=== PATIENT | male | born 1935 | race Caucasian/White ===

== ENCOUNTER → 2016-03-30 | Outpatient (CLI) | payer MEDICARE ==
[2016-03-30 14:21] LABS: Basophils % (A) 0 %; CH 31.2; CHCM 33.5; Eosinophils # (A) 0.1 k/uL (0-0.7); Eosinophils % (A) 1 %; HCT 39.7 % (39.0-53.0); HDW 2.48; HGB 13.4 gm/dL (13.0-17.5); Luc # (Auto) 0.16; Luc % (Auto) 3; Lymphocytes # (A) 2.2 k/uL (1.0-4.8); Lymphocytes % (A) 42 %; MCH 31.6 pg (25.0-35.0); MCHC 33.8 g/dL (31.0-37.0); MCV 93.4 fL (80.0-100.0); Mean Platelet Volume 6.7; Monocytes # (A) 0.4 k/uL (0-1.0); Monocytes % (A) 8 %; Neutrophils # (A) 2.4 k/uL (1.3-7.7); Neutrophils % (A) 46 %; RBC 4.24 m/uL (4.30-5.90); RDW 12.8 % (11.5-15.5); WBC 5.2 k/uL (3.8-10.6); WBC (Perox) 5.57
[2016-03-30 14:22] LABS: Appearance,Urine Clear (Clear); Bilirubin,Urine Negative (Negative); Glucose,Urine (UA) Negative (Negative); Ketones,Urine Negative (Negative); Leukocyte Esterase,Urine Negative (Negative); Nitrite,Urine Negative (Negative); Protein,Urine Negative (Negative); Specific Gravity,Urine 1.013 (1.001-1.035); UA Billing (MACRO vs. MICRO) CHEM; Urobilinogen,Urine <2.0 mg/dL (<2.0)
[2016-03-30 14:27] LABS: ALT 36 U/L (21-72); AST 27 U/L (17-59); Alkaline Phosphatase 67 U/L (38-126); Anion Gap 10 mmol/L; Blood Urea Nitrogen 17 mg/dL (9-20); Calcium 9.4 mg/dL (8.4-10.2); Carbon Dioxide 28 mmol/L (22-30); Chloride 103 mmol/L (98-107); Glucose 109 mg/dL (74-99); Non-African American GFR(MDRD) >60 (>60 ml/min/1.73 sqM); Potassium 4.3 mmol/L (3.5-5.1); Sodium 141 mmol/L (137-145); Total Bilirubin 0.6 mg/dL (0.2-1.3); Total Protein 6.5 g/dL (6.3-8.2)
[2016-03-30 14:34] LABS: INR 1.1 (<1.1); Prothrombin Time 10.8 sec (9.0-12.0)
[2016-03-30 14:40] LABS: Partial Thromboplastin Time 21.6 sec (22.0-30.0)
== END | disposition home or self-care (01) ==
LOC: LABWHC1 13:24
PROVIDERS: ATTEND Orthopaedic Surgery
DX: Z01.812 Encounter for preprocedural laboratory examination (principal); Z51.81 Encounter for therapeutic drug level monitoring; Z79.01 Long term (current) use of anticoagulants
CPT/HCPCS: 80053; 81003; 85025; 85610; 85730

== ENCOUNTER → 2016-04-26 | Outpatient (CLI) | payer MEDICARE ==
--- NOTE | 2016-04-26 12:09 | XR ---
EXAMINATION TYPE: XR chest 2V DATE OF EXAM: 04/26/2016 11:54 AM HISTORY: R05 Cough. REFERENCE: Previous study dated 09/01/2014. FINDINGS: The lungs are clear. Pleural spaces are clear. Heart size is normal. 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 IMPRESSION: NO ACUTE INTRATHORACIC ABNORMALITY.
== END | disposition home or self-care (01) ==
LOC: RADXRMAIN 11:36
PROVIDERS: ATTEND Internal Medicine
DX: R05 Cough (principal)
CPT/HCPCS: 71020

== ENCOUNTER → 2016-05-11 | Outpatient (CLI) | payer MEDICARE ==
[2016-05-11 15:46] LABS: Basophils % (A) 1 %; CH 31.6; CHCM 34.1; Eosinophils # (A) 0.1 k/uL (0-0.7); Eosinophils % (A) 1 %; HCT 40.3 % (39.0-53.0); HDW 2.56; HGB 13.6 gm/dL (13.0-17.5); Luc # (Auto) 0.19; Luc % (Auto) 4; Lymphocytes # (A) 2.4 k/uL (1.0-4.8); Lymphocytes % (A) 48 %; MCH 31.4 pg (25.0-35.0); MCHC 33.7 g/dL (31.0-37.0); MCV 93.3 fL (80.0-100.0); Mean Platelet Volume 7.5; Monocytes # (A) 0.4 k/uL (0-1.0); Monocytes % (A) 7 %; Neutrophils # (A) 1.9 k/uL (1.3-7.7); Neutrophils % (A) 39 %; RBC 4.32 m/uL (4.30-5.90); WBC 4.9 k/uL (3.8-10.6); WBC (Perox) 5.17
[2016-05-11 15:47] LABS: Appearance,Urine Clear (Clear); Bilirubin,Urine Negative (Negative); Glucose,Urine (UA) Negative (Negative); Ketones,Urine Negative (Negative); Leukocyte Esterase,Urine Negative (Negative); Nitrite,Urine Negative (Negative); PH, Urine 6.5 (5.0-8.0); Protein,Urine Negative (Negative); UA Billing (MACRO vs. MICRO) CHEM; Urobilinogen,Urine <2.0 mg/dL (<2.0)
[2016-05-11 15:58] LABS: INR 1.1 (<1.1); Prothrombin Time 11.2 sec (9.0-12.0)
[2016-05-11 16:03] LABS: ALT 39 U/L (21-72); AST 33 U/L (17-59); Alkaline Phosphatase 76 U/L (38-126); Anion Gap 8 mmol/L; Blood Urea Nitrogen 19 mg/dL (9-20); Calcium 9.4 mg/dL (8.4-10.2); Carbon Dioxide 30 mmol/L (22-30); Chloride 102 mmol/L (98-107); Glucose 84 mg/dL (74-99); Non-African American GFR(MDRD) >60 (>60 ml/min/1.73 sqM); Potassium 4.5 mmol/L (3.5-5.1); Sodium 140 mmol/L (137-145); Total Bilirubin 0.5 mg/dL (0.2-1.3); Total Protein 6.9 g/dL (6.3-8.2)
== END | disposition home or self-care (01) ==
LOC: LABPAT 15:00
PROVIDERS: ATTEND Orthopaedic Surgery
DX: Z01.818 Encounter for other preprocedural examination (principal)
CPT/HCPCS: 36415; 80053; 81003; 85025; 85610; 85730; 87070

== ENCOUNTER 2016-05-22 06:32 | Inpatient (IN) | payer MEDICARE ==
[2016-05-11 11:47] VITALS: BMI 26.4
--- NOTE | 2016-05-19 21:09 | CONS ---
Consultation regarding preop medical evaluation. HISTORY OF PRESENT ILLNESS: This gentleman, 80 years of age, is scheduled to undergo right total knee arthroplasty. He suffers from significant pain in the right knee joint and in view of this has been evaluated by Dr. Arevalo and scheduled for the surgery. He had been scheduled for the surgery about a month ago, but had been canceled due to a respiratory infection. The patient has no further symptoms of any infection. He has no open skin sores and has no history of any bleeding disorder. The patient does have a history of coronary artery disease with no symptoms. He does exercise fairly regularly. He does follow with a treasury agent. Past medical history is significant for coronary artery disease with a previous stent. No symptoms. History of carotid bruits with no symptoms. History of obstructive sleep apnea on CPAP. He also has had a previous history of carcinoma of the prostate with adequate control. History of allergic rhinitis and hyperlipidemia. Otherwise, no other major illnesses such as diabetes, liver disease, kidney disease, ulcers, TB, hepatitis. No history of any rheumatic fever, myocardial infarction or CVA. PAST SURGICAL HISTORY: Significant for tonsillectomy, bilateral inguinal herniorrhaphy, bilateral tympanic membrane repairs and cryoablation of the prostate. SOCIAL HISTORY: Patient is and lives with his spouse. He does exercise regularly. FAMILY MEDICAL HISTORY: Mother at the age of 88. She had a history of CVA. Father's history unknown. Brother at age 55 with carcinoma of the pancreas. A brother living, age 84, and coronary artery disease. A brother living, age 81, history of carotid stenosis. A sister living, age 88, in adequate health. A son living, age 53, good health. Son living, age 51, in good health. A daughter living, age 49, in good health. The patient's 81-year-old brother also has some dementia. Sister, 88-year-old, also has some dementia. REVIEW OF SYSTEMS: NEURO: Denies any headaches, dizziness. No double vision, blurred vision. No symptoms of TIA, syncope, seizures. PSYCH: No anxiety, depression. CARDIAC: Denies chest pain, angina, palpitations. RESPIRATORY: Denies shortness of breath. Has chronic cough with no hemoptysis. GI: No nausea, vomiting, abdominal pain, diarrhea. : No symptoms of dysuria, hematuria, urgency, frequency. EXTREMITIES: No pain or edema. CONSTITUTIONAL: No fever or chills. HEMATOLOGICAL: No anemia or bleeding disorder. ENDOCRINE: No history of diabetes mellitus. SKIN: No open sores. CONSTITUTIONAL: No fever, chills, weight gain or weight loss. ENT: Adequate hearing, smell, taste. EYES: Adequate vision. PHYSICAL EXAMINATION: An 80-year-old gentleman who appears younger than stated age. VITALS: Patient is 6 feet tall, weighs 203 pounds, BMI 27.1. Temperature 97.2, pulse 70, regular. HEENT: Normocephalic. NECK: Supple. No JVD. Pupils reactive. Nostrils clear. Oral cavity is moist. Dentition maintained. Ears reveal no drainage. Neck reveals no JVD or thyromegaly. The patient does have a left carotid bruit. Chest is clear to auscultation and percussion. CARDIAC: Normal S1, S2 with no gallops, murmurs, rubs. ABDOMEN: Soft, no palpable masses. Bowel sounds normal. No organomegaly. No abdominal bruits. Extremities reveal no edema. Good pulses, both upper and lower extremities. Neurologically, awake, alert, oriented with well-coordinated movements. LABORATORY ASSESSMENT: An EKG done in December was essentially unremarkable. The patient's echocardiogram done about a year or so ago had revealed adequate ejection fraction with normal left ventricular size and function. There was some calcification of the aortic valve. Carotid duplex studies done in June last year had revealed mild stenosis. Laboratory evaluation on 05/11/2016 had shown no MRSA. Chemistry was normal. INR was normal. CBC was normal. Urinalysis unremarkable. ASSESSMENT: 1. Coronary artery disease, stable. 2. Hypertension, controlled. 3. Degenerative arthritis. 4. History of obstructive sleep apnea. PLAN: The patient at present is stable to undergo the planned surgical procedure. Continue present medical regimen. Patient's medications at home include: 1. Aspirin 81 mg daily. 2. Pravastatin 40 mg daily. 3. Plavix 75 mg daily which has been on hold. 4. Losartan/hydrochlorothiazide 50/12.5, 1 daily. The patient no known drug allergies. Patient recommended not to take any medications the morning of surgery. Postoperatively, continue present medical regimen. The patient's Plavix has been on hold.
[~2016-05-22 06:32] MED LIST: ACETAMINOPHEN TAB 500 MG TAB PO ONE; HYDROmorphone 1 MG/ML 1 ML SYRINGE IVP PRN; LACTATED RINGERS 1,000 ML IV SCH; LIDOCAINE 1% 20 ML VIAL (10MG/ML) FOR IV START INTRADERMA PRN; MELOXICAM 7.5 MG TAB PO ONE; MIDAZOLAM 2 MG/2 ML VIAL IV PRN; ONDANSETRON 4 MG/2 ML VIAL IVP ONE; TRANEXAMIC ACID 1,000 MG in SODIUM CHLORIDE 0.9% 100 ML IVPB ONE; ceFAZolin 2 GM in SODIUM CHLORIDE 0.9% 100 ML IVPB ONE; fentaNYL (PF) 50 MCG/ML 20 ML VIAL IVP PRN
[2016-05-22] MEDS ORDERED: ROPIVACAINE 246.25 MG, EPINEPHrine 0.5 MG, KETOROLAC 30 MG, cloNIDine HCL/PF 80 MCG, WA... MISCELLANE ONE ×5 (07:04)
[2016-05-22] MEDS ORDERED: ceFAZolin 3,000 MG in SODIUM CHLORIDE 0.9% IRRIGATIO 3,000 ML IRRIGATION ONE (08:08)
[2016-05-22] MEDS ORDERED: fentaNYL (PF) 50 MCG/ML 2 ML AMP ONE (08:08)
[2016-05-22] MEDS ORDERED: MIDAZOLAM 2 MG/2 ML VIAL ONE (08:08)
[2016-05-22] MEDS ORDERED: LACTATED RINGERS 1,000 ML IV ONE (09:53)
[2016-05-22] MEDS ORDERED: MAGNESIUM HYDROXIDE 2,400 MG/10 ML CUP PO PRN (10:34)
[2016-05-22] MEDS ORDERED: ACETAMINOPHEN TAB 325 MG TAB PO PRN (10:34)
[2016-05-22] MEDS ORDERED: BISACODYL 10 MG SUPP RECTAL PRN (10:34)
[2016-05-22] MEDS ORDERED: ONDANSETRON 4 MG/2 ML VIAL IVP PRN (10:34)
[2016-05-22] MEDS ORDERED: HYDROmorphone 1 MG/ML 1 ML SYRINGE IVP PRN ×3 (10:34)
[2016-05-22] MEDS ORDERED: NALOXONE 0.4 MG/ML 1 ML VIAL IV PRN (10:34)
[2016-05-22] MEDS ORDERED: hydrOXYzine PAMOATE 25 MG CAP PO PRN (10:34)
[2016-05-22] MEDS ORDERED: HYDROcodone/APAP 5-325MG 1 EACH TAB PO PRN (10:34)
[2016-05-22] MEDS ORDERED: NA PHOS,M-B/NA PHOS,DI-BA 133 ML ENEMA RECTAL PRN (10:34)
[2016-05-22] MEDS ORDERED: TEMAZEPAM 15 MG CAP PO PRN (10:34)
--- NOTE | 2016-05-22 10:34 | P.OP ---
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 ANESTHESIA: Spinal ESTIMATED BLOOD LOSS: 100 ml. FORENSIC PSYCHOLOGIST: Fide Holder PA-C (assistance with: patient positioning, retraction, exposure, hemostasis, leg positioning, implantation, irrigation, closure, dressing) COMPLICATIONS: None apparent. COMPONENTS IMPLANTED: Persona system from [employer] INDICATIONS: Mr. De Leon is a 80 year old male with a history of right knee osteoarthritis and mild genu valgum. The operation of knee replacement has been discussed at length in the office, as well as potential risks and complications. These are inclusive of, but not limited to: bleeding, infection , scarring, discomfort, blood vessel and nerve damage, need for further surgery , failure to relieve symptoms, persistence, recurrence, or worsening of problems , loosening, dislocation, wear, blood clot, pulmonary embolism, , gait dysfunction, stiffness, and other risks as discussed in the office. The patient elects to proceed and the consent form has been signed. PROCEDURE: The patient was taken to the operating room and positioned on the operating room table in the supine position. Anesthesia was initiated. Care was taken to make sure that all pressure points were adequately padded. Range of motion was assessed passively to be -10 extension to 120 flexion. The operative lower extremity was prepped and draped in the usual aseptic fashion using ChloraPrep. Ioban drape was used for the case and the patient received intravenous antibiotics within one hour of the incision. A pneumotourniquet and leg blanchard were used for the case. The limb was exsanguinated with an Esmarch bandage and the tourniquet was inflated to 350 mmHg. Time-out was called confirming the patients identity, side, procedure and administration of tranexamic acid and antibiotics. The incision was then created midline directly over the knee, carried down through skin and into the subcutaneous tissues and down to fascia. Full thickness subcutaneous medial flap was developed. Medial parapatellar arthrotomy was performed and the interior of the knee was inspected. There was end-stage osteoarthritis of the knee with a mild genu valgum type deformity. The fat pad was excised and limited proximal medial release on the tibia was completed using meticulous dissection. The anterior cruciate ligament was taken down. The exposure was excellent. The knee was flexed 90 degrees and the patella was everted. A spot was chosen on the femur approximately 1 cm anterior to the posterior cruciate ligament insertion and an intramedullary hole was created within the femur. The intramedullary guide was then set to 5 degrees of valgus. The distal cutting block was attached and pinned into position. An appropriate amount of distal femoral resection was set. The oscillating saw was then used to make the distal femoral cut. This cut was confirmed to be flat with the flat end of an osteotome. The retractors were placed around the tibia and the tibial surface was addressed. The angle and depth of resection was adjusted using an extramedullary cutting guide. The guide had a built-in 3 degree posterior slope cut. Once the cutting guide was adjusted appropriately and in line with the axis of the tibia and confirmed to be in good position in relation to the second metatarsal and transmalleolar axis, the tibial cut was then created with protection of the posterior neurovascular structures and the collateral ligaments. The tibial cut surface was removed and sized. Femoral sizing was then accomplished using anterior referencing. Care was taken to analyze the posterior condyles for signs of deficiency or severe wear, and adjustments to the guide were made, as appropriate. Moderate to severe posterior spurring was noted, as well as a moderately to severely tight posterior cruciate ligament which therefore was released, see below. 3 degree external rotation pins were placed. The cutting jig for the femur was applied to these pins. The planned cuts were further analyzed prior to performing them with the oscillating saw. No femoral notching was produced. Bone fragments were removed and the cut surfaces were finished, as necessary, with a reciprocating saw. Spacer block technique was then used to confirm that the flexion and extension gaps were equal. Soft tissue releases and adjustment of the tibial and/or femoral cuts were made, as necessary, until the gaps were equal. This included release of the posterior cruciate ligament, which was tight in this patient and , if left unreleased, would have resulted in poor kinematics and possibly early loosening. The femur was then further finished for a posterior cruciate ligament substituting component. Patellar resurfacing was performed using a reamer. The size of the required patellar component was estimated and the patellar surface was then reamed down to a residual thickness which would recreate the algaaciq thickness with the component. The placement of the patellar component was influenced by the degree of patellar subluxation, if any, noted on the preoperative x-rays. Prior to placing trial components, anesthetic solution consisting of ropivicaine with epinephrine, ketorolac, and clonidine was injected carefully and methodically in a grid pattern using aspiration technique into the soft tissue around the knee circumferentially, starting with the deeper tissues first and progressing to fascia, and then finally the skin/subcutaneous tissue. Particular care was taken when injecting the posterior capsule. The trial components were inserted. The tibial tray was allowed to self center and the patella was noted to track very well. The position of the tibial component was marked and the tibia was then finished for a stemmed tibial component. Cement was mixed on the back table and applied to the final components. Trial components were removed and the cut surfaces of the bone were pulse lavaged thoroughly and dried. Cement was then applied to the tibial surface and pressurized into the surface using finger pressurization technique. The tibial component was then applied and excess cement was removed after it was impacted securely and noted to be flush with the cut surface. In similar fashion, the cement was applied to the cut femoral surface, pressurized in using finger pressurization and the component was impacted into place. Excess cement was removed. The polyethylene spacer was then implanted and locked into position. The patellar component was then applied in similar technique and a patellar clamp was used to hold the patella in place as the cement hardened. Once the cement had fully hardened, the knee was reinspected. Any other cement extrusion was removed and final kinematic testing showed range of motion from 0 to 130 degrees with excellent stability, both medially and laterally and appropriate alignment of the leg. Patellar tracking was excellent. The knee was then thoroughly pulse lavaged with normal saline. The tourniquet was deflated and hemostasis was obtained with electrocautery and IV tranexamic acid, 1 g given at the start of the operation and 1 g at the start of closure. Closure was with #2 Ethibond in the fascia and supplemented with #2 Quill, 2-0 Vicryl suture was used for the subcutaneous tissues and 3-0 Quill for the skin. Dermabond/Steri-Strips were then applied. A lightly compressive dressing was applied using Webril and an Rolan wrap. The patient was then transferred to stretcher and taken to the recovery room in stable condition. Sponge and needle counts were correct.
--- NOTE | 2016-05-22 11:19 | XR ---
EXAMINATION TYPE: XR knee limited RT DATE OF EXAM: 05/22/2016 11:06 AM COMPARISON: NONE TECHNIQUE: One view submitted HISTORY: Post op FINDINGS: There is a prosthetic knee in near anatomic alignment. There is soft tissue edema and emphysema. IMPRESSION: 1. Postoperative change. Appears in near-anatomic alignment
[2016-05-22] MEDS: LACTATED RINGERS 1,000 ML IV SCH ×2 (12:50→18:22)
[2016-05-22] MEDS: ceFAZolin 2 GM in SODIUM CHLORIDE 0.9% 100 ML IVPB SCH (18:21)
[2016-05-22] MEDS ORDERED: SENNOSIDES-DOCUSATE SODIUM 1 EACH TAB PO SCH (21:00)
[2016-05-22] MEDS ORDERED: ASPIRIN 325 MG TAB PO SCH (21:00)
[2016-05-22] MEDS ORDERED: PRAVASTATIN SODIUM 40 MG TAB PO SCH (21:00)
[2016-05-22] MEDS: HYDROcodone/APAP 5-325MG 1 EACH TAB PO PRN (21:45)
[2016-05-23] MEDS: ceFAZolin 2 GM in SODIUM CHLORIDE 0.9% 100 ML IVPB SCH (00:43)
[2016-05-23] MEDS: HYDROcodone/APAP 5-325MG 1 EACH TAB PO PRN ×2 (06:08→12:37)
[2016-05-23] MEDS: LACTATED RINGERS 1,000 ML IV SCH ×2 (06:12→15:05)
[2016-05-23 07:23] LABS: Basophils % (A) 0 %; CH 31.3; CHCM 34.2; Eosinophils # (A) 0.1 k/uL (0-0.7); Eosinophils % (A) 1 %; HCT 33.7 % (39.0-53.0); HDW 2.47; HGB 11.2 gm/dL (13.0-17.5); Luc # (Auto) 0.21; Luc % (Auto) 3; Lymphocytes # (A) 1.2 k/uL (1.0-4.8); Lymphocytes % (A) 17 %; MCH 30.6 pg (25.0-35.0); MCHC 33.3 g/dL (31.0-37.0); MCV 91.9 fL (80.0-100.0); Mean Platelet Volume 7.9; Monocytes # (A) 0.7 k/uL (0-1.0); Monocytes % (A) 10 %; Neutrophils # (A) 4.8 k/uL (1.3-7.7); Neutrophils % (A) 69 %; RBC 3.67 m/uL (4.30-5.90); RDW 12.8 % (11.5-15.5); WBC (Perox) 7.61
[2016-05-23 07:49] VITALS: RESP 16
[2016-05-23] MEDS ORDERED: ASPIRIN 81 MG CHEW PO SCH (09:00)
[2016-05-23] MEDS ORDERED: METOPROLOL TARTRATE 12.5 MG TAB PO SCH (09:00)
[2016-05-23] MEDS ORDERED: MELOXICAM 7.5 MG TAB PO SCH (09:00)
--- NOTE | 2016-05-23 09:27 | P.DS ---
Providers Date of admission: 05/22/16 06:32 Expected date of discharge: 05/23/16 Attending physician: Juan Arevalo Consults: 05/22/16 13:33 Consult Physician Routine Consulting Provider: Kenton Feliciano Reason/Comments: MEDICAL MANAGEMENT Do you want consulting provider notified?: Already Contacted Primary care physician: Kenton Feliciano [facility] Course: Patient was admitted the OR on 05/22/2016 to undergo right total knee arthroplasty per Dr. Arevalo. He did fail conservative measures as an outpatient and desired to proceed with surgical intervention after given informed consent. He underwent the above procedure which she tolerated well without competition. His postoperative hospital hospital course has remained without complication. On day of discharge he is being discharged to home. He is afebrile, vital signs are stable, wound is benign,, neurovascular status is intact, abdomen is soft and nontender, calf is soft and nontender. He is denying any new complaints. Pain is controlled with oral pain medication. He is tolerating by mouth meds and diet, voiding without difficulty, passing flatus and tolerating physical therapy. Review of systems is negative for fever , chills, chest pain, shortness of breath, nausea, vomiting, dizziness, headaches, slurred speech, calf pain, abdominal pain, cough or other. Procedures: Right total knee arthroplasty Patient Condition at Discharge: Good Plan - Discharge Summary New Discharge Prescriptions: Aspirin 325 mg PO BID #120 tab HYDROcodone/APAP 5-325MG [[place] 5] 1 - 2 each PO Q4-6H PRN #90 tab PRN Reason: Pain Sennosides-Docusate Sodium [Senokot-S] 1 tab PO BID #60 tablet Discharge Medication List Gluc/Yogi-MSM#1/C/Cameron/Steven/Bor [Glucosamine-Chondroitin Tablet] 1 tab PO BID [History] Multivitamins, Thera [Multivitamin (formulary)] 1 tab PO DAILY 08/31/14 [History ] Clopidogrel [Plavix] 75 mg PO DAILY 08/26/15 [History] Losartan/Hydrochlorothiazide [Losartan-Hctz 50-12.5 mg Tab] 1 tab PO QAM [History] Metoprolol Tartrate [Lopressor] 12.5 mg PO QAM 08/26/15 [History] Pravastatin Sodium [Pravastatin Sodium] 40 mg PO HS 08/26/15 [History] Ascorbic Acid [Vitamin C] 500 mg PO DAILY 03/29/16 [History] Cholecalciferol [Vitamin D3] 1,000 unit PO DAILY 03/29/16 [History] Fish Oil/Dha/Epa [Fish Oil 1,200 mg Fish Oil] 1 cap PO BID 03/29/16 [History] Green Tea Extract 1 tab PO DAILY 03/29/16 [History] Nitroglycerin Sl Tabs [Nitrostat] 0.4 mg SUBLINGUAL DIRECTED PRN 03/29/16 [ History] Aspirin 81 mg PO DAILY 05/22/16 [History] Aspirin 325 mg PO BID #120 tab 05/22/16 [Rx] HYDROcodone/APAP 5-325MG [[place] 5] 1 - 2 each PO Q4-6H PRN #90 tab 05/22/16 [Rx] Sennosides-Docusate Sodium [Senokot-S] 1 tab PO BID #60 tablet 05/22/16 [Rx] Follow up Appointment(s)/Referral(s): Juan Arevalo MD [STAFF PHYSICIAN] - 2 Weeks Ambulatory/Diagnostic Orders: Continuous Passive Motion (CPM) Machine [DME.AMB1] Time Frame: 3 Weeks, Facility : [facility], Location: Case Management Activity/Diet/Wound Care/Special Instructions: May shower if no drainage from incision. CPM 5-6h daily. May bear wt as tolerated. take meds as directed Weight bear as tolerated Discharge Disposition: HOME WITH HOME HEALTH SERVICES
[2016-05-23] MEDS ORDERED: MULTIVITAMINS, THERA 1 EACH TAB PO SCH (12:00)
[2016-05-23] MEDS ORDERED: CLOPIDOGREL 75 MG TAB PO SCH (12:30)
--- NOTE | 2016-05-23 13:13 | PN ---
CHIEF COMPLAINT: Re-evaluation. HISTORY OF PRESENT ILLNESS: An 80-year-old gentleman was admitted to the hospital and underwent right total knee arthroplasty. The patient is doing well. He has underlying history of hypertension and coronary artery disease. REVIEW OF SYSTEMS: NEURO: Denies any headaches, dizziness. PSYCH: No anxiety. CARDIAC: No chest pain, angina, palpitation. RESPIRATORY: No shortness of breath, cough. GI: No nausea, vomiting, abdominal pain. : No symptoms of dysuria, hematuria. Has IDC. EXTREMITIES: No pain. CONSTITUTIONAL: No fever or chills. PHYSICAL EXAMINATION: Pleasant gentleman in no distress. VITALS: Temperature 97.9, pulse 70, respirations 17, blood pressure 123/51, pulse ox 99% on 2 liters. HEENT: Normocephalic. NECK: No JVD. CHEST: Clear to auscultation. CARDIAC: Normal S1, S2 with no gallops, murmurs. ABDOMEN: Soft. Bowel sounds present. EXTREMITIES: No edema. NEUROLOGIC: Awake, alert, oriented with well-coordinated movements in both upper extremities LABORATORY ASSESSMENT: None. ASSESSMENT: 1. Coronary artery disease, stable. 2. Hypertension, controlled. 3. Status post right total knee arthroplasty. PLAN: The patient is stable. Continue present medical regimen. The patient's condition discussed with the patient. Prognosis guarded. Medications reconciled.
[2016-05-23 14:19] VITALS: BP 110/56; PULSE 79; TEMP 98.7
--- NOTE | 2016-05-24 08:36 | PN ---
CHIEF COMPLAINT: Re-evaluation. HISTORY OF PRESENT ILLNESS: This is an 80-year-old gentleman who is status post right total knee arthroplasty. He is doing fairly well. REVIEW OF SYSTEMS: NEURO: Denies any headaches, dizziness. PSYCH: No anxiety. CARDIAC: No chest pain, angina, palpitation. RESPIRATORY: No shortness of breath, cough. GI: No nausea, vomiting, abdominal pain, diarrhea. : No symptoms of dysuria or hematuria. EXTREMITIES: Some pain in the right knee. CONSTITUTIONAL: No fever or chills. PHYSICAL EXAMINATION: Pleasant gentleman in no distress. Vital signs recorded this morning was temperature 99, pulse 81, respirations 16, blood pressure 110/51, pulse ox 93% on room air. HEENT: Normocephalic. NECK: No JVD. Chest is clear to auscultation. CARDIAC: Normal S1, S2 with no gallops, murmurs. ABDOMEN: Soft. Bowel sounds present. EXTREMITIES: No edema. NEUROLOGIC: Awake, alert, oriented with well coordinated movements upper extremities. Laboratory assessment reveals a hemoglobin which was 11.2. ASSESSMENT: 1. Hypertension, controlled. 2. Coronary artery disease, stable. 3. Anemia secondary to acute blood loss. 4. Status post right knee arthroplasty. PLAN: The patient is stable. Continue present medical regimen. Patient's condition discussed with the patient. Prognosis guarded. I was called later that the patient was being discharged by Orthopedics. Recommended the patient continue aspirin and Plavix; aspirin 81 and Plavix 75 daily.
[2016-05-24] MEDS ORDERED: LOSARTAN-HCTZ 50-12.5 MG 1 EACH TAB PO SCH (09:00)
== END 2016-05-23 15:45 | disposition home health service (06) | DRG 470 ==
LOC: 2ORMAIN 06:32 → 3SUR 10:42
PROVIDERS: ADMIT Orthopaedic Surgery; ATTEND Orthopaedic Surgery
PROC: 0SRC0J9 Replacement of Right Knee Joint with Synthetic Substitute, Cemented, Open Approach (ICD-10-PCS; principal; 2016-05-22 08:00)
DX: M17.11 Unilateral primary osteoarthritis, right knee (principal); D62 Acute posthemorrhagic anemia; I10 Essential (primary) hypertension; M25.70 Osteophyte, unspecified joint; M21.069 Valgus deformity, not elsewhere classified, unspecified knee; E78.5 Hyperlipidemia, unspecified; G47.33 Obstructive sleep apnea (adult) (pediatric); I25.10 Atherosclerotic heart disease of native coronary artery without angina pectoris; Z82.49 Family history of ischemic heart disease and other diseases of the circulatory system; Z85.46 Personal history of malignant neoplasm of prostate; Z95.5 Presence of coronary angioplasty implant and graft; J30.9 Allergic rhinitis, unspecified; Z79.02 Long term (current) use of antithrombotics/antiplatelets; Z79.82 Long term (current) use of aspirin; Z79.899 Other long term (current) drug therapy
CPT/HCPCS: 85025; 88300

== ENCOUNTER 2017-01-08 10:27 | Observation (INO) | payer MEDICARE ==
[2017-01-08] MEDS ORDERED: NITROGLYCERIN OINT 1 INCH/GM PACKET TOPICAL STA (10:43)
[2017-01-08] MEDS ORDERED: ASPIRIN 81 MG PO STA (10:43)
--- NOTE | 2017-01-08 10:51 | ED ---
General Adult HPI - General Chief complaint: Chest Pain Stated complaint: chest pain Time Seen by Provider: 01/08/17 10:39 Source: patient, RN notes reviewed Mode of arrival: wheelchair Limitations: no limitations - History of Present Illness Initial comments: Patient is a pleasant 81-year-old male presenting to the emergency department complaining of chest discomfort. Onset of symptoms was 7 AM. Patient was moving the trash cans. Patient states he took 2 nitroglycerin and is now near symptom-free. Symptoms are similar to previous times when he needed heart stents. This was 2 years ago. Discomfort is near resolved at this time. Discomfort was more severe earlier. No associated nausea diaphoresis. No associated dyspnea. Discomfort felt like tightness. Discomfort was in the left chest. Patient has had some similar symptoms over the past several weeks. - Related Data Home Medications Medication Instructions Recorded Confirmed Glucosam/Yogi-Msm1/C/Cameron/Bosw 1 tab PO BID 08/31/14 01/08/17 [Glucosamine-Chondroitin Tablet] Multivitamins, Thera [Multivitamin 1 tab PO DAILY 08/31/14 01/08/17 (formulary)] Clopidogrel [Plavix] 75 mg PO DAILY 08/26/15 01/08/17 Losartan/Hydrochlorothiazide 1 tab PO QAM 08/26/15 01/08/17 [Losartan-Hctz 50-12.5 mg Tab] Metoprolol Tartrate [Lopressor] 12.5 mg PO QAM 08/26/15 01/08/17 Pravastatin Sodium [Pravastatin 40 mg PO HS 08/26/15 01/08/17 Sodium] Ascorbic Acid [Vitamin C] 500 mg PO DAILY 03/29/16 01/08/17 Cholecalciferol [Vitamin D3] 1,000 unit PO DAILY 03/29/16 01/08/17 Fish Oil/Dha/Epa [Fish Oil 1,200 1 cap PO BID 03/29/16 01/08/17 mg Fish Oil] Nitroglycerin Sl Tabs [Nitrostat] 0.4 mg SUBLINGUAL Q5M PRN 03/29/16 01/08/17 Aspirin 81 mg PO DAILY 05/22/16 01/08/17 Allergies Allergy/AdvReac Type Severity Reaction Status Date / Time levofloxacin [From Levaquin] Allergy Severe Swelling Verified 01/08/17 10:48 of face cat dander Allergy SINUS Verified 01/08/17 10:48 PROBLEMS dog dander Allergy SINUS Verified 01/08/17 10:48 PROBLEMS" hydrocodone Allergy Rash/Hives Verified 01/08/17 10:48 [place] TREES Allergy Rash/Hives Uncoded 01/08/17 10:33 Review of Systems ROS Statement: Those systems with pertinent positive or pertinent negative responses have been documented in the HPI. ROS Other: All systems not noted in ROS Statement are negative. Constitutional: Denies: fever Eyes: Denies: eye pain ENT: Denies: ear pain Respiratory: Denies: cough Cardiovascular: Reports: chest pain Endocrine: Denies: fatigue Gastrointestinal: Denies: abdominal pain Genitourinary: Denies: dysuria Musculoskeletal: Denies: back pain Skin: Denies: rash Neurological: Denies: weakness Past Medical History Past Medical History: Cancer, Chest Pain / Angina, Hyperlipidemia, Prostate Disorder, Sleep Apnea/CPAP/BIPAP Additional Past Medical History / Comment(s): hx prostate cancer, History of Any Multi-Drug Resistant Organisms: None Reported Past Surgical History: Heart Catheterization With Stent, Hernia Repair, Orthopedic Surgery, Prostate Surgery, Tonsillectomy Additional Past Surgical History / Comment(s): prostate cryotherapy, rt shoulder shoulder rotator cuff, cataracts, Past Anesthesia/Blood Transfusion Reactions: No Reported Reaction Date of Last Stent Placement:: 09/07/14 Past Psychological History: No Psychological Hx Reported Smoking Status: Former smoker Past Alcohol Use History: Daily Past Drug Use History: None Reported - Past Family History Mother Additional Family Medical History / Comment(s): passes away with collapsed carotid artery Father History Unknown: Yes Brother(s) Family Medical History: Cancer Additional Family Medical History / Comment(s): pancreatic General Exam Limitations: no limitations General appearance: alert, in no apparent distress Head exam: Present: atraumatic Eye exam: Present: normal appearance, PERRL ENT exam: Present: normal oropharynx Neck exam: Present: normal inspection Respiratory exam: Present: normal lung sounds bilaterally. Absent: chest wall tenderness Cardiovascular Exam: Present: regular rate, normal rhythm Expanded Peripheral pulses: 2+: Radial (R), Radial (L), Dorsalis Pedis (R), Dorsalis Pedis (L) GI/Abdominal exam: Present: soft. Absent: tenderness Extremities exam: Present: normal inspection. Absent: pedal edema, calf tenderness Neurological exam: Present: alert Psychiatric exam: Present: normal affect, normal mood Skin exam: Present: normal color Course Vital Signs 01/08/17 01/08/17 10:31 11:20 Temperature 97.6 F Pulse Rate 74 64 Respiratory 16 16 Rate Blood Pressure 162/67 157/70 O2 Sat by Pulse 98 100 Oximetry EKG Findings - EKG Comments: EKG Findings:: Normal sinus rhythm 73. NH 170. QRS 88. QT 374. QTC 412. Normal axis. Normal QRS. No acute ST change. Medical Decision Making - Medical Decision Making Patient reexamined and resting comfortably in bed. Patient updated on results and plan. Case was discussed in detail with Dr. Feliciano who is familiar with this patient and will admit. Cardiology consult - Lab Data Result diagrams: 01/08/17 10:45 01/08/17 10:45 Lab Results 01/08/17 01/08/17 01/08/17 Range/Units 10:45 10:45 10:45 WBC 6.6 (3.8-10.6) k/uL RBC 4.51 (4.30-5.90) m/uL Hgb 13.7 (13.0-17.5) gm/dL Hct 41.2 (39.0-53.0) % MCV 91.4 (80.0-100.0) fL MCH 30.3 (25.0-35.0) pg MCHC 33.2 (31.0-37.0) g/dL RDW 13.8 (11.5-15.5) % Plt Count 229 (150-450) k/uL Neutrophils % 48 % Lymphocytes % 39 % Monocytes % 8 % Eosinophils % 2 % Basophils % 0 % Neutrophils # 3.2 (1.3-7.7) k/uL Lymphocytes # 2.6 (1.0-4.8) k/uL Monocytes # 0.5 (0-1.0) k/uL Eosinophils # 0.1 (0-0.7) k/uL Basophils # 0.0 (0-0.2) k/uL PT (9.0-12.0) sec INR (<1.2) APTT (22.0-30.0) sec Sodium 138 (137-145) mmol/L Potassium 4.5 (3.5-5.1) mmol/L Chloride 105 (98-107) mmol/L Carbon Dioxide 26 (22-30) mmol/L Anion Gap 7 mmol/L BUN 22 H (9-20) mg/dL Creatinine 0.92 (0.66-1.25) mg/dL Est GFR (MDRD) Af Amer >60 (>60 ml/min/1.73 sqM) Est GFR (MDRD) Non-Af >60 (>60 ml/min/1.73 sqM) Glucose 83 (74-99) mg/dL Calcium 9.4 (8.4-10.2) mg/dL Magnesium 2.0 (1.6-2.3) mg/dL Total Bilirubin 0.4 (0.2-1.3) mg/dL AST 26 (17-59) U/L ALT 31 (21-72) U/L Alkaline Phosphatase 79 (38-126) U/L Total Creatine Kinase 81 (55-170) U/L CK-MB (CK-2) 1.3 (0.0-2.4) ng/mL CK-MB (CK-2) Rel Index 1.6 Troponin I <0.012 (0.000-0.034) ng/mL Total Protein 7.0 (6.3-8.2) g/dL Albumin 4.2 (3.5-5.0) g/dL 01/08/17 Range/Units 10:45 WBC (3.8-10.6) k/uL RBC (4.30-5.90) m/uL Hgb (13.0-17.5) gm/dL Hct (39.0-53.0) % MCV (80.0-100.0) fL MCH (25.0-35.0) pg MCHC (31.0-37.0) g/dL RDW (11.5-15.5) % Plt Count (150-450) k/uL Neutrophils % % Lymphocytes % % Monocytes % % Eosinophils % % Basophils % % Neutrophils # (1.3-7.7) k/uL Lymphocytes # (1.0-4.8) k/uL Monocytes # (0-1.0) k/uL Eosinophils # (0-0.7) k/uL Basophils # (0-0.2) k/uL PT 10.5 (9.0-12.0) sec INR 1.0 (<1.2) APTT 21.6 L (22.0-30.0) sec Sodium (137-145) mmol/L Potassium (3.5-5.1) mmol/L Chloride (98-107) mmol/L Carbon Dioxide (22-30) mmol/L Anion Gap mmol/L BUN (9-20) mg/dL Creatinine (0.66-1.25) mg/dL Est GFR (MDRD) Af Amer (>60 ml/min/1.73 sqM) Est GFR (MDRD) Non-Af (>60 ml/min/1.73 sqM) Glucose (74-99) mg/dL Calcium (8.4-10.2) mg/dL Magnesium (1.6-2.3) mg/dL Total Bilirubin (0.2-1.3) mg/dL AST (17-59) U/L ALT (21-72) U/L Alkaline Phosphatase (38-126) U/L Total Creatine Kinase (55-170) U/L CK-MB (CK-2) (0.0-2.4) ng/mL CK-MB (CK-2) Rel Index Troponin I (0.000-0.034) ng/mL Total Protein (6.3-8.2) g/dL Albumin (3.5-5.0) g/dL - Radiology Data Radiology results: image reviewed (Chest x-ray shows no acute process) Critical Care Time Critical Care Time: Yes Total Critical Care Time: 31 Disposition Clinical Impression: Unstable angina pectoris Disposition: ADMITTED IP TO THIS [facility] Referrals: Kenton Feliciano MD [Primary Care Provider] - 1-2 days Decision Time: 12:13
[2017-01-08 11:05] LABS: Basophils % (A) 0 %; CH 30.3; CHCM 33.3; Eosinophils # (A) 0.1 k/uL (0-0.7); Eosinophils % (A) 2 %; HCT 41.2 % (39.0-53.0); HDW 2.36; HGB 13.7 gm/dL (13.0-17.5); Luc # (Auto) 0.21; Luc % (Auto) 3; Lymphocytes # (A) 2.6 k/uL (1.0-4.8); Lymphocytes % (A) 39 %; MCH 30.3 pg (25.0-35.0); MCHC 33.2 g/dL (31.0-37.0); MCV 91.4 fL (80.0-100.0); Mean Platelet Volume 7.4; Monocytes # (A) 0.5 k/uL (0-1.0); Monocytes % (A) 8 %; Neutrophils # (A) 3.2 k/uL (1.3-7.7); Neutrophils % (A) 48 %; RBC 4.51 m/uL (4.30-5.90); RDW 13.8 % (11.5-15.5); WBC 6.6 k/uL (3.8-10.6); WBC (Perox) 6.97
[2017-01-08 11:14] LABS: Prothrombin Time 10.5 sec (9.0-12.0)
[2017-01-08 11:19] LABS: ALT 31 U/L (21-72); AST 26 U/L (17-59); Alkaline Phosphatase 79 U/L (38-126); Anion Gap 7 mmol/L; Blood Urea Nitrogen 22 mg/dL (9-20); Calcium 9.4 mg/dL (8.4-10.2); Carbon Dioxide 26 mmol/L (22-30); Chloride 105 mmol/L (98-107); Glucose 83 mg/dL (74-99); Non-African American GFR(MDRD) >60 (>60 ml/min/1.73 sqM); Potassium 4.5 mmol/L (3.5-5.1); Sodium 138 mmol/L (137-145); Total Bilirubin 0.4 mg/dL (0.2-1.3)
--- NOTE | 2017-01-08 11:24 | XR ---
EXAMINATION TYPE: XR chest 2V DATE OF EXAM: 01/08/2017 COMPARISON: 04/26/2016 HISTORY: Chest pain TECHNIQUE: Frontal and lateral views of the chest are obtained. FINDINGS: There is no focal air space opacity, pleural effusion, or pneumothorax seen. The cardiac silhouette size is within normal limits. The osseous structures are intact. Multilevel degenerative disc disease is seen of the thoracic spine, moderate in degree. IMPRESSION: No acute cardiopulmonary process.
[2017-01-08 11:30] LABS: Creatine Kinase 81 U/L (55-170)
[2017-01-08 11:32] LABS: Partial Thromboplastin Time 21.6 sec (22.0-30.0)
[2017-01-08 11:43] LABS: Creatine Kinase MB 1.3 ng/mL (0.0-2.4); Troponin I <0.012 ng/mL (0.000-0.034)
[2017-01-08] MEDS ORDERED: HEPARIN SODIUM,PORCINE 5,000 UNIT/ML 1 ML VIAL IV ONE (12:13)
[2017-01-08] MEDS ORDERED: NITROGLYCERIN SL TABS 0.4 MG TAB SUBLINGUAL PRN ×2 (12:13→16:04)
[2017-01-08] MEDS ORDERED: HEPARIN SODIUM,PORCINE/D5W PMX 25,000 UNIT in DEXTROSE/WATER 1 500ML.BAG IV SCH (12:15)
--- NOTE | 2017-01-08 15:59 | P.CRDCN ---
History of Present Illness Consult date: 01/08/17 Requesting physician: Kenton Feliciano Consult reason: chest pain Chief complaint: Chest pain History of present illness: This is an 81-year-old gentleman with history of hyperlipidemia, who underwent a cardiac catheterization in September 2014 which revealed a right dominant system with Ostial RCA stenosis of 80% and proximal stenosis of another 70-80% with heavily calcified ostium in the proximal one third of the RCA. Left system had noncritical disease in the filling pressures at that time are normal, patient underwent PTCA and stenting of a heavily calcified ostial RCA at that time. According to the patient, he's been doing fairly well overall , he states that he exercises 3 times a week and knows his limitations. Once he starts to feel mildly short of breath he stops what he is doing. He states that just walking up his driveway at times he's been notably short of breath. He presents to the hospital on this occasion with symptoms of midsternal chest pressure and fullness. He states that he was walking his trash out to the curb when the symptoms started. Patient also states that he had an uncomfortable feeling in his throat and an unusual taste in his mouth. He denies any overt shortness of breath, no sweating or nausea. According to the patient, he took 2 sublingual nitroglycerin with relief of symptoms. Patient does state that he has had similar discomfort earlier in the week. Blood pressure on arrival here 167/67, heart rate in the 70s, 92% on room air. CBC is normal, potassium 4.5, BUN 22, creatinine 0.9. Troponin 0.012. EKG on presentation here showed a normal sinus rhythm with no acute changes. Repeat EKG showed a normal sinus rhythm with a left bundle-branch block pattern with T-wave inversion in the lateral leads, anterior T-wave changes. Patient since he's been here at the hospital has been pain-free. Past Medical History Past Medical History: Cancer, Chest Pain / Angina, Hyperlipidemia, Prostate Disorder, Sleep Apnea/CPAP/BIPAP Additional Past Medical History / Comment(s): hx prostate cancer, History of Any Multi-Drug Resistant Organisms: None Reported Past Surgical History: Heart Catheterization With Stent, Hernia Repair, Orthopedic Surgery, Prostate Surgery, Tonsillectomy Additional Past Surgical History / Comment(s): prostate cryotherapy, rt shoulder shoulder rotator cuff, cataracts, Past Anesthesia/Blood Transfusion Reactions: No Reported Reaction Date of Last Stent Placement:: 09/07/14 Past Psychological History: No Psychological Hx Reported Smoking Status: Former smoker Past Alcohol Use History: Daily Past Drug Use History: None Reported - Past Family History Mother Additional Family Medical History / Comment(s): passes away with collapsed carotid artery Father History Unknown: Yes Brother(s) Family Medical History: Cancer Additional Family Medical History / Comment(s): pancreatic Medications and Allergies Home Medications Medication Instructions Recorded Confirmed Type Glucosam/Yogi-Msm1/C/Cameron/Bosw 1 tab PO BID 08/31/14 01/08/17 History [Glucosamine-Chondroitin Tablet] Multivitamins, Thera [Multivitamin 1 tab PO DAILY 08/31/14 01/08/17 History (formulary)] Clopidogrel [Plavix] 75 mg PO DAILY 08/26/15 01/08/17 History Losartan/Hydrochlorothiazide 1 tab PO QAM 08/26/15 01/08/17 History [Losartan-Hctz 50-12.5 mg Tab] Metoprolol Tartrate [Lopressor] 12.5 mg PO QAM 08/26/15 01/08/17 History Pravastatin Sodium [Pravastatin 40 mg PO HS 08/26/15 01/08/17 History Sodium] Ascorbic Acid [Vitamin C] 500 mg PO DAILY 03/29/16 01/08/17 History Cholecalciferol [Vitamin D3] 1,000 unit PO DAILY 03/29/16 01/08/17 History Fish Oil/Dha/Epa [Fish Oil 1,200 1 cap PO BID 03/29/16 01/08/17 History mg Fish Oil] Nitroglycerin Sl Tabs [Nitrostat] 0.4 mg SUBLINGUAL Q5M PRN 03/29/16 01/08/17 History Aspirin 81 mg PO DAILY 05/22/16 01/08/17 History Allergies Allergy/AdvReac Type Severity Reaction Status Date / Time levofloxacin [From Levaquin] Allergy Severe Swelling Verified 01/08/17 10:48 of face cat dander Allergy SINUS Verified 01/08/17 10:48 PROBLEMS dog dander Allergy SINUS Verified 01/08/17 10:48 PROBLEMS" hydrocodone Allergy Rash/Hives Verified 01/08/17 10:48 [place] Allergy Rash/Hives Uncoded 01/08/17 10:33 Physical Exam Vitals: Vital Signs Temp Pulse Resp BP Pulse Ox 01/08/17 13:51 96.7 F L 72 18 167/67 97 01/08/17 12:39 70 16 178/79 97 01/08/17 11:20 64 16 157/70 100 01/08/17 10:31 97.6 F 74 16 162/67 98 Intake and Output 01/08/17 01/08/17 01/08/17 06:59 14:59 22:59 Other: Weight 89.811 kg Patient Weight 01/09/17 06:59 Weight 89.811 kg PHYSICAL EXAMINATION: HEENT: Head is atraumatic, normocephalic. Pupils equal, round. Neck is supple. There is no elevated jugular venous pressure. HEART EXAMINATION: Heart S1, S2 normal. No murmur or gallop heard. CHEST EXAMINATION: Lungs are clear to auscultation and precussion. No chest wall tenderness is noted on palpation or with deep breathing. ABDOMEN: Soft, nontender. Bowel sounds are heard. No organomegaly noted. EXTREMITIES: 2+ peripheral pulses with no evidence of peripheral edema and no calf tenderness noted. NEUROLOGIC patient is awake, alert and oriented -3. . Results 01/08/17 10:45 01/08/17 10:45 Cardiac Enzymes 01/08/17 01/08/17 Range/Units 10:45 10:45 AST 26 (17-59) U/L CK-MB (CK-2) 1.3 (0.0-2.4) ng/mL Troponin I <0.012 (0.000-0.034) ng/mL Coagulation 01/08/17 Range/Units 10:45 PT 10.5 (9.0-12.0) sec APTT 21.6 L (22.0-30.0) sec CBC 01/08/17 Range/Units 10:45 WBC 6.6 (3.8-10.6) k/uL RBC 4.51 (4.30-5.90) m/uL Hgb 13.7 (13.0-17.5) gm/dL Hct 41.2 (39.0-53.0) % Plt Count 229 (150-450) k/uL Comprehensive Metabolic Panel 01/08/17 Range/Units 10:45 Sodium 138 (137-145) mmol/L Potassium 4.5 (3.5-5.1) mmol/L Chloride 105 (98-107) mmol/L Carbon Dioxide 26 (22-30) mmol/L BUN 22 H (9-20) mg/dL Creatinine 0.92 (0.66-1.25) mg/dL Glucose 83 (74-99) mg/dL Calcium 9.4 (8.4-10.2) mg/dL AST 26 (17-59) U/L ALT 31 (21-72) U/L Alkaline Phosphatase 79 (38-126) U/L Total Protein 7.0 (6.3-8.2) g/dL Albumin 4.2 (3.5-5.0) g/dL Current Medications Generic Name Dose Route Start Last Admin Trade Name Freq PRN Reason Stop Dose Admin Aspirin 325 mg 01/09/17 09:00 Aspirin PO DAILY [facility] Heparin Sodium (Porcine) 0 unit 01/08/17 12:13 Heparin IV Q6HR PRN Low PTT Protocol Heparin Sodium/Dextrose 25,000 500 mls @ 19.99 mls/hr 01/08/17 12:15 12:31 unit/ IV Solution IV 11.13 units/kg/hr .Q24H LETI 19.99 mls/hr Protocol Administration 11.13 UNITS/KG/HR Nitroglycerin 1 inch 01/08/17 18:00 Nitro-Bid Oint TOPICAL Q6HR [facility] Nitroglycerin 0.4 mg 01/08/17 12:13 Nitrostat SUBLINGUAL Q5M PRN Chest Pain Intake and Output 01/08/17 01/08/17 01/08/17 06:59 14:59 22:59 Other: Weight 89.811 kg Patient Weight 01/09/17 06:59 Weight 89.811 kg 01/08/17 10:45 01/08/17 10:45 EKG Interpretations (text) Initial EKG shows a normal sinus rhythm with no acute changes. Subsequent EKG shows normal sinus rhythm with left bundle branch block pattern, lateral T-wave inversion and anterior ST-T wave changes. Assessment and Plan Plan: Assessment and plan #1 chest pressure and tightness, suggestive of possible acute coronary syndrome. Initial troponin 0.012. EKG shows normal sinus rhythm with no acute changes. Subsequent EKG shows a normal sinus rhythm with left bundle branch block pattern, lateral T-wave inversion and anterior ST-T wave changes #2 known history of coronary artery disease with prior RCA stenting in 2014 #3 hyperlipidemia #4 hypertension Plan We will obtain a stat echocardiogram with Doppler study. Patient has been initiated on IV heparin along with aspirin and Nitropaste, we will continue these. We will also start the patient on his statin, metoprolol tartrate, losartan. Patient has been advised to undergo cardiac catheterization tomorrow by Dr. Jerson Hendricks. The risks and the benefits were explained to the patient in detail and he is willing to proceed. DNP note has been reviewed, I agree with a documented findings and plan of care. Patient was seen and examined.
[2017-01-08] MEDS ORDERED: ATORVASTATIN 80 MG TAB PO STA (16:04)
[2017-01-08] MEDS ORDERED: ALPRAZolam 0.5 MG TAB PO PRN (16:04)
[2017-01-08] MEDS ORDERED: ALPRAZolam 0.25 MG TAB PO PRN (16:04)
[2017-01-08] MEDS ORDERED: ASPIRIN 325 MG TAB PO STA (16:04)
[2017-01-08] MEDS ORDERED: SODIUM CHLORIDE 0.9% 1,000 ML in EMPTY BAG 1 BAG IV ONE (16:04)
[2017-01-08 17:16] LABS: Creatine Kinase 69 U/L (55-170)
[2017-01-08 17:29] LABS: Creatine Kinase MB 1.1 ng/mL (0.0-2.4); Troponin I <0.012 ng/mL (0.000-0.034)
[2017-01-08] MEDS: HEPARIN SODIUM,PORCINE 5,000 UNIT/ML 1 ML VIAL IV PRN (17:48)
[2017-01-08] MEDS: NITROGLYCERIN OINT 1 INCH/GM PACKET TOPICAL SCH ×2 (17:48→22:44)
[2017-01-08] MEDS ORDERED: PRAVASTATIN SODIUM 40 MG TAB PO SCH (21:00)
--- NOTE | 2017-01-08 22:48 | HP ---
HISTORY AND PHYSICAL CHIEF COMPLAINT: Re-evaluation. HISTORY OF PRESENT ILLNESS: This is an 81-year-old gentleman was admitted to the hospital with complaints of chest pain. The pain was described as a heaviness, tightness sensation across the chest, not radiating to the back. No radiating to the jaw. No radiating to the arms. It was associated with some dizziness but no shortness of breath or diaphoresis. There was no associated nausea, vomiting. The symptoms occurred when the patient carried some garbage out to the car site. The patient has not had similar symptoms for a long time. Two years ago, the patient had some symptoms of angina and at that time further evaluation led to stenting the right RCA. He had the right ostial and right mid RCA stenting. The patient has followed with Cardiology subsequently. He has had no symptoms of angina until today. The patient denies any other associated symptoms. He has been maintaining his weight, exercising, and has been taking his medications religiously. PAST MEDICAL HISTORY: Significant for coronary artery disease as mentioned above. 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 History of BPH, hyperlipidemia, right carotid bruit, obstructive sleep apnea on CPAP. History of carcinoma of the prostate. PAST SURGICAL HISTORY: Tonsillectomy, bilateral inguinal herniorrhaphy, bilateral tympanic membrane repair with cryoablation of the prostate. Recent knee arthroplasty. FAMILY MEDICAL HISTORY: Mother at age of 88, CVA, carotid stenosis. Father is unknown history. History of brother age 55 carcinoma of the pancreas. Brother living, age 84, coronary artery disease. A brother living age 83 history of diabetes mellitus, dementia, coronary stenosis, carotid stenosis. Sister 90 with history of dementia. Son age 53 in adequate health. A son 51 adequate health, daughter 49 in adequate health. is SOCIAL HISTORY: Patient , lives with spouse. He does exercise regularly. He is a retired draftsman. The patient is an ex-smoker, quit smoking many years ago. Used to smoke a pack and half a day. Alcohol: One glass of wine every other day. REVIEW OF SYSTEMS: Neuro denies any headaches, hypothyroid, dizziness, chest pain noted. No syncope. Psych: No anxiety or depression. Cardiac present symptoms of chest pain. No shortness of breath. GI no nausea, vomiting, abdominal pain, diarrhea. no symptoms hematuria urgency frequency. Extremities denies pain, edema. Constitutional no fever, chills. PHYSICAL EXAMINATION: Pleasant gentleman in no distress. Vital signs reveals the patient is afebrile. Respiratory rate 18, pulse 76 per minute, regular. Blood pressure was 178/79, pulse of 97% on 2 L. HEENT: Normocephalic. NECK: Supple. No JVD. Pupils are reactive. Oral cavity moist. Neck reveals no JVD. Right carotid faint bruit. No thyromegaly. No supraclavicular lymphadenopathy. CHEST: Clear to auscultation and percussion. Cardiac: Normal S1, S2 with no gallops, murmurs, or rubs. ABDOMEN: Soft. No palpable masses. Bowel sounds normal. No organomegaly. No abdominal bruits. EXTREMITIES: No edema. Good pulses upper extremities. Mild decreased pedal pulses. Neurological awake, alert, oriented x3 with well-coordinated movements. LABORATORY DATA: An EKG, which reveals no acute changes. CBC is normal. The PT PTT is normal. BUN 22, otherwise electrolytes are normal. Creatinine is normal. Cardiac enzymes normal. The hepatic enzymes normal. ASSESSMENT: 1. Angina pectoris. New onset since stent placements 2 years ago. 2. Known coronary arthrosclerosis. 3. Hyperlipidemia on treatment. 4. Hypertension controlled. 5. History of degenerative joint disease. 6. History of carcinoma of the prostate, controlled. PLAN: Continue present medical regimen. Patient's condition discussed with the patient. Prognosis is guarded. The patient's condition discussed with the caddie. They are planning a cardiac cath tomorrow in view of his previous known atherosclerotic disease of the RCA as well as the left anterior descending. The patient condition discussed with the patient. Prognosis guarded. MMODL / IJN: [id number] /
[2017-01-09 00:39] LABS: Creatine Kinase MB 1.3 ng/mL (0.0-2.4); Troponin I 0.013 ng/mL (0.000-0.034)
[2017-01-09] MEDS: HEPARIN SODIUM,PORCINE 5,000 UNIT/ML 1 ML VIAL IV PRN (00:39)
[2017-01-09 04:34] VITALS: RESP 16
[2017-01-09] MEDS: LOSARTAN-HCTZ 50-12.5 MG 1 EACH TAB PO SCH (05:48)
[2017-01-09] MEDS: NITROGLYCERIN OINT 1 INCH/GM PACKET TOPICAL SCH (05:48)
[2017-01-09] MEDS ORDERED: ASPIRIN 325 MG TAB PO ONE (06:00)
[2017-01-09] MEDS ORDERED: ATORVASTATIN 80 MG TAB PO ONE (06:00)
[2017-01-09 06:52] LABS: Basophils % (A) 1 %; CH 30.3; Eosinophils # (A) 0.1 k/uL (0-0.7); Eosinophils % (A) 2 %; HCT 38.3 % (39.0-53.0); HDW 2.31; HGB 12.5 gm/dL (13.0-17.5); Luc # (Auto) 0.15; Luc % (Auto) 3; Lymphocytes # (A) 2.7 k/uL (1.0-4.8); Lymphocytes % (A) 47 %; MCH 30.2 pg (25.0-35.0); MCHC 32.8 g/dL (31.0-37.0); MCV 92.2 fL (80.0-100.0); Mean Platelet Volume 7.6; Monocytes # (A) 0.4 k/uL (0-1.0); Monocytes % (A) 7 %; Neutrophils # (A) 2.3 k/uL (1.3-7.7); Neutrophils % (A) 41 %; RBC 4.16 m/uL (4.30-5.90); RDW 14.1 % (11.5-15.5); WBC 5.7 k/uL (3.8-10.6); WBC (Perox) 5.42
[2017-01-09 07:06] LABS: Anion Gap 8 mmol/L; Blood Urea Nitrogen 19 mg/dL (9-20); Calcium 8.7 mg/dL (8.4-10.2); Carbon Dioxide 26 mmol/L (22-30); Chloride 108 mmol/L (98-107); Cholesterol 142 mg/dL (<200); Glucose 98 mg/dL (74-99); HDL Cholesterol 40 mg/dL (40-60); Non-African American GFR(MDRD) >60 (>60 ml/min/1.73 sqM); Sodium 142 mmol/L (137-145)
[2017-01-09] MEDS: METOPROLOL TARTRATE 25 MG TAB PO SCH (08:01)
[2017-01-09] MEDS ORDERED: METOPROLOL TARTRATE 12.5 MG TAB PO SCH (09:00)
[2017-01-09] MEDS ORDERED: IV FLUID CONTINUATION 1,000 ML IV ONE (10:44)
[2017-01-09] MEDS ORDERED: diphenhydrAMINE 50 MG/ML 1 ML VIAL IVP ONE (10:58)
[2017-01-09] MEDS: MIDAZOLAM 2 MG/2 ML VIAL IV ONE ×2 (10:58→11:47)
[2017-01-09] MEDS ORDERED: LIDOCAINE 2% INJ 20 MG/ML SQ ONE (12:11)
[2017-01-09] MEDS ORDERED: NITROGLYCERIN SL TABS 0.4 MG TAB SUBLINGUAL ONE (12:19)
[2017-01-09] MEDS: NITROGLYCERIN 1000MCG/10ML SYRINGE INTRAARTER ONE ×3 (12:31→13:14)
[2017-01-09] MEDS ORDERED: BIVALIRUDIN BOLUS 250 MG/50 ML IV ONE (12:32)
[2017-01-09] MEDS ORDERED: BIVALIRUDIN 250 MG in SODIUM CHLORIDE 0.9% 50 ML IV ONE (12:32)
--- NOTE | 2017-01-09 12:33 | ECHOF ---
Referral Reason: MEASUREMENTS -------- HEIGHT: 180.3 cm WEIGHT: 90.7 kg BP: IVSd: 1.5 cm (0.6 - 1.1) LVIDd: 3.0 cm (3.9 - 5.3) LVPWd: 1.5 cm (0.6 - 1.1) IVSs: 1.6 cm LVIDs: 1.4 cm LVPWs: 1.9 cm Ao Diam: 3.3 cm (2.0 - 3.7) AV Cusp: 1.2 cm (1.5 - 2.6) LA Diam: 3.5 cm (2.7 - 3.8) EPSS: 0.9 cm MV E Bebeto: 0.94 m/s MV DecT: 128 ms MV A Bebeto: 1.26 m/s MV E/A Ratio: 0.75 AV maxP.56 mmHg AV meanP.36 mmHg RAP: 5.00 mmHg RVSP: 40.65 mmHg MV EF SLOPE: 113.62 mm/s (70 - 150) MV EXCURSION: 1.12 cm (> 18.000) FINDINGS -------- Sinus rhythm. This was a technically difficult study with suboptimal views. The left ventricular size is normal. There is moderate concentric left ventricular hypertrophy. O verall left ventricular systolic function is normal with, an EF between 55 - 60 %. The right ventricle is normal in size and function. The left atrium is normal in size. The right atrium is normal in size. 1.5mg of Definity was utilized for enhancement of images Aortic valve is trileaflet and is mildly thickened. There is mild aortic stenosis present. Peak/m jose gradient across the Aortic Valve is 17.56mmHg / 11.36mmHg. The mitral valve leaflets are moderately thickened. Mild mitral regurgitation is present. Mild tricuspid regurgitation present. There is mild pulmonary hypertension. The right ventricular systolic pressure, as measured by Doppler, is 40.65mmHg. The pulmonic valve was not well visualized. There is no pulmonic regurgitation present. The aortic root size is normal. There is no pericardial effusion. CONCLUSIONS -------- 1. Sinus rhythm. 2. This was a technically difficult study with suboptimal views. 3. There is moderate concentric left ventricular hypertrophy. 4. Overall left ventricular systolic function is normal with, an EF between 55 - 60 %. 5. The left atrium is normal in size. 6. 1.5mg of Definity was utilized for enhancement of images 7. Aortic valve is trileaflet and is mildly thickened. 8. There is mild aortic stenosis present. 9. Peak/mean gradient across the Aortic Valve is 17.56mmHg / 11.36mmHg. 10. The mitral valve leaflets are moderately thickened. 11. Mild mitral regurgitation is present. 12. Mild tricuspid regurgitation present. 13. There is mild pulmonary hypertension. 14. The pulmonic valve was not well visualized. 15. There is no pulmonic regurgitation present. 16. The aortic root size is normal. 17. There is no pericardial effusion. OCCUPATIONAL THERAPY ASSISTANT: Fide Eddy RDCS
[2017-01-09] MEDS ORDERED: CLOPIDOGREL 75 MG TAB PO ONE (13:30)
[2017-01-09] MEDS ORDERED: IOHEXOL 350 MG/ML 100 ML BOTTLE INJ ONE (13:32)
[2017-01-09] MEDS ORDERED: MAG HYDROX/AL HYDROX/SIMETH 30 ML CUP PO PRN (13:38)
[2017-01-09] MEDS ORDERED: ATROPINE SULFATE 0.1 MG/ML 10ML SYRINGE IV PRN (13:38)
[2017-01-09] MEDS ORDERED: RX INFO: IV CONTRAST WAS GIVEN 1 EACH MISC MISCELLANE PRN (13:38)
[2017-01-09 14:29] VITALS: BMI 27.0
[2017-01-09] MEDS: SODIUM CHLORIDE 0.9% 1,000 ML IV SCH (17:12)
[2017-01-09] MEDS ORDERED: NON-FORMULARY DRUG (Glucosam/Chon-Msm1/C/Mang/Bosw [Glucosamine-Chondroitin Tablet] 1 TAB) PO SCH (21:00)
[2017-01-09] MEDS ORDERED: NON-FORMULARY DRUG (Fish Oil/Dha/Epa [Fish Oil 1,200 Mg Fish Oil] 1 CAP) PO SCH (21:00)
--- NOTE | 2017-01-09 21:42 | CC ---
CARDIAC CATHETERIZATION REPORT DATE OF SERVICE: 01/09/2017. PROCEDURES: 1. Left heart catheterization and coronary angiography. 2. PTCA and stenting of the ostial restenotic lesion in the super dominant right coronary artery. PERFORMED BY: Dr. Tyra Hendricks. SEDATION: Moderate conscious sedation time 1:00 am 21 minutes. CLINICAL INFORMATION: Mr. Roberto De Leon is an 81-year-old gentleman with a known history of CAD who underwent stenting of proximal RCA and ostial RCA performed by me in September 2014. This was a technically difficult procedure, and the ostium was dilated with a 3.5 caliber balloon. He presented with symptoms suggestive of angina without significant troponin elevation and was advised cardiac catheterization. I evaluated the patient and discussed with him the rationale, risks benefits and options related to coronary angiography. Patient wished to proceed with the procedure. PROCEDURE NOTE: Under local anesthesia and strict aseptic precautions, a 6-[place] introducer was placed in the right femoral artery. Because of some scar tissue, I had to use the dilators to gain access. However, uneventfully a 6-[place] introducer was placed in the right femoral artery. Using standard Siobhan catheters I performed coronary angiography and following the coronary angiography, I proceeded to perform intervention of the ostium and proximal RCA which was the restenotic lesion. The other 2 areas in the proximal RCA that was stented were widely patent. Following the intervention, I used an Angio- Seal to secure hemostasis. Patient tolerated the procedure well. He received Angiomax bolus and infusion as per protocol. He also received 300 mg of Plavix and he was already on Plavix on a regular basis. CARDIAC CATHETERIZATION FINDINGS: The left ventricular end-diastolic pressure was 12 mmHg and there was no gradient across the aortic valve. CORONARY ANGIOGRAPHY FINDINGS: Left main coronary artery is a long patent, tortuous vessel free of significant disease that trifurcates into LAD, circumflex and ramus intermedius. Left main itself is free of significant disease. Left anterior descending coronary artery: Good caliber vessel, goes along the antral wall, gives off small septal branches in the proximal portion. In the midportion gives off a large diagonal branch that runs laterally and then the LAD continues all the way to the apex. Both LAD and diagonals are free of significant disease. Ramus intermedius: This is a small caliber. This is a small distribution vessel divides into 2 branches, supplies a fair amount of myocardium and has no significant disease. Left posterior circumflex coronary artery: This vessel has a proximal/ostial lesion of about 40%, runs in the AV groove, gives off a distal posterolateral branch, supplies a fair amount of myocardium. No other significant disease is noted. Right coronary artery is a superdominant vessel that was stented in the ostium and proximal portion. The ostium has about 70% stenosis with a damping when I engage it with the right Siobhan catheter. The proximal area of the RCA that was stented is widely patent with remarkably good flow. Distal branches are free of significant disease and this is a super dominant vessel without significant distal disease, but ostium has a restenotic lesion of at least 70% with damping with a diagnostic catheter. I recommended intervention and proceeded to perform this in the same setting. PROCEDURE NOTE FOR PCI: I used a standard right Siobhan catheter to cannulate the right coronary artery. A BMW wire was used to cross the lesion. Wire was kept distally. Predilatation was performed using a 2.5 caliber, 12 mm NC trek balloon. I then used a 3.0 caliber NC trek balloon to further dilate. I used a 3.0 caliber 10 mm long cutting balloon to dilate the ostium. After getting a decent result with a cutting balloon I then deployed a 12 mm long 3.5 caliber Xience stent. I dilated up to 15 atmospheres, but there was still a lesion in the midportion. I then used a 8 mm long 3.5 caliber NC trek balloon and went up to 16 atmospheres with excellent result. There was about 10% residual stenosis remarkable improvement. After this, I considered using a 4.0 balloon and then I lost the guide support. I then had to take the wire out and I used an Amplatzer AR1 catheter and reading it and got final pictures. There was a remarkably good angiographic appearance and flow. The residual stenosis was less than 10%. The patient had excellent angiographic result. He had chest pain and an inferior ST elevation with inflations. His EKG revealed underlying left bundle branch block pattern. Patient also received 60 mg of Plavix. Excellent angiographic result without complication was achieved. The sheath was taken out and an Angio-Seal device used to secure hemostasis and was sent to the room in stable condition. Results were discussed with the patient and his . Excellent angiographic result was achieved and I expect patient to be discharged tomorrow. I also spoke to Dr. Kenton Feliciano regarding the findings and the results. MMODL / IJN: [id number] /
--- NOTE | 2017-01-09 23:01 | PN ---
PROGRESS NOTE ATTENDING PHYSICIAN: Dr. Vielka Feliciano. CHIEF COMPLAINT: Re-evaluation. HISTORY OF PRESENT ILLNESS: This is an 81-year-old gentleman who was admitted to the hospital with unstable angina. The patient was placed on heparin. The patient has no chest pain. The patient's cardiac enzymes were negative. He has known previous history of coronary artery disease. REVIEW OF SYSTEMS: NEURO: Denies any headaches, dizziness. PSYCH: No anxiety. CARDIAC: No chest pain, angina, palpitation. RESPIRATORY: No shortness of breath, cough, hemoptysis. GI: No nausea, vomiting, abdominal pain, diarrhea. : No symptoms of dysuria, hematuria, urgency, frequency. EXTREMITIES: No pain, edema. CONSTITUTIONAL: No fever, chills. PHYSICAL EXAMINATION: Pleasant gentleman in no distress. VITAL SIGNS: Temperature 97, pulse 60, respirations 16, blood pressure 145/72, pulse ox 96% on room air. HEENT: Normocephalic. NECK: No JVD. CHEST: Clear to auscultation and percussion. CARDIAC: Normal S1, S2 with no gallops, murmurs. ABDOMEN: Soft. No palpable masses. Bowel sounds normal. No organomegaly. No abdominal bruits. EXTREMITIES: Reveal no edema. Good pulses upper extremities. Mild decreased pedal pulses. NEUROLOGICAL: Awake, alert, oriented x3 with well-coordinated movements. LABORATORY ASSESSMENT: CBC which revealed a hemoglobin of 12.5. Electrolytes: BUN, creatinine are normal. Echocardiogram had revealed left ventricular size was normal with left ventricular concentric hypertrophy. EF was 55% to 60%. Right ventricle normal. Left atrium normal, right atrium normal. Aortic valve mildly thickened with mild aortic stenosis. Mitral valve moderately thickened with mild regurgitation. The patient did undergo cardiac catheterization. Dr. Tyra Hendricks did contact me and let me know. He did place a stent in the right ostium. He had a significant block there. ASSESSMENT: 1. Unstable angina pectoris. 2. Right coronary artery ostial stenosis. 3. Status post stent placement. 4. Hyperlipidemia. PLAN: The patient is stable. Continue present medical regimen. Patient's condition discussed with the patient. Prognosis guarded. Patient will be discharged home tomorrow. MMODL / IJN: [id number] /
[2017-01-10] MEDS: SODIUM CHLORIDE 0.9% 1,000 ML IV SCH (01:22)
[2017-01-10 06:14] LABS: Basophils % (A) 0 %; CHCM 33.2; Eosinophils # (A) 0.1 k/uL (0-0.7); Eosinophils % (A) 3 %; HCT 36.1 % (39.0-53.0); HDW 2.46; HGB 11.6 gm/dL (13.0-17.5); Luc # (Auto) 0.15; Luc % (Auto) 3; Lymphocytes # (A) 1.9 k/uL (1.0-4.8); Lymphocytes % (A) 34 %; MCH 30.3 pg (25.0-35.0); MCHC 32.3 g/dL (31.0-37.0); MCV 93.8 fL (80.0-100.0); Mean Platelet Volume 7.2; Monocytes # (A) 0.5 k/uL (0-1.0); Monocytes % (A) 9 %; Neutrophils # (A) 2.9 k/uL (1.3-7.7); Neutrophils % (A) 52 %; RBC 3.85 m/uL (4.30-5.90); RDW 12.8 % (11.5-15.5); WBC 5.7 k/uL (3.8-10.6); WBC (Perox) 5.77
[2017-01-10 06:28] LABS: Anion Gap 4 mmol/L; Blood Urea Nitrogen 17 mg/dL (9-20); Calcium 8.6 mg/dL (8.4-10.2); Carbon Dioxide 28 mmol/L (22-30); Chloride 107 mmol/L (98-107); Glucose 91 mg/dL (74-99); Non-African American GFR(MDRD) >60 (>60 ml/min/1.73 sqM); Potassium 4.2 mmol/L (3.5-5.1); Sodium 139 mmol/L (137-145)
--- NOTE | 2017-01-10 08:25 | P.PN ---
Subjective Progress Note Date: 01/10/17 Principal diagnosis: Chest Pain This is a pleasant 81-year-old gentleman with history of hyperlipidemia, prior coronary artery disease, who presented to the hospital with symptoms of chest discomfort. He was taken to the cardiac catheterization lab by Dr. SHAHRZAD Hendricks where the patient underwent angioplasty and stenting of the right coronary artery. EKG this morning shows normal sinus rhythm with no changes from post-PCI. He will globin 11.6, platelet count 193, potassium 4.2, BUN 17, creatinine 1.0. Patient states he didn't sleep well through the night last night, but denies any chest pains or difficulty in breathing. He has been up ambulating today without any difficulty. Objective - Vital Signs Vital signs: Vital Signs Temp 97.4 F L 01/10/17 04:00 Pulse 71 01/10/17 04:00 Resp 16 01/10/17 04:00 BP 112/48 01/10/17 04:00 Pulse Ox 92 L 01/10/17 04:00 Intake & Output 01/09/17 01/10/17 01/10/17 18:59 06:59 18:59 Intake Total 305 675 Output Total 375 Balance -70 675 Weight 90.4 kg 89.7 kg Intake: IV 65 Intake, IV Titration 675 Amount Sodium Chloride 0.9% 1, 675 000 ml @ 75 mls/hr IV . [id number] LETI Rx#:[id number] Oral 240 Output: Urine 375 Other: Voiding Method Toilet Toilet Urinal Urinal # Voids 1 - Exam PHYSICAL EXAMINATION: HEENT: Head is atraumatic, normocephalic. Pupils equal, round. Neck is supple. There is no elevated jugular venous pressure. HEART EXAMINATION: Heart S1, S2 normal. No murmur or gallop heard. CHEST EXAMINATION: Lungs are clear to auscultation and precussion. No chest wall tenderness is noted on palpation or with deep breathing. ABDOMEN: Soft, nontender. Bowel sounds are heard. No organomegaly noted. Right groin soft, mild ecchymosis, no hematoma EXTREMITIES: 2+ peripheral pulses with no evidence of peripheral edema and no calf tenderness noted. NEUROLOGIC patient is awake, alert and oriented -3. . - Labs CBC & Chem 7: 01/10/17 05:56 11/08/17 05:56 Labs: Abnormal Lab Results - Last 24 Hours (Table) 01/10/17 Range/Units 05:56 RBC 3.85 L (4.30-5.90) m/uL Hgb 11.6 L (13.0-17.5) gm/dL Hct 36.1 L (39.0-53.0) % Assessment and Plan Plan: Assessment and plan #1 chest pressure and tightness, suggestive of possible acute coronary syndrome. Status post angioplasty and stenting of the right coronary artery. #2 known history of coronary artery disease with prior RCA stenting in 2014 #3 hyperlipidemia #4 hypertension Plan Patient may be able to be discharged home from cardiology's perspective. Follow -up appointment will be made with Dr. Jerson Hendricks in the office on Sunday 4:15. Patient will be discharged home on aspirin 81 mg daily, pravastatin 80 mg daily , Plavix 75 mg daily, metoprolol tartrate 25 mg daily, losartan hydrochlorothiazide and sublingual nitroglycerin as needed for chest pain. DNP note has been reviewed, I agree with a documented findings and plan of care. Patient was seen and examined.
[2017-01-10] MEDS: LOSARTAN-HCTZ 50-12.5 MG 1 EACH TAB PO SCH (08:27)
[2017-01-10] MEDS: METOPROLOL TARTRATE 25 MG TAB PO SCH (08:27)
[2017-01-10] MEDS ORDERED: ASPIRIN 325 MG TAB PO SCH (09:00)
[2017-01-10] MEDS ORDERED: CLOPIDOGREL 75 MG TAB PO SCH (09:00)
[2017-01-10] MEDS ORDERED: ASCORBIC ACID 500 MG TAB PO SCH (09:00)
[2017-01-10] MEDS ORDERED: CHOLECALCIFEROL 1,000 UNIT TAB PO SCH (09:00)
[2017-01-10] MEDS ORDERED: ASPIRIN 81 MG PO SCH (09:00)
[2017-01-10 10:19] VITALS: BP 134/96; PULSE 59; TEMP 96.7
[2017-01-10] MEDS ORDERED: MULTIVITAMINS, THERA 1 EACH TAB PO SCH (12:00)
[2017-01-10] MEDS ORDERED: PRAVASTATIN SODIUM 80 MG TAB PO SCH (21:00)
--- NOTE | 2017-01-10 21:50 | PN ---
PROGRESS NOTE ATTENDING PHYSICIAN: Dr. Feliciano. CHIEF COMPLAINT: Re-evaluation. HISTORY OF PRESENT ILLNESS: 81-year-old gentleman was admitted to the hospital with chest pain. The patient has subsequently undergone cardiac catheterization noted to have a significant ostial stenosis of the left RCA with a previous site of stenting. The patient had a dilatation and another stent placed to the site. He is feeling fairly well. Denies any chest pain, angina, palpitations, respiratory depression, or shortness of breath. REVIEW OF SYSTEMS: Neuro: Denies any headaches, dizziness. Psych: No anxiety. Cardiac: No chest pain, angina or palpitations. Respiratory: No shortness of breath, cough, hemoptysis. GI no nausea, vomiting, abdominal pain, diarrhea. : No symptoms of dysuria, hematuria. Extremities no pain. Constitutional no fever, chills. PHYSICAL EXAMINATION: Pleasant gentleman in no distress. Vital signs reveals temperature 96.7, pulse 59, respirations 16, blood pressure 134/96, pulse ox 93% on room air. HEENT: Normocephalic. Neck no JVD. CHEST: Clear to auscultation. Cardiac normal S1, S2 with no gallops, murmurs. Systolic murmur 2/6 left sternal border. ABDOMEN: Soft. Bowel sounds present. EXTREMITIES: No edema. No tenderness. Neurological awake, alert, oriented x3 with well-coordinated movements. LABORATORY ASSESSMENT: Hemoglobin is 11.6. Electrolytes, BUN, creatinine normal. ASSESSMENT: 1. Coronary artery disease, status post PTCA. 2. Mild anemia secondary to dilutional and blood loss. 3. Hyperlipidemia on medical therapy. 4. Hypertension. PLAN: 1. The patient is stable. Continue present medical regimen. 2. Patient's condition discussed with the patient. 3. Prognosis is guarded. 4. The patient will be discharged home today. 5. Follow up in the outpatient. 6. All medications reviewed with the patient. MMODL / IJN: [id number] /
== END 2017-01-10 10:20 | disposition home or self-care (01) ==
LOC: EC 10:27 → 6SEL 12:13
PROVIDERS: ADMIT Internal Medicine; ATTEND Internal Medicine
DX: I25.110 Atherosclerotic heart disease of native coronary artery with unstable angina pectoris (principal); G47.33 Obstructive sleep apnea (adult) (pediatric); E78.5 Hyperlipidemia, unspecified; D50.0 Iron deficiency anemia secondary to blood loss (chronic); I10 Essential (primary) hypertension; Z79.02 Long term (current) use of antithrombotics/antiplatelets; Z79.899 Other long term (current) drug therapy; Z79.82 Long term (current) use of aspirin; Z88.1 Allergy status to other antibiotic agents; Z88.5 Allergy status to narcotic agent; Z85.46 Personal history of malignant neoplasm of prostate; Z99.89 Dependence on other enabling machines and devices; Z87.891 Personal history of nicotine dependence; Z95.5 Presence of coronary angioplasty implant and graft; I44.7 Left bundle-branch block, unspecified; M17.10 Unilateral primary osteoarthritis, unspecified knee; N40.0 Benign prostatic hyperplasia without lower urinary tract symptoms; Z82.49 Family history of ischemic heart disease and other diseases of the circulatory system
CPT/HCPCS: 96376 ×3; 96361; 96366 ×2; 96365; 99291; 36415; 93458; 80061; 80053; 80048 ×2; 82550; 82553; 83735; 84484; 85025 ×3; 85610; 85730 ×2; 71020; G0378 ×3; C8929; C9600; C1760; C1769 ×3; C1887 ×3; C1725 ×3; C1894; C1874; J2001; J2250; J1200; J1644 ×3; Q9967; Q9957; J0583; 93306

== ENCOUNTER 2017-07-25 10:43 | Emergency (ER) | payer MEDICARE ==
[2017-07-25] MEDS ORDERED: ACETAMINOPHEN TAB 500 MG TAB PO STA (11:07)
--- NOTE | 2017-07-25 11:10 | ED ---
Weakness HPI - General Chief complaint: Weakness Stated complaint: Fall Time Seen by Provider: 07/25/17 10:52 Source: patient, family, RN notes reviewed Mode of arrival: wheelchair Limitations: no limitations - History of Present Illness Initial comments: This is a 81-year-old male who had a lumbar laminectomy done 6 days ago at [facility] in [facility] who was discharged 4 days ago who was brought in today because of weakness. He was found on the floor today he apparently fell out of bed about 29 inches. He denies any injury or back pain but he just is generally weak no focal weakness however. His medications have been changed he was taken off of Valium yesterday. He is on [place]. He apparently has been eating well up until today. He had a low-grade temperature upon arrival. He has a swelling fully catheter at this time. No cough or phlegm production no sore throat. Upon arrival here he stated he is very chilled. Per the patient' s she states she has some swelling to both lower extremities. MD Complaint: generalized weakness - Related Data Home Medications Medication Instructions Recorded Confirmed Clopidogrel [Plavix] 75 mg PO DIRECTED 08/26/15 07/25/17 Nitroglycerin Sl Tabs [Nitrostat] 0.4 mg SUBLINGUAL Q5M PRN 03/29/16 07/25/17 Diazepam [Valium] 2 mg PO Q4HR PRN 07/25/17 07/25/17 HYDROcodone/APAP 7.5-325MG [[place] 1 tab PO Q4H PRN 07/25/17 07/25/17 7.5-325] LORazepam [Ativan] 1 mg PO HS 07/25/17 07/25/17 Losartan [Cozaar] 50 mg PO DAILY 07/25/17 07/25/17 Methocarbamol [Robaxin] 500 mg PO Q4H PRN 07/25/17 07/25/17 Metoprolol Tartrate [Lopressor] 25 mg PO BID 07/25/17 07/25/17 Pravastatin Sodium [Pravachol] 40 mg PO HS 07/25/17 07/25/17 methylPREDNISolone [Medrol Dose See Taper PO DIRECTED 07/25/17 07/25/17 Pack] Previous Rx's Medication Instructions Recorded traMADol HCL [Ultram] 50 mg PO Q6HR PRN 3 Days #12 tab 07/25/17 Allergies Allergy/AdvReac Type Severity Reaction Status Date / Time levofloxacin [From Levaquin] Allergy Severe Swelling Verified 07/25/17 11:09 of face cat dander Allergy SINUS Verified 07/25/17 11:09 PROBLEMS dog dander Allergy SINUS Verified 07/25/17 11:09 PROBLEMS" hydrocodone Allergy Rash/Hives Verified 07/25/17 11:09 [place] TREES Allergy Rash/Hives Uncoded 07/25/17 10:47 Review of Systems ROS Statement: Those systems with pertinent positive or pertinent negative responses have been documented in the HPI. ROS Other: All systems not noted in ROS Statement are negative. Past Medical History Past Medical History: Cancer, Chest Pain / Angina, Hyperlipidemia, Prostate Disorder, Sleep Apnea/CPAP/BIPAP Additional Past Medical History / Comment(s): hx prostate cancer, bridge/caps/ crowns History of Any Multi-Drug Resistant Organisms: None Reported Past Surgical History: Back Surgery, Heart Catheterization With Stent, Hernia Repair, Orthopedic Surgery, Prostate Surgery, Tonsillectomy Additional Past Surgical History / Comment(s): prostate cryotherapy, rt shoulder shoulder rotator cuff, cataracts, dental implants, rt knee total arthropasty Past Anesthesia/Blood Transfusion Reactions: No Reported Reaction Date of Last Stent Placement:: 09/07/14 Past Psychological History: No Psychological Hx Reported Smoking Status: Former smoker Past Alcohol Use History: None Reported Past Drug Use History: None Reported - Past Family History Mother Additional Family Medical History / Comment(s): passes away with collapsed carotid artery Father History Unknown: Yes Family Medical History: Cancer Brother(s) Family Medical History: Cancer Additional Family Medical History / Comment(s): pancreatic General Exam - General Exam Comments Initial Comments: This is a well-developed well-nourished awake alert oriented times female Limitations: no limitations General appearance: alert, anxious Head exam: Present: atraumatic, normocephalic, normal inspection Eye exam: Present: normal appearance, PERRL, EOMI. Absent: scleral icterus, conjunctival injection, periorbital swelling ENT exam: Present: mucous membranes dry Neck exam: Present: normal inspection. Absent: tenderness, meningismus, lymphadenopathy Respiratory exam: Present: normal lung sounds bilaterally. Absent: respiratory distress, wheezes, rales, rhonchi, stridor Cardiovascular Exam: Present: regular rate, normal rhythm, normal heart sounds. Absent: systolic murmur, diastolic murmur, rubs, gallop, clicks GI/Abdominal exam: Present: soft, normal bowel sounds. Absent: distended, tenderness, guarding, rebound, rigid Extremities exam: Present: full ROM, normal capillary refill, pedal edema. Absent: tenderness, joint swelling, calf tenderness Back exam: Present: other (Examination the surgical site reveals staple line to be intact no evidence of any dehiscence or drainage no localized erythema no evidence of infection.). Absent: full ROM, tenderness, CVA tenderness (R), CVA tenderness (L), muscle spasm Neurological exam: Present: alert, oriented X3, CN II-XII intact Psychiatric exam: Present: normal affect, normal mood Skin exam: Present: warm, dry, intact, normal color. Absent: rash Course Vital Signs 07/25/17 07/25/17 07/25/17 10:44 11:05 11:33 Temperature 96.5 F L 99.8 F H Pulse Rate 82 88 Respiratory 22 18 Rate Blood Pressure 138/90 167/69 O2 Sat by Pulse 92 L 99 Oximetry 07/25/17 07/25/17 13:01 14:00 Temperature 98.6 F Pulse Rate 75 71 Respiratory 20 18 Rate Blood Pressure 111/55 115/75 O2 Sat by Pulse 94 L 98 Oximetry - Reevaluation(s) Reevaluation #1: 07/25/17 15:09 Patient did seem to feel improved after IV hydration. Reevaluation #2: 07/25/17 15:10 I did a long discussion with the patient and family regarding the findings and the medications. I did discuss the case with Dr. Fields. The patient lab work and imaging shows no acute findings. After long discussion with the patient and family and Dr. Fields the patient will be discharged with a change of medications he will continue with his Medrol Dosepak he will be placed on Ultram he was advised that he could cut his [place] one half after discussion the family also wants to stop taking the [place] and the muscle relaxant. Patient will follow-up. Patient is also given a list of home health care agencies they do desire to have in-house care the area going to considered at this time. Medical Decision Making - Lab Data Result diagrams: 07/25/17 11:24 07/25/17 11:24 Lab Results 07/25/17 07/25/17 07/25/17 Range/Units 11:24 11:24 11:24 WBC 7.2 (3.8-10.6) k/uL RBC 3.51 L (4.30-5.90) m/uL Hgb 10.8 L (13.0-17.5) gm/dL Hct 31.6 L (39.0-53.0) % MCV 90.0 (80.0-100.0) fL MCH 30.9 (25.0-35.0) pg MCHC 34.3 (31.0-37.0) g/dL RDW 12.9 (11.5-15.5) % Plt Count 228 (150-450) k/uL Neutrophils % 58 % Lymphocytes % 29 % Monocytes % 9 % Eosinophils % 2 % Basophils % 0 % Neutrophils # 4.1 (1.3-7.7) k/uL Lymphocytes # 2.1 (1.0-4.8) k/uL Monocytes # 0.7 (0-1.0) k/uL Eosinophils # 0.2 (0-0.7) k/uL Basophils # 0.0 (0-0.2) k/uL Sodium (137-145) mmol/L Potassium (3.5-5.1) mmol/L Chloride (98-107) mmol/L Carbon Dioxide (22-30) mmol/L Anion Gap mmol/L BUN (9-20) mg/dL Creatinine (0.66-1.25) mg/dL Est GFR (CKD-EPI)AfAm (>60 ml/min/1.73 sqM) Est GFR (CKD-EPI)NonAf (>60 ml/min/1.73 sqM) Glucose (74-99) mg/dL Calcium (8.4-10.2) mg/dL Magnesium (1.6-2.3) mg/dL Total Bilirubin (0.2-1.3) mg/dL AST (17-59) U/L ALT (21-72) U/L Alkaline Phosphatase (38-126) U/L Total Creatine Kinase 63 (55-170) U/L CK-MB (CK-2) 0.7 (0.0-2.4) ng/mL CK-MB (CK-2) Rel Index 1.1 NT-Pro-B Natriuret Pep 364 pg/mL Total Protein (6.3-8.2) g/dL Albumin (3.5-5.0) g/dL TSH (0.465-4.680) mIU/L Urine Color Urine Appearance (Clear) Urine pH (5.0-8.0) Ur Specific Cly[place] (1.001-1.035) Urine Protein (Negative) Urine Glucose (UA) (Negative) Urine Ketones (Negative) Urine Blood (Negative) Urine Nitrite (Negative) Urine Bilirubin (Negative) Urine Urobilinogen (<2.0) mg/dL Ur Leukocyte Esterase (Negative) Urine RBC (0-5) /hpf Urine WBC (0-5) /hpf Amorphous Sediment (None) /hpf Urine Bacteria (None) /hpf Urine Mucus (None) /hpf 07/25/17 07/25/17 Range/Units 11:24 11:24 WBC (3.8-10.6) k/uL RBC (4.30-5.90) m/uL Hgb (13.0-17.5) gm/dL Hct (39.0-53.0) % MCV (80.0-100.0) fL MCH (25.0-35.0) pg MCHC (31.0-37.0) g/dL RDW (11.5-15.5) % Plt Count (150-450) k/uL Neutrophils % % Lymphocytes % % Monocytes % % Eosinophils % % Basophils % % Neutrophils # (1.3-7.7) k/uL Lymphocytes # (1.0-4.8) k/uL Monocytes # (0-1.0) k/uL Eosinophils # (0-0.7) k/uL Basophils # (0-0.2) k/uL Sodium 134 L (137-145) mmol/L Potassium 4.9 (3.5-5.1) mmol/L Chloride 94 L (98-107) mmol/L Carbon Dioxide 28 (22-30) mmol/L Anion Gap 12 mmol/L BUN 16 (9-20) mg/dL Creatinine 0.72 (0.66-1.25) mg/dL Est GFR (CKD-EPI)AfAm >90 (>60 ml/min/1.73 sqM) Est GFR (CKD-EPI)NonAf 87 (>60 ml/min/1.73 sqM) Glucose 92 (74-99) mg/dL Calcium 8.7 (8.4-10.2) mg/dL Magnesium 2.1 (1.6-2.3) mg/dL Total Bilirubin 0.9 (0.2-1.3) mg/dL AST 95 H (17-59) U/L ALT 95 H (21-72) U/L Alkaline Phosphatase 74 (38-126) U/L Total Creatine Kinase (55-170) U/L CK-MB (CK-2) (0.0-2.4) ng/mL CK-MB (CK-2) Rel Index NT-Pro-B Natriuret Pep pg/mL Total Protein 6.3 (6.3-8.2) g/dL Albumin 3.7 (3.5-5.0) g/dL TSH 0.716 (0.465-4.680) mIU/L Urine Color Yellow Urine Appearance Cloudy (Clear) Urine pH 8.5 H (5.0-8.0) Ur Specific [place] 1.016 (1.001-1.035) Urine Protein 1+ H (Negative) Urine Glucose (UA) Negative (Negative) Urine Ketones Negative (Negative) Urine Blood Small H (Negative) Urine Nitrite Negative (Negative) Urine Bilirubin Negative (Negative) Urine Urobilinogen <2.0 (<2.0) mg/dL Ur Leukocyte Esterase Negative (Negative) Urine RBC 70 H (0-5) /hpf Urine WBC <1 (0-5) /hpf Amorphous Sediment Rare H (None) /hpf Urine Bacteria Rare H (None) /hpf Urine Mucus Rare H (None) /hpf Disposition Clinical Impression: Fall, Status post lumbar laminectomy, Medication reaction, Dehydration Disposition: HOME SELF-CARE Condition: Good Instructions: Fall Prevention for Older Adults (ED), Dehydration (ED) Additional Instructions: Take the medication as we discussed cutting the [place] and the muscle relaxant and half if needed Prescriptions: traMADol HCL [Ultram] 50 mg PO Q6HR PRN 3 Days #12 tab PRN Reason: Pain Is patient prescribed a controlled substance at d/c from ED?: Yes If prescribed controlled substance>3 days was MAPS reviewed?: No When asked, does pt state using other controlled substances?: Yes Referrals: Kenton Feliciano MD [Primary Care Provider] - 1-2 days
[2017-07-25 11:36] LABS: Basophils % (A) 0 %; Eosinophils # (A) 0.2 k/uL (0-0.7); Eosinophils % (A) 2 %; HCT 31.6 % (39.0-53.0); HGB 10.8 gm/dL (13.0-17.5); Lymphocytes # (A) 2.1 k/uL (1.0-4.8); Lymphocytes % (A) 29 %; MCH 30.9 pg (25.0-35.0); MCHC 34.3 g/dL (31.0-37.0); Mean Platelet Volume 7.4; Monocytes # (A) 0.7 k/uL (0-1.0); Monocytes % (A) 9 %; Neutrophils # (A) 4.1 k/uL (1.3-7.7); Neutrophils % (A) 58 %; Platelet Count 228 k/uL (150-450); RBC 3.51 m/uL (4.30-5.90); RDW 12.9 % (11.5-15.5); WBC 7.2 k/uL (3.8-10.6)
[2017-07-25 11:46] LABS: ALT 95 U/L (21-72); AST 95 U/L (17-59); Albumin 3.7 g/dL (3.5-5.0); Alkaline Phosphatase 74 U/L (38-126); Anion Gap 12 mmol/L; Blood Urea Nitrogen 16 mg/dL (9-20); Calcium 8.7 mg/dL (8.4-10.2); Carbon Dioxide 28 mmol/L (22-30); Chloride 94 mmol/L (98-107); Glucose 92 mg/dL (74-99); Magnesium 2.1 mg/dL (1.6-2.3); Sodium 134 mmol/L (137-145); Total Bilirubin 0.9 mg/dL (0.2-1.3); Total Protein 6.3 g/dL (6.3-8.2)
[2017-07-25 12:10] LABS: Amorphous Sediment,Urine Rare /hpf; Appearance,Urine Cloudy (Clear); Bacteria,Urine Rare /hpf; Bilirubin,Urine Negative (Negative); Blood,Urine Small (Negative); Color,Urine Yellow; Glucose,Urine (UA) Negative (Negative); Ketones,Urine Negative (Negative); Leukocyte Esterase,Urine Negative (Negative); Mucus,Urine Rare /hpf; Nitrite,Urine Negative (Negative); PH, Urine 8.5 (5.0-8.0); Protein,Urine 1+ (Negative); RBC,Urine 70 /hpf (0-5); Specific Gravity,Urine 1.016 (1.001-1.035); Urobilinogen,Urine <2.0 mg/dL (<2.0); WBC,Urine <1 /hpf (0-5)
[2017-07-25 12:16] LABS: Creatine Kinase MB 0.7 ng/mL (0.0-2.4); Potassium 4.9 mmol/L (3.5-5.1)
[2017-07-25] MEDS ORDERED: ACETAMINOPHEN IV (For NPO) 1,000 MG in SALINE 1 100ML.BAG IVPB STA (12:49)
[2017-07-25] MEDS ORDERED: fentaNYL (PF) 50 MCG/ML 2 ML AMP IV STA (12:50)
--- NOTE | 2017-07-25 13:29 | US ---
EXAMINATION TYPE: US venous doppler duplex LE DATE OF EXAM: 07/25/2017 12:18 PM COMPARISON: NONE CLINICAL HISTORY: Pain. bilateral leg pain since back surgery 1 week ago SIDE PERFORMED: Bilateral TECHNIQUE: The lower extremity deep venous system is examined utilizing real time linear array sonog clive with graded compression, doppler sonography and color-flow sonography. VESSELS IMAGED: External Iliac Vein (EIV) Common Femoral Vein Deep Femoral Vein Greater Saphenous Vein * Femoral Vein Popliteal Vein Small Saphenous Vein * Proximal Calf Veins (* superficial vessels) Right Leg: Negative for DVT Left Leg: Negative for DVT IMPRESSION: 1. Bilateral lower extremity ultrasound negative for deep venous thrombosis.
--- NOTE | 2017-07-25 13:52 | XR ---
EXAMINATION TYPE: XR chest 2V DATE OF EXAM: 07/25/2017 COMPARISON: 01/08/2017 HISTORY: Shortness of breath TECHNIQUE: Frontal and lateral views of the chest are obtained. FINDINGS: Scattered senescent parenchymal changes noted. Hyperinflation compatible with COPD. No evidence for infiltrate. No evidence for atelectasis. Heart size is stable. Mediastinal structures are stable and grossly unremarkable. No evidence for hilar prominence. Degenerative changes dorsal spine. IMPRESSION: 1. No evidence for acute pulmonary disease.
--- NOTE | 2017-07-25 13:53 | XR ---
EXAMINATION TYPE: XR lumbosacral spine min 4V DATE OF EXAM: 07/25/2017 CLINICAL HISTORY: pain COMPARISON: NONE TECHNIQUE: Frontal, lateral, and oblique images of the lumbar spine are obtained. FINDINGS: There are 5 lumbar type vertebral bodies identified. The lumbar spine shows satisfactory alignment without evidence of acute fracture or dislocation. Vertebral body heights are within normal limits. Moderate to severe multilevel degenerative disc space narrowing and spondylosis. Lower lumba r facet joint arthropathy. The overlying soft tissue appears unremarkable. IMPRESSION: No acute fracture or dislocation is seen in the lumbar spine.ICD 10 NO FRACTURE, INITIAL EVALUATION
[2017-07-25 15:19] VITALS: BP 144/67; PULSE 73; RESP 16; TEMP 97.2
== END 2017-07-25 15:30 | disposition home or self-care (01) ==
LOC: EC 10:43
DX: E86.0 Dehydration (principal); T40.2X5A Adverse effect of other opioids, initial encounter; T39.1X5A Adverse effect of 4-Aminophenol derivatives, initial encounter; R60.0 Localized edema; E78.5 Hyperlipidemia, unspecified; G47.30 Sleep apnea, unspecified; Z87.891 Personal history of nicotine dependence; Z79.02 Long term (current) use of antithrombotics/antiplatelets; Z79.52 Long term (current) use of systemic steroids; Z79.899 Other long term (current) drug therapy; Z88.1 Allergy status to other antibiotic agents; Z88.8 Allergy status to other drugs, medicaments and biological substances; Z91.09 Other allergy status, other than to drugs and biological substances; Z85.46 Personal history of malignant neoplasm of prostate; Z86.79 Personal history of other diseases of the circulatory system; Z99.89 Dependence on other enabling machines and devices; Z98.890 Other specified postprocedural states; W06.XXXA Fall from bed, initial encounter; Y92.009 Unspecified place in unspecified non-institutional (private) residence as the place of occurrence of the external cause
CPT/HCPCS: 36415; 83880; 80053; 84443; 82550; 82553; 83735; 85025; 81001; 87040; 72110; 71046; 93970; 99285; 96374; J3010

== ENCOUNTER → 2018-04-26 | Outpatient (CLI) | payer MEDICARE ==
[2018-04-26 10:50] LABS: Albumin 3.8 g/dL (3.5-5.0); Calcium 9.3 mg/dL (8.4-10.2); Potassium 4.9 mmol/L (3.5-5.1); Total Bilirubin 0.6 mg/dL (0.2-1.3); Total Protein 6.3 g/dL (6.3-8.2)
--- NOTE | 2018-04-26 13:25 | CT ---
EXAMINATION TYPE: CT angio neck DATE OF EXAM: 04/26/2018 HISTORY: Carotid stenosis COMPARISON: None CT DLP: 318.8 mGycm. Automated Exposure Control for Dose Reduction was Utilized. TECHNIQUE: CTA scan of the neck is performed with IV Contrast, patient injected with 65 mL of Isovue 370, axial images are obtained, coronal and sagittal reformatted images are reviewed. Three-D recons tructed images are created on an independent workstation and reviewed. FINDINGS: Carotid/Vascular Structures: Moderate calcific atheromatous plaquing is seen of the aortic arch. Ther e is a conventional three-vessel branch pattern of the aortic arch. Moderate calcific and noncalcific plaquing are seen of the left subclavian artery proximal to the takeoff of the left vertebral artery however this is less than 50% in caliber narrowing. The common carotid arteries display no evidence of hemodynamically significant stenosis with only min imal distal calcific atheromatous plaquing. The carotid bulbs also demonstrate less than 50% calcific atheromatous plaquing bilaterally. Within t he left common carotid artery just distal to the carotid bulb there is approximate 40% stenosis. The remainder of the extracranial portions of the carotid arteries are unremarkable. The vertebral arteries are patent and codominant. Visualized basilar artery is also patent. Other: Minimal pleural-parenchymal scarring and paraseptal emphysematous changes seen of the lung api laurel. Thyroid gland appears prominent in size. Rew artifact created by numerous dental fillings crea [place]il[place] obscuration and nondiagnostic exam of the oropharynx. Scleral calcifications are incidentally not ed. Scant amount of mucosal thickening is seen within the ethmoid sinuses. Remaining paranasal sinuse s and mastoid air cells are well aerated. Moderate degenerative change of the cervical spine is noted . IMPRESSION: No hemodynamically significant stenosis is seen within the major arterial vasculature of the neck. Th ere is approximately 50% stenosis at the carotid bulbs and 40% stenosis of the proximal left carotid artery (nonhemodynamically significant stenoses).
== END | disposition home or self-care (01) ==
LOC: RADCTMAIN 10:05
PROVIDERS: ATTEND Internal Medicine Cardiovascular Disease
DX: I65.23 Occlusion and stenosis of bilateral carotid arteries (principal); I25.118 Atherosclerotic heart disease of native coronary artery with other forms of angina pectoris; I10 Essential (primary) hypertension
CPT/HCPCS: 80061; 80053; 70498; 36415; Q9967

== ENCOUNTER → 2018-12-23 | Outpatient (CLI) | payer MEDICARE ==
[2018-12-23 13:41] LABS: Calcium 9.5 mg/dL (8.4-10.2); Potassium 4.7 mmol/L (3.5-5.1); Total Bilirubin 0.6 mg/dL (0.2-1.3); Total Protein 6.8 g/dL (6.3-8.2)
[2018-12-23 13:48] LABS: HCT 39.8 % (39.0-53.0); HGB 12.9 gm/dL (13.0-17.5); MCH 29.9 pg (25.0-35.0); MCHC 32.4 g/dL (31.0-37.0); MCV 92.1 fL (80.0-100.0); Mean Platelet Volume 6.7; Platelet Count 263 k/uL (150-450); RBC 4.32 m/uL (4.30-5.90); RDW 14.3 % (11.5-15.5); WBC 5.4 k/uL (3.8-10.6)
[2018-12-23 13:50] LABS: Partial Thromboplastin Time 22.5 sec (22.0-30.0); Prothrombin Time 10.4 sec (9.0-12.0)
[2018-12-23 14:13] LABS: Appearance,Urine Clear (Clear); Bilirubin,Urine Negative (Negative); Blood,Urine Negative (Negative); Color,Urine Yellow; Glucose,Urine (UA) Negative (Negative); Ketones,Urine Negative (Negative); Leukocyte Esterase,Urine Negative (Negative); Nitrite,Urine Negative (Negative); Protein,Urine Negative (Negative); Specific Gravity,Urine 1.019 (1.001-1.035); Urobilinogen,Urine <2.0 mg/dL (<2.0)
== END | disposition home or self-care (01) ==
LOC: LABPAT 11:57
PROVIDERS: ATTEND Orthopaedic Surgery
DX: Z01.812 Encounter for preprocedural laboratory examination (principal); Z01.818 Encounter for other preprocedural examination; Z79.01 Long term (current) use of anticoagulants
CPT/HCPCS: 36415; 80053; 81003; 85027; 85610; 85730; 87070

== ENCOUNTER 2018-12-31 11:14 | Inpatient (IN) | payer MEDICARE ==
[2018-12-25 11:12] VITALS: BMI 26.4
[~2018-12-31 11:14] MED LIST changes: +DEXAMETHASONE SOD PHOSPHATE 10 MG/ML 1 ML VIAL IV ONE; +GABAPENTIN 300 MG CAP PO ONE; +HYDROmorphone 0.5 MG/0.5 ML SYRINGE IVP PRN; -HYDROmorphone 1 MG/ML 1 ML SYRINGE IVP PRN; -LACTATED RINGERS 1,000 ML IV SCH; +ROPIVACAINE 246.25 MG, EPINEPHrine 0.5 MG, KETOROLAC 30 MG, cloNIDine HCL/PF 80 MCG, WA... MISCELLANE ONE; +SCOPOLAMINE 1.5MG/72HR PATCH TRANSDERM ONE; -ceFAZolin 2 GM in SODIUM CHLORIDE 0.9% 100 ML IVPB ONE; -fentaNYL (PF) 50 MCG/ML 20 ML VIAL IVP PRN
[2018-12-31] MEDS: LACTATED RINGERS 1,000 ML IV SCH (11:58)
[2018-12-31] MEDS ORDERED: GLYCOPYRROLATE 0.2 MG/ML 2 ML VIAL ONE (12:21)
[2018-12-31] MEDS ORDERED: SODIUM CHLORIDE 0.9% IRRIG 1,000 ML BTL IRRIGATION ONE (12:21)
[2018-12-31] MEDS ORDERED: SODIUM CHLORIDE 0.9% 100 ML BAG ONE (12:21)
[2018-12-31] MEDS ORDERED: SUCCINYLCHOLINE CHLORIDE 100 MG/5 ML SYR IV ONE (12:21)
[2018-12-31] MEDS ORDERED: TRANEXAMIC ACID 1,000 MG/10 ML VIAL ONE (12:21)
[2018-12-31] MEDS ORDERED: ROCURONIUM BROMIDE 10 MG/ML 10 ML VIAL IV ONE (12:21)
[2018-12-31] MEDS ORDERED: fentaNYL (PF) 50 MCG/ML 2 ML AMP ONE (12:21)
[2018-12-31] MEDS ORDERED: MIDAZOLAM 2 MG/2 ML VIAL ONE (12:21)
[2018-12-31] MEDS ORDERED: LIDOCAINE 1% INJ 10MG/ML (20 ML MDV) ONE (12:21)
[2018-12-31] MEDS ORDERED: HEPARIN SODIUM,PORCINE 10,000 UNIT/ML 1 ML VIAL ONE (12:21)
[2018-12-31] MEDS ORDERED: PROPOFOL 10 MG/ML 20 ML VIAL IV ONE (12:21)
[2018-12-31] MEDS ORDERED: ePHEDrine SULFATE/0.9% NACL/PF 50 MG/5 ML SYRINGE IV ONE (12:21)
[2018-12-31] MEDS ORDERED: NEOSTIGMINE 1 MG/ML 10 ML VIAL ONE (12:21)
[2018-12-31] MEDS ORDERED: ceFAZolin 3,000 MG in SODIUM CHLORIDE 0.9% IRRIGATIO 3,000 ML IRRIGATION ONE (12:27)
[2018-12-31] MEDS ORDERED: ONDANSETRON 4 MG/2 ML VIAL IVP PRN (12:43)
[2018-12-31] MEDS ORDERED: MAGNESIUM HYDROXIDE 2,400 MG/10 ML CUP PO PRN (12:43)
[2018-12-31] MEDS ORDERED: HYDROcodone/APAP 5-325MG 1 EACH TAB PO PRN ×2 (12:43)
[2018-12-31] MEDS ORDERED: HYDROmorphone 0.5 MG/0.5 ML SYRINGE IVP PRN ×2 (12:43)
[2018-12-31] MEDS ORDERED: NALOXONE 0.4 MG/ML 1 ML VIAL IV PRN (12:43)
[2018-12-31] MEDS ORDERED: LACTATED RINGERS 1,000 ML IV ONE (13:30)
--- NOTE | 2018-12-31 14:30 | XR ---
EXAMINATION TYPE: XR Hip Limited LT, FL guidance operating room DATE OF EXAM: 12/31/2018 COMPARISON: None HISTORY: 83-year-old male left hip anterior displacement FINDINGS: Images during intraoperative fluoroscopy for left hip total arthroplasty. FLUOROSCOPY Fluoroscopy time of 45 seconds was used during left hip arthroplasty. 2 image/s document/s cleve ehss. IMPRESSION: Intraoperative fluoroscopy as above.
--- NOTE | 2018-12-31 14:58 | XR ---
EXAMINATION TYPE: XR Hip Limited LT DATE OF EXAM: 12/31/2018 COMPARISON: NONE HISTORY: 83-year-old male status post hip surgery, assess surgical alignment TECHNIQUE: Single portable AP view FINDINGS: Image shows placement of left hip total arthroplasty. Both the acetabular cup and femoral short stem components of the prosthesis appear well seated without periprosthetic fracture. Alignment grossly an atomic. Scattered soft tissue air relating to recent operation. IMPRESSION: Uncomplicated postoperative appearance left total hip arthroplasty.
--- NOTE | 2018-12-31 15:46 | P.OP ---
Date of Procedure: 12/31/18 Preoperative Diagnosis: Severe osteoarthritis left hip Postoperative Diagnosis: Severe osteoarthritis left hip Procedure(s) Performed: Left total hip arthroplasty with a direct anterior approach Implants: Jackson and nephew Polarstem size 7 standard Jackson & Nephew R3, 3 hole acetabular shell, 56 mm Jackson [employer] Nephew reflection 6.5 mm cancellus screw, 20 mm, 25 mm Jackson [employer] Nephew R3, XLPE 20 acetabular liner Jackson & Nephew Oxinium femoral head 36 m, +4 All components were press-fit. The articulation is Oxinium on polyethylene. Anesthesia: spinal Surgeon: Alexandre Martinez Studio Producer #1: Humera Kumar Estimated Blood Loss (ml): 350 (140 mL returned with Cell Saver) Pathology: other (Femoral head) Condition: stable Disposition: PACU Indications for Procedure: After failure of conservative treatment we discussed the surgical and nonsurgical treatment options at length. Patient wishes to proceed with a total hip arthroplasty with a direct anterior approach. Complications specific to this procedure were discussed at length, including but not limited to infection, leg length discrepancy, dislocation, and nerve injury. Patient is aware of all these complications and informed consent was obtained Operative Findings: The operative findings are consistent with severe osteoarthritis of the left hip Description of Procedure: Patient was seen and evaluated in the preoperative area, consent was reviewed, and the surgical site was marked with a skin marker. Patient was then brought to the operating room and given prophylactic antibiotics intravenously. 1 g of Tranexamic acid was also given. A spinal anesthetic was administered by the anesthesia department. The patient was then placed on the [place] table with the bony prominences well-padded. The hip area was then prepped and draped in usual sterile fashion. A universal timeout was then performed, which confirmed the patient's name, surgical site, ALLERGIES, and procedure being performed. Next the incision site was located at 1 cm distal and 1 cm lateral to the anterior superior iliac spine. The skin and subcutaneous tissues were sharply incised. Incision was carefully dissected down to the fascia overlying the tensor fascia anival muscle. This fascia was then incised in line with the incision. Next, using blunt finger dissection, the tensor fascia anival muscle was dissected off its investing fascia. The muscle was then carefully retracted laterally with a cobra retractor over the lateral neck of the femur. Next, the circumflex vessels were identified and cauterized using the AquaMantis device. The anterior hip capsule was then exposed. The capsule was then opened and an inverted T fashion. Cobra retractors were then placed intracapsularly. The proximal femur was then visualized. The femoral neck was then osteotomized appropriate level above the lesser trochanter. Small amount of traction was placed with the [place] table. A small wedge of bone was then removed from the remaining femoral head. Next, using a corkscrew femoral head was easily removed from the acetabulum. On gross visual inspection, the femoral head had complete loss of articular cartilage in m ultiple periarticular osteophytes. Attention was then turned to the acetabulum. the acetabulum was exposed and any remaining labrum was excised. Sequential reaming of the acetabulum was performed using fluoroscopic guidance. When the appropriate size was reached, a trial was then placed. The position and fit of the trial was checked with fluoroscopy. The trial was then removed. Then, using fluoroscopic guidance, the final implant was impacted at 20 of anteversion and 40 of abduction, and fully seated in the acetabulum. 2 screws were then placed in the acetabulum. Again fluoroscopy was used to check position of the screws. Next, the liner was then impacted, with a 20 elevated liner located in the anterior superior quadrant. Component locking was confirmed. Attention was then directed to the femur. With the aid of the [place] table, the femur was externally rotated to approximately 130, extended, and abducted under the opposite leg. A side hook was then placed under the proximal femur, and the side hook elevator was used to elevate the proximal femur. Retractors were then placed. A capsular release was performed, as well as a release of the conjoined tendon, which afforded excellent visualization of the proximal femur. Next, a box osteotome was used to lateralize the proximal femur. A supervisor hand workers was then used to locate the femoral canal. Sequential broaching was then performed with appropriate size which afforded excellent fixation in the proximal femur. A trial was then placed with appropriate head and neck, and the hip was gently reduced with the aid of the [place] table. Fluoroscopy was then used to check position of the components, as well as to ensure equal leg lengths. The hip was then gently dislocated and the trials were then removed. Final implants were then impacted and the hip was again reduced. Final fluoroscopic x-rays confirmed that the components were in anatomic position, as well as equal leg lengths. The hip was also taken through range of motion, and found to be stable. The hip was then copiously irrigated with antibiotic solution with pulsatile lavage. The hip was then irrigated with Irrisept solution. The soft tissues were then injected with a ropivacaine solution, which consisted of 246.25 mg of ropivacaine, 0.5 mg of epinephrine, 30 mg of Toradol, 80 g of clonidine, and 48.45 mL of sterile water, for a total of 100 mL of fluid injected. A second dose of 1 g of Tranexamic acid was also given. the fascia was then closed with 2-0 strata fix suture. The subcutaneous tissue was closed with 3-0 Vicryl. The subcuticular tissue was closed with 3-0 strata fix suture. The skin was then closed with Dermabond glue and a sterile silver dressing. The patient was then transferred to the recovery room in stable c ondition. The orthopedic physician assistant BRUNO Duff was required due to the complexity of surgery, and the need for skilled surgical services coordinator for positioning, draping, exposure, retraction, and closure of the wound.
[2018-12-31] MEDS: HYDROmorphone 0.5 MG/0.5 ML SYRINGE IVP PRN (15:51)
--- NOTE | 2018-12-31 16:53 | P.CONS ---
History of Present Illness - Reason for Consult Consult date: 12/31/18 - History of Present Illness Patient is an 83-year-old male with a PMH of coronary artery disease status post multiple stents, hypertension, hyperlipidemia, and hip OA was seen postoperatively after a left total hip arthroplasty. The patient underwent the procedure without any competitions. No immediate postoperative competitions were noted. He was seen at the surgical unit with at the bedside. He noted excellent control of his pain and denied any active complaints. He denied chest pain, shortness of breath, fever, chills, nausea, or vomiting. Review of Systems Pertinent positives and negatives as discussed in HPI, a complete review of systems was performed and all other systems are negative. Past Medical History Past Medical History: Cancer, Chest Pain / Angina, Hyperlipidemia, Hypertension, Osteoarthritis (OA), Prostate Disorder, Sleep Apnea/CPAP/BIPAP Additional Past Medical History / Comment(s): hx prostate cancer, slight leaky valve per pt. but no tx. for, uses CPAP History of Any Multi-Drug Resistant Organisms: None Reported Past Surgical History: Back Surgery, Heart Catheterization With Stent, Hernia Repair, Orthopedic Surgery, Prostate Surgery, Tonsillectomy Additional Past Surgical History / Comment(s): prostate cryotherapy, rt shoulder rotator cuff, 4 stents, cataracts, dental implants, rt knee total arthroplasty Past Anesthesia/Blood Transfusion Reactions: No Reported Reaction Date of Last Stent Placement:: 09/07/14 Past Psychological History: No Psychological Hx Reported Additional Psychological History / Comment(s): . Smoking Status: Former smoker Past Alcohol Use History: Occasional Additional Past Alcohol Use History / Comment(s): 1 glass wine daily. Pt started smoking at age 15 and quit smoking in 1979. smoked 1ppd. Past Drug Use History: None Reported - Past Family History Mother Additional Family Medical History / Comment(s): passes away with collapsed carotid artery Father History Unknown: Yes Family Medical History: Cancer Brother(s) Family Medical History: Cancer Additional Family Medical History / Comment(s): pancreatic Medications and Allergies Home Medications Medication Instructions Recorded Confirmed Type Clopidogrel [Plavix] 75 mg PO DAILY 08/26/15 12/31/18 History Nitroglycerin Sl Tabs [Nitrostat] 0.4 mg SUBLINGUAL Q5M PRN 03/29/16 12/31/18 History Losartan [Cozaar] 50 mg PO HS 07/25/17 12/31/18 History Metoprolol Tartrate [Lopressor] 25 mg PO QAM 07/25/17 12/31/18 History Pravastatin Sodium [Pravachol] 40 mg PO HS 07/25/17 12/31/18 History Ezetimibe [Zetia] 10 mg PO HS 12/25/18 12/31/18 History Isosorbide Mononitrate [Isosorbide 30 mg PO DAILY 12/25/18 12/31/18 History Mononitrate ER] Metoprolol Tartrate [Lopressor] 12.5 mg PO HS 12/25/18 12/31/18 History Naproxen Sodium [Aleve] 220 mg PO BID PRN 12/25/18 12/31/18 History Allergies Allergy/AdvReac Type Severity Reaction Status Date / Time levofloxacin [From [facility]] Allergy Severe Swelling Verified 12/31/18 11:46 of face cat dander Allergy SINUS Verified 12/31/18 11:46 PROBLEMS dog dander Allergy SINUS Verified 12/31/18 11:46 PROBLEMS" hydrocodone Allergy Rash/Hives Verified 12/31/18 11:46 [place] [employer] Allergy Rash/Hives Uncoded 12/31/18 11:46 Physical Exam Vitals: Vital Signs Temp Pulse Resp BP Pulse Ox 12/31/18 15:15 85 18 147/66 98 12/31/18 15:00 83 16 134/76 96 12/31/18 14:45 84 14 148/63 100 12/31/18 14:33 97.0 F L 90 16 139/63 100 12/31/18 11:45 97.1 F L 66 18 145/65 96 Intake and Output 12/31/18 12/31/18 12/31/18 06:59 14:59 22:59 Intake Total 1251 Output Total 350 Balance 901 Intake: IV 1251 Output: Estimated Blood Loss 350 Other: Weight 87.997 kg General: non toxic, no distress, appears at stated age, normal weight Derm: no unusual rashes/lesions no unusual ecchymoses, warm, dry Head: atraumatic, normocephalic, symmetric Eyes: EOMI, no lid lag, anicteric sclera, pupils equal round reactive to light ENT: Nose and ears atraumatic, no thrush, no pharyngeal erythema Neck: No thyromegaly, no cervical lymphadenopathy, trachea midline, supple Mouth: no lip lesion, mucus membranes moist Cardiovascular: S1S2 reg, systolic murmur appreciated, positive posterior tibial pulse bilateral, no edema, capillary refill less than 2 seconds Lungs: CTA bilateral, no rhonchi, no rales , no accessory muscle use Abdominal: soft, nontender to palpation, no guarding, no appreciable organomegaly, normal bowel sounds Ext: no gross muscle atrophy, L hip post-surgical w/ dressing in place, clean and dry Neuro: CN II-XII grossly intact, light touch intact all 4 extremities, finger to nose within normal limits, Psych: Slightly lethargic, oriented to person, place, and time Assessment and Plan Plan: Systolic murmur -No documented hx of murmur w/ previous echo showing only mildly thickened aortic valve -Obtain Echocardiogram -Cardiac monitoring S/p L total hip arthroplasty -Management including pain control and DVT proph as per orthopedic surgery CAD, HTN, HLD -C/w home meds
[2018-12-31] MEDS: SODIUM CHLORIDE 0.9% 1,000 ML IV SCH (17:57)
[2018-12-31] MEDS: ASPIRIN 81 MG PO SCH (22:00)
[2018-12-31] MEDS: EZETIMIBE 10 MG TAB PO SCH (22:00)
[2018-12-31] MEDS: METOPROLOL TARTRATE 12.5 MG TAB PO SCH (22:00)
[2018-12-31] MEDS: SENNOSIDES-DOCUSATE SODIUM 1 EACH TAB PO SCH (22:01)
[2018-12-31] MEDS: PRAVASTATIN SODIUM 40 MG TAB PO SCH (22:01)
[2018-12-31] MEDS: LOSARTAN 50 MG TAB PO SCH (22:01)
[2019-01-01] MEDS: LACTATED RINGERS 1,000 ML IV SCH (03:18)
[2019-01-01] MEDS: SODIUM CHLORIDE 0.9% 1,000 ML IV SCH ×2 (03:18→19:05)
[2019-01-01 07:48] LABS: Basophils % (A) 0 %; Eosinophils % (A) 1 %; HCT 31.9 % (39.0-53.0); HGB 10.5 gm/dL (13.0-17.5); Lymphocytes # (A) 1.5 k/uL (1.0-4.8); Lymphocytes % (A) 18 %; MCH 30.9 pg (25.0-35.0); MCHC 32.8 g/dL (31.0-37.0); MCV 94.3 fL (80.0-100.0); Mean Platelet Volume 6.8; Monocytes # (A) 0.6 k/uL (0-1.0); Monocytes % (A) 8 %; Neutrophils # (A) 5.7 k/uL (1.3-7.7); Neutrophils % (A) 72 %; Platelet Count 194 k/uL (150-450); RBC 3.38 m/uL (4.30-5.90); RDW 13.3 % (11.5-15.5)
--- NOTE | 2019-01-01 08:47 | P.PN ---
Subjective Progress Note Date: 01/01/19 This is an 83-year-old male who is status post left total hip arthroplasty. This is postoperative day #1 and patient is seen and evaluated at bedside with Dr. Alexandre Martinez. Patient states that he has not been out of bed yet and he does have some soreness in the left hip today. Patient denies any fever/chills, numbness, weakness, tingling, abdominal pain, shortness of breath or chest pain. Objective - Vital Signs Vital signs: Vital Signs Temp 98.1 F 01/01/19 07:35 Pulse 96 01/01/19 07:35 Resp 18 01/01/19 07:35 BP 109/51 01/01/19 07:35 Pulse Ox 96 01/01/19 07:35 Intake & Output 12/31/18 01/01/19 01/01/19 18:59 06:59 18:59 Intake Total 1251 880 Output Total 350 1000 200 Balance 901 -120 -200 Weight 87.997 kg Intake: IV 1251 Intake, IV Titration 780 Amount Sodium Chloride 0.9% 1, 780 000 ml @ 65 mls/hr IV . [id number] [facility] Rx#:[id number] Oral 100 Output: Urine 1000 200 Uretheral ([place]) 500 Estimated Blood Loss 350 Other: # Voids 1 - Exam Vital signs are stable. Patient is in no acute distress and is alert and oriented 3. Calf is soft and nontender to palpation. Dressing is clean, dry, and intact. Patient has full foot and ankle motion without pain or difficulty. Neurovascular status and circulatory status are intact. - Labs CBC & Chem 7: 01/01/19 06:39 Labs: Abnormal Lab Results - Last 24 Hours (Table) 01/01/19 Range/Units 06:39 RBC 3.38 L (4.30-5.90) m/uL Hgb 10.5 L (13.0-17.5) gm/dL Hct 31.9 L (39.0-53.0) % Assessment and Plan (1) Osteoarthritis of left hip Current Visit: Yes Status: Acute Code(s): M16.12 - UNILATERAL PRIMARY OSTEOARTHRITIS, LEFT HIP SNOMED Code(s): 700600081733034 (2) Status post total hip replacement, left Current Visit: Yes Status: Acute Code(s): Z96.642 - PRESENCE OF LEFT ARTIFICIAL HIP JOINT SNOMED Code(s): 961671410201 Plan: Continue routine postop care and pain control. Continue anticoagulation with Plavix and aspirin. Weightbearing as tolerated with a walker. Leave dressing in place for 10 days. Appreciate input from medicine. Possible discharge home with homecare tomorrow vs rehab placement.
[2019-01-01] MEDS: METOPROLOL TARTRATE 25 MG TAB PO SCH (09:24)
[2019-01-01] MEDS: CLOPIDOGREL 75 MG TAB PO SCH (09:24)
[2019-01-01] MEDS: ASPIRIN 81 MG PO SCH ×2 (09:24→21:59)
[2019-01-01] MEDS: ISOSORBIDE MONONITRATE ER 30 MG TAB.ER.24H PO SCH (09:24)
[2019-01-01] MEDS: DIAZEPAM 5 MG TAB PO PRN ×2 (09:58→17:37)
[2019-01-01] MEDS: ACETAMINOPHEN TAB 325 MG TAB PO PRN ×2 (09:58→16:11)
--- NOTE | 2019-01-01 12:36 | ECHOF ---
Referral Reason:Murmur MEASUREMENTS -------- HEIGHT: 182.9 cm WEIGHT: 88.0 kg BP: 100/58 RVIDd: 3.2 cm (< 3.3) IVSd: 1.6 cm (0.6 - 1.1) LVIDd: 4.1 cm (3.9 - 5.3) LVPWd: 1.6 cm (0.6 - 1.1) IVSs: 1.7 cm LVIDs: 2.8 cm LVPWs: 1.4 cm LA Diam: 3.3 cm (2.7 - 3.8) Ao Diam: 3.1 cm (2.0 - 3.7) AV Cusp: 1.8 cm (1.5 - 2.6) MV EXCURSION: 14.924 mm (> 18.000) MV EF SLOPE: 37 mm/s (70 - 150) EPSS: 0.6 cm MV E Bebeto: 0.83 m/s MV DecT: 168 ms MV A [place]: 1.49 m/s MV E/A Ratio: 0.55 AV maxP.85 mmHg AV meanP.37 mmHg RAP: 5.00 mmHg RVSP: 43.76 mmHg FINDINGS -------- Sinus rhythm. This was a technically difficult study with suboptimal views. The left ventricular size is normal. There is moderate concentric left ventricular hypertrophy. O verall left ventricular systolic function is normal with, an EF between 60 - 65 %. The diastolic fi lling pattern is normal for the age of the patient 12.92. The right ventricle is normal in size. The left atrial size is normal. The right atrium is normal in size. 5 ml of Lumason was utilized for enhancement of images. Interatrial and interventricular septum intact. There is mild aortic valve sclerosis. There is mild aortic stenosis present. Peak/mean gradient a cross the Aortic Valve is 30.85mmHg / 16.37mmHg. Mild mitral annular calcification present. Mild tricuspid regurgitation present. There is mild pulmonary hypertension. The right ventricular systolic pressure, as measured by Doppler, is 43.76mmHg. The pulmonic valve was not well visualized. The aortic root size is normal. Normal inferior vena cava with normal inspiratory collapse consistent with estimated right atrial pre ssure of 5 mmHg. There is no pericardial effusion. CONCLUSIONS -------- 1. Sinus rhythm. 2. This was a technically difficult study with suboptimal views. 3. The left ventricular size is normal. 4. There is moderate concentric left ventricular hypertrophy. 5. Overall left ventricular systolic function is normal with, an EF between 60 - 65 %. 6. The diastolic filling pattern is normal for the age of the patient 12.92 7. The right ventricle is normal in size. 8. The left atrial size is normal. 9. The right atrium is normal in size. 10. 5 ml of Lumason was utilized for enhancement of images. 11. Interatrial and interventricular septum intact. 12. There is mild aortic valve sclerosis. 13. There is mild aortic stenosis present. 14. Peak/mean gradient across the Aortic Valve is 30.85mmHg / 16.37mmHg. 15. Mild mitral annular calcification present. 16. Mild tricuspid regurgitation present. 17. There is mild pulmonary hypertension. 18. The right ventricular systolic pressure, as measured by Doppler, is 43.76mmHg. 19. The pulmonic valve was not well visualized. 20. The aortic root size is normal. 21. Normal inferior vena cava with normal inspiratory collapse consistent with estimated right atrial pressure of 5 mmHg. 22. There is no pericardial effusion. MEDIA PRODUCTION SUPPORT MANAGER: Aurora Kerr RDCS
--- NOTE | 2019-01-01 16:14 | P.PN ---
Subjective Progress Note Date: 01/01/19 Patient is an 83-year-old male with a PMH of CAD status post multiple stents, hypertension, hyperlipidemia, and hip OA was seen postoperatively after a left total hip arthroplasty. The patient underwent the procedure without any complications. No immediate postoperative complications were noted. The patient was seen and evaluated at the bedside on 01/01. He reported excellent control of his pain, currently at a 2/. He denied any additional complaints. Denied chest pain or SOB. Denied fever, chills, nausea, or vomiting. Objective - Vital Signs Vital signs: Vital Signs Temp 98.1 F 01/01/19 14:30 Pulse 60 01/01/19 14:30 Resp 17 01/01/19 14:30 BP 107/54 01/01/19 14:30 Pulse Ox 95 01/01/19 14:30 Intake & Output 12/31/18 01/01/19 01/01/19 18:59 06:59 18:59 Intake Total 1251 880 300 Output Total 350 1000 600 Balance 901 -120 -300 Weight 87.997 kg Intake: IV 1251 Intake, IV Titration 780 Amount Sodium Chloride 0.9% 1, 780 000 ml @ 65 mls/hr IV . [id number] [facility] Rx#:[id number] Oral 100 300 Output: Urine 1000 600 Uretheral ([place]) 500 Estimated Blood Loss 350 Other: # Voids 1 - Exam General: Non-toxic, in no acute distress, appears stated age, overweight HEENT: NC/AT, anicteric sclerae, moist conjunctiva, no lid-lag, PERRLA Cardiovascular: S1/S2 wnl, no murmurs, rubs, or gallops Lungs: Clear to auscultation, normal respiratory effort, no accessory muscle use Abdominal: Soft, non-tender, non-distended, no guarding, rebound, or rigidity Skin: Warm, dry Extremities: No edema or contractures, left anterior hip dressing, clean and dry Psychiatric: Alert and oriented to person, place and time, appropriate affect Neuro: CN II-XII grossly intact, no focal deficits noted - Labs CBC & Chem 7: 01/01/19 06:39 Labs: Abnormal Lab Results - Last 24 Hours (Table) 01/01/19 Range/Units 06:39 RBC 3.38 L (4.30-5.90) m/uL Hgb 10.5 L (13.0-17.5) gm/dL Hct 31.9 L (39.0-53.0) % Assessment and Plan Plan: Systolic murmur -No documented hx of murmur w/ previous echo showing only mildly thickened aortic valve -Echocardiogram reviewed -- mild aortic stenosis and tricuspid regurgitation -Patient follows w/ Cardiology as outpatient S/p L total hip arthroplasty -Management including pain control and DVT proph as per orthopedic surgery CAD, HTN, HLD -C/w home meds
[2019-01-01] MEDS: SENNOSIDES-DOCUSATE SODIUM 1 EACH TAB PO SCH (21:59)
[2019-01-01] MEDS: LOSARTAN 50 MG TAB PO SCH (21:59)
[2019-01-01] MEDS: METOPROLOL TARTRATE 12.5 MG TAB PO SCH (21:59)
[2019-01-01] MEDS: PRAVASTATIN SODIUM 40 MG TAB PO SCH (21:59)
[2019-01-01] MEDS: EZETIMIBE 10 MG TAB PO SCH (21:59)
[2019-01-02] MEDS: HYDROmorphone 0.5 MG/0.5 ML SYRINGE IVP PRN (01:21)
[2019-01-02] MEDS: LACTATED RINGERS 1,000 ML IV SCH (04:19)
[2019-01-02] MEDS: SODIUM CHLORIDE 0.9% 1,000 ML IV SCH (07:46)
[2019-01-02] MEDS: ASPIRIN 81 MG PO SCH ×2 (07:49→21:24)
[2019-01-02] MEDS: ISOSORBIDE MONONITRATE ER 30 MG TAB.ER.24H PO SCH (07:49)
[2019-01-02] MEDS: CLOPIDOGREL 75 MG TAB PO SCH (07:49)
[2019-01-02] MEDS: METOPROLOL TARTRATE 25 MG TAB PO SCH (07:49)
[2019-01-02] MEDS ORDERED: traMADol 50 MG TAB PO PRN (08:25)
--- NOTE | 2019-01-02 08:28 | P.PN ---
Subjective Progress Note Date: 01/02/19 This is an 83-year-old male who is status post left total hip arthroplasty. This is postoperative day #2 and patient is seen and evaluated at bedside. Patient reports pain in the left hip today. Patient denies any fever/chills, numbness, weakness, tingling, abdominal pain, shortness of breath or chest pain. Objective - Vital Signs Vital signs: Vital Signs Temp 98.1 F 01/02/19 07:46 Pulse 103 H 01/02/19 07:46 Resp 22 01/02/19 07:46 BP 162/74 01/02/19 07:46 Pulse Ox 93 L 01/02/19 07:46 Intake & Output 01/01/19 01/02/19 01/02/19 18:59 06:59 18:59 Intake Total 300 Output Total 1050 325 Balance -750 -325 Intake: Oral 300 Output: Urine 1050 325 Other: Voiding Method Urinal # Voids 1 - Exam Vital signs are stable. Patient is in no acute distress and is alert and oriented 3. Calf is soft and nontender to palpation. Dressing is clean, dry, and intact. Patient has full foot and ankle motion without pain or difficulty. Neurovascular status and circulatory status are intact. - Labs CBC & Chem 7: 01/01/19 06:39 Assessment and Plan (1) Osteoarthritis of left hip Current Visit: Yes Status: Acute Code(s): M16.12 - UNILATERAL PRIMARY OSTEOARTHRITIS, LEFT HIP SNOMED Code(s): 085758914886192 (2) Status post total hip replacement, left Current Visit: Yes Status: Acute Code(s): Z96.642 - PRESENCE OF LEFT ARTIFICIAL HIP JOINT SNOMED Code(s): 693740348632 Plan: Continue routine postop care and pain control. Continue anticoagulation with Plavix and aspirin. Weightbearing as tolerated with a walker. Leave dressing in place for 10 days. Appreciate input from medicine. Possible discharge home with homecare tomorrow vs rehab placement.
[2019-01-02] MEDS: traMADol 50 MG TAB PO PRN ×2 (09:03→17:39)
--- NOTE | 2019-01-02 09:45 | P.PN ---
Subjective Progress Note Date: 01/02/19 Principal diagnosis: Medical management post left hip arthroplasty Patient was seen and examined. No acute events overnight. Patient reports 10 out of 10 left hip pain, achy in nature, especially with movement. States that he has been unable to get out of bed or moves around too much. Denies any changes in urination. No bowel movement since surgery, but passing gas. He d enies any chest pain, shortness of breath or palpitations. Objective - Vital Signs Vital signs: Vital Signs Temp 98.1 F 01/02/19 07:46 Pulse 103 H 01/02/19 07:46 Resp 22 01/02/19 07:46 BP 162/74 01/02/19 07:46 Pulse Ox 93 L 01/02/19 07:46 Intake & Output 01/01/19 01/02/19 01/02/19 18:59 06:59 18:59 Intake Total 300 Output Total 1050 325 Balance -750 -325 Intake: Oral 300 Output: Urine 1050 325 Other: Voiding Method Urinal # Voids 1 - Exam General: [non toxic], [mild distress], [appears at stated age] Derm: [warm], [dry] Head: [atraumatic], [normocephalic], [symmetric] Eyes: [EOMI], [no lid lag], [anicteric sclera] Mouth: [no lip lesion], [mucus membranes moist] Cardiovascular: [S1S2 reg], [systolic murmur], [palpable DP pulse bilateral] Lungs: [CTA bilateral], [no rhonchi, no rales] , [no accessory muscle use] Abdominal: [soft], [ nontender to palpation], [no guarding], [no appreciable or ganomegaly] Ext: [no gross muscle atrophy], [no edema], [no contractures], [left hip dressing clean dry and intact with minimal tenderness to palpation] Neuro: [no focal neuro deficits] Psych: [Alert], [oriented], [appropriate affect] - Labs CBC & Chem 7: 01/01/19 06:39 Assessment and Plan Assessment: Assessment and plan Systolic murmur Status post left hip arthroplasty Chronic conditions: CAD, hypertension, hyperlipidemia Echocardiogram performed shows mild aortic stenosis and tricuspid regurgitation. Plans: Needs to follow-up with cardiology outpatient. Needs better pain control. Plans: ALLERGIC to hydrocodone. Tramadol added as needed for pain with Dilaudid IV as needed for breakthrough. Continue aspirin and Plavix. Valium as needed for muscle spasm. Follow PT and OT recommendati ons. Management as per orthopedic surgery. Resume aspirin, Plavix and pravastatin along with beta candido for hypertension, dyslipidemia and history of CAD. Resume JOSE inhibitor and Imdur for hyper tension. [Patient needs better pain control, advised to schedule Tramadol, discussed with RN. Continue working with PT. Likely DC tomorrow, plans for home with home care but needs to be able to ambulate.]
[2019-01-02] MEDS: METOPROLOL TARTRATE 12.5 MG TAB PO SCH (21:24)
[2019-01-02] MEDS: EZETIMIBE 10 MG TAB PO SCH (21:24)
[2019-01-02] MEDS: SENNOSIDES-DOCUSATE SODIUM 1 EACH TAB PO SCH (21:24)
[2019-01-02] MEDS: PRAVASTATIN SODIUM 40 MG TAB PO SCH (21:24)
[2019-01-02] MEDS: LOSARTAN 50 MG TAB PO SCH (21:24)
[2019-01-03] MEDS: SODIUM CHLORIDE 0.9% 1,000 ML IV SCH (02:27)
[2019-01-03] MEDS: LACTATED RINGERS 1,000 ML IV SCH (02:27)
[2019-01-03 06:22] LABS: Basophils % (A) 0 %; Eosinophils # (A) 0.1 k/uL (0-0.7); Eosinophils % (A) 1 %; HCT 30.6 % (39.0-53.0); HGB 10.3 gm/dL (13.0-17.5); Lymphocytes # (A) 1.5 k/uL (1.0-4.8); Lymphocytes % (A) 24 %; MCHC 33.6 g/dL (31.0-37.0); MCV 92.2 fL (80.0-100.0); Mean Platelet Volume 6.9; Monocytes # (A) 0.7 k/uL (0-1.0); Monocytes % (A) 11 %; Neutrophils # (A) 3.8 k/uL (1.3-7.7); Neutrophils % (A) 61 %; Platelet Count 149 k/uL (150-450); RBC 3.32 m/uL (4.30-5.90); WBC 6.2 k/uL (3.8-10.6)
[2019-01-03 07:26] VITALS: BP 118/66; PULSE 88; RESP 17; TEMP 98.5
[2019-01-03] MEDS: METOPROLOL TARTRATE 25 MG TAB PO SCH (07:28)
[2019-01-03] MEDS: CLOPIDOGREL 75 MG TAB PO SCH (07:28)
[2019-01-03] MEDS: ASPIRIN 81 MG PO SCH (07:29)
[2019-01-03] MEDS: ISOSORBIDE MONONITRATE ER 30 MG TAB.ER.24H PO SCH (07:29)
--- NOTE | 2019-01-03 08:36 | P.PN ---
Subjective Progress Note Date: 01/03/19 This is an 83-year-old male who is status post left total hip arthroplasty. This is postoperative day #3 and patient is seen and evaluated at bedside. Patient states that his pain is better controlled today and he has been up and walking with physical therapy. Patient denies any fever/chills, numbness, weakness, tingling, abdominal pain, shortness of breath or chest pain. Objective - Vital Signs Vital signs: Vital Signs Temp 98.5 F 01/03/19 07:00 Pulse 88 01/03/19 07:00 Resp 17 01/03/19 07:00 BP 118/66 01/03/19 07:00 Pulse Ox 93 L 01/03/19 07:00 Intake & Output 01/02/19 01/03/19 01/03/19 18:59 06:59 18:59 Intake Total 350 Output Total 200 Balance -200 350 Intake: Oral 350 Output: Urine 200 Other: Voiding Method Urinal Urinal # Voids 1 0 - Exam Vital signs are stable. Patient is in no acute distress and is alert and oriented 3. Calf is soft and nontender to palpation. Dressing is clean, dry, and intact. Patient has full foot and ankle motion without pain or difficulty. Neurovascular status and circulatory status are intact. - Labs CBC & Chem 7: 01/03/19 05:58 Labs: Abnormal Lab Results - Last 24 Hours (Table) 01/03/19 Range/Units 05:58 RBC 3.32 L (4.30-5.90) m/uL Hgb 10.3 L (13.0-17.5) gm/dL Hct 30.6 L (39.0-53.0) % Plt Count 149 L (150-450) k/uL Assessment and Plan (1) Osteoarthritis of left hip Current Visit: Yes Status: Acute Code(s): M16.12 - UNILATERAL PRIMARY OSTEOARTHRITIS, LEFT HIP SNOMED Code(s): 187438373161195 (2) Status post total hip replacement, left Current Visit: Yes Status: Acute Code(s): Z96.642 - PRESENCE OF LEFT ARTIFICIAL HIP JOINT SNOMED Code(s): 461860903146 Plan: Continue routine postop care and pain control. Continue anticoagulation with Plavix and aspirin. Weightbearing as tolerated with a walker. Leave dressing in place for 10 days. Appreciate input from medicine. Likely discharge home with home care today.
--- NOTE | 2019-01-03 09:04 | P.DS ---
Providers Date of admission: 12/31/18 11:14 Expected date of discharge: 01/03/19 Attending physician: Alexandre Martinez Consults: 12/31/18 12:43 Consult Physician Routine Consulting Provider: Robin Wiggins Consult Reason/Comments: medical mangement and anticoagulation Do you want consulting provider notified?: Yes Primary care physician: Stated None - Discharge Diagnosis(es) (1) Osteoarthritis of left hip Current Visit: Yes Status: Acute (2) Status post total hip replacement, left Current Visit: Yes Status: Acute Hospital Course: This is an 83-year-old male with known history of degenerative arthritis of the left hip. The patient presents for evaluation. After discussion and consideration patient elects to proceed with total hip arthroplasty. The patient is seen preoperatively by Dr. Martinez and medically cleared for surgery by their primary care physician. Patient is admitted to [facility] on 12/31/2018 for total hip arthroplasty. The procedures performed without complication or sequelae. The patient is doing well postoperatively. Labs and vital signs are stable on day of discharge. On day of discharge patient's hip incision is healing well. There is minimal erythema. There is no drainage noted at this time. There is minimal soft tissue swelling to the hip and thigh. Patient has full foot and ankle motion without difficulty or pain. Calf is soft and nontender to palpation. Neurovascular status to the left lower extremity is intact. Patient is discharged home in good condition. Opioid start talking form is reviewed and signed at patient bedside. Please see med rec for accurate list of home medications. Plan - Discharge Summary Discharge Rx Participant: Yes New Discharge Prescriptions: New Sennosides [Senokot] 1 tab PO BID #60 tablet traMADol HCl [Ultram] 1 - 2 tab PO Q6H PRN #56 tab PRN Reason: Pain Continue Clopidogrel [Plavix] 75 mg PO DAILY Nitroglycerin Sl Tabs [Nitrostat] 0.4 mg SUBLINGUAL Q5M PRN PRN Reason: Chest Pain Losartan [Cozaar] 50 mg PO HS Metoprolol Tartrate [Lopressor] 25 mg PO QAM Pravastatin Sodium [Pravachol] 40 mg PO HS Isosorbide Mononitrate [Isosorbide Mononitrate ER] 30 mg PO DAILY Ezetimibe [Zetia] 10 mg PO HS Metoprolol Tartrate [Lopressor] 12.5 mg PO HS Discontinued Naproxen Sodium [Aleve] 220 mg PO BID PRN PRN Reason: Pain Discharge Medication List Clopidogrel [Plavix] 75 mg PO DAILY 08/26/15 [History] Nitroglycerin Sl Tabs [Nitrostat] 0.4 mg SUBLINGUAL Q5M PRN 03/29/16 [History] Losartan [Cozaar] 50 mg PO HS 07/25/17 [History] Metoprolol Tartrate [Lopressor] 25 mg PO QAM 07/25/17 [History] Pravastatin Sodium [Pravachol] 40 mg PO HS 07/25/17 [History] Ezetimibe [Zetia] 10 mg PO HS 12/25/18 [History] Isosorbide Mononitrate [Isosorbide Mononitrate ER] 30 mg PO DAILY 12/25/18 [History] Metoprolol Tartrate [Lopressor] 12.5 mg PO HS 12/25/18 [History] Sennosides [Senokot] 1 tab PO BID #60 tablet 01/02/19 [Rx] traMADol HCl [Ultram] 1 - 2 tab PO Q6H PRN #56 tab 01/02/19 [Rx] Follow up Appointment(s)/Referral(s): Alexandre Martinez DO [Doctor of Osteopathic Medicine] - 01/15/19 10:20 am Activity/Diet/Wound Care/Special Instructions: Weightbearing as tolerated with walker. Leave dressing intact. Dressing may be removed by home care nurse or by patient in 10 days. May shower with dressing on. Recommend use of compression stockings daily for at least 2 weeks during the day to help prevent swelling and blood clots. May remove at night before sleeping. Please follow-up with [facility] in 2 weeks and call with any questions or concerns, . Discharge Disposition: HOME WITH HOME HEALTH SERVICES
--- NOTE | 2019-01-03 09:24 | P.PN ---
Subjective Progress Note Date: 01/03/19 Principal diagnosis: Medical management post left hip arthroplasty Patient was seen and examined. No acute events overnight. Patient reports significant improvement in his left hip pain since starting tramadol. Pain is currently 2 out of 10 in severity. Able to ambulate with the help of a walker. Denies any changes in urination. No bowel movement since surgery, but passing gas. He denies any chest pain, shortness of breath or palpitations. Objective - Vital Signs Vital signs: Vital Signs Temp 98.5 F 01/03/19 07:00 Pulse 88 01/03/19 07:00 Resp 17 01/03/19 07:00 BP 118/66 01/03/19 07:00 Pulse Ox 93 L 01/03/19 07:00 Intake & Output 01/02/19 01/03/19 01/03/19 18:59 06:59 18:59 Intake Total 350 Output Total 200 Balance -200 350 Intake: Oral 350 Output: Urine 200 Other: Voiding Method Urinal Urinal # Voids 1 0 - Exam General: [non toxic], [mild distress], [appears at stated age] Derm: [warm], [dry] Head: [atraumatic], [normocephalic], [symmetric] Eyes: [EOMI], [no lid lag], [anicteric sclera] Mouth: [no lip lesion], [mucus membranes moist] Cardiovascular: [S1S2 reg], [systolic murmur], [palpable DP pulse bilateral] Lungs: [CTA bilateral], [no rhonchi, no rales] , [no accessory muscle use] Abdominal: [soft], [ nontender to palpation], [no guarding], [no appreciable organomegaly] Ext: [no gross muscle atrophy], [no edema], [no contractures], [left hip dressi ng clean dry and intact with minimal tenderness to palpation] Neuro: [no focal neuro deficits] Psych: [Alert], [oriented], [appropriate affect] - Labs CBC & Chem 7: 01/03/19 05:58 Labs: Abnormal Lab Results - Last 24 Hours (Table) 01/03/19 Range/Units 05:58 RBC 3.32 L (4.30-5.90) m/uL Hgb 10.3 L (13.0-17.5) gm/dL Hct 30.6 L (39.0-53.0) % Plt Count 149 L (150-450) k/uL Assessment and Plan Assessment: Assessment and plan Systolic murmur Status post left hip arthroplasty Chronic conditions: CAD, hypertension, hyperlipidemia Echocardiogram performed shows mild aortic stenosis and tricuspid regurgitation. Plans: Needs to follow-up with cardiology outpatient. Needs better pain control. Plans: ALLERGIC to hydrocodone. Tramadol added as needed for pain with Dilaudid IV as needed for breakthrough. Continue aspirin and Plavix. Valium as needed for muscle spasm. Follow PT and OT recommendations. Management as per orthopedic surgery. Resume aspirin, Plavix and pravastatin along with beta candido for hypertension, dyslipidemia and history of CAD. Resume JOSE inhibitor and Imdur for hypertension. [Pain better controlled. Plans for DC today with home health. DC with walker. Patient is medically stable and cleared for discharge.]
== END 2019-01-03 12:03 | disposition home health service (06) | DRG 470 ==
LOC: 2ORMAIN 11:14 → 4SSUR 15:20
PROVIDERS: ADMIT Orthopaedic Surgery; ATTEND Orthopaedic Surgery
PROC: 0SRB06A Replacement of Left Hip Joint with Oxidized Zirconium on Polyethylene Synthetic Substitute, Uncemented, Open Approach (ICD-10-PCS; principal; 2018-12-31 12:45)
DX: M16.12 Unilateral primary osteoarthritis, left hip (principal); E78.5 Hyperlipidemia, unspecified; G47.30 Sleep apnea, unspecified; I10 Essential (primary) hypertension; I25.10 Atherosclerotic heart disease of native coronary artery without angina pectoris; Z79.02 Long term (current) use of antithrombotics/antiplatelets; Z79.82 Long term (current) use of aspirin; Z79.899 Other long term (current) drug therapy; Z85.46 Personal history of malignant neoplasm of prostate; Z87.891 Personal history of nicotine dependence; Z95.5 Presence of coronary angioplasty implant and graft; Z79.01 Long term (current) use of anticoagulants; Z99.89 Dependence on other enabling machines and devices; Z98.42 Cataract extraction status, left eye; Z98.41 Cataract extraction status, right eye; Z88.1 Allergy status to other antibiotic agents; Z88.5 Allergy status to narcotic agent; Z91.048 Other nonmedicinal substance allergy status
CPT/HCPCS: 73501; 85025; 86850; 86891; 86900; 86901; 88300; 93306

== ENCOUNTER → 2019-09-22 | Outpatient (CLI) | payer MEDICARE ==
[2019-09-22 14:15] LABS: HCT 41.7 % (39.0-53.0); HGB 13.4 gm/dL (13.0-17.5); MCH 30.7 pg (25.0-35.0); MCHC 32.2 g/dL (31.0-37.0); MCV 95.3 fL (80.0-100.0); Mean Platelet Volume 7.5; Platelet Count 209 k/uL (150-450); RBC 4.37 m/uL (4.30-5.90); RDW 13.3 % (11.5-15.5); WBC 6.5 k/uL (3.8-10.6)
[2019-09-22 14:30] LABS: Prothrombin Time 10.3 sec (9.0-12.0)
[2019-09-22 14:38] LABS: Appearance,Urine Clear (Clear); Bilirubin,Urine Negative (Negative); Blood,Urine Negative (Negative); Color,Urine Light Yellow; Glucose,Urine (UA) Negative (Negative); Ketones,Urine Negative (Negative); Leukocyte Esterase,Urine Negative (Negative); Nitrite,Urine Negative (Negative); PH, Urine 6.5 (5.0-8.0); Protein,Urine Negative (Negative); Specific Gravity,Urine 1.004 (1.001-1.035); Urobilinogen,Urine <2.0 mg/dL (<2.0)
[2019-09-22 14:39] LABS: ALT 24 U/L (4-49); AST 31 U/L (17-59); African American GFR (CKD) >90 (>60 ml/min/1.73 sqM); Albumin 4.2 g/dL (3.5-5.0); Alkaline Phosphatase 90 U/L (38-126); Anion Gap 6 mmol/L; Blood Urea Nitrogen 15 mg/dL (9-20); Calcium 9.5 mg/dL (8.4-10.2); Carbon Dioxide 28 mmol/L (22-30); Chloride 102 mmol/L (98-107); Glucose 104 mg/dL (74-99); Non-African American GFR(CKD) 83 (>60 ml/min/1.73 sqM); Partial Thromboplastin Time 21.9 sec (22.0-30.0); Potassium 4.6 mmol/L (3.5-5.1); Sodium 136 mmol/L (137-145); Total Bilirubin 0.6 mg/dL (0.2-1.3); Total Protein 6.6 g/dL (6.3-8.2)
== END | disposition home or self-care (01) ==
LOC: LABPAT 12:45
PROVIDERS: ATTEND Orthopaedic Surgery
DX: Z01.810 Encounter for preprocedural cardiovascular examination (principal); Z01.812 Encounter for preprocedural laboratory examination
CPT/HCPCS: 36415; 80053; 81003; 85027; 85610; 85730; 87070

== ENCOUNTER → 2019-09-26 | Outpatient (CLI) | payer MEDICARE ==
[~2019-09-26] MED LIST changes: -ACETAMINOPHEN TAB 500 MG TAB PO ONE; -DEXAMETHASONE SOD PHOSPHATE 10 MG/ML 1 ML VIAL IV ONE; -GABAPENTIN 300 MG CAP PO ONE; -HYDROmorphone 0.5 MG/0.5 ML SYRINGE IVP PRN; -LIDOCAINE 1% 20 ML VIAL (10MG/ML) FOR IV START INTRADERMA PRN; -MELOXICAM 7.5 MG TAB PO ONE; -MIDAZOLAM 2 MG/2 ML VIAL IV PRN; -ONDANSETRON 4 MG/2 ML VIAL IVP ONE; +REGADENOSON 0.4 MG/5 ML SYRINGE IV ONE; -ROPIVACAINE 246.25 MG, EPINEPHrine 0.5 MG, KETOROLAC 30 MG, cloNIDine HCL/PF 80 MCG, WA... MISCELLANE ONE; -SCOPOLAMINE 1.5MG/72HR PATCH TRANSDERM ONE; -TRANEXAMIC ACID 1,000 MG in SODIUM CHLORIDE 0.9% 100 ML IVPB ONE
--- NOTE | 2019-09-26 11:41 | P.STRESS ---
- Stress Test Note Stress Test Results/Findings: Exam Performed: NM stress lexiscan cardiolite Exam Date: 09/26/19 Reason for Exam: Angina Height: 5 ft 11 in Weight: 86.183 kg Protocol: Lexiscan Stage: na Duration of Exercise: na Resting Heart Rate: 61 Resting Blood Pressure: 106/52 Maximum Achieved Heart Rate: 84 Maximum Achieved Blood Pressure: 137/51 85% PMHR: 116 100% PMHR: 137 METS: na Technologist Comment: Stress Test Results/Findings: This is a 83-year-old male with history of smoking and chest pains being evaluated for cardiac status. No Stress data: Baseline EKG showed sinus rhythm with left bundle-branch block. Blood pressure is 106/52 with pulse rate of 61. A standard dose of Lexiscan was infused. EKGs continued to show left bundle-branch block pattern during and after the infusion. Final impression: #1. Nondiagnostic Lexiscan stress test because of left bundle branch block #2. Report on the nuclear images to be given by the radiologist.
--- NOTE | 2019-09-26 16:41 | NM ---
EXAMINATION TYPE: NM stress lexiscan cardiolite DATE OF EXAM: 09/26/2019 COMPARISON: NONE HISTORY: Coronary artery disease TECHNIQUE: After the intravenous administration of 9.4 mCi Tc 99m Sestamibi - Cardiolite resting SPE CT images acquired 60 minutes post injection. The patient received 0.4mg Lexiscan, 25.5 mCi Tc 99m Sestamibi - Stress images obtained [address] injection FINDINGS: Review of stress and rest SPECT images demonstrates no distinct perfusion abnormality. Gated analysi s shows normal wall motion with an estimated left ventricular ejection fraction of 66 %. TID 1.02 IMPRESSION: 1. No scintigraphic evidence for reversible ischemia. 2. Ejection fraction 66%.
== END | disposition home or self-care (01) ==
LOC: RADNMMAIN 09:00
PROVIDERS: ATTEND Internal Medicine Cardiovascular Disease
DX: Z01.810 Encounter for preprocedural cardiovascular examination (principal); I10 Essential (primary) hypertension; I25.118 Atherosclerotic heart disease of native coronary artery with other forms of angina pectoris
CPT/HCPCS: 93017; 78452; A9500; J2785

== ENCOUNTER 2019-10-03 11:10 | Day surgery (SDC) | payer MEDICARE ==
[2019-09-26 15:31] VITALS: BMI 26.9
[~2019-10-03 11:10] MED LIST changes: +ACETAMINOPHEN TAB 500 MG TAB PO ONE; +LACTATED RINGERS 1,000 ML IV SCH; +LIDOCAINE 1% (10MG/ML) FOR IV START INTRADERMA PRN; +MELOXICAM 7.5 MG TAB PO ONE; +ONDANSETRON 4 MG/2 ML VIAL IVP ONE; -REGADENOSON 0.4 MG/5 ML SYRINGE IV ONE; +TRANEXAMIC ACID 1,000 MG in SODIUM CHLORIDE 0.9% 100 ML IVPB ONE; +fentaNYL (PF) 50 MCG/ML 2 ML AMP IV PRN
[2019-10-03] MEDS ORDERED: ACETAMINOPHEN TAB 500 MG TAB ONE (11:23)
[2019-10-03] MEDS ORDERED: ONDANSETRON 4 MG/2 ML VIAL ONE (11:23)
[2019-10-03] MEDS ORDERED: LACTATED RINGERS 1,000 ML IV ONE ×2 (11:41→15:05)
[2019-10-03] MEDS ORDERED: DEXAMETHASONE SOD PHOS (MDV) 100 MG/10 ML VIAL IVP ONE (11:54)
[2019-10-03 11:58] LABS: Glucose,Whole Blood 113 mg/dL (75-99)
[2019-10-03] MEDS ORDERED: fentaNYL (PF) 50 MCG/ML 2 ML AMP IVP ONE (12:22)
[2019-10-03] MEDS ORDERED: MIDAZOLAM 2 MG/2 ML VIAL IVP ONE (12:22)
[2019-10-03] MEDS ORDERED: traMADol 50 MG TAB PO PRN (13:11)
[2019-10-03] MEDS ORDERED: NA PHOS,M-B/NA PHOS,DI-BA 133 ML ENEMA RECTAL PRN (13:11)
[2019-10-03] MEDS ORDERED: NALOXONE 0.4 MG/ML 1 ML VIAL IV PRN (13:11)
[2019-10-03] MEDS ORDERED: HYDROmorphone 0.5 MG/0.5 ML SYRINGE IVP PRN ×3 (13:11)
[2019-10-03] MEDS ORDERED: bisacodyL 10 MG SUPP RECTAL PRN (13:11)
[2019-10-03] MEDS ORDERED: PROPOFOL 10 MG/ML 20 ML VIAL IV ONE (13:13)
[2019-10-03] MEDS ORDERED: fentaNYL (PF) 50 MCG/ML 2 ML AMP ONE (13:13)
[2019-10-03] MEDS ORDERED: TRANEXAMIC ACID 1,000 MG/10 ML VIAL ONE (13:13)
[2019-10-03] MEDS ORDERED: MIDAZOLAM 2 MG/2 ML VIAL ONE (13:13)
[2019-10-03] MEDS ORDERED: SODIUM CHLORIDE 0.9% 100 ML BAG ONE (13:13)
[2019-10-03] MEDS: ROPIVACAINE 246.25 MG, EPINEPHrine 0.5 MG, KETOROLAC 30 MG, cloNIDine HCL/PF 80 MCG, WA... MISCELLANE ONE ×10 (13:55→14:18)
--- NOTE | 2019-10-03 13:56 | P.ANPRN ---
Procedure Note - Anesthesia - Nerve Block Performed Left Adductor Canal Infusion Time Out Performed: Yes Date of Procedure: 10/03/19 Procedure Start Time: 12: Procedure Stop Time: :29 Location of Patient: PreOp Indication: Acute Post-Operative Pain, Requested by Surgeon Specifically requested for management of pain by DrDillon: Juan Arevalo Sedation Type: Sedate with meaningful contact maintained Preparation: Sterile Prep Position: Supine Catheter: None Needle Types: Pajunk Needle Gauge: 18, 21 Ultrasound used to visualize needle placement: Yes Ultrasound used to observe medication spread: Yes Injectate: 0.5% Ropivacaine (see comment for volume) (30cc) Blood Aspirated: No Pain Paresthesia on Injection Noted: No Resistance on Injection: Normal Image Stored and Saved: Yes Events: Uneventful and Well Tolerated
[2019-10-03] MEDS ORDERED: ROPIVACAINE 0.2%-NS ON-Q PUMP 1,090 MG, EMPTY PAIN BALL 1 EACH MISCELLANE PRN (14:01)
[2019-10-03] MEDS ORDERED: ceFAZolin 3,000 MG in SODIUM CHLORIDE 0.9% IRRIGATIO 3,000 ML IRRIGATION ONE (14:18)
--- NOTE | 2019-10-03 15:03 | P.OP ---
Date of Procedure: 10/03/19 Procedure(s) Performed: PREOPERATIVE DIAGNOSIS: Left knee severe osteoarthritis with genu varum POSTOPERATIVE DIAGNOSIS: Left knee severe osteoarthritis with genu varum OPERATION: Left knee cemented total replacement arthroplasty. ANESTHESIA: Spinal ESTIMATED BLOOD LOSS: 50 ml. PRODUCT DEVELOPMENT COORDINATOR: Fide Holder PA-C (assistance with: patient positioning, retraction, exposure, hemostasis, leg positioning, implantation, irrigation, closure, dressing) COMPLICATIONS: None apparent. COMPONENTS IMPLANTED: Persona system from [employer] INDICATIONS: Mr. De Leon is an 83-year-old male with a history of left knee osteoarthritis. He has successfully undergone right knee replacement in the past. Conservative treatment has been tried and has been unsuccessful in controlling symptoms adequately. The operation of knee replacement has been discussed at length in the office, as well as potential risks and complications. These are inclusive of, but not limited to: bleeding, infection, scarring, discomfort, blood vessel and nerve damage, need for further surgery, failure to relieve symptoms, persistence, recurrence, or worsening of problems, loosening, dislocation, wear, blood clot, pulmonary embolism, , gait dysfunction, stiffness, and other risks as discussed in the office. The patient elects to proceed and the consent form has been signed. PROCEDURE: The patient was taken to the operating room and positioned on the operating room table in the supine position. Anesthesia was initiated. Care was taken to make sure that all pressure points were adequately padded. The operative lower extremity was prepped and draped in the usual aseptic fashion using ChloraPrep. Ioban drape was used for the case and the patient received intravenous antibiotics within one hour of the incision. A pneumotourniquet and leg blanchard were used for the case. The limb was exsanguinated with an Esmarch bandage and the tourniquet was inflated to 350 mmHg. Time-out was called confirming the patient's identity, side, procedure and administration of antibiotics and tranexamic acid, 1 g IV. The incision was then created midline directly over the knee, carried down through skin and into the subcutaneous tissues and down to fascia. Full thickness subcutaneous medial flap was developed. Medial parapatellar arthrotomy was performed and the interior of the knee was inspected. There was end-stage osteoarthritis of the knee with a mild to moderate genu varum type deformity. The fat pad was excised and proximal medial release on the tibia was completed using meticulous dissection and a curved osteotome. The anterior cruciate ligament was taken down. Note was made of significant attrition of the anterior and significant degenerative appearance of the posterior cruciate ligaments. The exposure was excellent. The knee was flexed 90 degrees and the patella was everted. A spot was chosen on the femur approximately 1 cm anterior to the posterior cruciate ligament insertion and an intramedullary hole was created within the femur. The intramedullary guide was then set to 5 degrees of valgus. The distal cutting block was attached and pinned into position. An appropriate amount of distal femoral resection was set. The oscillating saw was then used to make the distal femoral cut. This cut was confirmed to be flat with the flat end of an osteotome. The retractors were placed around the tibia and the tibial surface was addressed. The angle and depth of resection was adjusted using an extramedullary cutting guide. The guide had a built-in 3 degree posterior slope cut. Once the cutting guide was adjusted appropriately and in line with the axis of the tibia and confirmed to be in good position in relation to the second metatarsal and transmalleolar axis, the tibial cut was then created with protection of the posterior neurovascular structures and the collateral ligaments. The tibial cut surface was removed and sized. Femoral sizing was then accomplished using anterior referencing. Care was taken to analyze the posterior condyles for signs of deficiency or severe wear, and adjustments to the guide were made, as appropriate. 3 degree external rotation pins were placed. The cutting jig for the femur was applied to these pins. The planned cuts were further analyzed prior to performing them with the oscillating saw. No femoral notching was produced. Bone fragments were removed and the cut surfaces were finished, as necessary, with a reciprocating saw. Spacer block technique was then used to confirm that the flexion and extension gaps were equal. Soft tissue releases and adjustment of the tibial and/or femoral cuts were made, as necessary, until the gaps were equal. This included release of the posterior cruciate ligament, which was tight in this patient. The femur was then further finished for a posterior cruciate ligament substituting component. Patellar resurfacing was performed using a reamer. The size of the required patellar component was estimated and the patellar surface was then reamed down to a residual thickness which would recreate the nulato thickness with the component. The exact placement of the patellar component was adjusted for position based on preoperative x-rays and intraoperative findings. Prior to placing trial components, anesthetic solution consisting of ropivicaine with epinephrine, ketorolac, and clonidine was injected carefully and methodically in a grid pattern using aspiration technique into the soft tissue around the knee circumferentially, starting with the deeper tissues first and progressing to fascia, and then finally the skin/subcutaneous tissue. Particular care was taken when injecting the posterior capsule. The trial components were inserted. The tibial tray was allowed to self center and the patella was noted to track very well. The position of the tibial component was marked and the tibia was then finished for a stemmed tibial component. Cement was mixed on the back table and applied to the final components. Trial components were removed and the cut surfaces of the bone were pulse lavaged thoroughly and dried. Cement was then applied to the tibial surface and pressurized into the surface using finger pressurization technique. The tibial component was then applied and excess cement was removed after it was impacted securely and noted to be flush with the cut surface. In similar fashion, the cement was applied to the cut femoral surface, pressurized in using finger pressurization and the component was impacted into place. Excess cement was removed. The polyethylene spacer was then implanted and locked into position. The patellar component was then applied in similar techniq ue and a patellar clamp was used to hold the patella in place as the cement hardened. Once the cement had fully hardened, the knee was reinspected. Any other cement extrusion was removed and final kinematic testing showed range of motion from 0 to 130 degrees with excellent stability, both medially and laterally and appropriate alignment of the leg. Patellar tracking was excellent. The knee was then thoroughly pulse lavaged with normal saline. The tourniquet was deflated and hemostasis was obtained with electrocautery and IV tranexamic acid, 1 g given prior to inflation of the tourniquet and another gram given at the time of closure. Closure was with #2 Ethibond in the fascia and supplemented with #2 Quill, 2-0 Vicryl suture was used for the subcutaneous tissues and 3-0 Quill for the skin. Dermabond/Steri-Strips were then applied. A lightly compressive dressing was applied using Webril and an Rolan wrap. The patient was then transferred to stretcher and taken to the recovery room in s table condition. Sponge and needle counts were correct.
--- NOTE | 2019-10-03 15:45 | XR ---
EXAMINATION TYPE: XR knee limited LT DATE OF EXAM: 10/03/2019 COMPARISON: None HISTORY: Postop alignment TECHNIQUE: 2 view left knee FINDINGS: Tibial and femoral components of in place. Postsurgical changes are within the soft tissues . No acute fractures or dislocations are evident. IMPRESSION: 1. No acute fracture post knee replacement
[2019-10-03] MEDS: LACTATED RINGERS 1,000 ML IV SCH (16:39)
--- NOTE | 2019-10-03 18:17 | P.CONS ---
History of Present Illness - Reason for Consult Consult date: 10/03/19 heart disease Requesting physician: Juan Arevalo - Chief Complaint left leg pain - History of Present Illness Patient is an 83-year-old male with a medical history of coronary artery disease status post stenting, dyslipidemia, hypertension, prostate cancer, and coronary artery disease who presented for elective left total knee arthroplasty. Patient tolerated procedure well Patient seen and examined at bedside. He reports that he has been having knee pain for a long time, he had his right knee done in 2017 and tolerated this well. He denies any postoperative chest pain, shortness of breath, nausea, vomiting, lightheadedness, or dizziness. Reports continued numbness in his left lower extremity. He states that his health has been at baseline. He underwent perioperative cardiac evaluation including nuclear stress test which was unremarkable. He reports that he is concerned about coping does not want people into his home. I explained he could have outpatient physical therapy. He stated he wanted to do this at assisted for a week to 2 weeks doing his own therapy based on instructions was given 3 years ago with his prior knee. I did explain to the patient that this is not recommended or optimal and he can have postoperative complications. Message sent to orthopedic surgery. Review of Systems Pertinent positives and negatives as discussed in HPI, a complete review of systems was performed and all other systems are negative. Past Medical History Past Medical History: Coronary Artery Disease (CAD), Cancer, Chest Pain / Angina, Hyperlipidemia, Hypertension, Prostate Disorder, Sleep Apnea/CPAP/BIPAP Additional Past Medical History / Comment(s): hx prostate cancer., ruptured left ear drum x2 (hearing aid)., States "pre-diabetic" History of Any Multi-Drug Resistant Organisms: None Reported Past Surgical History: Back Surgery, Heart Catheterization With Stent, Hernia Repair, Orthopedic Surgery, Prostate Surgery, Tonsillectomy Additional Past Surgical History / Comment(s): prostate cryotherapy, rt rotator cuff, cataracts, dental implants, rt knee total arthropasty, heart cath with stent x3 (2014) heart cath with additional stent to "hold up previous stent that had fallen"(2016). Past Anesthesia/Blood Transfusion Reactions: No Reported Reaction Date of Last Stent Placement:: 09/07/14 Past Psychological History: No Psychological Hx Reported Additional Psychological History / Comment(s): . Smoking Status: Former smoker Past Alcohol Use History: Occasional Additional Past Alcohol Use History / Comment(s): started smoking age 15 and quit smoking in 1979. smoked 1ppd. Past Drug Use History: None Reported - Past Family History Mother Additional Family Medical History / Comment(s): passes away with collapsed carotid artery Father History Unknown: Yes Family Medical History: Cancer Brother(s) Family Medical History: Cancer Additional Family Medical History / Comment(s): pancreatic Medications and Allergies Home Medications Medication Instructions Recorded Confirmed Type Clopidogrel [Plavix] 75 mg PO DAILY 08/26/15 09/26/19 History Pravastatin Sodium [Pravachol] 40 mg PO HS 07/25/17 09/26/19 History Ezetimibe [Zetia] 10 mg PO DAILY 12/25/18 09/26/19 History Isosorbide Mononitrate [Isosorbide 30 mg PO DAILY 12/25/18 09/26/19 History Mononitrate ER] Ascorbic Acid [Vitamin C] 100 mg PO DAILY 09/26/19 09/26/19 History Aspirin [Adult Low Dose Aspirin EC] 81 mg PO DAILY 09/26/19 09/26/19 History Cholecalciferol [Vitamin D3 (25 2,000 unit PO DAILY 09/26/19 09/26/19 History Mcg = 1000 Iu)] Cyanocobalamin (Vitamin B-12) 5,000 mcg PO DAILY 09/26/19 09/26/19 History [Vitamin B-12] Glucos Sul 2Kcl/MSM/Chond/C/Mn 1 each PO DAILY 09/26/19 09/26/19 History [Glucosamine Chondroitin Cap] Losartan Potassium [Cozaar] 50 mg PO HS 09/26/19 09/26/19 History Metoprolol Succinate (ER) [Toprol 50 mg PO DAILY 09/26/19 09/26/19 History Xl] Naproxen Sodium [Aleve] 220 mg PO DIRECTED PRN 09/26/19 09/26/19 History Sennosides-Docusate Sodium 1 tab PO BID #60 tablet 10/03/19 Rx [Senokot-S] traMADol HCL [Ultram] 50 mg PO Q6HR PRN #28 tab 10/03/19 Rx Allergies Allergy/AdvReac Type Severity Reaction Status Date / Time levofloxacin [From Levaquin] Allergy Severe Swelling Verified 09/26/19 14:38 of face cat dander Allergy SINUS Verified 09/26/19 14:38 PROBLEMS dog dander Allergy SINUS Verified 09/26/19 14:38 PROBLEMS" hydrocodone Allergy Rash/Hives Verified 09/26/19 14:38 [place] [employer] Allergy Rash/Hives Uncoded 09/26/19 14:38 Physical Exam Osteopathic Statement: *. No significant issues noted on an osteopathic structural exam other than those noted in the History and Physical/Consult. Vitals: Vital Signs Temp Pulse Pulse Pulse Resp BP BP 10/03/19 16:20 97.6 F 75 16 119/56 10/03/19 16:04 69 16 118/58 10/03/19 15:52 74 16 140/63 10/03/19 15:37 71 16 119/54 10/03/19 15:22 97.9 F 74 14 127/58 10/03/19 12:31 56 L 16 120/56 10/03/19 11:40 97.6 F 67 18 115/62 Pulse Ox 10/03/19 16:20 95 10/03/19 16:04 95 10/03/19 15:52 96 10/03/19 15:37 96 10/03/19 15:22 96 10/03/19 12:31 99 10/03/19 11:40 97 Intake and Output 10/03/19 10/03/19 10/03/19 06:59 14:59 22:59 Intake Total 1051 300 Output Total 50 Balance 1051 250 Intake: IV 1051 300 Output: Estimated Blood Loss 50 Other: Weight 86.7 kg 86.7 kg General: non toxic, no distress, appears older than stated age Derm: left lowe extremity wrapped, warm, dry Head: atraumatic, normocephalic, symmetric Eyes: EOMI, no lid lag, anicteric sclera, pupils equal round reactive to light ENT: Nose and ears atraumatic, no thrush, no pharyngeal erythema Neck: No thyromegaly, no cervical lymphadenopathy, trachea midline, supple Mouth: no lip lesion, mucus membranes moist Cardiovascular: S1S2 reg, no murmur, positive posterior tibial pulse bilateral, no edema, capillary refill less than 2 seconds Lungs: clear to ascultation bilateral, no ronchi, no rales, no wheeze, no accessory muscle use Abdominal: soft, nontender to palpation, no guarding, no appreciable organomegaly, normal bowel sounds Ext: no gross muscle atrophy, able to wiggle toes bilateral, no contractures Neuro: CN II-XI grossly intact, light touch intact all 4 extremities, finger to nose within normal limits, Psych: Alert, oriented, appropriate affect Results Labs: Abnormal Lab Results - Last 24 Hours (Table) 10/03/19 Range/Units 11:56 POC Glucose (mg/dL) 113 H (75-99) mg/dL Assessment and Plan Assessment: Patient is an 83-year-old male status post left total knee arthroplasty. Hypertension -controlled -Resume Toprol, Imdur, and Cozaar -Follow blood pressures Dyslipidemia -Resume Pravachol and Zetia -Outpatient follow-up Coronary artery disease -Resume Plavix when okay with orthopedics -Statin therapy Thank you for allowing us to participate in the care of this pleasant patient. Do not hesitate to contact us with questions. Someone can be reached from the [facility] hospitalist group all hours of the day at [phone] or via My Pick Box.
[2019-10-03 19:59] VITALS: RESP 18
[2019-10-03] MEDS ORDERED: SENNOSIDES-DOCUSATE SODIUM 1 EACH TAB PO SCH (21:00)
[2019-10-03] MEDS ORDERED: LOSARTAN 50 MG TAB PO SCH (21:00)
[2019-10-03] MEDS: ASPIRIN 81 MG PO SCH (21:51)
[2019-10-03] MEDS ORDERED: LORazepam 0.5 MG TAB PO SCH (22:15)
[2019-10-04] MEDS: LACTATED RINGERS 1,000 ML IV SCH ×2 (03:08→07:35)
[2019-10-04 07:25] VITALS: BP 151/65; PULSE 71; TEMP 98.1
[2019-10-04 07:26] LABS: Basophils % (A) 0 %; Eosinophils # (A) 0.1 k/uL (0-0.7); Eosinophils % (A) 1 %; HGB 11.9 gm/dL (13.0-17.5); Lymphocytes # (A) 2.2 k/uL (1.0-4.8); Lymphocytes % (A) 22 %; MCH 30.8 pg (25.0-35.0); MCV 93.2 fL (80.0-100.0); Mean Platelet Volume 7.7; Monocytes # (A) 0.7 k/uL (0-1.0); Monocytes % (A) 7 %; Neutrophils # (A) 6.8 k/uL (1.3-7.7); Neutrophils % (A) 68 %; Platelet Count 192 k/uL (150-450); RBC 3.86 m/uL (4.30-5.90); RDW 13.2 % (11.5-15.5)
[2019-10-04] MEDS: ASPIRIN 81 MG PO SCH (07:31)
--- NOTE | 2019-10-04 08:19 | P.PN ---
Subjective Progress Note Date: 10/04/19 Principal diagnosis: knee pain Patient is an 83-year-old male with a medical history of coronary artery disease status post stenting, dyslipidemia, hypertension, prostate cancer, and coronary artery disease who presented for elective left total knee arthroplasty. Patient seen and examined at bedside. No chest pain, SOB, nuasea or vomiting. States that his leg just feels tight but not numb. Objective - Vital Signs Vital signs: Vital Signs Temp 98.1 F 10/04/19 07:00 Pulse 71 10/04/19 07:00 Resp 18 10/04/19 07:00 BP 151/65 10/04/19 07:00 Pulse Ox 93 L 10/04/19 07:00 Intake & Output 10/03/19 10/04/19 10/04/19 18:59 06:59 18:59 Intake Total 1351 220 Output Total 50 900 Balance 1301 -680 Weight 86.7 kg Intake: IV 1351 Intake, IV Titration 100 Amount ceFAZolin 2 gm In Sodium 100 Chloride 0.9% 50 ml @ 100 mls/hr IVPB Q8H [facility] Rx#: [id number] Oral 120 Output: Urine 900 Estimated Blood Loss 50 Other: # Voids 1 - Exam General: non toxic, no distress, appears at stated age Derm: warm, dry Head: atraumatic, normocephalic, symmetric Eyes: EOMI, no lid lag, anicteric sclera Mouth: no lip lesion, mucus membranes moist Cardiovascular: S1S2 reg, no murmur, positive posterior tibial pulse bilateral, Lungs: CTA bilateral, no rhonchi, no rales , no accessory muscle use Abdominal: soft, nontender to palpation, no guarding, no appreciable organomegaly Ext: no gross muscle atrophy, trace edema, no contractures Neuro: CN II-XI grossly intact, no focal neuro deficits Psych: Alert, oriented, appropriate affect - Labs CBC & Chem 7: 10/04/19 07:08 Labs: Abnormal Lab Results - Last 24 Hours (Table) 10/03/19 10/04/19 Range/Units 11:56 07:08 RBC 3.86 L (4.30-5.90) m/uL Hgb 11.9 L (13.0-17.5) gm/dL Hct 36.0 L (39.0-53.0) % POC Glucose (mg/dL) 113 H (75-99) mg/dL Assessment and Plan Assessment: Patient is an 83-year-old male status post left total knee arthroplasty. Hypertension -controlled -resume home meds, d/c med rec done -Follow blood pressures Dyslipidemia -Resume Pravachol and Zetia -Outpatient follow-up Coronary artery disease -resume plavix on discharge -Statin therapy Medically optimized for discharge at the discretion of ortho.
[2019-10-04] MEDS ORDERED: METOPROLOL SUCCINATE (ER) 50 MG TAB.ER.24H PO SCH (09:00)
[2019-10-04] MEDS ORDERED: EZETIMIBE 10 MG TAB PO SCH (09:00)
[2019-10-04] MEDS ORDERED: ISOSORBIDE MONONITRATE ER 30 MG TAB.ER.24H PO SCH (09:00)
[2019-10-04] MEDS ORDERED: MELOXICAM 7.5 MG TAB PO SCH (09:00)
--- NOTE | 2019-10-04 11:34 | P.PN ---
Progress Note - Text Progress Note Date: 10/04/19 ([id number]) Anesthesiology Adductor canal catheter note Followed up with patient regarding adductor canal catheter on the left side. Patient had total knee arthroplasty yesterday. Patient complaining of 0 pain. Denies lack of sensorium and gross motor strength is intact. Good motor function. Ready for discharge today. Answered all questions Patient verbalized understanding. Without apparent anesthetic complications. Plan maintain catheter 2 more days
== END 2019-10-04 11:00 | disposition home health service (06) ==
LOC: OR 11:10 → 4SSUR 15:28 → OR 10-04 11:00
PROVIDERS: ATTEND Orthopaedic Surgery
DX: M17.12 Unilateral primary osteoarthritis, left knee (principal); M21.162 Varus deformity, not elsewhere classified, left knee; I13.10 Hypertensive heart and chronic kidney disease without heart failure, with stage 1 through stage 4 chronic kidney disease, or unspecified chronic kidney disease; N18.3 Chronic kidney disease, stage 3 (moderate); H91.90 Unspecified hearing loss, unspecified ear; Z87.891 Personal history of nicotine dependence; G47.33 Obstructive sleep apnea (adult) (pediatric); Z99.89 Dependence on other enabling machines and devices; I25.10 Atherosclerotic heart disease of native coronary artery without angina pectoris; I65.21 Occlusion and stenosis of right carotid artery; G89.29 Other chronic pain; M54.5 Low back pain; N40.0 Benign prostatic hyperplasia without lower urinary tract symptoms; Z98.890 Other specified postprocedural states; Z98.49 Cataract extraction status, unspecified eye; E78.2 Mixed hyperlipidemia; I70.0 Atherosclerosis of aorta; Z87.01 Personal history of pneumonia (recurrent); Z96.651 Presence of right artificial knee joint; Z95.5 Presence of coronary angioplasty implant and graft; Z85.46 Personal history of malignant neoplasm of prostate; Z97.3 Presence of spectacles and contact lenses; Z79.02 Long term (current) use of antithrombotics/antiplatelets; Z79.82 Long term (current) use of aspirin; Z79.899 Other long term (current) drug therapy; Z88.1 Allergy status to other antibiotic agents; Z88.5 Allergy status to narcotic agent; Z91.048 Other nonmedicinal substance allergy status; Z91.09 Other allergy status, other than to drugs and biological substances; Z82.49 Family history of ischemic heart disease and other diseases of the circulatory system
CPT/HCPCS: 27447; 97110; 97161; 64448; 76942; 85025; 88300; 73560; C1713; C1776; J2250; J0171; J0690 ×3; J2405; J3010; J1885; J1100; J2795 ×2; J2704; J0735

== ENCOUNTER → 2020-09-06 | Outpatient (CLI) | payer MEDICARE | END | disposition home or self-care (01) | CPT/HCPCS: 93306 ==

== ENCOUNTER → 2020-09-06 | Outpatient (CLI) | payer MEDICARE | END | disposition home or self-care (01) | LOC: LABWHC1 12:59 | PROVIDERS: ATTEND Internal Medicine | DX: I25.118 Atherosclerotic heart disease of native coronary artery with other forms of angina pectoris (principal); R05 Cough | CPT/HCPCS: 36415; 83880 ==

== ENCOUNTER → 2021-05-30 | Outpatient (CLI) | payer MEDICARE ==
[2021-05-30 12:59] LABS: African American GFR (CKD) >90 (>60 ml/min/1.73 sqM); Blood Urea Nitrogen 17 mg/dL (9-20); Non-African American GFR(CKD) 80 (>60 ml/min/1.73 sqM)
--- NOTE | 2021-05-30 18:55 | CT ---
EXAMINATION TYPE: CT soft tissue neck w con DATE OF EXAM: 05/30/2021 1:37 PM COMPARISON: CT dated 04/26/2018 HISTORY: vocal cord paralysis CT DLP: 547 mGycm Automated exposure control for dose reduction was used. CONTRAST: CT scan of the neck is performed following with IV Contrast, patient injected with 100 mL of Isovue 3 00. Axial images are obtained, coronal and sagittal reformatted images are reviewed. FINDINGS: Artifacts from the dental work. Slightly thickened adducted vocal cords bilaterally, associated with large pyriform sinuses, more on the right side, and prominent vallecula bilaterally. This may suggest vocal cord paralysis, please correlate clinically. Otherwise unremarkable nasopharynx, oropharynx, hypopharynx, remainder of the larynx, trachea and vis ualized portion of the esophagus. Unremarkable thyroid gland. Symmetrical unremarkable visualized por tion of the parotid and submandibular salivary glands. Scattered arterial atherosclerotic calcifications. Patent major neck vessels. No pathologically enlar ged lymph nodes in the neck. Degenerative changes at C6-7 and C7-T1 levels. Bilateral apical pleural calcifications and mild fibrotic changes. IMPRESSION: Signs suggestive of vocal cord paralysis as described above, please correlate clinically. Further ENT consultation can be considered. Recommend correlation with laryngoscopy results to rule out a small underlying lesion. Otherwise no suspicious lesion or lymphadenopathy is seen in the neck. Incidental findings as describ ed above.
== END | disposition home or self-care (01) ==
LOC: RADCTMAIN 11:20
PROVIDERS: ATTEND Otolaryngology
DX: J38.00 Paralysis of vocal cords and larynx, unspecified (principal)
CPT/HCPCS: 82565; 84520; 70491; 36415; Q9967

== ENCOUNTER → 2022-07-03 | Outpatient (CLI) | payer MEDICARE ==
--- NOTE | 2022-07-03 14:43 | XR ---
EXAMINATION TYPE: XR Hip Bilateral Complete DATE OF EXAM: 07/03/2022 CLINICAL HISTORY: Bilateral hip pain. Increasing pain with exercise. TECHNIQUE: AP and frogleg views of the bilateral hips are obtained. COMPARISON: Prior left hip x-ray December 31, 2018. FINDINGS: There is no acute fracture/dislocation evident in either hip. Metallic hardware from total left hip arthroplasty remains stable and satisfactory in position. Increasing heterotopic ossificati on along the lateral aspect of the metallic femoral neck component just superior to the greater troch anter is noted. Right hip shows mild to moderate axial joint space loss and moderate acetabular spurr ing. Some tiny phleboliths are seen in the bilateral groin region. IMPRESSION: As above.
--- NOTE | 2022-07-03 14:43 | XR ---
EXAMINATION TYPE: XR lumbosacral spine min 4V DATE OF EXAM: 07/03/2022 2:34 PM INDICATION: Patient age:Male; 86 years old; Reason for study: M54.50 M25.552; [facility]. COMPARISON: Lumbosacral spine radiograph 07/25/2017 TECHNIQUE: AP, bilateral oblique, and lateral views of the lumbosacral spine were obtained. FINDINGS: Mild dextroscoliotic curvature of the lumbar spine. There are 5 lumbar type vertebral david s identified. No acute fracture or dislocation. No evidence of loss of vertebral body height is seen . Grade 1 anterolisthesis of L3 on L4 and L4 on L5. Multilevel degenerative disc disease with disc sp farideh narrowing, endplate sclerosis, vacuum disc disease, and anterior osteophytosis. This is most pron ounced at L4-L5 and L5-S1. Multilevel facet arthropathy. Partial visualization of left hip prosthesis . Vascular calcification identified with curvilinear splenic artery calcifications the left upper amada drant. 1. IMPRESSION: 2. No acute process. 3. Moderate multilevel degenerative disc disease and facet arthropathy.
== END | disposition home or self-care (01) ==
LOC: RADXRMAIN 14:13
PROVIDERS: ATTEND Family Medicine
DX: M51.36 Other intervertebral disc degeneration, lumbar region (principal); M47.816 Spondylosis without myelopathy or radiculopathy, lumbar region; M25.552 Pain in left hip; M25.551 Pain in right hip
CPT/HCPCS: 72110; 73521

== ENCOUNTER → 2023-03-19 | Outpatient (CLI) | payer MEDICARE ==
--- NOTE | 2023-03-20 07:41 | CA ---
Transthoracic Echo Report Name: Roberto De Leon Age: 87 Gender: M : 1935 Exam Date: 03/19/2023 14:15 Exam Location: [facility] Ht (in): 71 Wt (lb): 183 Ordering Physician: Tomy Marie DO Attending/Referring Phys: Tomy Marie DO Dynamometer Repairer Jori Anton Procedure CPT: Indications: I25.110 HEART DISEASE I25.10 Cardiac Hx: Technical Quality: Fair Contrast 1: Total Dose (mL): Contrast 2: Total Dose (mL): MEASUREMENTS (Male / Female) Normal Values 2D ECHO LV Diastolic Diameter PLAX 4.2 cm 4.2 - 5.9 / 3.9 - 5.3 cm LV Systolic Diameter PLAX 3.3 cm IVS Diastolic Thickness 1.5 cm 0.6 - 1.0 / 0.6 - 0.9 cm LVPW Diastolic Thickness 1.1 cm 0.6 - 1.0 / 0.6 - 0.9 cm LV Relative Wall Thickness 0.6 RV Internal Dim ED PLAX 2.9 cm LVOT Diameter 2.1 cm Aortic Root Diameter 2.9 cm LA Systolic Diameter LX 1.9 cm 3.0 - 4.0 / 2.7 - 3.8 cm LV Diastolic Volume MOD BP 41.6 cm??? 67 - 155 / 56 - 104 cm??? LV Systolic Volume MOD BP 18.2 cm??? 22 - 58 / 19 - 49 cm??? LV Ejection Fraction MOD BP 56.2 % >= 55 % LV Cardiac Index MOD BP 854.7 cm???/min???m??? LV Diastolic Volume MOD 4C 55.9 cm??? LV Systolic Volume MOD 4C 21.7 cm??? LV Ejection Fraction MOD 4C 61.2 % LV Cardiac Index MOD 4C 1252.4 cm???/min???m??? LV Diastolic Length 4C 7.2 cm LV Systolic Length 4C 5.4 cm LV Diastolic Volume MOD 2C 28.8 cm??? LV Systolic Volume MOD 2C 13.2 cm??? LV Ejection Fraction MOD 2C 54.1 % LV Cardiac Index MOD 2C 569.4 cm???/min???m??? LV Diastolic Length 2C 6.7 cm LV Systolic Length 2C 6.3 cm LA Volume 72.8 cm??? 18 - 58 / 22 - 52 cm??? LA Volume Index 35.5 cm???/m??? 16 - 28 cm???/m??? DOPPLER AV Peak Velocity 289.8 cm/s AV Peak Gradient 33.6 mmHg AV Mean Velocity 223.2 cm/s AV Mean Gradient 21.6 mmHg AV Velocity Time Integral 75.7 cm AI Peak Velocity 348.5 cm/s AI Peak Gradient 48.6 mmHg AI Pressure Half Time 530.9 ms LVOT Peak Velocity 111.2 cm/s LVOT Peak Gradient 4.9 mmHg LVOT Velocity Time Integral 27.7 cm LVOT Stroke Volume 92.7 cm??? LVOT Stroke Volume Index 45.7 ml/m??? LVOT Cardiac Index 3395.9 cm???/min???m??? AV Area Cont Eq vti 1.2 cm??? AV Area Cont Eq pk 1.3 cm??? MV Peak Velocity 173.0 cm/s MV Peak Gradient 12.0 mmHg MV Mean Velocity 92.9 cm/s MV Mean Gradient 4.4 mmHg MV Velocity Time Integral 41.8 cm MR Peak Velocity 364.5 cm/s MR Peak Gradient 53.2 mmHg Mitral E Point Velocity 86.7 cm/s Mitral A Point Velocity 154.4 cm/s Mitral E to A Ratio 0.6 MV Deceleration Time 294.1 ms TR Peak Velocity 308.2 cm/s TR Peak Gradient 38.0 mmHg Right Ventricular Systolic Press 43.0 mmHg FINDINGS Left Ventricle Normal LV size. Mild to moderate concentric LVH. Left ventricular ejection fraction is estimated at 50-55 %. Right Ventricle Normal right ventricular size. RVSP= 43mmHg. Right Atrium Normal right atrial size. Left Atrium Moderate left atrial dilatation. LA volume index= 36ml/m2 Mitral Valve Moderate to severe mitral annulus calcification with moderate valve thickening. Mderate MR. MV area by VTI= 2.2cm2 Aortic Valve Moderate to severe AV calcification. AV peak gradient= 33.6mmHg. Mean gradient= 21.6mmHg. Mild AI. Tricuspid Valve Tricuspid valve not well visualized. Mild to moderate TR. Pulmonic Valve Pulmonic valve not well visualized. No pulmonic regurgitation. Pericardium Normal pericardium. Aorta Normal size aortic root. CONCLUSIONS LVH with preserved systolic function Significantly calcified mitral valve leaflets with reduced excursion with mild mitral stenosis and moderate MR Calcific aortic valve with [id number] aortic stenosis Previewed by: Dr. Juan Beverly MD (Electronically Signed) Final Date: 20 March 2023 07:40
== END | disposition home or self-care (01) ==
LOC: RADECHMAIN 13:06
PROVIDERS: ATTEND Family Medicine
DX: I08.0 Rheumatic disorders of both mitral and aortic valves (principal); I25.110 Atherosclerotic heart disease of native coronary artery with unstable angina pectoris
CPT/HCPCS: 93306

== ENCOUNTER → 2023-04-24 | Outpatient (CLI) | payer MEDICARE ==
[2023-04-24 16:57] LABS: C Reactive Protein, High Sens 0.842 mg/L (0.000-3.000); Chol/HDL Ratio 3.14 Ratio; VLDL Calculation 15.56 mg/dL (5.00-40.00)
== END | disposition home or self-care (01) ==
LOC: LABWHC1 13:05
PROVIDERS: ATTEND Internal Medicine
DX: I25.10 Atherosclerotic heart disease of native coronary artery without angina pectoris (principal)
CPT/HCPCS: 36415; 80061; 83695; 84484; 86141

== ENCOUNTER → 2023-05-10 | Outpatient (CLI) | payer MEDICARE ==
--- NOTE | 2023-05-10 14:18 | XR ---
EXAMINATION TYPE: XR chest 2V DATE OF EXAM: 05/10/2023 COMPARISON: NONE HISTORY: Cough. TECHNIQUE: Frontal and lateral views of the chest are obtained. FINDINGS: There is no focal air space opacity, pleural effusion, or pneumothorax seen. The cardiac silhouette size is within normal limits. The osseous structures are intact. IMPRESSION: No acute cardiopulmonary process.
== END | disposition home or self-care (01) ==
LOC: RADXRMAIN 13:54
PROVIDERS: ATTEND Family Medicine
DX: R05.9 Cough, unspecified (principal)
CPT/HCPCS: 71046

== ENCOUNTER 2024-01-05 09:00 | Emergency (ER) | payer MEDICARE ==
[2024-01-05 09:05] VITALS: BP 139/69; PULSE 87; RESP 18; TEMP 97.5
--- NOTE | 2024-01-05 09:53 | ED ---
Abdominal Pain HPI - General Chief Complaint: Abdominal Pain Stated Complaint: Constipation Time Seen by Provider: 01/05/24 09:10 Source: patient, RN notes reviewed Mode of arrival: ambulatory Limitations: no limitations - History of Present Illness Initial Comments: 88 year old male presents to the emergency department with chief complaint of constipation. He reports taking a suppository and laxative three days ago, which produced an extremely large bowel movement that was black and liquid. He reports that he does take iron tablets, plavix, and pepto. He denies significant gastrointestinal history; however he did have heart valve surgery recently and was started on plavix. Associated symptoms include epigastric queeziness and tenderness but he denies nausea, vomitting, and abdominal pain. He denies lightheadedness, chest pain, palpitations and shortness of breath. - Related Data Home Medications Medication Instructions Recorded Confirmed Clopidogrel [Plavix] 75 mg PO DAILY 08/26/15 09/26/19 Pravastatin Sodium [Pravachol] 40 mg PO HS 07/25/17 09/26/19 Ezetimibe [Zetia] 10 mg PO DAILY 12/25/18 09/26/19 Isosorbide Mononitrate [Isosorbide 30 mg PO DAILY 12/25/18 09/26/19 Mononitrate ER] Ascorbic Acid [Vitamin C] 100 mg PO DAILY 09/26/19 09/26/19 Aspirin [Adult Low Dose Aspirin EC] 81 mg PO DAILY 09/26/19 09/26/19 Cholecalciferol [Vitamin D3 (25 2,000 unit PO DAILY 09/26/19 09/26/19 Mcg = 1000 Iu)] Cyanocobalamin (Vitamin B-12) 5,000 mcg PO DAILY 09/26/19 09/26/19 [Vitamin B-12] Glucos Sul 2Kcl/MSM/Chond/C/Mn 1 each PO DAILY 09/26/19 09/26/19 [Glucosamine Chondroitin Cap] Losartan Potassium [Cozaar] 50 mg PO HS 09/26/19 09/26/19 Metoprolol Succinate (ER) [Toprol 50 mg PO DAILY 09/26/19 09/26/19 XL] Naproxen Sodium [Aleve] 220 mg PO DIRECTED PRN 09/26/19 09/26/19 Previous Rx's Medication Instructions Recorded Sennosides-Docusate Sodium 1 tab PO BID #60 tablet 10/03/19 [Senokot-S] traMADol HCL [Ultram] 50 mg PO Q6HR PRN #28 tab 10/03/19 Omeprazole [PriLOSEC] 40 mg PO DAILY #14 cap 01/05/24 Ondansetron Odt [Zofran Odt] 4 mg PO Q8HR PRN #10 tab 01/05/24 Allergies Allergy/AdvReac Type Severity Reaction Status Date / Time levofloxacin [From Levaquin] Allergy Severe Swelling Verified 01/05/24 09:05 of face cat dander Allergy SINUS Verified 01/05/24 09:05 PROBLEMS dog dander Allergy SINUS Verified 01/05/24 09:05 PROBLEMS" hydrocodone Allergy Rash/Hives Verified 01/05/24 09:05 [place] [employer]ES Allergy Rash/Hives Uncoded 09/26/19 14:38 Review of Systems ROS Statement: Those systems with pertinent positive or pertinent negative responses have been documented in the HPI. ROS Other: All systems not noted in ROS Statement are negative. Past Medical History Past Medical History: Cancer, Chest Pain / Angina, Hyperlipidemia, Prostate Disorder, Sleep Apnea/CPAP/BIPAP Additional Past Medical History / Comment(s): hx prostate cancer, bridge/caps/crowns History of Any Multi-Drug Resistant Organisms: None Reported Past Surgical History: Back Surgery, Heart Catheterization With Stent, Hernia Repair, Orthopedic Surgery, Prostate Surgery, Tonsillectomy Additional Past Surgical History / Comment(s): prostate cryotherapy, rt shoulder shoulder rotator cuff, cataracts, dental implants, rt knee total arthropasty Past Anesthesia/Blood Transfusion Reactions: No Reported Reaction Date of Last Stent Placement:: 09/07/14 Past Psychological History: No Psychological Hx Reported Past Alcohol Use History: None Reported - Past Family History Mother Additional Family Medical History / Comment(s): passes away with collapsed carotid artery Father History Unknown: Yes Family Medical History: Cancer Brother(s) Family Medical History: Cancer Additional Family Medical History / Comment(s): pancreatic General Exam Limitations: no limitations General appearance: alert, in no apparent distress Head exam: Present: atraumatic, normocephalic, normal inspection Eye exam: Present: normal appearance, PERRL, EOMI. Absent: scleral icterus, conjunctival injection, periorbital swelling ENT exam: Present: normal exam, mucous membranes moist Neck exam: Present: normal inspection. Absent: tenderness, meningismus, lymphadenopathy Respiratory exam: Present: normal lung sounds bilaterally. Absent: respiratory distress, wheezes, rales, rhonchi, stridor Cardiovascular Exam: Present: regular rate, normal rhythm, normal heart sounds. Absent: systolic murmur, diastolic murmur, rubs, gallop, clicks GI/Abdominal exam: Present: soft, normal bowel sounds. Absent: distended, tenderness, guarding, rebound, rigid Extremities exam: Present: normal inspection, full ROM, normal capillary refill. Absent: tenderness, pedal edema, joint swelling, calf tenderness Back exam: Present: normal inspection Neurological exam: Present: alert, oriented X3, CN II-XII intact Psychiatric exam: Present: normal affect, normal mood Skin exam: Present: warm, dry, intact, normal color. Absent: rash Course Vital Signs 01/05/24 09:01 Temperature 97.5 F L Pulse Rate 87 Respiratory 18 Rate Blood Pressure 139/69 O2 Sat by Pulse 90 L Oximetry Medical Decision Making - Medical Decision Making Was pt. sent in by a medical professional or institution (, PA, CERTIFIED SURGICAL TECHNICIAN, urgent care, hospital, or intermediate...) When possible be specific @ -No Did you speak to anyone other than the patient for history (EMS, parent, family, police, friend...)? What history was obtained from this source @ -No Did you review nursing and triage notes (agree or disagree)? Why? @ -I reviewed and agree with nursing and triage notes Were old charts reviewed (outside hosp., previous admission, EMS record, old EKG, old radiological studies, urgent care reports/EKG's, intermediate records)? Report findings @ -No old charts were reviewed Differential Diagnosis (chest pain, altered mental status, abdominal pain women, abdominal pain men, vaginal bleeding, weakness, fever, dyspnea, syncope, headache, dizziness, GI bleed, back pain, seizure, CVA, palpatations, mental health, musculoskeletal)? @ -Differential Abdominal Pain Men: Appendicitis, cholecystitis, diverticulosis, ischemic bowel, pancreatitis, hepatitis, UTI, gastroenteritis, AAA, incarcerated hernia, bowel obstruction, constipation, inflammatory bowel, hepatitis, peptic ulcer disease, splenic infarction, perforated viscus, testicular torsion, this is not meant to be an all-inclusive list EKG interpreted by me (3pts min.). @ -None X-rays interpreted by me (1pt min.). @ -None done CT interpreted by me (1pt min.). @ -[CT abdomen pelvis showing some vague inflammation of the ascending colon, cecum and only portion of the appendix no definite mass. U/S interpreted by me (1pt. min.). @ -None done What testing was considered but not performed or refused? (CT, X-rays, U/S, labs)? Why? @ -None What meds were considered but not given or refused? Why? @ -None Did you discuss the management of the patient with other professionals (professionals i.e. DrDillon, PA, CERTIFIED SURGICAL TECHNICIAN, lab, RT, psych nurse, social welfare research worker, institutional custodian, teacher, property disposal officer, spring encaser)? Give summary @ -No Was smoking cessation discussed for >3mins.? @ -No Was critical care preformed (if so, how long)? @ -No Were there social determinants of health that impacted care today? How? (Homelessness, low income, unemployed, alcoholism, drug addiction, transportation, low edu. Level, literacy, decrease access to med. care, custodial, rehab)? @ -No Was there de-escalation of care discussed even if they declined (Discuss DNR or withdrawal of care, Hospice)? DNR status @ -No What co-morbidities impacted this encounter? (DM, HTN, Smoking, COPD, CAD, Cancer, CVA, ARF, Chemo, Hep., AIDS, mental health diagnosis, sleep apnea, morbid obesity)? @ -None Was patient admitted / discharged? Hospital course, mention meds given and route, prescriptions, significant lab abnormalities, going to OR and other pertinent info. @ -Discharge patient presented for ongoing abdominal pain for several months, increasing nausea complaint of black stools he is Hemoccult negative he does take Pepto, iron may be causing this. Patient did have notable inflammation possible colitis type changes he has no significant right upper quadrant tenderness for appendicitis. I did offer the patient to be admitted to have GI see him on Sunday, surgery patient inclined stating that he can just follow-up with his primary care physician or return if symptoms worsen. Undiagnosed new problem with uncertain prognosis? @ -No Drug Therapy requiring intensive monitoring for toxicity (Heparin, Nitro, Insulin, Cardizem)? @ -No Were any procedures done? @ -No Diagnosis/symptom? @ -Abdominal pain, colitis Acute, or Chronic, or Acute on Chronic? @ -Acute Uncomplicated (without systemic symptoms) or Complicated (systemic symptoms)? @ -Uncomplicated Side effects of treatment? @ -No Exacerbation, Progression, or Severe Exacerbation? @ -No Poses a threat to life or bodily function? How? (Chest pain, [place], [place], pneumonia, PE, COPD, DKA, ARF, appy, cholecystitis, CVA, Diverticulitis, Homicidal, Suicidal, threat to staff... and all critical care pts) @ -No - Lab Data Result diagrams: 01/05/24 09:48 01/05/24 09:48 Lab Results 01/05/24 01/05/24 01/05/24 Range/Units 09:48 09:48 09:48 WBC 5.4 (3.8-10.6) k/uL RBC 3.67 L (4.30-5.90) m/uL Hgb 9.9 L (13.0-17.5) gm/dL Hct 32.1 L (39.0-53.0) % MCV 87.5 (80.0-100.0) fL MCH 27.1 (25.0-35.0) pg MCHC 31.0 (31.0-37.0) g/dL RDW 22.6 H (11.5-15.5) % Plt Count 250 (150-450) k/uL MPV 7.9 Neutrophils % 47 % Lymphocytes % 39 % Monocytes % 7 % Eosinophils % 3 % Basophils % 0 % Neutrophils # 2.6 (1.3-7.7) k/uL Lymphocytes # 2.1 (1.0-4.8) k/uL Monocytes # 0.4 (0-1.0) k/uL Eosinophils # 0.2 (0-0.7) k/uL Basophils # 0.0 (0-0.2) k/uL Hypochromasia Marked Anisocytosis Moderate Microcytosis Slight PT 10.7 (10.0-12.5) sec INR 1.0 (<1.2) APTT 18.5 L (22.0-30.0) sec Sodium 138 (137-145) mmol/L Potassium 4.3 (3.5-5.1) mmol/L Chloride 104 (98-107) mmol/L Carbon Dioxide 30 (22-30) mmol/L Anion Gap 4 mmol/L BUN 15 (9-20) mg/dL Creatinine 0.65 L (0.66-1.25) mg/dL Est GFR (CKD-EPI)AfAm >90 (>60 ml/min/1.73 sqM) Est GFR (CKD-EPI)NonAf 87 (>60 ml/min/1.73 sqM) Glucose 83 (74-99) mg/dL Calcium 9.2 (8.4-10.2) mg/dL Total Bilirubin 0.4 (0.2-1.3) mg/dL AST 41 (17-59) U/L ALT 27 (4-49) U/L Alkaline Phosphatase 101 (38-126) U/L Total Protein 6.8 (6.3-8.2) g/dL Albumin 4.2 (3.5-5.0) g/dL Stool Occult Blood (Negative) 01/05/24 Range/Units 11:00 WBC (3.8-10.6) k/uL RBC (4.30-5.90) m/uL Hgb (13.0-17.5) gm/dL Hct (39.0-53.0) % MCV (80.0-100.0) fL MCH (25.0-35.0) pg MCHC (31.0-37.0) g/dL RDW (11.5-15.5) % Plt Count (150-450) k/uL MPV Neutrophils % % Lymphocytes % % Monocytes % % Eosinophils % % Basophils % % Neutrophils # (1.3-7.7) k/uL Lymphocytes # (1.0-4.8) k/uL Monocytes # (0-1.0) k/uL Eosinophils # (0-0.7) k/uL Basophils # (0-0.2) k/uL Hypochromasia Anisocytosis Microcytosis PT (10.0-12.5) sec INR (<1.2) APTT (22.0-30.0) sec Sodium (137-145) mmol/L Potassium (3.5-5.1) mmol/L Chloride (98-107) mmol/L Carbon Dioxide (22-30) mmol/L Anion Gap mmol/L BUN (9-20) mg/dL Creatinine (0.66-1.25) mg/dL Est GFR (CKD-EPI)AfAm (>60 ml/min/1.73 sqM) Est GFR (CKD-EPI)NonAf (>60 ml/min/1.73 sqM) Glucose (74-99) mg/dL Calcium (8.4-10.2) mg/dL Total Bilirubin (0.2-1.3) mg/dL AST (17-59) U/L ALT (4-49) U/L Alkaline Phosphatase (38-126) U/L Total Protein (6.3-8.2) g/dL Albumin (3.5-5.0) g/dL Stool Occult Blood Negative (Negative) Disposition Clinical Impression: Colitis Disposition: HOME SELF-CARE Condition: Stable Instructions (If sedation given, give patient instructions): Colitis (ED) Additional Instructions: Please return to the Emergency Department if symptoms worsen or any other concerns. Prescriptions: Omeprazole [PriLOSEC] 40 mg PO DAILY #14 cap Ondansetron Odt [Zofran Odt] 4 mg PO Q8HR PRN #10 tab PRN Reason: Nausea Is patient prescribed a controlled substance at d/c from ED?: No Referrals: Tomy Marie DO [Primary Care Provider] - 1-2 days Time of Disposition: 11:48
[2024-01-05 09:56] LABS: Anisocytosis Moderate; Basophils % (A) 0 %; Eosinophils # (A) 0.2 k/uL (0-0.7); Eosinophils % (A) 3 %; HCT 32.1 % (39.0-53.0); HGB 9.9 gm/dL (13.0-17.5); Hypochromasia Marked; Lymphocytes # (A) 2.1 k/uL (1.0-4.8); Lymphocytes % (A) 39 %; MCH 27.1 pg (25.0-35.0); MCV 87.5 fL (80.0-100.0); Mean Platelet Volume 7.9; Microcytosis Slight; Monocytes # (A) 0.4 k/uL (0-1.0); Monocytes % (A) 7 %; Neutrophils # (A) 2.6 k/uL (1.3-7.7); Neutrophils % (A) 47 %; Platelet Count 250 k/uL (150-450); RBC 3.67 m/uL (4.30-5.90); RDW 22.6 % (11.5-15.5); WBC 5.4 k/uL (3.8-10.6)
[2024-01-05 10:06] LABS: ALT 27 U/L (4-49); African American GFR (CKD) >90 (>60 ml/min/1.73 sqM); Albumin 4.2 g/dL (3.5-5.0); Anion Gap 4 mmol/L; Blood Urea Nitrogen 15 mg/dL (9-20); Calcium 9.2 mg/dL (8.4-10.2); Carbon Dioxide 30 mmol/L (22-30); Chloride 104 mmol/L (98-107); Glucose 83 mg/dL (74-99); Non-African American GFR(CKD) 87 (>60 ml/min/1.73 sqM); Sodium 138 mmol/L (137-145); Total Bilirubin 0.4 mg/dL (0.2-1.3); Total Protein 6.8 g/dL (6.3-8.2)
[2024-01-05 10:07] LABS: Potassium 4.3 mmol/L (3.5-5.1)
[2024-01-05 10:08] LABS: AST 41 U/L (17-59); Alkaline Phosphatase 101 U/L (38-126)
[2024-01-05] MEDS: SODIUM CHLORIDE 0.9% 1,000 ML IV STA (10:10)
[2024-01-05 10:11] LABS: Prothrombin Time 10.7 sec (10.0-12.5)
[2024-01-05 10:14] LABS: Partial Thromboplastin Time 18.5 sec (22.0-30.0)
--- NOTE | 2024-01-05 10:33 | CT ---
EXAMINATION TYPE: CT abdomen pelvis wo con DATE OF EXAM: 01/05/2024 10:10 AM COMPARISON: CT abdomen pelvis most recent from CLINICAL INDICATION: Male, 88 years old with history of abdominal pain; fall, pt states she hit her h ead, no loc TECHNIQUE: Axial CT abdomen pelvis wo con;Sagittal and coronal reformats were created on a separate workstation. Contrast used: mL of , (none if empty) Oral contrast used: without Oral Contrast (none if empty) CT DLP: 546.8 mGycm, Automated exposure control for dose reduction was used. FINDINGS: LOWER CHEST: 4 mm left lower lobe pulmonary nodule. ABDOMEN LIVER: Unremarkable GALLBLADDER AND BILE DUCTS: Unremarkable. PANCREAS: Unremarkable. SPLEEN: Unremarkable. ADRENAL GLANDS: Unremarkable. KIDNEYS AND URETERS: No hydronephrosis and obstructing 3 mm renal calculus on the right. 2 mm left re nal calculus. No obstructive uropathy. PELVIS BLADDER: No evidence for wall thickening or mass given limitations of exam. REPRODUCTIVE: Unremarkable. ABDOMEN & PELVIS STOMACH AND BOWEL: No evidence of bowel obstruction. There is fat stranding changes in the right lowe r quadrant. The base of the appendix is normal measures up to 9 mm while the tip is more within kelly l limits series 202 image [id number] there are scattered colonic diverticula present. The ascending colon a nd cecum demonstrate poor visualization of the wall possibly due to feces and nondistention versus un derlying mass not excluded. Scattered colonic diverticula are present. PERITONEUM/RETROPERITONEUM: No evidence of pneumoperitoneum or free fluid. VASCULATURE: Severe atherosclerotic calcifications are present throughout the abdominal aorta and its branches. No evidence of aortic aneurysm. MUSCULOSKELETAL: No acute osseous abnormalities. Moderate disc degeneration changes are present throu ghout the thoracolumbar spine., left hip arthroplasty appears in appropriate position. LYMPH NODES: No gross evidence for lymphadenopathy. SOFT TISSUE/ABDOMINAL WALL: Fat-containing right inguinal hernia. IMPRESSION: 1. There is inflammation changes in the right lower quadrant. The base of the appendix is dilated wh ile the tip appears more normal within normal limits. Correlate for appendicitis. 2. Inflammation changes also around the cecum/ascending colon with wall thickening and haziness arou nd the solomon. Findings and a minimum suggest colitis with malignancy not excluded. Further evaluation recommended, consider colonoscopy if not recently performed. 3. Colonic diverticulosis. 4. Left lower lobe 4 mm pulmonary nodule consider follow-up in one year. 5. Nonobstructing bilateral renal calculus. [facility], , 01/05/2024 10:30 AM
== END 2024-01-05 12:03 | disposition home or self-care (01) ==
LOC: EC 09:00
DX: K52.9 Noninfective gastroenteritis and colitis, unspecified (principal); K57.30 Diverticulosis of large intestine without perforation or abscess without bleeding; N20.0 Calculus of kidney; Z88.5 Allergy status to narcotic agent; Z88.1 Allergy status to other antibiotic agents; Z88.8 Allergy status to other drugs, medicaments and biological substances
CPT/HCPCS: 36415; 74176; 80053; 82272; 85025; 85610; 85730; 96360; 99284

== ENCOUNTER 2024-02-25 07:53 | Inpatient (IN) | payer MEDICARE ==
--- NOTE | 2024-02-25 08:16 | ED ---
General Adult HPI - General Chief complaint: Nausea/Vomiting/Diarrhea Stated complaint: abd pain Time Seen by Provider: 02/25/24 07:58 Source: patient, RN notes reviewed, old records reviewed Mode of arrival: EMS Limitations: no limitations - History of Present Illness Initial comments: 88-year-old male presenting with generalized abdominal pain and vomiting. Patient apparently had a recent admission at outside hospital with what sounds like a bowel obstruction requiring NG tube. He states he was admitted for approximately 4 days. He did not undergo surgery at this time. He has had increased abdominal pain and distention with vomiting. He also believes he is constipated and states he has not had a normal bowel movement in some time. No fever. - Related Data Home Medications Medication Instructions Recorded Confirmed Clopidogrel [Plavix] 75 mg PO DAILY 08/26/15 09/26/19 Pravastatin Sodium [Pravachol] 40 mg PO HS 07/25/17 09/26/19 Ezetimibe [Zetia] 10 mg PO DAILY 12/25/18 09/26/19 Isosorbide Mononitrate [Isosorbide 30 mg PO DAILY 12/25/18 09/26/19 Mononitrate ER] Ascorbic Acid [Vitamin C] 100 mg PO DAILY 09/26/19 09/26/19 Aspirin [Adult Low Dose Aspirin EC] 81 mg PO DAILY 09/26/19 09/26/19 Cholecalciferol [Vitamin D3 (25 2,000 unit PO DAILY 09/26/19 09/26/19 Mcg = 1000 Iu)] Cyanocobalamin (Vitamin B-12) 5,000 mcg PO DAILY 09/26/19 09/26/19 [Vitamin B-12] Glucos Sul 2Kcl/MSM/Chond/C/Mn 1 each PO DAILY 09/26/19 09/26/19 [Glucosamine Chondroitin Cap] Losartan Potassium [Cozaar] 50 mg PO HS 09/26/19 09/26/19 Metoprolol Succinate (ER) [Toprol 50 mg PO DAILY 09/26/19 09/26/19 XL] Naproxen Sodium [Aleve] 220 mg PO DIRECTED PRN 09/26/19 09/26/19 Previous Rx's Medication Instructions Recorded Sennosides-Docusate Sodium 1 tab PO BID #60 tablet 10/03/19 [Senokot-S] traMADol HCL [Ultram] 50 mg PO Q6HR PRN #28 tab 10/03/19 Omeprazole [PriLOSEC] 40 mg PO DAILY #14 cap 01/05/24 Ondansetron Odt [Zofran Odt] 4 mg PO Q8HR PRN #10 tab 01/05/24 Allergies Allergy/AdvReac Type Severity Reaction Status Date / Time levofloxacin [From Levaquin] Allergy Severe Swelling Verified 02/25/24 08:06 of face cat dander Allergy SINUS Verified 02/25/24 08:06 PROBLEMS dog dander Allergy SINUS Verified 02/25/24 08:06 PROBLEMS" hydrocodone Allergy Rash/Hives Verified 02/25/24 08:06 [place] TREES Allergy Rash/Hives Uncoded 09/26/19 14:38 Review of Systems ROS Statement: Those systems with pertinent positive or pertinent negative responses have been documented in the HPI. ROS Other: All systems not noted in ROS Statement are negative. Past Medical History Past Medical History: Cancer, Chest Pain / Angina, Hyperlipidemia, Prostate Disorder, Sleep Apnea/CPAP/BIPAP Additional Past Medical History / Comment(s): hx prostate cancer, bridge/caps/crowns History of Any Multi-Drug Resistant Organisms: None Reported Past Surgical History: Back Surgery, Heart Catheterization With Stent, Hernia Repair, Orthopedic Surgery, Prostate Surgery, Tonsillectomy Additional Past Surgical History / Comment(s): prostate cryotherapy, rt shoulder shoulder rotator cuff, cataracts, dental implants, rt knee total arthropasty Past Anesthesia/Blood Transfusion Reactions: No Reported Reaction Date of Last Stent Placement:: 09/07/14 Past Psychological History: No Psychological Hx Reported Past Alcohol Use History: None Reported - Past Family History Mother Additional Family Medical History / Comment(s): passes away with collapsed carotid artery Father History Unknown: Yes Family Medical History: Cancer Brother(s) Family Medical History: Cancer Additional Family Medical History / Comment(s): pancreatic General Exam Limitations: no limitations General appearance: lethargic Head exam: Present: atraumatic, normocephalic Eye exam: Present: normal appearance, PERRL ENT exam: Present: mucous membranes dry Neck exam: Present: normal inspection. Absent: tenderness, meningismus Respiratory exam: Present: normal lung sounds bilaterally. Absent: respiratory distress, wheezes Cardiovascular Exam: Present: regular rate, normal rhythm GI/Abdominal exam: Present: distended, tenderness Extremities exam: Present: normal inspection, normal capillary refill Neurological exam: Present: alert, oriented X3, CN II-XII intact Skin exam: Present: warm, dry, intact, pallor. Absent: cyanosis Course Vital Signs 02/25/24 02/25/24 07:55 08:27 Temperature 97 F L Pulse Rate 98 Respiratory 20 Rate Blood Pressure 196/83 O2 Sat by Pulse 98 88 L Oximetry Medical Decision Making - Medical Decision Making Was pt. sent in by a medical professional or institution (BRUNO Rivero, RISK ASSESSOR, urgent care, hospital, or [place] health care facility...) When possible be specific @ -No Did you speak to anyone other than the patient for history (EMS, parent, family, police, friend...)? What history was obtained from this source @ -No Did you review nursing and triage notes (agree or disagree)? Why? @ -I reviewed and agree with nursing and triage notes Were old charts reviewed (outside hosp., previous admission, EMS record, old EKG, old radiological studies, urgent care reports/EKG's, [place] health care facility records)? Report findings @ -No old charts were reviewed Differential Abdominal Pain Men: Appendicitis, cholecystitis, diverticulosis, ischemic bowel, pancreatitis, hepatitis, UTI, gastroenteritis, AAA, incarcerated hernia, bowel obstruction, constipation, inflammatory bowel, hepatitis, peptic ulcer disease, splenic infarction, perforated viscus, testicular torsion, this is not meant to be an all-inclusive list EKG interpreted by me (3pts min.). @EKG: Sinus rhythm with left bundle branch block, rate of 96, MO interval 176, QRS duration 145, QTc 448 X-rays interpreted by me (1pt min.). @ -None done CT interpreted by me (1pt min.). @ -CT abdomen pelvis showing dilated small bowel loops without transition point U/S interpreted by me (1pt. min.). @ -None done What testing was considered but not performed or refused? (CT, X-rays, U/S, labs)? Why? @ -None What meds were considered but not given or refused? Why? @ -None Did you discuss the management of the patient with other professionals (professionals i.e. BRUNO Rivero, RISK ASSESSOR, lab, RT, psych nurse, elementary school social worker, finance vice president, teacher, botanical technical officer, caseworker intake)? Give summary @ -Case discussed with Dr. Chawla Was smoking cessation discussed for >3mins.? @ -No Was critical care preformed (if so, how long)? @ -No Were there social determinants of health that impacted care today? How? (Homelessness, low income, unemployed, alcoholism, drug addiction, transportation, low edu. Level, literacy, decrease access to med. care, snf, rehab)? @ -No Was there de-escalation of care discussed even if they declined (Discuss DNR or withdrawal of care, Hospice)? DNR status @ -No What co-morbidities impacted this encounter? (DM, HTN, Smoking, COPD, CAD, Cancer, CVA, ARF, Chemo, Hep., AIDS, mental health diagnosis, sleep apnea, mo rbid obesity)? @ -[Recent small bowel obstruction, admitted to [facility] Was patient admitted / discharged? Hospital course, mention meds given and route, prescriptions, significant lab abnormalities, going to OR and other pertinent info. @88-year-old male with vomiting, recent bowel obstruction. Patient is uncomfortable, hypertensive, distended abdomen with generalized tenderness. He is afebrile with normal white blood cell count, stable chronic anemia. Normal electrolytes. No acidosis. Lactic acid pending. CT showing dilated small bowel loops. NG tube was placed in the emergency department. Patient is admitted to internal medicine, Dr. Chawla with general surgery on consult. Undiagnosed new problem with uncertain prognosis? @ -No Drug Therapy requiring intensive monitoring for toxicity (Heparin, Nitro, Insulin, Cardizem)? @ -No Were any procedures done? @ -No Diagnosis/symptom? @ -Small bowel obstruction Acute, or Chronic, or Acute on Chronic? @ -Acute Uncomplicated (without systemic symptoms) or Complicated (systemic symptoms)? @ -Default Side effects of treatment? @ -No Exacerbation, Progression, or Severe Exacerbation? @ -No Poses a threat to life or bodily function? How? (Chest pain, USA, MS, pneumonia, PE, COPD, DKA, ARF, appy, cholecystitis, CVA, Diverticulitis, Homicidal, Suicidal, threat to staff... and all critical care pts) @ -[Yes, bowel ischemia, intra-abdominal infection, dehydration, hypovolemia - Lab Data Result diagrams: 02/25/24 08:27 12/23/24 08:59 Lab Results 02/25/24 02/25/24 Range/Units 08:27 08:59 WBC 5.6 (3.8-10.6) k/uL RBC 3.76 L (4.30-5.90) m/uL Hgb 10.1 L (13.0-17.5) gm/dL Hct 31.9 L (39.0-53.0) % MCV 85.0 (80.0-100.0) fL MCH 26.8 (25.0-35.0) pg MCHC 31.5 (31.0-37.0) g/dL RDW 18.9 H (11.5-15.5) % Plt Count 250 (150-450) k/uL MPV 8.6 Neutrophils % 76 % Lymphocytes % 18 % Monocytes % 5 % Eosinophils % 1 % Basophils % 0 % Neutrophils # 4.2 (1.3-7.7) k/uL Lymphocytes # 1.0 (1.0-4.8) k/uL Monocytes # 0.3 (0-1.0) k/uL Eosinophils # 0.0 (0-0.7) k/uL Basophils # 0.0 (0-0.2) k/uL Manual Slide Review Performed Hypochromasia Marked Poikilocytosis Slight Anisocytosis Slight Microcytosis Slight Target Cells Present Fragmented RBCs Present Sodium 137 (137-145) mmol/L Potassium 4.3 (3.5-5.1) mmol/L Chloride 102 (98-107) mmol/L Carbon Dioxide 28 (22-30) mmol/L Anion Gap 7 mmol/L BUN 19 (9-20) mg/dL Creatinine 0.70 (0.66-1.25) mg/dL Est GFR (CKD-EPI)AfAm >90 (>60 ml/min/1.73 sqM) Est GFR (CKD-EPI)NonAf 85 (>60 ml/min/1.73 sqM) Glucose 138 H (74-99) mg/dL Calcium 9.1 (8.4-10.2) mg/dL Total Bilirubin 0.5 (0.2-1.3) mg/dL AST 30 (17-59) U/L ALT 41 (4-49) U/L Alkaline Phosphatase 260 H (38-126) U/L Total Protein 6.5 (6.3-8.2) g/dL Albumin 4.0 (3.5-5.0) g/dL Lipase 122 (23-300) U/L Disposition Clinical Impression: Small bowel obstruction Disposition: ADMITTED IP TO THIS HOSP Condition: Stable Is patient prescribed a controlled substance at d/c from ED?: No Referrals: Tomy Marie DO [Primary Care Provider] - 1-2 days Time of Disposition: 09:43
[2024-02-25] MEDS: ONDANSETRON 4 MG/2 ML VIAL IVP STA (08:20)
[2024-02-25] MEDS: SODIUM CHLORIDE 0.9% 500 ML 500 ML IV STA (08:21)
[2024-02-25 08:33] LABS: Anisocytosis Slight; Basophils % (A) 0 %; Eosinophils % (A) 1 %; HCT 31.9 % (39.0-53.0); HGB 10.1 gm/dL (13.0-17.5); Hypochromasia Marked; Lymphocytes % (A) 18 %; MCH 26.8 pg (25.0-35.0); MCHC 31.5 g/dL (31.0-37.0); Mean Platelet Volume 8.6; Microcytosis Slight; Monocytes # (A) 0.3 k/uL (0-1.0); Monocytes % (A) 5 %; Neutrophils # (A) 4.2 k/uL (1.3-7.7); Neutrophils % (A) 76 %; Platelet Count 250 k/uL (150-450); Poikilocytosis Slight; RBC 3.76 m/uL (4.30-5.90); RDW 18.9 % (11.5-15.5); WBC 5.6 k/uL (3.8-10.6)
[2024-02-25 09:11] LABS: RBC Fragments Present; Target Cells Present
--- NOTE | 2024-02-25 09:11 | CT ---
EXAMINATION TYPE: CT abdomen pelvis wo con DATE OF EXAM: 02/25/2024 COMPARISON: 01/05/2024 CLINICAL INDICATION: Male, 88 years old with history of abdominal pain/vomiting; PHH, Abominal pain, vomiting, lethargic TECHNIQUE: CT scan of the abdomen and pelvis is performed without oral or IV contrast. CT DLP: 589.[address] CTDI: mGy Automated exposure control for dose reduction was used. FINDINGS: Within the limitations of a non-contrast study, the following observations are made. 3 mm left lower lobe groundglass nodule. LUNG BASES: Previous aortic valve placement surgery. Coronary artery calcifications. Trace of pericar dial fluid.. LIVER/GB: Normal in size and limited by noncontrast technique. There is a gallstone.. PANCREAS: No significant abnormality is seen. SPLEEN: No significant abnormality is seen. ADRENALS: Subcentimeter nonspecific thickening of the adrenal glands may be on the basis of hyperplas ia or adenoma or KIDNEYS: Punctate nonobstructing right renal calculus.. BOWEL: Numerous dilated bowel loops. A definitive transition point is not seen. Changes of diverticul osis. Trace amount of free fluid. Air surrounding stool in the right colon is favored over pneumatosi s. Small hiatal hernia. LYMPH NODES: No greater than 1cm abdominal or pelvic lymph nodes are appreciated. OSSEOUS STRUCTURES: Postsurgical changes left hip. Arthropathy right hip. Multilevel hypertrophic and degenerative changes of spine. Enthesophytes at the iliac crests. Hypertrophic SI joint arthropathy. OTHER: Small amount of free fluid in the abdomen and pelvis compatible with ascites. Assessment of th e pelvis limited due to artifact from hip prostheses. Moderate vascular atherosclerotic disease. IMPRESSION: 1. There are dilated fluid-filled small bowel loops. A definitive transition point is not seen. Diffe rential diagnosis would include obstruction versus ileus. Air surrounding the periphery of the right colon likely is related to intermixed stool rather than pneumatosis but should be correlated with lac tic acid level to assess for ischemia. 2. Nonobstructing right renal calculus. 3. Cholelithiasis consider right upper quadrant ultrasound to assess for cholecystitis. 4. Small amount of ascites. [facility], , 02/25/2024 9:09 AM
[2024-02-25 09:20] LABS: ALT 41 U/L (4-49); AST 30 U/L (17-59); African American GFR (CKD) >90 (>60 ml/min/1.73 sqM); Alkaline Phosphatase 260 U/L (38-126); Anion Gap 7 mmol/L; Blood Urea Nitrogen 19 mg/dL (9-20); Calcium 9.1 mg/dL (8.4-10.2); Carbon Dioxide 28 mmol/L (22-30); Chloride 102 mmol/L (98-107); Glucose 138 mg/dL (74-99); Lipase 122 U/L (23-300); Non-African American GFR(CKD) 85 (>60 ml/min/1.73 sqM); Potassium 4.3 mmol/L (3.5-5.1); Sodium 137 mmol/L (137-145); Total Bilirubin 0.5 mg/dL (0.2-1.3); Total Protein 6.5 g/dL (6.3-8.2)
[2024-02-25] MEDS: PANTOPRAZOLE 40 MG/10 ML VIAL IVP STA (09:22)
[2024-02-25] MEDS: HYDROmorphone 0.5 MG/0.5 ML SYRINGE IVP STA (09:25)
[2024-02-25] MEDS ORDERED: NALOXONE 0.4 MG/ML 1 ML VIAL IV PRN (09:38)
[2024-02-25] MEDS: SODIUM CHLORIDE 0.9% 1,000 ML IV SCH (09:49)
[2024-02-25 09:51] LABS: Prothrombin Time 11.3 sec (10.0-12.5)
[2024-02-25 09:52] LABS: Partial Thromboplastin Time 19.3 sec (22.0-30.0)
--- NOTE | 2024-02-25 10:09 | XR ---
EXAMINATION TYPE: XR chest 1V confirm line plcmt DATE OF EXAM: 02/25/2024 10:02 AM COMPARISON: Chest radiographs from 05/10/2023 TECHNIQUE: XR chest 1V confirm line plcmt Portable AP radiograph of the chest. CLINICAL INDICATION:Male, 88 years old with history of NG placement; FINDINGS: Lungs/Pleura: There is no evidence of pleural effusion, focal consolidation, or pneumothorax. Biapic al pleural calcification redemonstrated. Pulmonary vascularity: Unremarkable. Heart/mediastinum: Cardiomediastinal silhouette is stable. Atherosclerotic calcifications are seen i n the aorta. Postsurgical changes of the aortic valve. Musculoskeletal: No acute osseous pathology. Multilevel degenerative disc disease. Other findings: None Lines/Tubes: Nasogastric tube with its distal tip and side-port projecting under the diaphragm and projecting over the gastric lumen. IMPRESSION: Appropriate position of NG tube. [facility], , 02/25/2024 10:07 AM
--- NOTE | 2024-02-25 12:19 | P.HPIM ---
History of Present Illness This is a pleasant 88 years old male with past medical history of multiple medical problems as below. Presents because of vomiting several times over the last 3 days associated with abdominal pain He describes pain as severe, nonspecific in character in the periumbilical areas with no radiation and no relieving or precipitating factors Last bowel movement was about 2 days ago but was little bit No urinary complaint He denies chest pain or dyspnea He has some headache but no dizziness weakness or numbness His PCP is Dr. Marie. He denies smoking or illicit drugs. Blood pressure was slightly high on admission 196/83, afebrilee and other vital stable, hemoglobin is 10.1, 1 other than that CBC is unremarkable except for low hemoglobin at 10.1 Patient started on normal sinus 75 mL/h CT of the abdomen and pelvis showing dilated fluid-filled small bowel loops. Increased air on the right side, thought part of the stool. Also nonobstructive renal calculi and cholelithiasis but cannot rule out acute cholecystitis Review of Systems Review of systems CONSTITUTIONAL: No fever, no malaise, no fatigue. HEENT: No recent visual problems or hearing problems. Denied any sore throat. CARDIOVASCULAR: No orthopnea, PND, no palpitations, no syncope. PULMONARY: No shortness of breath, no cough, no hemoptysis. GASTROINTESTINAL: As above NEUROLOGICAL: No headaches, no weakness, no numbness. HEMATOLOGICAL: Denies any bleeding or petechiae. GENITOURINARY: Denies any burning micturition, frequency, or urgency. MUSCULOSKELETAL/RHEUMATOLOGICAL: Denies any joint pain, swelling, or any muscle pain. ENDOCRINE: Denies any polyuria or polydipsia. Past Medical History Past Medical History: Cancer, Chest Pain / Angina, Hyperlipidemia, Prostate Diso rder, Sleep Apnea/CPAP/BIPAP Additional Past Medical History / Comment(s): hx prostate cancer, bridge/caps/crowns History of Any Multi-Drug Resistant Organisms: None Reported Past Surgical History: Back Surgery, Heart Catheterization With Stent, Hernia Repair, Orthopedic Surgery, Prostate Surgery, Tonsillectomy Additional Past Surgical History / Comment(s): prostate cryotherapy, rt shoulder shoulder rotator cuff, cataracts, dental implants, rt knee total arthropasty Past Anesthesia/Blood Transfusion Reactions: No Reported Reaction Date of Last Stent Placement:: 09/07/14 Past Psychological History: No Psychological Hx Reported Past Alcohol Use History: None Reported - Past Family History Mother Additional Family Medical History / Comment(s): passes away with collapsed carotid artery Father History Unknown: Yes Family Medical History: Cancer Brother(s) Family Medical History: Cancer Additional Family Medical History / Comment(s): pancreatic Medications and Allergies Home Medications Medication Instructions Recorded Confirmed Type Clopidogrel [Plavix] 75 mg PO DAILY 08/26/15 02/25/24 History Aspirin [Adult Low Dose Aspirin EC] 81 mg PO DAILY 09/26/19 02/25/24 History Losartan Potassium [Cozaar] 50 mg PO DAILY 09/26/19 02/25/24 History Omeprazole [PriLOSEC] 40 mg PO DAILY #14 cap 01/05/24 02/25/24 Rx Ondansetron Odt [Zofran Odt] 4 mg PO Q8HR PRN #10 tab 01/05/24 02/25/24 Rx Atorvastatin [Lipitor] 40 mg PO HS 02/25/24 02/25/24 History Ipratropium [place] 0.06%Nasal 2 spr EA NOSTRIL BID PRN 02/25/24 02/25/24 History [Atrovent Nasal 0.06%] Isosorbide Mononitrate ER [Imdur] 60 mg PO DAILY 02/25/24 02/25/24 History LORazepam [Ativan] 1 mg PO BID PRN 02/25/24 02/25/24 History Metoprolol Tartrate [Lopressor] 25 mg PO BID 02/25/24 02/25/24 History Allergies Allergy/AdvReac Type Severity Reaction Status Date / Time levofloxacin [From Levaquin] Allergy Severe Swelling Verified 02/25/24 10:17 of face cat dander Allergy SINUS Verified 02/25/24 10:17 PROBLEMS dog dander Allergy SINUS Verified 02/25/24 10:17 PROBLEMS" hydrocodone Allergy Rash/Hives Verified 02/25/24 10:17 [place] Allergy Rash/Hives Uncoded 02/25/24 10:17 Physical Exam Vitals: Vital Signs Temp Pulse Resp BP Pulse Ox 02/25/24 10:00 93 18 140/61 95 02/25/24 08:27 88 L 02/25/24 07:55 97 F L 98 20 196/83 98 Intake and Output 12/02/25/24 02/25/24 22:59 06:59 14:59 Other: Weight 68.039 kg GENERAL: The patient is alert and oriented x3, not in any acute distress. Well developed, well nourished. HEENT: Pupils are round and equally reacting to light. EOMI. No scleral icterus. No conjunctival pallor. Normocephalic, atraumatic. No pharyngeal erythema. No thyromegaly. CARDIOVASCULAR: S1 and S2 present. No murmurs, rubs, or gallops. PULMONARY: Chest is clear to auscultation, no wheezing , no crackles. -ABDOMEN: Soft, periumbilical tenderness, no guarding or rebound tenderness r, nondistended, normoactive bowel sounds. No palpable organomegaly. MUSCULOSKELETAL: No joint swelling or deformity. EXTREMITIES: No cyanosis, clubbing, or pedal edema. NEUROLOGICAL: Gross neurological examination did not reveal any focal deficits. SKIN: No rashes. no petechiae. Results CBC & Chem 7: 02/25/24 08:27 02/25/24 08:59 Labs: Abnormal Lab Results - Last 24 Hours (Table) 02/25/24 02/25/24 02/25/24 Range/Units 08:27 08:59 09:25 RBC 3.76 L (4.30-5.90) m/uL Hgb 10.1 L (13.0-17.5) gm/dL Hct 31.9 L (39.0-53.0) % RDW 18.9 H (11.5-15.5) % APTT 19.3 L (22.0-30.0) sec Glucose 138 H (74-99) mg/dL Alkaline Phosphatase 260 H (38-126) U/L Assessment and Plan Assessment: Acute small bowel obstruction nonobstructive renal calculi cholelithiasis but cannot rule out acute cholecystitis Chronic anemia Hypertension Plan: Bowel rest IV fluid Pain medication General Surgery consult Resume home medication, especially aspirin Hold Plavix Rest of findings based on the clinical course Lisinopril and metoprolol are on hold. While the patient NPO. Will start clonidine patch Labs and medication were reviewed.. Continue same treatment. Continue with symptomatic treatment. Resume home medication. Monitor labs and vitals. DVT and GI prophylaxis. Further recommendations as per clinical course of the patient DVT prophylaxis: Subcutaneous heparin GI Prophylaxis: Pepcid PT/OT: Pending Prognosis is guarded
[2024-02-25 13:03] LABS: Appearance,Urine Clear (Clear); Bilirubin,Urine Negative (Negative); Blood,Urine Negative (Negative); Color,Urine Light Yellow; Glucose,Urine (UA) Negative (Negative); Ketones,Urine 1+ (Negative); Leukocyte Esterase,Urine Negative (Negative); Nitrite,Urine Negative (Negative); Protein,Urine Negative (Negative); Specific Gravity,Urine 1.021 (1.001-1.035); Urobilinogen,Urine <2.0 mg/dL (<2.0)
--- NOTE | 2024-02-25 13:20 | P.GSCN ---
History of Present Illness Consult date: 02/25/24 History of present illness: CHIEF COMPLAINT: Abdominal pain HISTORY OF PRESENT ILLNESS: This is a 80-year-old male who presented with abdominal pain and vomiting. Patient had recent hospitalization for partial small bowel obstruction that was managed conservatively with an NG tube placement. Patient denies any other abdominal surgeries. Chart reveals that patient has had a history of hernia repair. He does report having a prior cardiac surgery. Patient reports not having any flatus or bowel movement. He had a CT scan abdomen pelvis completed that reported dilated fluid-filled small bowel loops. Definitive transition point is not seen. Differential diagnosis small bowel obstruction versus ileus. Patient has NG tube in place with minimal brownish output. And currently his pain is controlled. Patient seen and examined with Dr. Marie PAST MEDICAL HISTORY: chest Pain / Angina, Hyperlipidemia, Prostate cancer, Sleep Apnea/CPAP/BIPAP PAST SURGICAL HISTORY: Back Surgery, Heart Catheterization With Stent, Hernia Repair, Orthopedic Surgery, Prostate Surgery, Tonsillectomy MEDICATIONS: See below ALLERGIES: See below SOCIAL HISTORY: No illicit drug use. REVIEW OF SYSTEMS: CONSTITUTIONAL: Denies fever or chills. HEENT: Denies blurred vision, vision changes, or eye pain. Denies hemoptysis CARDIOVASCULAR: Denies chest pain or pressure. RESPIRATORY: No shortness of breath. GASTROINTESTINAL: See HPI for pertinent findings HEMATOLOGIC: Denies bleeding disorders. GENITOURINARY: Denies any blood in urine or increased urinary frequency. SKIN: Denies pruitis. Denies rash. PHYSICAL EXAM: VITAL SIGNS: Reviewed GENERAL: Well-developed in no acute distress. HEENT: No sclera icterus. Extraocular movements grossly intact. Moist buccal mucosa. Head is atraumatic, normocephalic. No nasal drainage. ABDOMEN: Soft. Nondistended. Currently nontender with palpation. No rebound or guarding NEUROLOGIC: Alert and oriented. Cranial nerves II through XII grossly intact. LABORATORY DATA: WBC 5.6 Hgb 10.1 platelets 250 INR 1.0 Sodium 137 potassium is 4.3 creatinine 0.7 Lactic acid 1.1 IMAGING: CT scan abdomen pelvis reports dilated fluid-filled small bowel loops. No transition point. Differential diagnosis could include obstruction versus ileus. Air surrounding the periphery of the right colon likely related to intermixed stool rather than pneumatosis. Nonobstructing right renal calculus. Cholelithiasis. Small amount of ascites. ASSESSMENT: 1. Most likely abdominal ileus versus partial small bowel obstruction 2. Recent medically managed partial small bowel obstruction PLAN: -Continue NG tube for decompression -Cepacol lozenges added for sore throat -Continue IV fluids -Continue to monitor Thank you for this consultation. Physician Soda Worker note has been reviewed by physician. Signing provider agrees with the documented findings, assessment, and plan of care. Past Medical History Past Medical History: Cancer, Chest Pain / Angina, Hyperlipidemia, Prostate Diso rder, Sleep Apnea/CPAP/BIPAP Additional Past Medical History / Comment(s): hx prostate cancer, bridge/caps/crowns History of Any Multi-Drug Resistant Organisms: None Reported Past Surgical History: Back Surgery, Heart Catheterization With Stent, Hernia Repair, Orthopedic Surgery, Prostate Surgery, Tonsillectomy Additional Past Surgical History / Comment(s): prostate cryotherapy, rt shoulder shoulder rotator cuff, cataracts, dental implants, rt knee total arthropasty Past Anesthesia/Blood Transfusion Reactions: No Reported Reaction Date of Last Stent Placement:: 09/07/14 Past Psychological History: No Psychological Hx Reported Past Alcohol Use History: None Reported - Past Family History Mother Additional Family Medical History / Comment(s): passes away with collapsed carotid artery Father History Unknown: Yes Family Medical History: Cancer Brother(s) Family Medical History: Cancer Additional Family Medical History / Comment(s): pancreatic Medications and Allergies Home Medications Medication Instructions Recorded Confirmed Type Clopidogrel [Plavix] 75 mg PO DAILY 08/26/15 02/25/24 History Aspirin [Adult Low Dose Aspirin EC] 81 mg PO DAILY 09/26/19 02/25/24 History Losartan Potassium [Cozaar] 50 mg PO DAILY 09/26/19 02/25/24 History Omeprazole [PriLOSEC] 40 mg PO DAILY #14 cap 01/05/24 02/25/24 Rx Ondansetron Odt [Zofran Odt] 4 mg PO Q8HR PRN #10 tab 01/05/24 02/25/24 Rx Atorvastatin [Lipitor] 40 mg PO HS 02/25/24 02/25/24 History Ipratropium [place] 0.06%Nasal 2 spr EA NOSTRIL BID PRN 02/25/24 02/25/24 History [Atrovent Nasal 0.06%] Isosorbide Mononitrate ER [Imdur] 60 mg PO DAILY 02/25/24 02/25/24 History LORazepam [Ativan] 1 mg PO BID PRN 02/25/24 02/25/24 History Metoprolol Tartrate [Lopressor] 25 mg PO BID 02/25/24 02/25/24 History Allergies Allergy/AdvReac Type Severity Reaction Status Date / Time levofloxacin [From Levaquin] Allergy Severe Swelling Verified 02/25/24 10:17 of face cat dander Allergy SINUS Verified 02/25/24 10:17 PROBLEMS dog dander Allergy SINUS Verified 02/25/24 10:17 PROBLEMS" hydrocodone Allergy Rash/Hives Verified 02/25/24 10:17 [place] Allergy Rash/Hives Uncoded 02/25/24 10:17 Surgical - Exam Vital Signs Temp Pulse Resp BP Pulse Ox 97 F L 98 20 196/83 98 02/25/24 07:55 02/25/24 07:55 02/25/24 07:55 02/25/24 07:55 02/25/24 07:55 Results - Labs 02/25/24 08:27 02/25/24 08:59 Abnormal Lab Results - Last 24 Hours (Table) 02/25/24 02/25/24 02/25/24 Range/Units 08:27 08:59 09:25 RBC 3.76 L (4.30-5.90) m/uL Hgb 10.1 L (13.0-17.5) gm/dL Hct 31.9 L (39.0-53.0) % RDW 18.9 H (11.5-15.5) % APTT 19.3 L (22.0-30.0) sec Glucose 138 H (74-99) mg/dL Alkaline Phosphatase 260 H (38-126) U/L Urine Ketones (Negative) 02/25/24 Range/Units 12:51 RBC (4.30-5.90) m/uL Hgb (13.0-17.5) gm/dL Hct (39.0-53.0) % RDW (11.5-15.5) % APTT (22.0-30.0) sec Glucose (74-99) mg/dL Alkaline Phosphatase (38-126) U/L Urine Ketones 1+ H (Negative) Diabetes panel 02/25/24 Range/Units 08:59 Sodium 137 (137-145) mmol/L Potassium 4.3 (3.5-5.1) mmol/L Chloride 102 (98-107) mmol/L Carbon Dioxide 28 (22-30) mmol/L BUN 19 (9-20) mg/dL Creatinine 0.70 (0.66-1.25) mg/dL Glucose 138 H (74-99) mg/dL Calcium 9.1 (8.4-10.2) mg/dL AST 30 (17-59) U/L ALT 41 (4-49) U/L Alkaline Phosphatase 260 H (38-126) U/L Total Protein 6.5 (6.3-8.2) g/dL Albumin 4.0 (3.5-5.0) g/dL Calcium panel 02/25/24 Range/Units 08:59 Calcium 9.1 (8.4-10.2) mg/dL Albumin 4.0 (3.5-5.0) g/dL Pituitary panel 02/25/24 Range/Units 08:59 Sodium 137 (137-145) mmol/L Potassium 4.3 (3.5-5.1) mmol/L Chloride 102 (98-107) mmol/L Carbon Dioxide 28 (22-30) mmol/L BUN 19 (9-20) mg/dL Creatinine 0.70 (0.66-1.25) mg/dL Glucose 138 H (74-99) mg/dL Calcium 9.1 (8.4-10.2) mg/dL Adrenal panel 02/25/24 Range/Units 08:59 Sodium 137 (137-145) mmol/L Potassium 4.3 (3.5-5.1) mmol/L Chloride 102 (98-107) mmol/L Carbon Dioxide 28 (22-30) mmol/L BUN 19 (9-20) mg/dL Creatinine 0.70 (0.66-1.25) mg/dL Glucose 138 H (74-99) mg/dL Calcium 9.1 (8.4-10.2) mg/dL Total Bilirubin 0.5 (0.2-1.3) mg/dL AST 30 (17-59) U/L ALT 41 (4-49) U/L Alkaline Phosphatase 260 H (38-126) U/L Total Protein 6.5 (6.3-8.2) g/dL Albumin 4.0 (3.5-5.0) g/dL
[2024-02-25] MEDS: BENZOCAINE/MENTHOL LOZENG 1 EACH LOZENGE MUCOUS MEM PRN (15:03)
[2024-02-25] MEDS: HYDROmorphone 0.5 MG/0.5 ML SYRINGE IVP PRN (15:04)
[2024-02-25] MEDS: cloNIDine 0.2 MG/24HR PATCH TRANSDERM SCH (17:46)
[2024-02-25] MEDS: FAMOTIDINE 20 MG/2 ML VIAL IV SCH (19:49)
[2024-02-25] MEDS: HEPARIN SODIUM,PORCINE 5,000 UNIT/ML 1 ML VIAL SQ SCH (19:49)
[2024-02-26] MEDS: ONDANSETRON 4 MG/2 ML VIAL IVP PRN (02:48)
[2024-02-26] MEDS ORDERED: hydrALAZINE HCL 20 MG/ML 1 ML VIAL IVP PRN ×2 (06:26)
[2024-02-26] MEDS: ASPIRIN 81 MG PO SCH (07:59)
[2024-02-26 08:16] LABS: Basophils # (A) 0.02 X 10*3/uL (0.00-0.10); Basophils % (A) 0.4 %; Eosinophils # (A) 0.07 X 10*3/uL (0.04-0.35); Eosinophils % (A) 1.4 %; HCT 27.7 % (39.6-50.0); HGB 8.5 g/dL (13.0-17.0); MCH 25.8 pg (27.0-32.0); MCHC 30.7 g/dL (32.0-37.0); MCV 83.9 FL (80.0-97.0); Mean Platelet Volume 10.5 FL (9.5-12.2); NRBC Per 100 WBC 0 X 10*3/uL (0.00-0.01); Neutrophils # (A) 2.89 X 10*3/uL (1.80-7.70); Neutrophils % (A) 57.8 %; Platelet Count 247 X 10*3/uL (140-440); RDW 17.8 % (11.5-14.5)
[2024-02-26 08:43] LABS: BUN/Creat Ratio 24.25 Ratio (12.00-20.00); Blood Urea Nitrogen 19.4 mg/dL (9.0-27.0); Chloride 107 mmol/L (96-109); Glucose 113 mg/dL (70-110); Sodium 140 mmol/L (135-145)
[2024-02-26 08:44] LABS: ALT 31 U/L (10-49); AST 24 U/L (14-35); Albumin 3.4 g/dL (3.8-4.9); Albumin/Globulin Ratio 1.79 Ratio (1.60-3.17); Alkaline Phosphatase 217 U/L (41-126); Bilirubin, Conjugated 0.21 mg/dL (0.20-0.40); Bilirubin,Unconjugated 0.19 mg/dL (0.20-1.00); Calcium 8.6 mg/dL (8.7-10.3); Carbon Dioxide 24.9 mmol/L (21.6-31.8); Globulin 1.9 g/dL (1.6-3.3); Total Bilirubin 0.4 mg/dL (0.3-1.2); Total Protein 5.3 g/dL (6.2-8.2)
--- NOTE | 2024-02-26 13:30 | P.PN ---
Subjective This is a pleasant 88 years old male with past medical history of multiple medical problems as below. Presents because of vomiting several times over the last 3 days associated with abdominal pain He describes pain as severe, nonspecific in character in the periumbilical areas with no radiation and no relieving or precipitating factors Last bowel movement was about 2 days ago but was little bit No urinary complaint He denies chest pain or dyspnea He has some headache but no dizziness weakness or numbness His PCP is Dr. Marie. He denies smoking or illicit drugs. Blood pressure was slightly high on admission 196/83, afebrilee and other vital stable, hemoglobin is 10.1, 1 other than that CBC is unremarkable except for low hemoglobin at 10.1 Patient started on normal sinus 75 mL/h CT of the abdomen and pelvis showing dilated fluid-filled small bowel loops. Increased air on the right side, thought part of the stool. Also nonobstructive renal calculi and cholelithiasis but cannot rule out acute cholecystitis 02/25 Patient still has NG tube in place No significant abdominal tenderness No bowel movement yet. He is afebrile and blood pressures slightly elevated, his oral antihypertensive medication are on hold Will increase clonidine patch 0.2 up to 0.3 mg Also added IV hydralazine as needed for high blood pressure I have lengthy discussion with the patient and family at bedside and all questions answered to their satisfaction. I told them patient is not ready for discharge Review of systems CONSTITUTIONAL: No fever, no malaise, no fatigue. HEENT: No recent visual problems or hearing problems. Denied any sore throat. CARDIOVASCULAR: No orthopnea, PND, no palpitations, no syncope. GENITOURINARY: Denies any burning micturition, frequency, or urgency. MUSCULOSKELETAL/RHEUMATOLOGICAL: Denies any joint pain, swelling, or any muscle pain. ENDOCRINE: Denies any polyuria or polydipsia. Active Medications Generic Name Dose Route Start Last Admin Trade Name Freq PRN Reason Stop Dose Admin Aspirin 81 mg 02/26/24 09:00 02/26/24 07:59 Aspirin 81 Mg PO 81 mg DAILY LETI Administration Benzocaine/Menthol 1 each 02/25/24 13:13 02/25/24 15:03 Benzocaine/Menthol Lozeng 1 Each Lozenge MUCOUS MEM 1 each Q6HR PRN Administration Sore Throat Clonidine HCl 1 patch 02/26/24 13:30 Clonidine 0.3 Mg/24hr Patch TRANSDERM Q7D LETI Famotidine 20 mg 02/25/24 21:00 02/26/24 07:59 Famotidine 20 Mg/2 Ml Vial IV 20 mg Q12HR LETI Administration Heparin Sodium (Porcine) 5,000 unit 02/25/24 21:00 02/26/24 07:59 Heparin Sodium,Porcine 5,000 Unit/Ml 1 Ml Vial SQ 5,000 unit Q12HR LETI Administration Hydralazine HCl 10 mg 02/26/24 06:26 Hydralazine Hcl 20 Mg/Ml 1 Ml Vial IVP Q6HR PRN Blood Pressure - High Hydralazine HCl 5 mg 02/26/24 06:26 Hydralazine Hcl 20 Mg/Ml 1 Ml Vial IVP Q6HR PRN Blood Pressure - High Hydromorphone HCl 0.5 mg 02/25/24 09:38 02/26/24 04:02 Hydromorphone 0.5 Mg/0.5 Ml Syringe IVP 0.5 mg Q3HR PRN Administration Moderate Pain (Scale 4 to 6) Sodium Chloride 1,000 mls @ 75 mls/hr 02/25/24 09:15 02/26/24 01:17 Saline 0.9% IV 75 mls/hr .[id number] LETI Administration Naloxone HCl 0.2 mg 02/25/24 09:38 Naloxone 0.4 Mg/Ml 1 Ml Vial IV Q2M PRN Opioid Reversal Ondansetron HCl 4 mg 02/25/24 09:38 02/26/24 02:48 Ondansetron 4 Mg/2 Ml Vial IVP 4 mg Q8HR PRN Administration Nausea And Vomiting Objective - Vital Signs Vital signs: Vital Signs Temp 98.0 F 02/26/24 07:00 Pulse 86 02/26/24 07:00 Resp 16 02/26/24 07:00 BP 171/68 02/26/24 07:00 Pulse Ox 99 02/26/24 07:00 FiO2 Intake & Output 02/25/24 02/26/24 02/26/24 18:59 06:59 18:59 Output Total 210 Balance -210 Weight 68.039 kg Output: Gastric Drainage 210 Other: # Voids 0 1 - Exam GENERAL: The patient is alert and oriented x3, not in any acute distress. Well developed, well nourished. HEENT: Pupils are round and equally reacting to light. EOMI. No scleral icterus. No conjunctival pallor. Normocephalic, atraumatic. No pharyngeal erythema. No thyromegaly. CARDIOVASCULAR: S1 and S2 present. No murmurs, rubs, or gallops. PULMONARY: Chest is clear to auscultation, no wheezing , no crackles. -ABDOMEN: Soft, nontender, nondistended, normoactive bowel sounds. No palpable organomegaly. NG tube in place MUSCULOSKELETAL: No joint swelling or deformity. EXTREMITIES: No cyanosis, clubbing, or pedal edema. NEUROLOGICAL: Gross neurological examination did not reveal any focal deficits. SKIN: No rashes. no petechiae. - Labs CBC & Chem 7: 02/26/24 03:45 02/26/24 03:45 Labs: Abnormal Lab Results - Last 24 Hours (Table) 02/26/24 02/26/24 Range/Units 03:45 03:45 RBC 3.30 L (4.40-5.60) X 10*6/uL Hgb 8.5 L (13.0-17.0) g/dL Hct 27.7 L (39.6-50.0) % MCH 25.8 L (27.0-32.0) pg MCHC 30.7 L (32.0-37.0) g/dL RDW 17.8 H (11.5-14.5) % BUN/Creatinine Ratio 24.25 H (12.00-20.00) Ratio Glucose 113 H (70-110) mg/dL Calcium 8.6 L (8.7-10.3) mg/dL Unconjugated Bilirubin 0.19 L (0.20-1.00) mg/dL Alkaline Phosphatase 217 H (41-126) U/L Total Protein 5.3 L (6.2-8.2) g/dL Albumin 3.4 L (3.8-4.9) g/dL Assessment and Plan Assessment: Acute small bowel obstruction nonobstructive renal calculi cholelithiasis but cannot rule out acute cholecystitis Chronic anemia Hypertension Plan: Bowel rest IV fluid Pain medication General Surgery consult Resume home medication, especially aspirin Hold Plavix Rest of findings based on the clinical course Lisinopril and metoprolol are on hold. While the patient NPO. Will start clonidine patch Labs and medication were reviewed.. Continue same treatment. Continue with symptomatic treatment. Resume home medication. Monitor labs and vitals. DVT and GI prophylaxis. Further recommendations as per clinical course of the patient DVT prophylaxis: Subcutaneous heparin GI Prophylaxis: Pepcid PT/OT: Pending Prognosis is guarded
--- NOTE | 2024-02-26 15:02 | P.PN ---
Subjective Progress Note Date: 02/26/24 Acute events overnight. No nausea vomiting since NG tube insertion. No worsening abdominal pain. No fevers or chills. No shortness of breath or chest pain. Admits to small-moderate flatus, but no bowel movement. Voiding and ambulatory. Objective - Vital Signs Vital signs: Vital Signs Temp 98.0 F 02/26/24 07:00 Pulse 86 02/26/24 07:00 Resp 16 02/26/24 07:00 BP 171/68 02/26/24 07:00 Pulse Ox 99 02/26/24 07:00 FiO2 Intake & Output 02/25/24 02/26/24 02/26/24 18:59 06:59 18:59 Output Total 210 Balance -210 Weight 68.039 kg Output: Gastric Drainage 210 Other: # Voids 0 1 - Exam Gen: No acute distress, alert and oriented Pulm: Nonlabored respirations Abd: Soft, mildly distended, minimally tender to palpation. No guarding/re bound/rigidity NGT:Intact producing 200 cc of bilious output Extrem: no edema seen - Labs CBC & Chem 7: 02/26/24 03:45 02/26/24 03:45 Labs: Abnormal Lab Results - Last 24 Hours (Table) 02/26/24 02/26/24 Range/Units 03:45 03:45 RBC 3.30 L (4.40-5.60) X 10*6/uL Hgb 8.5 L (13.0-17.0) g/dL Hct 27.7 L (39.6-50.0) % MCH 25.8 L (27.0-32.0) pg MCHC 30.7 L (32.0-37.0) g/dL RDW 17.8 H (11.5-14.5) % BUN/Creatinine Ratio 24.25 H (12.00-20.00) Ratio Glucose 113 H (70-110) mg/dL Calcium 8.6 L (8.7-10.3) mg/dL Unconjugated Bilirubin 0.19 L (0.20-1.00) mg/dL Alkaline Phosphatase 217 H (41-126) U/L Total Protein 5.3 L (6.2-8.2) g/dL Albumin 3.4 L (3.8-4.9) g/dL Assessment and Plan Assessment: 88-year-old male who presents with abdominal pain nausea vomiting and cross- sectional imaging findings concerning for partial small bowel obstruction versus ileus Plan: -N.p.o. -NG tube to LIS -IV fluid hydration -As needed pain and nausea control -Encourage ambulation -DVT/GI prophylaxis -Will obtain contrasted CT with Gastrografin for evaluation of bowel obstruction as small bowel follow-through unable to be performed due to holiday. -No acute surgical intervention; further recs pending contrasted imaging Óscar Christianson M.D. General Surgery
[2024-02-26] MEDS: cloNIDine 0.3 MG/24HR PATCH TRANSDERM SCH (15:39)
[2024-02-26] MEDS: IOPAMIDOL CONTRAST (ORAL USE) VIAL PO PRN (15:39)
--- NOTE | 2024-02-26 17:26 | CT ---
EXAMINATION TYPE: CT abdomen pelvis wo con DATE OF EXAM: 02/26/2024 5:14 PM COMPARISON: Multiple prior CT studies, most recently dated 02/25/2024. CLINICAL INDICATION: Male, 88 years old with history of obstruction; Obstruction. TECHNIQUE: Axial CT abdomen pelvis wo con;Sagittal and coronal reformats were created on a separate workstation. Oral contrast used: with Oral Contrast (none if empty) CT DLP: 485.7 mGycm, Automated exposure control for dose reduction was used. FINDINGS: LOWER CHEST: Previous aortic valve replacement partially visualized. Groundglass 5 mL nodule in the l eft lower lobe. ABDOMEN LIVER: Unremarkable GALLBLADDER AND BILE DUCTS: Unremarkable. PANCREAS: Unremarkable. SPLEEN: Unremarkable. ADRENAL GLANDS: Unremarkable. KIDNEYS AND URETERS: Punctate nonobstructing right renal calculus. No evidence of hydronephrosis bila terally. PELVIS BLADDER: No evidence for wall thickening or mass given limitations of exam. REPRODUCTIVE: Unremarkable. ABDOMEN & PELVIS STOMACH AND BOWEL: Enteric tube visualized to remain within the gastric lumen. Small hiatal hernia. W all thickening of the stomach. Extensive wall thickening of the distal small bowel and possibly porti on of the descending colon/cecum mildly dilated small bowel loops without discrete transition point o r evidence of obstruction. PERITONEUM/RETROPERITONEUM: No evidence of free air. Small volume free fluid, most pronounced in the right upper quadrant of the abdomen. VASCULATURE: No evidence of aortic aneurysm. MUSCULOSKELETAL: No acute osseous abnormalities. Left hip arthroplasty. LYMPH NODES: No gross evidence for lymphadenopathy. SOFT TISSUE/ABDOMINAL WALL: Unremarkable IMPRESSION: 1. Long segment abnormal wall thickening of the distal small bowel and cecum/ascending colon. Additi onally, there is mild dilatation of the small bowel without discrete transition point. Contrast visua lized reaching the colon. Findings are suggestive of moderate to severe infectious or inflammatory en terocolitis. Malignancy can have a similar appearance and follow-up CT imaging and/or direct visualiz ation/colonoscopy is recommended. 2. Small hiatal hernia and wall thickening of the stomach which could be related to underdistention or gastritis. 3. Small volume abdominal ascites. [facility], , 02/26/2024 5:23 PM
[2024-02-27 09:28] LABS: Basophils # (A) 0.02 X 10*3/uL (0.00-0.10); Basophils % (A) 0.4 %; Eosinophils # (A) 0.18 X 10*3/uL (0.04-0.35); Eosinophils % (A) 3.9 %; HCT 25.2 % (39.6-50.0); HGB 7.4 g/dL (13.0-17.0); Lymphocytes # (A) 1.44 X 10*3/uL (0.90-5.00); Lymphocytes % (A) 31.2 %; MCH 25.4 pg (27.0-32.0); MCHC 29.4 g/dL (32.0-37.0); MCV 86.6 FL (80.0-97.0); Mean Platelet Volume 10.2 FL (9.5-12.2); Monocytes # (A) 0.53 X 10*3/uL (0.20-1.00); Monocytes % (A) 11.5 %; NRBC Per 100 WBC 0 X 10*3/uL (0.00-0.01); Neutrophils # (A) 2.42 X 10*3/uL (1.80-7.70); Neutrophils % (A) 52.4 %; Platelet Count 196 X 10*3/uL (140-440); RBC 2.91 X 10*6/uL (4.40-5.60); RDW 17.5 % (11.5-14.5); WBC 4.62 X 10*3/uL (4.50-10.00)
[2024-02-27 09:30] LABS: BUN/Creat Ratio 20.38 Ratio (12.00-20.00); Blood Urea Nitrogen 16.3 mg/dL (9.0-27.0); Calcium 8.2 mg/dL (8.7-10.3); Carbon Dioxide 24.8 mmol/L (21.6-31.8); Chloride 106 mmol/L (96-109); Glucose 86 mg/dL (70-110); Potassium 4.2 mmol/L (3.5-5.5); Sodium 139 mmol/L (135-145)
--- NOTE | 2024-02-27 10:52 | P.PN ---
Subjective Progress Note Date: 02/27/24 No acute events overnight. Patient had removed his NG tube without further emesis or nausea. Tolerating clear liquid diet. Admits to small amount of flatus, no bowel movement. Ambulatory and voiding. Contrasted CT obtained yesterday shows no evidence of bowel obstruction with contrast seen within the colon. Objective - Vital Signs Vital signs: Vital Signs Temp 97.4 F L 02/27/24 06:40 Pulse 74 02/27/24 06:40 Resp 17 02/27/24 06:40 BP 114/53 02/27/24 06:40 Pulse Ox 96 02/27/24 06:40 FiO2 Intake & Output 02/26/24 02/27/24 02/27/24 18:59 06:59 18:59 Other: # Voids 3 1 - Exam Gen: No acute distress, alert and oriented Pulm: Nonlabored respirations Abd: Soft, mildly distended, minimally tender to palpation. No guarding/rebound/rigidity Extrem: no edema seen - Labs CBC & Chem 7: 02/27/24 04:33 02/27/24 04:33 Labs: Abnormal Lab Results - Last 24 Hours (Table) 02/27/24 02/27/24 Range/Units 04:33 04:33 RBC 2.91 L (4.40-5.60) X 10*6/uL Hgb 7.4 L (13.0-17.0) g/dL Hct 25.2 L (39.6-50.0) % MCH 25.4 L (27.0-32.0) pg MCHC 29.4 L (32.0-37.0) g/dL RDW 17.5 H (11.5-14.5) % BUN/Creatinine Ratio 20.38 H (12.00-20.00) Ratio Calcium 8.2 L (8.7-10.3) mg/dL Assessment and Plan Assessment: 88-year-old male who presents with abdominal pain nausea vomiting and cross- sectional imaging findings concerning for partial small bowel obstruction versus ileus Plan: -Diet as tolerated -IV fluid hydration -As needed pain and nausea control -Encourage ambulation -DVT/GI prophylaxis -Okay to DC home from surgical standpoint if tolerating diet -Per primary Óscar Christianson M.D. General Surgery
--- NOTE | 2024-02-27 11:21 | P.PN ---
Subjective This is a pleasant 88 years old male with past medical history of multiple medical problems as below. Presents because of vomiting several times over the last 3 days associated with abdominal pain He describes pain as severe, nonspecific in character in the periumbilical areas with no radiation and no relieving or precipitating factors Last bowel movement was about 2 days ago but was little bit No urinary complaint He denies chest pain or dyspnea He has some headache but no dizziness weakness or numbness His PCP is Dr. Marie. He denies smoking or illicit drugs. Blood pressure was slightly high on admission 196/83, afebrilee and other vital stable, hemoglobin is 10.1, 1 other than that CBC is unremarkable except for low hemoglobin at 10.1 Patient started on normal sinus 75 mL/h CT of the abdomen and pelvis showing dilated fluid-filled small bowel loops. Increased air on the right side, thought part of the stool. Also nonobstructive renal calculi and cholelithiasis but cannot rule out acute cholecystitis 02/25 Patient still has NG tube in place No significant abdominal tenderness No bowel movement yet. He is afebrile and blood pressures slightly elevated, his oral antihypertensive medication are on hold Will increase clonidine patch 0.2 up to 0.3 mg Also added IV hydralazine as needed for high blood pressure I have lengthy discussion with the patient and family at bedside and all questions answered to their satisfaction. I told them patient is not ready for discharge 02/26 Patient NG tube was taken out today. Surgery team are following closely Patient denies abdominal pain, no vomiting. But also he does not have bowel movement yet No fever, no leukocytosis Patient had repeat CT scan of the abdomen with IV contrast showing thickened distal segment of small bowel with cecum and ascending colon with indication to moderate to severe infection versus inflammatory enterocolitis. Also will need to rule out cancer. I informed the patient and at bedside with these findings and they verbalized understanding and acceptance Also patient hemoglobin has been trending down 10.1, 8.5 and today 7.4. Therefore we will going to ask for anemia workup. Continue close monitoring of hemoglobin Review of systems CONSTITUTIONAL: No fever, no malaise, no fatigue. HEENT: No recent visual problems or hearing problems. Denied any sore throat. CARDIOVASCULAR: No orthopnea, PND, no palpitations, no syncope. GENITOURINARY: Denies any burning micturition, frequency, or urgency. MUSCULOSKELETAL/RHEUMATOLOGICAL: Denies any joint pain, swelling, or any muscle pain. ENDOCRINE: Denies any polyuria or polydipsia. Active Medications Generic Name Dose Route Start Last Admin Trade Name Freq PRN Reason Stop Dose Admin Aspirin 81 mg 02/26/24 09:00 02/27/24 09:17 Aspirin 81 Mg PO 81 mg DAILY LETI Administration Benzocaine/Menthol 1 each 02/25/24 13:13 02/26/24 17:49 Benzocaine/Menthol Lozeng 1 Each Lozenge MUCOUS MEM 1 each Q6HR PRN Administration Sore Throat Clonidine HCl 1 patch 02/26/24 14:00 02/26/24 15:39 Clonidine 0.3 Mg/24hr Patch TRANSDERM 1 patch Q7D LETI Administration Famotidine 20 mg 02/25/24 21:00 02/27/24 09:27 Famotidine 20 Mg/2 Ml Vial IV Not Given Q12HR LETI Heparin Sodium (Porcine) 5,000 unit 02/25/24 21:00 02/27/24 09:17 Heparin Sodium,Porcine 5,000 Unit/Ml 1 Ml Vial SQ 5,000 unit Q12HR LETI Administration Hydralazine HCl 10 mg 02/26/24 06:26 Hydralazine Hcl 20 Mg/Ml 1 Ml Vial IVP Q6HR PRN Blood Pressure - High Hydralazine HCl 5 mg 02/26/24 06:26 Hydralazine Hcl 20 Mg/Ml 1 Ml Vial IVP Q6HR PRN Blood Pressure - High Hydromorphone HCl 0.5 mg 02/25/24 09:38 02/26/24 17:47 Hydromorphone 0.5 Mg/0.5 Ml Syringe IVP 0.5 mg Q3HR PRN Administration Moderate Pain (Scale 4 to 6) Sodium Chloride 1,000 mls @ 75 mls/hr 02/25/24 09:15 02/27/24 05:41 Saline 0.9% IV 75 mls/hr .[id number] LETI Administration Naloxone HCl 0.2 mg 02/25/24 09:38 Naloxone 0.4 Mg/Ml 1 Ml Vial IV Q2M PRN Opioid Reversal Ondansetron HCl 4 mg 02/25/24 09:38 02/26/24 02:48 Ondansetron 4 Mg/2 Ml Vial IVP 4 mg Q8HR PRN Administration Nausea And Vomiting Objective - Vital Signs Vital signs: Vital Signs Temp 97.4 F L 02/27/24 06:40 Pulse 74 02/27/24 06:40 Resp 17 02/27/24 06:40 BP 114/53 02/27/24 06:40 Pulse Ox 96 02/27/24 06:40 FiO2 Intake & Output 02/26/24 02/27/24 02/27/24 18:59 06:59 18:59 Other: # Voids 3 1 - Exam GENERAL: The patient is alert and oriented x3, not in any acute distress. Well developed, well nourished. HEENT: Pupils are round and equally reacting to light. EOMI. No scleral icterus. No conjunctival pallor. Normocephalic, atraumatic. No pharyngeal erythema. No thyromegaly. CARDIOVASCULAR: S1 and S2 present. No murmurs, rubs, or gallops. PULMONARY: Chest is clear to auscultation, no wheezing , no crackles. -ABDOMEN: Soft, nontender, nondistended, normoactive bowel sounds. No palpable organomegaly. NG tube in place MUSCULOSKELETAL: No joint swelling or deformity. EXTREMITIES: No cyanosis, clubbing, or pedal edema. NEUROLOGICAL: Gross neurological examination did not reveal any focal deficits. SKIN: No rashes. no petechiae. - Labs CBC & Chem 7: 02/27/24 04:33 02/27/24 04:33 Labs: Abnormal Lab Results - Last 24 Hours (Table) 02/27/24 02/27/24 Range/Units 04:33 04:33 RBC 2.91 L (4.40-5.60) X 10*6/uL Hgb 7.4 L (13.0-17.0) g/dL Hct 25.2 L (39.6-50.0) % MCH 25.4 L (27.0-32.0) pg MCHC 29.4 L (32.0-37.0) g/dL RDW 17.5 H (11.5-14.5) % BUN/Creatinine Ratio 20.38 H (12.00-20.00) Ratio Calcium 8.2 L (8.7-10.3) mg/dL Assessment and Plan Assessment: Acute small bowel obstruction Normocytic hypochromic anemia with drop in hemoglobin nonobstructive renal calculi cholelithiasis but cannot rule out acute cholecystitis Chronic anemia Hypertension Plan: Bowel rest IV fluid Pain medication General Surgery consult a nemia workup Resume home medication, especially aspirin Hold Plavix Check inflammatory markers, procalcitonin and blood culture Rest of findings based on the clinical course Lisinopril and metoprolol are on hold. While the patient NPO. Will start clonidine patch Labs and medication were reviewed.. Continue same treatment. Continue with symptomatic treatment. Resume home medication. Monitor labs and vitals. DVT and GI prophylaxis. Further recommendations as per clinical course of the patient DVT prophylaxis: Subcutaneous heparin GI Prophylaxis: Pepcid PT/OT: Pending Prognosis is guarded
[2024-02-27 11:35] LABS: C Reactive Protein 3.2 mg/dL (<1.0)
[2024-02-27 15:15] VITALS: BP 141/56; PULSE 95; RESP 16; TEMP 98.1
--- NOTE | 2024-02-27 23:08 | P.DS ---
Providers Date of admission: 02/25/24 09:39 Attending physician: Von Chawla MD Consults: 02/25/24 09:38 Consult Physician Routine Consulting Provider: Lauri Marie Consult Reason/Comments: SBO Do you want consulting provider notified?: Yes Primary care physician: Tomy [facility] Course: Please note patient was not discharged but he left AGAINST MEDICAL ADVICE After rounding patient hemoglobin came down to 7.4, I went back to the room and told the patient and that his hemoglobin is gone down. He did not have any question at that time. We presumed with anemia workup. Besides other medical management Later on I was informed by the bedside nurse that patient and both decided to leave AGAINST MEDICAL ADVICE. Please note patient left before I have a chance to see him or talk to him again. Risk of leaving AMA are explained for the patient and his by staff Also based upon my evaluation patient has capacity make medical decision and medical team cannot hold him against his will. Also was at bedside all the time. Since admission and yesterday patient was eager for him to be discharged even while his NG tube was still in place yesterday. Today she verbalized the same wishes that she would like him to leave and when they came to the hospital they did not expect they are going to stay at that she stayed with the same clothes which is uncomfortable for her. I explained to the patient and all his medical problems and management plan in the morning at the regular morning rounded. (Please refer to progress note from today for more details) Patient Condition at Discharge: Stable Plan - Discharge Summary New Discharge Prescriptions: No Action Clopidogrel [Plavix] 75 mg PO DAILY Losartan Potassium [Cozaar] 50 mg PO DAILY Aspirin [Adult Low Dose Aspirin EC] 81 mg PO DAILY Omeprazole [PriLOSEC] 40 mg PO DAILY #14 cap Atorvastatin [Lipitor] 40 mg PO HS Metoprolol Tartrate [Lopressor] 25 mg PO BID Ondansetron Odt [Zofran Odt] 4 mg PO Q8HR PRN #10 tab PRN Reason: Nausea Isosorbide Mononitrate ER [Imdur] 60 mg PO DAILY LORazepam [Ativan] 1 mg PO BID PRN PRN Reason: Anxiety Ipratropium Cubero 0.06%Nasal [Atrovent Nasal 0.06%] 2 spr EA NOSTRIL BID PRN PRN Reason: Runny Nose Discharge Medication List Clopidogrel [Plavix] 75 mg PO DAILY 08/26/15 [History] Aspirin [Adult Low Dose Aspirin EC] 81 mg PO DAILY 09/26/19 [History] Losartan Potassium [Cozaar] 50 mg PO DAILY 09/26/19 [History] Omeprazole [PriLOSEC] 40 mg PO DAILY #14 cap 01/05/24 [Rx] Ondansetron Odt [Zofran Odt] 4 mg PO Q8HR PRN #10 tab 01/05/24 [Rx] Atorvastatin [Lipitor] 40 mg PO HS 02/25/24 [History] Ipratropium Cubero 0.06%Nasal [Atrovent Nasal 0.06%] 2 spr EA NOSTRIL BID PRN 02/25/24 [History] Isosorbide Mononitrate ER [Imdur] 60 mg PO DAILY 02/25/24 [History] LORazepam [Ativan] 1 mg PO BID PRN 02/25/24 [History] Metoprolol Tartrate [Lopressor] 25 mg PO BID 02/25/24 [History] Follow up Appointment(s)/Referral(s): Tomy Marie DO [Primary Care Provider] - 1-2 days Discharge Disposition: LEFT AGAINST MEDICAL ADVICE
[2024-02-28 10:42] LABS: % Iron Saturation 5.87 (15.00-50.00); Ferritin 43.2 ng/mL (22.0-322.0)
== END 2024-02-27 14:08 | disposition left against medical advice (07) | DRG 390 ==
LOC: EC 07:53 → 4SSUR 09:39
PROVIDERS: ADMIT Internal Medicine; ATTEND Internal Medicine
PROC: 0D9670Z Drainage of Stomach with Drainage Device, Via Natural or Artificial Opening (ICD-10-PCS; principal; 2024-02-25)
DX: K56.609 Unspecified intestinal obstruction, unspecified as to partial versus complete obstruction (principal); I10 Essential (primary) hypertension; D50.9 Iron deficiency anemia, unspecified; E78.5 Hyperlipidemia, unspecified; N20.0 Calculus of kidney; K80.20 Calculus of gallbladder without cholecystitis without obstruction; Z96.641 Presence of right artificial hip joint; Z85.46 Personal history of malignant neoplasm of prostate; Z95.5 Presence of coronary angioplasty implant and graft; Z79.82 Long term (current) use of aspirin; Z79.02 Long term (current) use of antithrombotics/antiplatelets; Z79.899 Other long term (current) drug therapy
CPT/HCPCS: 36415; 74176; 80048; 80053; 80076; 81003; 82607; 82728; 82746; 83540; 83550; 83605; 83690; 84145; 85025; 85610; 85652; 85730; 86140; 87040; 93005; 96361; 96374; 96375; 96376; 99285

== ENCOUNTER 2024-03-18 10:53 | Inpatient (IN) | payer MEDICARE ==
--- NOTE | 2024-03-18 11:27 | ED ---
General Adult HPI - General Chief complaint: Abdominal Pain Stated complaint: Lethargy Time Seen by Provider: 03/18/24 10:56 Source: patient, EMS Mode of arrival: EMS Limitations: no limitations - History of Present Illness Initial comments: Dictation was produced using [employer] dictation software. please excuse any grammatical, word or spelling errors. Chief Complaint: 88-year-old male presents emergency department yet again for abdominal pain History of Present Illness: Patient is 80-year-old male presents emergency department for abdominal pain. Patient has been having frequent episodes of bowel obstructions. Most recently last week he was just discharged from [facility] where he was admitted for SBO. Patient states that in the last month he has been seen in the emergency department approximately 3 times for SBO. Patient has not had surgery regarding this. States that he is here for abdominal pain states this is a left lower abdomen usual of his SBO symptoms. at the bedside states that he seemed a little fatigued this morning however he did not eat. The ROS documented in this emergency department record has been reviewed and confirmed by me. Those systems with pertinent positive or negative responses have been documented in the HPI. All other systems are other negative and/or noncontributory. - Related Data Home Medications Medication Instructions Recorded Confirmed Clopidogrel [Plavix] 75 mg PO DAILY 08/26/15 02/25/24 Aspirin [Adult Low Dose Aspirin EC] 81 mg PO DAILY 09/26/19 02/25/24 Losartan Potassium [Cozaar] 50 mg PO DAILY 09/26/19 02/25/24 Atorvastatin [Lipitor] 40 mg PO HS 02/25/24 02/25/24 Ipratropium Gordon 0.06%Nasal 2 spr EA NOSTRIL BID PRN 02/25/24 02/25/24 [Atrovent Nasal 0.06%] Isosorbide Mononitrate ER [Imdur] 60 mg PO DAILY 02/25/24 02/25/24 LORazepam [Ativan] 1 mg PO BID PRN 02/25/24 02/25/24 Metoprolol Tartrate [Lopressor] 25 mg PO BID 02/25/24 02/25/24 Previous Rx's Medication Instructions Recorded Omeprazole [PriLOSEC] 40 mg PO DAILY #14 cap 01/05/24 Ondansetron Odt [Zofran Odt] 4 mg PO Q8HR PRN #10 tab 01/05/24 Allergies Allergy/AdvReac Type Severity Reaction Status Date / Time levofloxacin [From Levaquin] Allergy Severe Swelling Verified 02/25/24 10:17 of face cat dander Allergy SINUS Verified 02/25/24 10:17 PROBLEMS dog dander Allergy SINUS Verified 02/25/24 10:17 PROBLEMS" hydrocodone Allergy Rash/Hives Verified 02/25/24 10:17 [place] Allergy Rash/Hives Uncoded 02/25/24 10:17 Review of Systems ROS Statement: Those systems with pertinent positive or pertinent negative responses have been documented in the HPI. ROS Other: All systems not noted in ROS Statement are negative. Past Medical History Past Medical History: Cancer, Chest Pain / Angina, Hyperlipidemia, Prostate Disorder, Sleep Apnea/CPAP/BIPAP Additional Past Medical History / Comment(s): hx prostate cancer, bridge/caps/crowns History of Any Multi-Drug Resistant Organisms: None Reported Past Surgical History: Back Surgery, Heart Catheterization With Stent, Hernia Repair, Orthopedic Surgery, Prostate Surgery, Tonsillectomy Additional Past Surgical History / Comment(s): prostate cryotherapy, rt shoulder shoulder rotator cuff, cataracts, dental implants, rt knee total arthropasty, aortic valve replacement Past Anesthesia/Blood Transfusion Reactions: No Reported Reaction Date of Last Stent Placement:: 09/07/14 Past Psychological History: No Psychological Hx Reported Smoking Status: Former smoker Past Alcohol Use History: None Reported Past Drug Use History: None Reported - Past Family History Mother Additional Family Medical History / Comment(s): passes away with collapsed carotid artery Father History Unknown: Yes Family Medical History: Cancer Brother(s) Family Medical History: Cancer Additional Family Medical History / Comment(s): pancreatic General Exam - General Exam Comments Initial Comments: PHYSICAL EXAM: General Impression: Alert and oriented x3, malaised HEENT: Normocephalic atraumatic, extra-ocular movements intact, pupils equal and reactive to light bilaterally, mucous membranes moist. Cardiovascular: Heart regular rate and rhythm Chest: Able to complete full sentences, no retractions, no tachypnea Abdomen: abdomen soft, lower abdominal tenderness, non-distended, no organomegaly Musculoskeletal: Pulses present and equal in all extremities, no peripheral edema Motor: no focal deficits noted Neurological: CN II-XII grossly intact, no focal motor or sensory deficits noted Skin: Intact with no visualized rashes Psych: Normal affect and mood Limitations: no limitations Course Vital Signs 03/18/24 03/18/24 10:58 12:35 Temperature 98.2 F 98.3 F Pulse Rate 92 93 Respiratory 16 18 Rate Blood Pressure 153/84 156/78 O2 Sat by Pulse 66 L 92 L Oximetry EKG Findings - EKG Comments: EKG Findings:: My EKG interpretation: Ventricular rate 88, sinus rhythm,. 143, cures 150, QTc 459. No CT prolongation, no QTC prolongation, no ST or T-wave changes noted. EKG compared to February 25, 2024 showing no changes. Overall, this EKG is unremarkable Medical Decision Making - Medical Decision Making Was pt. sent in by a medical professional or institution (, PA, MISSION MANAGER, urgent care, hospital, or residential...) When possible be specific @ -No Did you speak to anyone other than the patient for history (EMS, parent, family, police, friend...)? What history was obtained from this source @ -No Did you review nursing and triage notes (agree or disagree)? Why? @ -I reviewed and agree with nursing and triage notes Were old charts reviewed (outside hosp., previous admission, EMS record, old EKG, old radiological studies, urgent care reports/EKG's, residential records)? Report findings @ -No old charts were reviewed Differential Diagnosis (chest pain, altered mental status, abdominal pain women, abdominal pain men, vaginal bleeding, musculoskeletal, weakness, fever, dyspnea, syncope, headache, dizziness, GI bleed, back pain, seizure, CVA, palpatations, mental health)? @ -Differential Abdominal Pain Men: Appendicitis, cholecystitis, diverticulosis, ischemic bowel, pancreatitis, hepatitis, UTI, gastroenteritis, AAA, incarcerated hernia, bowel obstruction, c onstipation, inflammatory bowel, hepatitis, peptic ulcer disease, splenic infarction, perforated viscus, testicular torsion, this is not meant to be an all-inclusive list EKG interpreted by me (3pts min.). @ -See above X-rays interpreted by me (1pt min.). @ -Abdominal x-ray shows dilatation at the left lower quadrant CT interpreted by me (1pt min.). @ -None done U/S interpreted by me (1pt. min.). @ -None done What testing was considered but not performed or refused? (CT, X-rays, U/S, labs)? Why? @ -None What meds were considered but not given or refused? Why? @ -None Was smoking cessation discussed for >3mins.? @ -No Were there social determinants of health that impacted care today? How? (Homelessness, low income, unemployed, alcoholism, drug addiction, transportation, low edu. Level, literacy, decrease access to med. care, longterm, rehab)? @ -No Was there de-escalation of care discussed even if they declined (Discuss DNR or withdrawal of care, Hospice)? DNR status @ -No What co-morbidities impacted this encounter? (DM, HTN, Smoking, COPD, CAD, Cancer, CVA, ARF, Chemo, Hep., AIDS, mental health diagnosis, sleep apnea, morbid obesity)? @ -Frequent SBO Was patient admitted / discharged? Hospital course, mention meds given and route, prescriptions, significant lab abnormalities, going to OR and other pertinent info. @ -88-year-old male presents to the emergency department along with for lethargy and abdominal pain. Patient has had recent uptake and incidences of a bdominal pain small bowel obstruction. Vital signs stable. Patient lethargic at the bedside sent here by home health care nurse. Patient feels significantly weak. X-ray shows gaseous dilatation of the bowel no obvious obstruction. Labs are within acceptable limits. Patient has poor social situation along with the . Does not appear that they have enough assistance at home. Patient be ad mitted with consultation to general surgery. Social work also consulted. Case discussed with hospitalist for admission Did you discuss the management of the patient with other professionals (yadira morel i.eDillon Rivero, PA, MISSION MANAGER, lab, RT, psych nurse, licensed clinical social worker, professor of physical education, teacher, community development officer, community case manager)? Give summary @ -See above Was critical care preformed (if so, how long)? @ -No Undiagnosed new problem with uncertain prognosis? @ -No Drug Therapy requiring intensive monitoring for toxicity (Heparin, Nitro, Insulin, Cardizem)? @ -No Were any procedures done? @ -No Diagnosis/symptom? Acute, or Chronic, or Acute on Chronic? Uncomplicated (without systemic symptoms) or Complicated (systemic symptoms)? @ -Abdominal pain, lethargy Side effects of treatment? @ -No Exacerbation, Progression, or Severe Exacerbation? @ -No Poses a threat to life or bodily function? How? (Chest pain, [place], [place], pneumonia, PE, COPD, DKA, ARF, appy, cholecystitis, CVA, Diverticulitis, Homicidal, Suic idal, threat to staff... and all critical care pts) @ -No - Lab Data Result diagrams: 03/18/24 11:29 03/18/24 11:29 Lab Results 03/18/24 03/18/24 Range/Units 11:29 11:29 WBC 6.4 (3.8-10.6) k/uL RBC 4.00 L (4.30-5.90) m/uL Hgb 10.5 L (13.0-17.5) gm/dL Hct 33.4 L (39.0-53.0) % MCV 83.5 (80.0-100.0) fL MCH 26.3 (25.0-35.0) pg MCHC 31.5 (31.0-37.0) g/dL RDW 18.0 H (11.5-15.5) % Plt Count 256 (150-450) k/uL MPV 8.1 Neutrophils % 67 % Lymphocytes % 22 % Monocytes % 6 % Eosinophils % 5 % Basophils % 0 % Neutrophils # 4.3 (1.3-7.7) k/uL Lymphocytes # 1.4 (1.0-4.8) k/uL Monocytes # 0.4 (0-1.0) k/uL Eosinophils # 0.3 (0-0.7) k/uL Basophils # 0.0 (0-0.2) k/uL Hypochromasia Marked Poikilocytosis Slight Anisocytosis Slight Sodium 139 (137-145) mmol/L Potassium 3.9 (3.5-5.1) mmol/L Chloride 105 (98-107) mmol/L Carbon Dioxide 31 H (22-30) mmol/L Anion Gap 3 mmol/L BUN 14 (9-20) mg/dL Creatinine 0.69 (0.66-1.25) mg/dL Est GFR (CKD-EPI)AfAm >90 (>60 ml/min/1.73 sqM) Est GFR (CKD-EPI)NonAf 85 (>60 ml/min/1.73 sqM) Glucose 123 H (74-99) mg/dL Calcium 8.2 L (8.4-10.2) mg/dL Total Bilirubin 1.2 (0.2-1.3) mg/dL AST 59 (17-59) U/L ALT 48 (4-49) U/L Alkaline Phosphatase 651 H (38-126) U/L Total Protein 6.0 L (6.3-8.2) g/dL Albumin 3.3 L (3.5-5.0) g/dL Lipase 129 (23-300) U/L Disposition Clinical Impression: Abdominal pain Disposition: ADMITTED IP TO THIS HOSP Condition: Fair Referrals: Tomy Marie DO [Primary Care Provider] - 1-2 days Decision Time: 12:44
[2024-03-18 11:44] LABS: Anisocytosis Slight; Basophils % (A) 0 %; Eosinophils # (A) 0.3 k/uL (0-0.7); Eosinophils % (A) 5 %; HCT 33.4 % (39.0-53.0); HGB 10.5 gm/dL (13.0-17.5); Hypochromasia Marked; Lymphocytes # (A) 1.4 k/uL (1.0-4.8); Lymphocytes % (A) 22 %; MCH 26.3 pg (25.0-35.0); MCHC 31.5 g/dL (31.0-37.0); MCV 83.5 fL (80.0-100.0); Mean Platelet Volume 8.1; Monocytes # (A) 0.4 k/uL (0-1.0); Monocytes % (A) 6 %; Neutrophils # (A) 4.3 k/uL (1.3-7.7); Neutrophils % (A) 67 %; Platelet Count 256 k/uL (150-450); Poikilocytosis Slight; WBC 6.4 k/uL (3.8-10.6)
[2024-03-18 11:54] LABS: ALT 48 U/L (4-49); AST 59 U/L (17-59); African American GFR (CKD) >90 (>60 ml/min/1.73 sqM); Albumin 3.3 g/dL (3.5-5.0); Alkaline Phosphatase 651 U/L (38-126); Anion Gap 3 mmol/L; Blood Urea Nitrogen 14 mg/dL (9-20); Calcium 8.2 mg/dL (8.4-10.2); Carbon Dioxide 31 mmol/L (22-30); Chloride 105 mmol/L (98-107); Glucose 123 mg/dL (74-99); Lipase 129 U/L (23-300); Non-African American GFR(CKD) 85 (>60 ml/min/1.73 sqM); Potassium 3.9 mmol/L (3.5-5.1); Sodium 139 mmol/L (137-145); Total Bilirubin 1.2 mg/dL (0.2-1.3)
--- NOTE | 2024-03-18 12:10 | XR ---
EXAMINATION TYPE: XR abdomen 2V DATE OF EXAM: 03/18/2024 12:03 PM COMPARISON: 02/26/2024 CLINICAL INDICATION: Male, 88 years old with history of abdominal pain again. history of frequent sbo s; PH[facility] TECHNIQUE: Two views of the abdomen were obtained. FINDINGS: Gas within the rectum as well as gaseous dilation of large bowel in the upper abdomen and a few loops of small bowel. Moderate amount stool throughout the colon. The bowel gas pattern is nonsp ecific without dilated loops of small or large bowel. There is no evidence for organomegaly or pneumo peritoneum. The osseous structures are intact. No abnormal calcifications are present. Fecal materi al and gas are demonstrated throughout the colon and rectum. Stent/valve repair changes noted projec ting over the lower heart. Left hip arthroplasty appears intact heterotrophic desiccation is present. IMPRESSION: Gaseous dilation of large bowel, Nonspecific bowel gas pattern without radiographic evidence for acut e process. [facility], , 03/18/2024 12:08 PM
[2024-03-18] MEDS ORDERED: NALOXONE 0.4 MG/ML 1 ML VIAL IV PRN (12:38)
[2024-03-18] MEDS: SODIUM CHLORIDE 0.9% 1,000 ML IV SCH (12:47)
[2024-03-18] MEDS ORDERED: IOPAMIDOL CONTRAST (ORAL USE) VIAL PO PRN (14:05)
--- NOTE | 2024-03-18 14:07 | P.GSCN ---
History of Present Illness Consult date: 03/18/24 History of present illness: CHIEF COMPLAINT: Weak and dehydrated HISTORY OF PRESENT ILLNESS: This is a 88-year-old male who presented to hospital with feeling dehydrated and lethargic. Also reports some abdominal discomfort. His stools have been liquidy. He has been having flatus. He denies any vomiting. He has had 3 small bowel obstructions over the last month. He was hospitalized here in [place] for ileus versus partial small bowel obstruction and just last week he was at [facility] for small bowel obstruction. Small bowel obstructions have been managed conservatively with no surgical intervention. Patient reports he was sent home from [place] on a liquid diet. His oral intake has been diminished. He was able to eat a small amount of oa tmeal this morning. Due to being dehydrated and lethargic the nurse at the [facility] recommended the patient came into the ER. Abdominal x-ray completed reported gaseous dilation of large bowel. Nonspecific bowel gas pattern without evidence of acute process. Fecal material and gas are demonstrated throughout the colon and rectum. Patient reports prior abdominal surgery of hernia repair. He also reports and aortic valve repair in September 2023. PAST MEDICAL HISTORY: Prostate cancer, Chest Pain / Angina, Hyperlipidemia, Prostate Disorder, Sleep Apnea/CPAP/BIPAP PAST SURGICAL HISTORY: Back Surgery, Heart Catheterization With Stent, Hernia Repair, Orthopedic Surgery, Prostate Surgery, Tonsillectomy MEDICATIONS: See below ALLERGIES: See below SOCIAL HISTORY: No illicit drug use. REVIEW OF SYSTEMS: CONSTITUTIONAL: Denies fever or chills. HEENT: Denies blurred vision, vision changes, or eye pain. Denies hemoptysis CARDIOVASCULAR: Denies chest pain or pressure. RESPIRATORY: No shortness of breath. GASTROINTESTINAL: See HPI for pertinent findings HEMATOLOGIC: Denies bleeding disorders. GENITOURINARY: Denies any blood in urine or increased urinary frequency. SKIN: Denies pruitis. Denies rash. PHYSICAL EXAM: VITAL SIGNS: Reviewed GENERAL: Well-developed in no acute distress. HEENT: No sclera icterus. Extraocular movements grossly intact. Moist buccal mucosa. Head is atraumatic, normocephalic. No nasal drainage. ABDOMEN: Soft. Distended. Diffuse discomfort with palpation. No guarding or rebound tenderness. NEUROLOGIC: Alert and oriented. Cranial nerves II through XII grossly intact. LABORATORY DATA: WBC 6.4 Hgb 10.5 platelets 256 Sodium 139 potassium 3.9 creatinine 0.69 IMAGING: Abdominal x-ray gaseous dilation of large bowel. Nonspecific bowel gas pattern without radiology evidence of acute process. ASSESSMENT: 1. Abdominal distention and abdominal pain 2. History of recurrent small bowel obstruction managed conservatively PLAN: -CT scan abdomen and pelvis ordered for further evaluation of abdominal pain and distention -Continue to monitor -Continue clear liquid diet -Continue supportive care Physician De Icer Kit Assembler note has been reviewed by physician. Signing provider agrees with the documented findings, assessment, and plan of care. Past Medical History Past Medical History: Cancer, Chest Pain / Angina, Hyperlipidemia, Prostate Disorder, Sleep Apnea/CPAP/BIPAP Additional Past Medical History / Comment(s): hx prostate cancer, bridge/caps/crowns History of Any Multi-Drug Resistant Organisms: None Reported Past Surgical History: Back Surgery, Heart Catheterization With Stent, Hernia Repair, Orthopedic Surgery, Prostate Surgery, Tonsillectomy Additional Past Surgical History / Comment(s): prostate cryotherapy, rt shoulder shoulder rotator cuff, cataracts, dental implants, rt knee total arthropasty, aortic valve replacement Past Anesthesia/Blood Transfusion Reactions: No Reported Reaction Date of Last Stent Placement:: 09/07/14 Past Psychological History: No Psychological Hx Reported Smoking Status: Former smoker Past Alcohol Use History: None Reported Past Drug Use History: None Reported - Past Family History Mother Additional Family Medical History / Comment(s): passes away with collapsed carotid artery Father History Unknown: Yes Family Medical History: Cancer Brother(s) Family Medical History: Cancer Additional Family Medical History / Comment(s): pancreatic Medications and Allergies Home Medications Medication Instructions Recorded Confirmed Type Clopidogrel [Plavix] 75 mg PO DAILY 08/26/15 02/25/24 History Aspirin [Adult Low Dose Aspirin EC] 81 mg PO DAILY 09/26/19 02/25/24 History Losartan Potassium [Cozaar] 50 mg PO DAILY 09/26/19 02/25/24 History Omeprazole [PriLOSEC] 40 mg PO DAILY #14 cap 01/05/24 02/25/24 Rx Ondansetron Odt [Zofran Odt] 4 mg PO Q8HR PRN #10 tab 01/05/24 02/25/24 Rx Atorvastatin [Lipitor] 40 mg PO HS 02/25/24 02/25/24 History Ipratropium [place] 0.06%Nasal 2 spr EA NOSTRIL BID PRN 02/25/24 02/25/24 History [Atrovent Nasal 0.06%] Isosorbide Mononitrate ER [Imdur] 60 mg PO DAILY 02/25/24 02/25/24 History LORazepam [Ativan] 1 mg PO BID PRN 02/25/24 02/25/24 History Metoprolol Tartrate [Lopressor] 25 mg PO BID 02/25/24 02/25/24 History Allergies Allergy/AdvReac Type Severity Reaction Status Date / Time levofloxacin [From Levaquin] Allergy Severe Swelling Verified 02/25/24 10:17 of face cat dander Allergy SINUS Verified 02/25/24 10:17 PROBLEMS dog dander Allergy SINUS Verified 02/25/24 10:17 PROBLEMS" hydrocodone Allergy Rash/Hives Verified 02/25/24 10:17 [place] TREES Allergy Rash/Hives Uncoded 02/25/24 10:17 Surgical - Exam Vital Signs Temp Pulse Resp BP Pulse Ox 98.2 F 92 16 153/84 66 L 03/18/24 10:58 03/18/24 10:58 03/18/24 10:58 03/18/24 10:58 03/18/24 10:58 Results - Labs 03/18/24 11:29 03/18/24 11:29 Abnormal Lab Results - Last 24 Hours (Table) 03/18/24 03/18/24 Range/Units 11:29 11:29 RBC 4.00 L (4.30-5.90) m/uL Hgb 10.5 L (13.0-17.5) gm/dL Hct 33.4 L (39.0-53.0) % RDW 18.0 H (11.5-15.5) % Carbon Dioxide 31 H (22-30) mmol/L Glucose 123 H (74-99) mg/dL Calcium 8.2 L (8.4-10.2) mg/dL Alkaline Phosphatase 651 H (38-126) U/L Total Protein 6.0 L (6.3-8.2) g/dL Albumin 3.3 L (3.5-5.0) g/dL Diabetes panel 03/18/24 Range/Units 11:29 Sodium 139 (137-145) mmol/L Potassium 3.9 (3.5-5.1) mmol/L Chloride 105 (98-107) mmol/L Carbon Dioxide 31 H (22-30) mmol/L BUN 14 (9-20) mg/dL Creatinine 0.69 (0.66-1.25) mg/dL Glucose 123 H (74-99) mg/dL Calcium 8.2 L (8.4-10.2) mg/dL AST 59 (17-59) U/L ALT 48 (4-49) U/L Alkaline Phosphatase 651 H (38-126) U/L Total Protein 6.0 L (6.3-8.2) g/dL Albumin 3.3 L (3.5-5.0) g/dL Calcium panel 03/18/24 Range/Units 11:29 Calcium 8.2 L (8.4-10.2) mg/dL Albumin 3.3 L (3.5-5.0) g/dL Pituitary panel 03/18/24 Range/Units 11:29 Sodium 139 (137-145) mmol/L Potassium 3.9 (3.5-5.1) mmol/L Chloride 105 (98-107) mmol/L Carbon Dioxide 31 H (22-30) mmol/L BUN 14 (9-20) mg/dL Creatinine 0.69 (0.66-1.25) mg/dL Glucose 123 H (74-99) mg/dL Calcium 8.2 L (8.4-10.2) mg/dL Adrenal panel 03/18/24 Range/Units 11:29 Sodium 139 (137-145) mmol/L Potassium 3.9 (3.5-5.1) mmol/L Chloride 105 (98-107) mmol/L Carbon Dioxide 31 H (22-30) mmol/L BUN 14 (9-20) mg/dL Creatinine 0.69 (0.66-1.25) mg/dL Glucose 123 H (74-99) mg/dL Calcium 8.2 L (8.4-10.2) mg/dL Total Bilirubin 1.2 (0.2-1.3) mg/dL AST 59 (17-59) U/L ALT 48 (4-49) U/L Alkaline Phosphatase 651 H (38-126) U/L Total Protein 6.0 L (6.3-8.2) g/dL Albumin 3.3 L (3.5-5.0) g/dL
--- NOTE | 2024-03-18 16:55 | CT ---
EXAMINATION TYPE: CT abdomen pelvis w con DATE OF EXAM: 03/18/2024 COMPARISON: 02/26/2024 CLINICAL INDICATION: Male, 88 years old with history of abdominal pain; PHH, abd pain/hx bowel obstru ction TECHNIQUE: Performed with Oral Contrast and with IV Contrast, patient injected with 100ml mL of Isovue 300. CT DLP: 834.[address] CTDI: mGy Automated exposure control for dose reduction was used. FINDINGS: There are moderate to large bilateral pleural effusions and bibasilar infiltrates, possibly atelectas is. There is a prosthetic aortic valve. The gallbladder is normal without distention, wall thickening, pericholecystic fluid or gallstones. T here is no biliary ductal dilatation. There are multiple ill-defined hypodensities scattered throughout both lobes of the liver the largest of which is in the right lobe measuring 2.6 cm. The second largest is seen in the left lobe measurin g 1.7 cm. These findings could represent metastatic disease and MRI with contrast of the liver is rec ommended for further evaluation. There is no focal mass or megaly involving the pancreas, spleen or a drenal glands. There is no solid renal mass or hydronephrosis and there is homogeneous contrast enhancement of the r enal parenchyma. The caliber the abdominal aorta is normal is no retroperitoneal adenopathy or hemorr estrada. The small bowel wall is diffusely thickened throughout the mid and lower abdomen. There is no dilatat ion to suspect obstruction as there is contrast throughout the small bowel and into the colon. The ap pendix is dilated and fluid-filled measuring approximately 12 to 13 mm. There is a small amount of free fluid within the abdomen but no free intraperitoneal air. No pelvic mass, free fluid, abscess or adenopathy. There are no focal osseous lesions. IMPRESSION: 1. Moderate to large bilateral pleural effusions and bibasilar infiltrates/atelectasis. 2. Multiple hypodensities within the liver and metastatic disease cannot be excluded. MRI of the live r with contrast is recommended for further evaluation 3. Diffuse small bowel wall thickening and dilated fluid-filled appendix. Most likely indicating acut e inflammatory process. There is no bowel obstruction. 4. Small amount of free intraperitoneal fluid. [facility], , 03/18/2024 4:53 PM
[2024-03-18] MEDS ORDERED: LORazepam 1 MG TAB PO PRN (19:17)
[2024-03-18] MEDS ORDERED: IPRATROPIUM BROMIDE 0.06% NASAL SPRAY (15 ML) EA NOSTRIL PRN (19:17)
[2024-03-18] MEDS: CLOPIDOGREL 75 MG TAB PO SCH (19:57)
[2024-03-18] MEDS: ISOSORBIDE MONONITRATE ER 60 MG TAB.ER.24H PO SCH (19:57)
[2024-03-18] MEDS: ASPIRIN 81 MG PO SCH (19:57)
[2024-03-18] MEDS: PANTOPRAZOLE 40 MG TABLET PO SCH (19:57)
[2024-03-18] MEDS: LOSARTAN 50 MG TAB PO SCH (19:57)
[2024-03-18] MEDS: METOPROLOL TARTRATE 25 MG TAB PO SCH (20:42)
[2024-03-18] MEDS: ATORVASTATIN 40 MG TAB PO SCH (20:42)
[2024-03-19 09:41] LABS: Basophils # (A) 0.02 X 10*3/uL (0.00-0.10); Basophils % (A) 0.4 %; Eosinophils # (A) 0.27 X 10*3/uL (0.04-0.35); Eosinophils % (A) 5.1 %; HCT 23.8 % (39.6-50.0); HGB 7.4 g/dL (13.0-17.0); Lymphocytes % (A) 22.8 %; MCH 25.8 pg (27.0-32.0); MCHC 31.1 g/dL (32.0-37.0); MCV 82.9 FL (80.0-97.0); Mean Platelet Volume 10.6 FL (9.5-12.2); Monocytes # (A) 0.42 X 10*3/uL (0.20-1.00); NRBC Per 100 WBC 0 X 10*3/uL (0.00-0.01); Neutrophils # (A) 3.34 X 10*3/uL (1.80-7.70); Neutrophils % (A) 63.5 %; Platelet Count 222 X 10*3/uL (140-440); RBC 2.87 X 10*6/uL (4.40-5.60); RDW 17.7 % (11.5-14.5); WBC 5.26 X 10*3/uL (4.50-10.00)
[2024-03-19 10:31] LABS: BUN/Creat Ratio 16.33 Ratio (12.00-20.00); Blood Urea Nitrogen 9.8 mg/dL (9.0-27.0); Calcium 7.4 mg/dL (8.7-10.3); Carbon Dioxide 25.8 mmol/L (21.6-31.8); Chloride 105 mmol/L (96-109); Glucose 95 mg/dL (70-110); Potassium 3.9 mmol/L (3.5-5.5); Sodium 137 mmol/L (135-145)
--- NOTE | 2024-03-19 13:31 | P.PN ---
Subjective Progress Note Date: 03/19/24 SURGICAL PROGRESS NOTE CHIEF COMPLAINT: Weakness HISTORY OF PRESENT ILLNESS: Patient sitting up in bed comfortably. He reports that his abdominal discomfort is improving. He has mild discomfort of upper abdomen. He reports having diarrhea. He is tolerating the clear liquids. Afebrile. CT scan abdomen pelvis reports moderate to large bilateral pleural effusions and bibasilar infiltrates/atelectasis. Multiple hypodensities within the liver and metastatic disease cannot be excluded. MRI liver with contrast is recommended. Diffuse small bowel wall thickening and dilated fluid-filled appendix. Most likely indicating an acute inflammatory process. There is no bowel obstruction. Small amount of free intraperitoneal fluid. Afebrile. WBC is 5.26 Hgb 10.5 down to 7.4. Hemoglobin on 02/27/2024 7.4. Plt 222 sodium 137 potassium 3.9 creatinine 0.6 PHYSICAL EXAM: VITAL SIGNS: Reviewed. GENERAL: Well-developed in no acute distress. HEENT: No sclera icterus. Extraocular movements grossly intact. Moist buccal mucosa. Head is atraumatic, normocephalic. ABDOMEN: Soft. Mildly distended. No tenderness with palpation in the right lower quadrant. Some mild tenderness with palpation across the upper abdomen NEUROLOGIC: Alert and oriented. Cranial nerves II through XII grossly intact. ASSESSMENT: 1. Abdominal distention and mild abdominal discomfort. CT scan reported no evidence of bowel obstruction. Did report diffuse small bowel wall thickening and fluid-filled appendix. Patient has no right lower quadrant abdominal pain. 2. Multiple hypodensities within the liver noted on CT 3. History of prostate cancer 4. Moderate protein calorie malnutrition PLAN: -Advance diet to full liquids -Add Ensure drinks for protein supplement -Repeat CBC in a.m. Physician Control Clerk Repairs note has been reviewed by physician. Signing provider agrees with the documented findings, assessment, and plan of care. Objective - Vital Signs Vital signs: Vital Signs Temp 98.0 F 03/19/24 07:00 Pulse 88 03/19/24 07:00 Resp 18 03/19/24 07:00 BP 177/73 03/19/24 07:00 Pulse Ox 96 03/19/24 07:00 FiO2 Intake & Output 03/18/24 03/19/24 03/19/24 18:59 06:59 18:59 Intake Total 1065 Balance 1065 Weight 65.771 kg 65.771 kg Intake: Intake, IV Titration 525 Amount Sodium Chloride 0.9% 1, 525 000 ml @ 75 mls/hr IV . [id number] [facility] Rx#:[id number] Oral 540 Other: Voiding Method Toilet Toilet Urinal Urinal # Voids 2 # Bowel Movements 1 - Labs CBC & Chem 7: 03/19/24 06:01 03/19/24 06:01 Labs: Abnormal Lab Results - Last 24 Hours (Table) 03/19/24 03/19/24 Range/Units 06:01 06:01 RBC 2.87 L (4.40-5.60) X 10*6/uL Hgb 7.4 L (13.0-17.0) g/dL Hct 23.8 L (39.6-50.0) % MCH 25.8 L (27.0-32.0) pg MCHC 31.1 L (32.0-37.0) g/dL RDW 17.7 H (11.5-14.5) % Calcium 7.4 L (8.7-10.3) mg/dL
--- NOTE | 2024-03-19 15:37 | P.HPIM ---
History of Present Illness H&P Date: 03/19/24 Chief Complaint: Abdominal pain Patient is a 88-year-old male with history of chest pain/angina, hyperlipidemia, sleep apnea, history of prostate cancer presented to the emergency department with abdominal pain. Patient states that for the past month he has seen in the emergency department about 3 times for small bowel obstruction. He was recently discharged about a week ago from [facility] where he was admitted for SBO. Patient was seen at bedside today. Reported that yesterday his nurse noticed the patient was looking pale and suggested him to be evaluated in the ED. patient does report having a history of SBO over the past month which required multiple hospitalizations. Patient does admit to having several episodes of watery diarrhea over the past few days. He denies fever, chills, chest pain, shortness of breath, belly pain, nausea or vomiting, dysuria, hematochezia or melena. ED documentation reviewed. In the ED patient was treated with normal saline at 75 cc an hour, aspirin 81 mg daily, Plavix 75 mg daily, Imdur 60 mg daily, losartan 50 mg daily, Protonix 40 mg p.o. Lipitor 40 mg at bedtime, metoprolol titrate 25 mg twice daily Vitals on admission temperature 98, pulse rate 88, respiratory rate 18, blood pressure 177/73, O2 sat 96% on room air EKG independently interpreted as sinus rhythm with frequent supraventricular premature complexes with ventricular rate of 88 bpm, QTc interval 459 ms, left bundle branch block Abdominal x-ray shows gaseous dilation of large bowel, nonspecific bowel gas pattern without radiographic evidence for acute process CT abdomen pelvis with contrast shows moderate to large bilateral pleural effusions and bibasilar infiltrates/atelectasis. Multiple hypodensities within the liver and metastatic disease cannot be excluded. MRI of the liver with contrast is recommended for further evaluation. Diffuse small bowel with wall thickening and dilated fluid-filled appendix. Most likely indicating acute inflammatory process. There is no bowel obstruction. Small amount of free intraperitoneal fluid. Labs on admission show WBC 5.26, hemoglobin 7.4, hematocrit 23.8, platelets 222, sodium 139, potassium 3.9, chloride 105, carbon dioxide 31, BUN 14, creatinine 0.69, glucose 123, alkaline phosphatase 651 Review of systems: Pertinent positives and negatives as discussed in HPI, a complete review of systems was performed and all other systems are negative. PMH:history of chest pain/angina, hyperlipidemia, sleep apnea, history of prostate cancer PSH: Heart cath with stent, hernia repair, orthopedic surgery, prostate surgery, tonsillectomy FMH: Mother had a history of collapsed carotid artery, brother had a history of pancreatic cancer Allergies: Levofloxacin, cat dander, dog dander, hydrocodone, evergreen trees Social history: Tobacco: Former smoker Alcohol: None reported Recreational drugs: None reported Travel: No travel history Sick contacts: No sick contacts Physical examination: Vital signs reviewed General: nontoxic, no distress, appears at stated age Derm: warm, dry, intact Head: atraumatic, normocephalic, symmetric Eyes: EOMI, anicteric sclera Mouth: no lip lesion, mucus membranes moist Cardiovascular: S1 S2 reg, no murmur Lungs: CTA bilateral, no rhonchi, no rales, no accessory muscle use Abdominal: soft, non-tender to palpation Extremities: No cyanosis, clubbing, or pedal edema. Neuro: Alert, Gross neurological examination did not reveal any focal deficits. Cranial nerves II to XII grossly intact. Bilateral upper and lower extremity muscle strength and sensation intact. Psych: well appearing, appropriate affect Assessment/Plan: Patient is a 88-year-old male with history of chest pain/angina, hyperlipidemia, sleep apnea, history of prostate cancer presented to the emergency department with abdominal pain. The patient will be admitted to internal medicine service. Active: #. Abdominal distention and abdominal pain #. Multiple hypodensities within the liver #. History of recurrent small bowel obstruction CT of abdomen pelvis shows multiple hypodensities within the liver and metastatic disease cannot be excluded. MRI of the liver with contrast is recommended for further evaluation. Consult oncology Continue normal saline at 75 cc an hour General Surgery recommended supportive care for now Monitor morning CBC Ordered alpha-fetoprotein Order ferritin Order BNP #. Pleural effusions CT abdomen pelvis shows moderate to large bilateral pleural effusions and bibasilar infiltrates/atelectasis Consult pulmonary medicine for thoracentesis #. Normocytic anemia Hemoglobin 7.4 MCV 83.9 Patient denies hematochezia/melena Monitor morning CBC Transfuse if hemoglobin less than 7.0 #. Elevated alkaline phosphatase Alkaline phosphatase 651 AST 59 ALT 48 Morning CMP Chronic: #. Hyperlipidemia #. Hypertension #. GERD Continue Lipitor 40 mg at bedtime Continue losartan 50 mg daily Continue metoprolol tartrate 25 mg twice daily Continue Protonix 40 mg F: No restrictions E: Replete as needed N: Clear liquid diet A: EMS DVT prophylaxis: Pneumatic compression sleeve The patient is admitted with an anticipated more than 2 midnight stay for evaluation of abdominal distention/abdominal pain CODE STATUS: Full code Discussed with: Patient Anticipated discharge place: Home Past Medical History Past Medical History: Cancer, Chest Pain / Angina, Hyperlipidemia, Prostate Disorder, Sleep Apnea/CPAP/BIPAP Additional Past Medical History / Comment(s): hx prostate cancer, bridge/caps/crowns History of Any Multi-Drug Resistant Organisms: None Reported Past Surgical History: Back Surgery, Heart Catheterization With Stent, Hernia Repair, Orthopedic Surgery, Prostate Surgery, Tonsillectomy Additional Past Surgical History / Comment(s): prostate cryotherapy, rt shoulder shoulder rotator cuff, cataracts, dental implants, rt knee total arthropasty, aortic valve replacement Past Anesthesia/Blood Transfusion Reactions: No Reported Reaction Date of Last Stent Placement:: 09/07/14 Past Psychological History: No Psychological Hx Reported Additional Psychological History / Comment(s): . Smoking Status: Former smoker Past Alcohol Use History: None Reported Additional Past Alcohol Use History / Comment(s): 1 glass wine daily. Pt started smoking at age 15 and quit smoking in 1979. smoked 1ppd. Past Drug Use History: None Reported - Past Family History Mother Additional Family Medical History / Comment(s): passes away with collapsed carotid artery Father History Unknown: Yes Family Medical History: Cancer Brother(s) Family Medical History: Cancer Additional Family Medical History / Comment(s): pancreatic Medications and Allergies Home Medications Medication Instructions Recorded Confirmed Type Clopidogrel [Plavix] 75 mg PO DAILY 08/26/15 03/18/24 History Aspirin [Adult Low Dose Aspirin EC] 81 mg PO DAILY 09/26/19 03/18/24 History Losartan Potassium [Cozaar] 50 mg PO DAILY 09/26/19 03/18/24 History Omeprazole [PriLOSEC] 40 mg PO DAILY #14 cap 01/05/24 03/18/24 Rx Ondansetron Odt [Zofran Odt] 4 mg PO Q8HR PRN #10 tab 01/05/24 03/18/24 Rx Atorvastatin [Lipitor] 40 mg PO HS 02/25/24 03/18/24 History Ipratropium [place] 0.06%Nasal 2 spr EA NOSTRIL BID PRN 02/25/24 03/18/24 History [Atrovent Nasal 0.06%] Isosorbide Mononitrate ER [Imdur] 60 mg PO DAILY 02/25/24 03/18/24 History LORazepam [Ativan] 1 mg PO BID PRN 02/25/24 03/18/24 History Metoprolol Tartrate [Lopressor] 25 mg PO BID 02/25/24 03/18/24 History Allergies Allergy/AdvReac Type Severity Reaction Status Date / Time levofloxacin [[facility]] Allergy Severe Swelling Verified 03/18/24 14:43 of face cat dander Allergy SINUS Verified 03/18/24 14:43 PROBLEMS dog dander Allergy SINUS Verified 03/18/24 14:43 PROBLEMS" hydrocodone Allergy Rash/Hives Verified 03/18/24 14:43 [place]ERGRE[place] TREES Allergy Rash/Hives Uncoded 02/25/24 10:17 Physical Exam Vitals: Vital Signs Temp Pulse Pulse Resp BP BP Pulse Ox 03/19/24 07:00 98.0 F 88 18 177/73 96 03/19/24 02:55 97.8 F 82 18 125/57 95 03/18/24 23:48 16 03/18/24 23:34 97.7 F 81 17 133/62 95 03/18/24 23:16 98.3 F 86 16 140/67 94 L 03/18/24 20:00 98 16 150/80 92 L 03/18/24 18:38 98.7 F 97 17 167/91 94 L 03/18/24 15:46 92 22 177/82 99 03/18/24 13:00 17 03/18/24 12:40 16 03/18/24 12:35 98.3 F 93 18 156/78 92 L 03/18/24 10:58 98.2 F 92 16 153/84 66 L Intake and Output 03/18/24 03/19/24 03/19/24 22:59 06:59 14:59 Intake Total 1065 Balance 1065 Intake: Intake, IV Titration 525 Amount Sodium Chloride 0.9% 1, 525 000 ml @ 75 mls/hr IV . [id number] [facility] Rx#:[id number] Oral 540 Other: Voiding Method Toilet Toilet Urinal Urinal # Voids 2 # Bowel Movements 1 Weight 65.771 kg Results CBC & Chem 7: 03/19/24 06:01 03/19/24 06:01 Labs: Abnormal Lab Results - Last 24 Hours (Table) 03/18/24 03/18/24 Range/Units 11:29 11:29 RBC 4.00 L (4.30-5.90) m/uL Hgb 10.5 L (13.0-17.5) gm/dL Hct 33.4 L (39.0-53.0) % RDW 18.0 H (11.5-15.5) % Carbon Dioxide 31 H (22-30) mmol/L Glucose 123 H (74-99) mg/dL Calcium 8.2 L (8.4-10.2) mg/dL Alkaline Phosphatase 651 H (38-126) U/L Total Protein 6.0 L (6.3-8.2) g/dL Albumin 3.3 L (3.5-5.0) g/dL Thrombosis Risk Factor Assmnt - Choose All That Apply Any of the Below Risk Factors Present?: No Other Risk Factors: Yes Each Risk Factor Represents 3 Points: Age 75 years or older Thrombosis Risk Factor Assessment Total Risk Factor Score: 3 Thrombosis Risk Factor Assessment Level: Moderate Risk
--- NOTE | 2024-03-19 16:24 | US ---
EXAMINATION TYPE: US chest DATE OF EXAM: 03/19/2024 COMPARISON: NONE CLINICAL INDICATION: Male, 88 years old with history of Markings for thoracentesis by pulmonary staff ; TECHNIQUE: Grayscale imaging of the chest. Targeted ultrasound of the posterior lower bilateral brody thoraces FINDINGS: EXAM MEASUREMENTS: Right Pleural Effusion pocket size: 17.7 cm Right skin surface to fluid distance: 1.8 cm Right side marked for possible thoracentesis outside the dept. Pulmonologists are able to review the images in the patient?s EMR. IMPRESSIONS: 1. Right pleural effusion [facility], , 03/19/2024 4:22 PM
[2024-03-19 19:54] LABS: Ferritin 81.5 ng/mL (22.0-322.0)
--- NOTE | 2024-03-20 03:29 | P.CNPUL ---
History of Present Illness Consult date: 03/20/24 Requesting physician: Horacio Vasquez Reason for consult: pleural effusion Chief complaint: Weakness, pallor, abdominal pain History of present illness: Patient is an 88-year-old male with past medical history significant for coronary artery disease with previous PCI/stent, aortic valve stenosis with pre vious TAVR, history of prostate CA, former tobacco smoker. Of note, patient states he has had multiple hospitalizations for abdominal complaints during the last 3 months, and was just recently hospitalized at [facility] for bowel obstruction. Preceding this hospitalization he was complaining of nausea, vomiting, abdominal pain, and black tarry BMs. While inpatient, did not receive any surgical interventions. His symptoms resolved, and states he was feeling well on discharge. Him and his live at an assisted living community, [facility]. He has been tolerating soft foods and liquids. Denies further episodes of melena, hematochezia, nausea, vomiting, or hematemesis. Endorses some right upper quadrant abdominal discomfort with palpation. Him and his noticed that he was more pale than normal. States that a nurse recommended that he come to Emergency Department to be evaluated on March 18. In the emergency department included a CAT scan of abdomen/pelvis with contrast which demonstrated new moderate to large bilateral pleural effusions and bibasilar compressive atelectasis. Multiple hypodensities within the liver and it was recommended to rule out metastatic disease. Diffuse small bowel thickening and dilated fluid-filled appendix. Most likely indicating acute inflammatory process. No obvious bowel obstructions or transition point. Small amount of free intraperitoneal fluid. General surgery was consulted for the CT findings, and I do not believe they are recommending any surgical intervention. There is a liver MRI scheduled. Pulmonary consulted for the patient's bilateral pleural effusions, that were noted on abdominal CT. No follow-up chest x-ray has yet been obtained. Chest ultrasound of the right chest demonstrating a 17.7 cm right pleural effusion which was marked for possible thoracentesis. I am seeing this patient on the general medical floor. He is on room air. Denies any shortness of breath, cough, fevers, chills, chest pain. Denies history of heart failure. States that he did recently have a valve replaced at [facility] in September,. Admits bilateral lower extremity swelling. Denies any history of known active malignancy. No previous history of pleural effusions or thoracentesis. He takes Plavix and aspirin outpatient basis. CBC from yesterday: WBC count 5.26, hemoglobin down to 7.4 g/dL, hematocrit 23.8, platelets 222. This is approximately 3 g drop in his hemoglobin. CMP is unremarkable, electrolytes WDL, creatinine 0.6, AST 59, ALT 48, ALP 651. NT proBNP was elevated 8470. Normal saline is infusing at 75 mL/h. Most recent recorded vital signs: Temperature 98.1 F, heart rate 95 bpm, blood pressure 150/63 mmHg, nontachypneic, SpO2 was recorded at 93% on room air. Review of Systems Constitutional: Reports fatigue, Reports weakness, Reports weight loss, Denies chills, Denies fever, Denies poor appetite, Denies weight gain Ears, nose, mouth and throat: Denies headache, Denies nasal congestion, Denies nasal discharge, Denies post-nasal drip, Denies sinus pain, Denies sinus pressure, Denies sore throat Cardiovascular: Reports leg edema, Denies chest pain, Denies dyspnea on e xertion, Denies lightheadedness, Denies orthopnea, Denies palpitations, Denies paroxysmal nocturnal dyspnea, Denies syncope Respiratory: Denies congestion, Denies cough, Denies cough with sputum, Denies dyspnea, Denies hemoptysis, Denies home oxygen, Denies pain on inspiration, Denies wheezing Gastrointestinal: Reports as per HPI Genitourinary: Denies dysuria Musculoskeletal: Denies limitation of motion Integumentary: Denies rash Neurological: Denies seizures, Denies syncope Psychiatric: Denies anxiety, Denies depression Past Medical History Past Medical History: Cancer, Chest Pain / Angina, Hyperlipidemia, Prostate Disorder, Sleep Apnea/CPAP/BIPAP Additional Past Medical History / Comment(s): hx prostate cancer, bridge/caps/crowns History of Any Multi-Drug Resistant Organisms: None Reported Past Surgical History: Back Surgery, Heart Catheterization With Stent, Hernia Repair, Orthopedic Surgery, Prostate Surgery, Tonsillectomy Additional Past Surgical History / Comment(s): prostate cryotherapy, rt shoulder shoulder rotator cuff, cataracts, dental implants, rt knee total arthropasty, aortic valve replacement Past Anesthesia/Blood Transfusion Reactions: No Reported Reaction Date of Last Stent Placement:: 09/07/14 Past Psychological History: No Psychological Hx Reported Additional Psychological History / Comment(s): . Smoking Status: Former smoker Past Alcohol Use History: None Reported Additional Past Alcohol Use History / Comment(s): 1 glass wine daily. Pt started smoking at age 15 and quit smoking in 1979. smoked 1ppd. Past Drug Use History: None Reported - Past Family History Mother Additional Family Medical History / Comment(s): passes away with collapsed carotid artery Father History Unknown: Yes Family Medical History: Cancer Brother(s) Family Medical History: Cancer Additional Family Medical History / Comment(s): pancreatic Medications and Allergies Home Medications Medication Instructions Recorded Confirmed Type Clopidogrel [Plavix] 75 mg PO DAILY 08/26/15 03/18/24 History Aspirin [Adult Low Dose Aspirin EC] 81 mg PO DAILY 09/26/19 03/18/24 History Losartan Potassium [Cozaar] 50 mg PO DAILY 09/26/19 03/18/24 History Omeprazole [PriLOSEC] 40 mg PO DAILY #14 cap 01/05/24 03/18/24 Rx Ondansetron Odt [Zofran Odt] 4 mg PO Q8HR PRN #10 tab 01/05/24 03/18/24 Rx Atorvastatin [Lipitor] 40 mg PO HS 02/25/24 03/18/24 History Ipratropium [place] 0.06%Nasal 2 spr EA NOSTRIL BID PRN 02/25/24 03/18/24 History [Atrovent Nasal 0.06%] Isosorbide Mononitrate ER [Imdur] 60 mg PO DAILY 02/25/24 03/18/24 History LORazepam [Ativan] 1 mg PO BID PRN 02/25/24 03/18/24 History Metoprolol Tartrate [Lopressor] 25 mg PO BID 02/25/24 03/18/24 History Allergies Allergy/AdvReac Type Severity Reaction Status Date / Time levofloxacin [From Levaquin] Allergy Severe Swelling Verified 03/18/24 14:43 of face cat dander Allergy SINUS Verified 03/18/24 14:43 PROBLEMS dog dander Allergy SINUS Verified 03/18/24 14:43 PROBLEMS" hydrocodone Allergy Rash/Hives Verified 03/18/24 14:43 [place] [employer]REES Allergy Rash/Hives Uncoded 02/25/24 10:17 Physical Exam Vitals: Vital Signs Temp Pulse Resp BP Pulse Ox 03/19/24 19:30 98.1 F 95 16 150/63 93 L 03/19/24 15:00 98.0 F 87 18 118/67 93 L 03/19/24 07:00 98.0 F 88 18 177/73 96 03/19/24 02:55 97.8 F 82 18 125/57 95 Intake and Output 03/19/24 03/19/24 03/20/24 14:59 22:59 06:59 Other: Voiding Method Toilet Urinal # Voids 2 GENERAL EXAM: Alert, 88-year-old male, sitting at the edge of the bed, comfortable in no apparent distress. HEAD: Normocephalic and atraumatic EYES: Normal reaction of pupils, equal size. NOSE: Clear with pink turbinates. THROAT: No erythema or exudates. NECK: No masses, no JVD. CHEST: No chest wall deformity. LUNGS: Equal air entry with diminished bibasilar lung sounds. No crackles, wheeze, rhonchi or dullness. On room air. No conversational dyspnea or accessory muscle use.. CVS: S1 and S2 normal with no audible murmur, regular rhythm. No extra heart sounds ABDOMEN: No hepatosplenomegaly, active bowel sounds, no guarding or rigidity. SPINE: No scoliosis or deformity SKIN: No rashes CENTRAL NERVOUS SYSTEM: No focal deficits, tone is normal in all 4 extremities. EXTREMITIES: There is 2+ bilateral lower extremity pitting edema. No clubbing, or cyanosis. Peripheral pulses are intact. Results - Laboratory Findings CBC and BMP: 03/19/24 06:01 03/19/24 06:01 Abnormal lab findings: Abnormal Labs 03/18/24 03/18/24 03/19/24 11:29 11:29 06:01 RBC 4.00 L 2.87 L Hgb 10.5 L 7.4 L Hct 33.4 L 23.8 L MCH 25.8 L MCHC 31.1 L RDW 18.0 H 17.7 H Carbon Dioxide 31 H Glucose 123 H Calcium 8.2 L Alkaline Phosphatase 651 H Total Protein 6.0 L Albumin 3.3 L 03/19/24 06:01 RBC Hgb Hct MCH MCHC RDW Carbon Dioxide Glucose Calcium 7.4 L Alkaline Phosphatase Total Protein Albumin Assessment and Plan Assessment: Bilateral pleural effusions, noted on CTA of the abdomen/pelvis, new from prior imaging. No follow chest x-ray has been obtained yet. A chest ultrasound was performed on the right side, demonstrating a 17.7 cm fluid pocket. NT proBNP elevated at 8470 Abdominal pain, CT scan of abdomen/pelvis with contrast which demonstrated moderate to large bilateral pleural effusions and bibasilar compressive atelectasis. Multiple hypodensities within the liver and it was recommended to rule out metastatic disease. Diffuse small bowel thickening and dilated fluid- filled appendix. Most likely indicating acute inflammatory process. No obvious bowel obstructions or transition point. Small amount of free intraperitoneal fluid. General surgery following, no surgical interventions planned as of yet. Multiple hypodensities within the liver, recommended to exclude metastatic disease Anemia, over last 24 hours patient has had a 3 g drop in his hemoglobin down to 7.4 g/dL. Rule out occult bleeding. History of valvular heart disease, most recent available echocardiogram from 03/19/2023 estimating preserved left ventricular ejection fraction of 50 to 55% as well as mild mitral stenosis, moderate MR, and mild to moderate aortic stenosis. Patient reportedly underwent valve replacement at outside facility over the summer. History of coronary disease with previous PCI/stenting Hypertension History of hyperlipidemia History of prostate cancer Remote history of tobacco use Plan: Pulmonary consult was placed for patient's bilateral pleural effusions Appear new from prior available imaging Obtain chest x-ray Patient is currently on room air and largely asymptomatic Obtain transthoracic echocardiogram Does take a combination of Plavix and aspirin outpatient basis; no ant icoagulants. Patient has had a 3 g drop in his hemoglobin, monitor for acute blood loss. Check fecal occult. General Surgery is following. Case will be discussed with Dr. Dominguez, and further recommendations to follow on potential thoracentesis. I have personally seen and examined the patient, performed the documentation and the assessment and plan as written. Number of minutes spent on the visit:20 Time with Patient: Greater than 30
[2024-03-20 07:24] LABS: Anisocytosis Slight; HCT 26.6 % (39.0-53.0); Hypochromasia Marked; MCH 26.6 pg (25.0-35.0); MCHC 31.6 g/dL (31.0-37.0); MCV 84.1 fL (80.0-100.0); Mean Platelet Volume 8.4; Platelet Count 217 k/uL (150-450); Poikilocytosis Slight; RBC 3.16 m/uL (4.30-5.90)
[2024-03-20 07:37] LABS: HGB 8.4 gm/dL (13.0-17.5)
--- NOTE | 2024-03-20 08:57 | XR ---
EXAMINATION TYPE: XR chest 1V portable DATE OF EXAM: 03/20/2024 8:50 AM COMPARISON: 02/25/2024 CLINICAL INDICATION: Male, 88 years old with history of Post right thoracentesis, TECHNIQUE: XR chest 1V portable view(s) obtained. FINDINGS: The heart size is normal. The pulmonary vasculature is normal. Small bilateral pleural effusions are present. No pneumothorax is evident post thoracentesis IMPRESSION: 1. Small bilateral pleural effusions [facility], , 03/20/2024 8:55 AM
[2024-03-20] MEDS ORDERED: ENOXAPARIN 40 MG/0.4 ML SYRINGE SQ SCH (09:00)
[2024-03-20 10:47] LABS: ALT 90 U/L (10-49); AST 119 U/L (14-35); Albumin 2.9 g/dL (3.8-4.9); Albumin/Globulin Ratio 1.53 Ratio (1.60-3.17); Alkaline Phosphatase 865 U/L (41-126); BUN/Creat Ratio 12.33 Ratio (12.00-20.00); Blood Urea Nitrogen 7.4 mg/dL (9.0-27.0); Calcium 7.6 mg/dL (8.7-10.3); Carbon Dioxide 23.7 mmol/L (21.6-31.8); Chloride 106 mmol/L (96-109); Globulin 1.9 g/dL (1.6-3.3); Glucose 113 mg/dL (70-110); Potassium 3.7 mmol/L (3.5-5.5); Sodium 138 mmol/L (135-145); Total Bilirubin 1.4 mg/dL (0.3-1.2); Total Protein 4.8 g/dL (6.2-8.2)
--- NOTE | 2024-03-20 10:56 | CA ---
Transthoracic Echo Report Name: Roberto De Leon Age: 88 Gender: M : 1935 Exam Date: 03/19/2024 14:18 Exam Location: [facility] Ht (in): 71 Wt (lb): 145 Ordering Physician: Horacio Vasquez DO Attending/Referring Phys: Clamper Aurora Kerr RDCS Procedure CPT: Indications: rule out heart failure Cardiac Hx: Technical Quality: Fair Contrast 1: Total Dose (mL): Contrast 2: Total Dose (mL): MEASUREMENTS (Male / Female) Normal Values 2D ECHO LV Diastolic Diameter PLAX 3.9 cm 4.2 - 5.9 / 3.9 - 5.3 cm LV Systolic Diameter PLAX 2.7 cm IVS Diastolic Thickness 1.4 cm 0.6 - 1.0 / 0.6 - 0.9 cm LVPW Diastolic Thickness 1.5 cm 0.6 - 1.0 / 0.6 - 0.9 cm LV Relative Wall Thickness 0.7 LA Systolic Diameter LX 4.7 cm 3.0 - 4.0 / 2.7 - 3.8 cm LV Diastolic Volume MOD BP 80.8 cm??? 67 - 155 / 56 - 104 cm??? LV Systolic Volume MOD BP 25.9 cm??? 22 - 58 / 19 - 49 cm??? LV Ejection Fraction MOD BP 67.9 % >= 55 % LV Cardiac Index MOD BP 2763.2 cm???/min???m??? LV Diastolic Volume MOD 4C 75.8 cm??? LV Systolic Volume MOD 4C 25.1 cm??? LV Ejection Fraction MOD 4C 66.9 % LV Cardiac Index MOD 4C 2552.9 cm???/min???m??? LV Diastolic Length 4C 7.0 cm LV Systolic Length 4C 6.3 cm LV Diastolic Volume MOD 2C 76.8 cm??? LV Systolic Volume MOD 2C 24.3 cm??? LV Ejection Fraction MOD 2C 68.4 % LV Cardiac Index MOD 2C 2643.9 cm???/min???m??? LV Diastolic Length 2C 8.0 cm LV Systolic Length 2C 7.0 cm LA Volume 68.6 cm??? 18 - 58 / 22 - 52 cm??? LA Volume Index 37.9 cm???/m??? 16 - 28 cm???/m??? RV Diastolic Mid Diameter 3.5 cm 2.7 - 3.3 cm M-MODE Aortic Root Diameter MM 2.5 cm DOPPLER AV Peak Velocity 127.5 cm/s AV Peak Gradient 6.5 mmHg MV Area PHT 3.3 cm??? Mitral E Point Velocity 98.6 cm/s Mitral A Point Velocity 174.3 cm/s Mitral E to A Ratio 0.6 MV Deceleration Time 232.6 ms TR Peak Velocity 317.6 cm/s TR Peak Gradient 40.3 mmHg Right Ventricular Systolic Press 44.7 mmHg FINDINGS Left Ventricle Left ventricular ejection fraction is estimated at 50-55 %. Small left ventricular cavity. Moderately increased left ventricular wall thickness. Right Ventricle Mild right ventricular dilatation. Moderate pulmonary hypertension. Right Atrium Normal right atrial size. No right atrial thrombus or mass seen. Left Atrium Moderately increased left atrial diameter. Mildly increased left atrial volume. Mildly increased left atrial area. Mitral Valve Severe mitral annular calcification. [id number] mitral regurgitation. Aortic Valve Trileaflet aortic valve. No aortic stenosis. No aortic regurgitation.aortic valve sclerosis. Tricuspid Valve Structurally normal tricuspid valve. Moderate tricuspid regurgitation. Pulmonic Valve Pulmonic valve not well visualized. No pulmonic regurgitation. Pericardium Minimal pericardial effusion (normal variant). Aorta Normal size aortic root and proximal ascending aorta. CONCLUSIONS 1. Left ventricular systolic function borderline normal 2. Moderate severe mitral regurgitation 3. Moderate tricuspid regurgitation with mild to moderate pulmonary hypertension Previewed by: Dr. Perla Murillo MD (Electronically Signed) Final Date: 20 March 2024 10:55
--- NOTE | 2024-03-20 12:19 | OP ---
OPERATIVE REPORT DATE OF SERVICE : PROCEDURE PERFORMED: Right-sided thoracentesis. PREOPERATIVE DIAGNOSIS: Right-sided pleural effusion. POSTOPERATIVE DIAGNOSIS: Right-sided pleural effusion. ANESTHESIA USED: 2 mL of 1% lidocaine. DESCRIPTION OF PROCEDURE: The patient had ultrasound marking done earlier for localization of the right pleural effusion, the patient was placed in a sitting upright position, the area below the right scapula was prepared in a sterile fashion. Drapes were applied. At the level of the markings, which is roughly 8th intercostal space and tip of the scapula, the area was locally anesthetized, and the pleural space was entered and the fluid was localized with a 26-gauge needle. Then, a small tiny incision was made, and a standard thoracentesis catheter and needle used, advanced at the same site into the pleural space, fluid was obtained and roughly 500 mL of freely flowing straw-colored fluid removed from the right pleural space. Fluid was not bloody, was not thick, fluid was sent for different diagnostic studies. Procedure was well tolerated, chest x-ray postoperatively showed no complications. MMODL / IJN: [id number] /
[2024-03-20 14:57] LABS: Total Protein 4.7 g/dL (6.2-8.2)
--- NOTE | 2024-03-20 15:03 | P.PN ---
Subjective Progress Note Date: 03/20/24 SURGICAL PROGRESS NOTE CHIEF COMPLAINT: Weakness HISTORY OF PRESENT ILLNESS: Patient status post right thoracentesis of pleural effusion by pulmonary service today. Patient sitting up in bed comfortably. He has been able to eat small amounts of the full liquid diet. He denies any nausea or vomiting. He did have a bowel movement that is mostly diarrhea. He is not reporting any abdominal pain. The mild upper abdominal discomfort has resolved. Afebrile. WBC is 5.0 Hgb 8.4 total bilirubin has increased to 1.4 LFTs are elevated Patient seen and examined with Dr. Marie PHYSICAL EXAM: VITAL SIGNS: Reviewed. GENERAL: Well-developed in no acute distress. HEENT: No sclera icterus. Extraocular movements grossly intact. Moist buccal mucosa. Head is atraumatic, normocephalic. ABDOMEN: Soft. Nondistended. Nontender. No rebound or guarding. NEUROLOGIC: Alert and oriented. Cranial nerves II through XII grossly intact. ASSESSMENT: 1. Abdominal distention and mild abdominal discomfort. CT scan reported no evidence of bowel obstruction. Did report diffuse small bowel wall thickening and fluid-filled appendix. Patient has no right lower quadrant abdominal pain. 2. Multiple hypodensities within the liver noted on CT 3. History of prostate cancer 4. Moderate protein calorie malnutrition PLAN: -Case discussed with oncology service -MRI of the liver ordered for further evaluation of the hypodensities in the liver -Plan for colonoscopy possibly on Sunday with Dr. Marie Physician Clinical Trial Assistant note has been reviewed by physician. Signing provider agrees with the documented findings, assessment, and plan of care. Objective - Vital Signs Vital signs: Vital Signs Temp 97.9 F 03/20/24 07:25 Pulse 84 03/20/24 07:25 Resp 15 03/20/24 08:00 BP 177/72 03/20/24 07:25 Pulse Ox 94 L 03/20/24 07:25 FiO2 Intake & Output 03/19/24 03/20/24 03/20/24 18:59 06:59 18:59 Other: Voiding Method Toilet Toilet Urinal Urinal # Voids 2 1 - Labs CBC & Chem 7: 03/20/24 06:54 03/20/24 06:54 Labs: Abnormal Lab Results - Last 24 Hours (Table) 03/20/24 03/20/24 03/20/24 Range/Units 06:54 06:54 06:54 RBC 3.16 L (4.30-5.90) m/uL Hgb 8.4 L D (13.0-17.5) gm/dL Hct 26.6 L (39.0-53.0) % RDW 18.0 H (11.5-15.5) % BUN 7.4 L (9.0-27.0) mg/dL Glucose 113 H (70-110) mg/dL Calcium 7.6 L (8.7-10.3) mg/dL Total Bilirubin 1.4 H (0.3-1.2) mg/dL AST 119 H (14-35) U/L ALT 90 H (10-49) U/L Alkaline Phosphatase 865 H (41-126) U/L Lactate Dehydrogenase 248 H (120-246) U/L Total Protein 4.8 L 4.7 L (6.2-8.2) g/dL Albumin 2.9 L (3.8-4.9) g/dL Albumin/Globulin Ratio 1.53 L (1.60-3.17) Ratio
--- NOTE | 2024-03-20 15:12 | P.PN ---
Subjective Progress Note Date: 03/20/24 Per HPI, "Patient is a 88-year-old male with history of chest pain/angina, hyperlipidemia, sleep apnea, history of prostate cancer presented to the emergency department with abdominal pain. Patient states that for the past month he has seen in the emergency department about 3 times for small bowel obstruction. He was recently discharged about a week ago from [facility] where he was admitted for SBO. Patient was seen at bedside today. Reported that yesterday his nurse noticed the patient was looking pale and suggested him to be evaluated in the ED. patient does report having a history of SBO over the past month which required multiple hospitalizations. Patient does admit to having several episodes of watery diarrhea over the past few days. He denies fever, chills, chest pain, shortness of breath, belly pain, nausea or vomiting, dysuria, hematochezia or melena. ED documentation reviewed. In the ED patient was treated with normal saline at 75 cc an hour, aspirin 81 mg daily, Plavix 75 mg daily, Imdur 60 mg daily, losartan 50 mg daily, Protonix 40 mg p.o. Lipitor 40 mg at bedtime, metoprolol titrate 25 mg twice daily Vitals on admission temperature 98, pulse rate 88, respiratory rate 18, blood pressure 177/73, O2 sat 96% on room air EKG independently interpreted as sinus rhythm with frequent supraventricular premature complexes with ventricular rate of 88 bpm, QTc interval 459 ms, left bundle branch block Abdominal x-ray shows gaseous dilation of large bowel, nonspecific bowel gas pattern without radiographic evidence for acute process CT abdomen pelvis with contrast shows moderate to large bilateral pleural effusions and bibasilar infiltrates/atelectasis. Multiple hypodensities within the liver and metastatic disease cannot be excluded. MRI of the liver with contrast is recommended for further evaluation. Diffuse small bowel with wall thickening and dilated fluid-filled appendix. Most likely indicating acute inflammatory process. There is no bowel obstruction. Small amount of free intraperitoneal fluid. Labs on admission show WBC 5.26, hemoglobin 7.4, hematocrit 23.8, platelets 222, sodium 139, potassium 3.9, chloride 105, carbon dioxide 31, BUN 14, creatinine 0.69, glucose 123, alkaline phosphatase 651" Progress Notes for 03/20/2024: Patient was seen at bedside today. Reports feeling general weakness. Patient underwent a thoracentesis this morning by Dr. Dominguez. Currently pending pleural fluid results to come back. Patient reports that his abdominal pain has resolved. He denies fever, chills, chest pain, shortness of breath, nausea, vomiting, belly pain, dysuria. Review of Systems Constitutional: Denies chills, Denies fever Eyes: denies blurred vision, double vision or pain Ears, nose, mouth and throat: Denies headache, Denies sore throat Cardiovascular: Denies chest pain, Denies shortness of breath Respiratory: Denies cough Gastrointestinal: Denies abdominal pain, Denies diarrhea, Denies nausea, Denies vomiting Musculoskeletal: Denies myalgias Integumentary: Denies pruritus, Denies rash Neurological: Denies numbness, Denies weakness Psychiatric: Denies anxiety, Denies depression Endocrine: Reports fatigue, Denies weight change GENERAL: This is a 88-year-old in no apparent distress at the time of examination. Pleasant and cooperative. HEENT: Head is atraumatic, normocephalic. Pupils are equal, round, and reactive to light. Sclerae anicteric. Conjunctivae are clear. Mucus membranes of the mouth are moist. Neck is supple. RESPIRATORY: Clear to auscultation. No wheezes, rales, or rhonchi. No use of accessory muscles. Patient maintaining oxygen saturation greater than 92%. No chest wall tenderness is noted on palpation or with deep breathing. CARDIOVASCULAR: Regular rate and rhythm. S1 and S2 noted. No systolic or diastolic murmur auscultated. No JVD noted. No S3 or S4 noted. GASTROINTESTINAL: No distention noted. Abdomen soft and round. Normal active bowel sounds auscultated x 4 quadrants. No pain or tenderness noted upon palpation. INTEGUMENTARY: No cyanosis. No jaundice. No rashes noted. No cellulitis noted. EXTREMITIES: 2+ peripheral pulses. No evidence of peripheral edema. No calf tenderness noted. NEUROLOGIC: Cranial nerves II-XII intact. PSYCHIATRIC: Awake, alert. Appropriate affect. Intact judgement and insight. Assessment/Plan: Patient is a 88-year-old male with history of chest pain/angina, hyperlipidemia, sleep apnea, history of prostate cancer presented to the emergency department with abdominal pain. The patient will be admitted to internal medicine service. Active: #. Abdominal distention and abdominal pain #. Multiple hypodensities within the liver #. History of recurrent small bowel obstruction CT of abdomen pelvis shows multiple hypodensities within the liver and metastatic disease cannot be excluded. Patient is scheduled for an MRI of liver this afternoon Oncology recommended liver biopsy if pleural fluid results are inconclusive Discontinue normal saline General Surgery recommended supportive care for now Monitor morning CBC BNP 8470 AST 119, ALT 90, Alkaline phosphatase 865 #. Pleural effusions CT abdomen pelvis shows moderate to large bilateral pleural effusions and bibasilar infiltrates/atelectasis Echocardiogram showed left ventricular ejection fraction of 50 to 55% Patient underwent a thoracentesis this morning Pending pleural fluid results #. Normocytic anemia Hemoglobin 8.4 MCV 84.1 Patient denies hematochezia/melena Monitor morning CBC Transfuse if hemoglobin less than 7.0 #. Elevated alkaline phosphatase Alkaline phosphatase 865 AST 119 ALT 90 Morning CMP Chronic: #. Hyperlipidemia #. Hypertension #. GERD Continue Lipitor 40 mg at bedtime Continue losartan 50 mg daily Continue metoprolol tartrate 25 mg twice daily Continue Protonix 40 mg F: No restrictions E: Replete as needed N: Clear liquid diet A: EMS DVT prophylaxis: Pneumatic compression sleeve The patient is admitted with an anticipated more than 2 midnight stay for evaluation of abdominal distention/abdominal pain CODE STATUS: Full code Discussed with: Patient Anticipated discharge place: Home Objective - Vital Signs Vital signs: Vital Signs Temp 97.9 F 03/20/24 07:25 Pulse 84 03/20/24 07:25 Resp 15 03/20/24 08:00 BP 177/72 03/20/24 07:25 Pulse Ox 94 L 03/20/24 07:25 FiO2 Intake & Output 03/19/24 03/20/24 03/20/24 18:59 06:59 18:59 Other: Voiding Method Toilet Toilet Urinal Urinal # Voids 2 1 - Labs CBC & Chem 7: 03/20/24 06:54 03/20/24 06:54 Labs: Abnormal Lab Results - Last 24 Hours (Table) 03/20/24 03/20/24 Range/Units 06:54 06:54 RBC 3.16 L (4.30-5.90) m/uL Hgb 8.4 L D (13.0-17.5) gm/dL Hct 26.6 L (39.0-53.0) % RDW 18.0 H (11.5-15.5) % BUN 7.4 L (9.0-27.0) mg/dL Glucose 113 H (70-110) mg/dL Calcium 7.6 L (8.7-10.3) mg/dL Total Bilirubin 1.4 H (0.3-1.2) mg/dL AST 119 H (14-35) U/L ALT 90 H (10-49) U/L Alkaline Phosphatase 865 H (41-126) U/L Total Protein 4.8 L (6.2-8.2) g/dL Albumin 2.9 L (3.8-4.9) g/dL Albumin/Globulin Ratio 1.53 L (1.60-3.17) Ratio
--- NOTE | 2024-03-20 15:15 | MR ---
EXAMINATION TYPE: MR liver wo/w con DATE OF EXAM: 03/20/2024 2:46 PM COMPARISON: Prior CT abdomen and pelvis March 18, 2024 and older CTs back through January 05, 2024 CLINICAL INDICATION: Male, 88 years old with history of Hypodensities within the liver, hx prostate c ancer, Hypo-densities within the liver, Hx prostate cancer IV Contrast: 6.5 cc Gadobutrol (None if empty) CONTRAST: Standard multiplanar, multisequence MRI departmental protocol images were obtained without contrast a nd with 6.5 mL intravenous Gadobutrol gadolinium contrast. Imaging performed of the abdomen focusing on the liver. FINDINGS: Exam is suboptimal due to patient's inability to hold breath Liver: Small sized liver is redemonstrated. Some adjacent ascites along the right and superior anteri or aspect of the liver are redemonstrated. Corresponding to most recent CT there are multiple rounds circumscribed masses of T1 hypointensity and T2 hyperintensity throughout the liver most prominent in the left hepatic lobe. Findings appear new from older CTs. Dynamic postcontrast imaging shows majori ty of the lesions show to show peripheral rim-type enhancement. A lesion in left hepatic lobe lateral segment shows more uniform enhancement. Diffuse metastatic disease is suspected. Finding should be c orrelated with PSA values given patient has history of prostate cancer. Other: Mild diffuse ascites is seen. The spleen and both kidneys are within normal limits. Patient is little internal fat making evaluation suboptimal. No abnormal bowel dilatation. There is artifact fr om left hip arthroplasty partially imaged. Suboptimal evaluation of the adrenal glands and pancreas. Gallbladder has persistent edematous wall thickening similar to most recent CT. IMPRESSION: Suboptimal study but presence of multiple new small lesions throughout the liver is consi stent/strongly suspicious for diffuse metastatic disease. [facility], , 03/20/2024 3:13 PM
[2024-03-20 16:09] LABS: Appearance,BF Clear (Clear)
--- NOTE | 2024-03-20 17:32 | P.CONS ---
History of Present Illness - Reason for Consult Consult date: 03/20/24 liver hypodensities Requesting physician: Horacio Vasquez - Chief Complaint abd pain - History of Present Illness Mr. De Leon is an 88-year-old male who presented to hospital with abdomina pain, dehydration and lethargy. Abd c/o started a few months ago. Patient is down about 40 pounds 2/2 decrease appetite and belly complaints. His last colonoscopy was more than 30 years ago. Patient reports no nausea or vomiting. He has had a change in stools, diarrhea consistency, denies any bleeding, stools were dark for a while but now they are normal color. He has had NG placed x 4 in the last few months. He has been at [facility] (just last week), [facility] and [facility] for ileus. It was recommended by [facility] that he come to ER due to lethargy adn concerns for dehydration. Patient had imaging on admit showing multiple liver lesions, 2.6 cm in the right lobe, slightly smaller 1 on the left, bilateral pleural effusions. Also there was some thickening in the bowel. Abdominal x-ray completed reported gaseous dilation of large bowel. Nonspecific bowel gas pattern without evidence of acute process. Fecal material and gas are demonstrated throughout the colon and rectum. gave most of history. Review of Systems 10 point review of systems is negative except as stated in HPI Past Medical History Past Medical History: Cancer, Chest Pain / Angina, Hyperlipidemia, Prostate Disorder, Sleep Apnea/CPAP/BIPAP Additional Past Medical History / Comment(s): hx prostate cancer, bridge/caps/crowns History of Any Multi-Drug Resistant Organisms: None Reported Past Surgical History: Back Surgery, Heart Catheterization With Stent, Hernia Repair, Orthopedic Surgery, Prostate Surgery, Tonsillectomy Additional Past Surgical History / Comment(s): prostate cryotherapy, rt shoulder shoulder rotator cuff, cataracts, dental implants, rt knee total arthropasty, a ortic valve replacement Past Anesthesia/Blood Transfusion Reactions: No Reported Reaction Date of Last Stent Placement:: 09/07/14 Past Psychological History: No Psychological Hx Reported Additional Psychological History / Comment(s): . Smoking Status: Former smoker Past Alcohol Use History: None Reported Additional Past Alcohol Use History / Comment(s): 1 glass wine daily. Pt started smoking at age 15 and quit smoking in 1979. smoked 1ppd. Past Drug Use History: None Reported - Past Family History Mother Additional Family Medical History / Comment(s): passes away with collapsed carotid artery Father History Unknown: Yes Family Medical History: Cancer Brother(s) Family Medical History: Cancer Additional Family Medical History / Comment(s): pancreatic Medications and Allergies Home Medications Medication Instructions Recorded Confirmed Type Clopidogrel [Plavix] 75 mg PO DAILY 08/26/15 03/18/24 History Aspirin [Adult Low Dose Aspirin EC] 81 mg PO DAILY 09/26/19 03/18/24 History Losartan Potassium [Cozaar] 50 mg PO DAILY 09/26/19 03/18/24 History Omeprazole [PriLOSEC] 40 mg PO DAILY #14 cap 01/05/24 03/18/24 Rx Ondansetron Odt [Zofran Odt] 4 mg PO Q8HR PRN #10 tab 01/05/24 03/18/24 Rx Atorvastatin [Lipitor] 40 mg PO HS 02/25/24 03/18/24 History Ipratropium Baxter 0.06%Nasal 2 spr EA NOSTRIL BID PRN 02/25/24 03/18/24 History [Atrovent Nasal 0.06%] Isosorbide Mononitrate ER [Imdur] 60 mg PO DAILY 02/25/24 03/18/24 History LORazepam [Ativan] 1 mg PO BID PRN 02/25/24 03/18/24 History Metoprolol Tartrate [Lopressor] 25 mg PO BID 02/25/24 03/18/24 History Allergies Allergy/AdvReac Type Severity Reaction Status Date / Time levofloxacin [From Levaquin] Allergy Severe Swelling Verified 03/18/24 14:43 of face cat dander Allergy SINUS Verified 03/18/24 14:43 PROBLEMS dog dander Allergy SINUS Verified 03/18/24 14:43 PROBLEMS" hydrocodone Allergy Rash/Hives Verified 03/18/24 14:43 [place] [employer] Allergy Rash/Hives Uncoded 02/25/24 10:17 Physical Exam Vitals: Vital Signs Temp Pulse Resp BP Pulse Ox 03/20/24 07:25 97.9 F 84 15 177/72 94 L 03/20/24 04:24 97.9 F 108 H 16 138/52 91 L 03/19/24 19:30 98.1 F 95 16 150/63 93 L 03/19/24 15:00 98.0 F 87 18 118/67 93 L Intake and Output 03/19/24 03/20/24 03/20/24 22:59 06:59 14:59 Other: # Voids 1 1 - Constitutional General appearance: cooperative, mild distress, thin - EENT Eyes: anicteric sclerae, EOMI ENT: hearing grossly normal, normal oropharynx - Neck Neck: no lymphadenopathy - Respiratory Respiratory: right: diminished, left: CTA - Cardiovascular Rhythm: regular Heart sounds: normal: S1, S2 Abnormal Heart Sounds: no systolic murmur, no diastolic murmur, no rub, no S3 Gallop, no S4 Gallop, no click, no other leg Peripheral Edema: bilateral: None - Gastrointestinal General gastrointestinal: no absent bowel sounds, no decreased bowel sounds, no distended, no hepatomegaly, no hyperactive bowel sounds, normal bowel sounds, no organomegaly, no rigid, no scaphoid, soft, no splenomegaly, no tenderness, no umbilical hernia, no ventral hernia - Integumentary Integumentary: pale - Neurologic Neurologic: CNII-XII intact - Musculoskeletal Musculoskeletal: generalized weakness - Psychiatric Psychiatric: A&O x's 3 Results CBC & Chem 7: 03/20/24 06:54 03/20/24 06:54 Labs: Abnormal Lab Results - Last 24 Hours (Table) 03/19/24 03/19/24 03/20/24 Range/Units 06:01 06:01 06:54 RBC 2.87 L 3.16 L (4.40-5.60) X 10*6/uL Hgb 7.4 L 8.4 L D (13.0-17.0) g/dL Hct 23.8 L 26.6 L (39.6-50.0) % MCH 25.8 L (27.0-32.0) pg MCHC 31.1 L (32.0-37.0) g/dL RDW 17.7 H 18.0 H (11.5-14.5) % Calcium 7.4 L (8.7-10.3) mg/dL Chest x-ray: report reviewed Abdominal x-ray: report reviewed CT scan - abdomen: report reviewed CT scan - pelvis: report reviewed Assessment and Plan (1) Liver lesion Current Visit: Yes Status: Acute Priority: High Code(s): K76.9 - LIVER DISEASE, UNSPECIFIED SNOMED Code(s): 218035871 (2) Abdominal pain Current Visit: Yes Status: Acute Priority: High Code(s): R10.9 - UNSPECIFIED ABDOMINAL PAIN SNOMED Code(s): 69808096 (3) Bilateral pleural effusion Current Visit: Yes Status: Acute Priority: High Code(s): J90 - PLEURAL EFFUSION, NOT ELSEWHERE CLASSIFIED SNOMED Code(s): 739536765 Plan: Liver lesion, abdominal pain, abnormal thickening in the bowel -Discussed concerning findings on imaging for malignancy with patient and at the bedside. -Patient is already had thoracentesis, pleural fluid cytology pending. It was discussed with the patient and his that if the pleural fluid does not show any signs of malignancy the next target for biopsy would be one of the liver lesions. Patient and verbalized understanding and agree with that plan. -Case was discussed with the Surgeon. Patient currently is having bowel movements. Colonoscopy can be considered in the future if needed for biopsy or if there are concerns for obstruction. Planning for conservative management at this time. Anemia. -Likely 2/2 GI abnormalities, poor oral intake -Anemia workup ordered. -Transfuse for a Hgb <7 or if symptomatic Doctor attests: I performed a history and physical examination of this patient, developed impression and plan of care. Discussed with dictator. I agree with dictators note, documented as a scribe.
[2024-03-20 22:51] LABS: Glucose, BF Source Pleural Fluid; Glucose, Body Fluid 117 mg/dL; LDH, Body Fluid Source Pleural Fluid; T. Protein, Body Fluid Source Pleural Fluid; Total Protein, Body Fluid 1680 mg/dL
[2024-03-21 02:28] LABS: Reticulocyte % 1.89 % (0.10-1.80)
[2024-03-21 03:43] LABS: % Iron Saturation 6.1 (15.00-50.00); Ferritin 99.3 ng/mL (22.0-322.0)
[2024-03-21 08:54] LABS: ALT 99 U/L (10-49); AST 119 U/L (14-35); Albumin 2.8 g/dL (3.8-4.9); Albumin/Globulin Ratio 1.56 Ratio (1.60-3.17); Alkaline Phosphatase 892 U/L (41-126); BUN/Creat Ratio 8.71 Ratio (12.00-20.00); Blood Urea Nitrogen 6.1 mg/dL (9.0-27.0); Calcium 7.7 mg/dL (8.7-10.3); Carbon Dioxide 23.9 mmol/L (21.6-31.8); Chloride 105 mmol/L (96-109); Globulin 1.8 g/dL (1.6-3.3); Glucose 114 mg/dL (70-110); Potassium 3.6 mmol/L (3.5-5.5); Sodium 138 mmol/L (135-145); Total Bilirubin 1.4 mg/dL (0.3-1.2); Total Protein 4.6 g/dL (6.2-8.2)
[2024-03-21] MEDS: FUROSEMIDE 20 MG TAB PO SCH (13:03)
--- NOTE | 2024-03-21 13:28 | P.PN ---
Subjective Progress Note Date: 03/21/24 Patient is an 88-year-old male with past medical history significant for coronary artery disease with previous PCI/stent, aortic valve stenosis with previous TAVR, history of prostate CA, former tobacco smoker. Of note, patient states he has had multiple hospitalizations for abdominal complaints during the last 3 months, and was just recently hospitalized at [facility] for bowel obstruction. Preceding this hospitalization he was complaining of nausea, vomiting, abdominal pain, and black tarry BMs. While inpatient, did not receive any surgical interventions. His symptoms resolved, and states he was feeling well on discharge. Him and his live at an assisted living community, [facility]. He has been tolerating soft foods and liquids. Denies further episodes of melena, hematochezia, nausea, vomiting, or hematemesis. Endorses some right upper quadrant abdominal discomfort with palpation. Him and his noticed that he was more pale than normal. States that a nurse recommended that he come to Emergency Department to be evaluated on March 18. In the emergency department included a CAT scan of abdomen/pelvis with contrast which demonstrated new moderate to large bilateral pleural effusions and bibasilar compressive atelectasis. Multiple hypodensities within the liver and it was recommended to rule out metastatic disease. Diffuse small bowel thickening and dilated fluid-filled appendix. Most likely indicating acute inflammatory process. No obvious bowel obstructions or transition point. Small amount of free intraperitoneal fluid. General surgery was consulted for the CT findings, and I do not believe they are recommending any surgical intervention. There is a liver MRI scheduled. Pulmonary consulted for the patient's bilateral pleural effusions, that were noted on abdominal CT. No follow-up chest x-ray has yet been obtained. Chest ultrasound of the right chest demonstrating a 17.7 cm right pleural effusion which was marked for possible thoracentesis. I am seeing this patient on the general medical floor. He is on room air. Denies any shortness of breath, cough, fevers, chills, chest pain. Denies history of heart failure. States that he did recently have a valve replaced at [facility] in September,. Admits bilateral lower extremity swelling. Denies any history of known active malignancy. No previous history of pleural effusions or thoracentesis. He takes Plavix and aspirin outpatient basis. CBC from yesterday: WBC count 5.26, hemoglobin down to 7.4 g/dL, hematocrit 23.8, platelets 222. This is approximately 3 g drop in his hemoglobin. CMP is unremarkable, electrolytes WDL, creatinine 0.6, AST 59, ALT 48, ALP 651. NT proBNP was elevated 8470. Normal saline is infusing at 75 mL/h. Most recent recorded vital signs: Temperature 98.1 F, heart rate 95 bpm, blood pressure 150/63 mmHg, nontachypne ic, SpO2 was recorded at 93% on room air. The patient is seen today March 21, 2024 in follow-up on the regular medical floor. He is sitting up in bed. Awake and alert in no acute distress. Maint aining good O2 saturation in the mid 90s on room air. He is been afebrile. Hemodynamically stable. Straw-colored fluid removed. Fluid analysis was transudate with a protein of 1.6 and LDH 103. Cytology pending. Chest x-ray showed no evidence of pneumothorax. Significant improvement. Sodium 138. Potassium 3.6. Bicarb 24. BUN 6. Creatinine 0.7. Glucose 114. AST 119. ALT 99. Alk phos 892. MRI of the liver reveals multiple new small lesions throughout the liver consistent/strongly suspicious for diffuse metastatic disease. Objective - Vital Signs Vital signs: Vital Signs Temp 98.6 F 03/21/24 07:00 Pulse 89 03/21/24 07:00 Resp 16 03/21/24 08:00 BP 170/67 03/21/24 07:00 Pulse Ox 95 03/21/24 07:00 FiO2 Intake & Output 03/20/24 03/21/24 03/21/24 18:59 06:59 18:59 Intake Total 240 Balance 240 Intake: Oral 240 Other: Voiding Method Toilet Toilet Urinal Urinal # Voids 2 4 - Exam GENERAL EXAM: Alert, pale, pleasant 88-year-old male, sitting up in bed, on room air, comfortable in no apparent distress. HEAD: Normocephalic and atraumatic EYES: Normal reaction of pupils, equal size. NOSE: Clear with pink turbinates. THROAT: No erythema or exudates. NECK: No masses, no JVD. CHEST: No chest wall deformity. LUNGS: Equal air entry with diminished bibasilar lung sounds. No crackles, wheeze, rhonchi or dullness. CVS: S1 and S2 normal with no audible murmur, regular rhythm. No extra heart sounds ABDOMEN: No hepatosplenomegaly, active bowel sounds, no guarding or rigidity. SPINE: No scoliosis or deformity SKIN: No rashes CENTRAL NERVOUS SYSTEM: No focal deficits, tone is normal in all 4 extremities. EXTREMITIES: There is 2+ bilateral lower extremity pitting edema. No clubbing, or cyanosis. Peripheral pulses are intact. - Labs CBC & Chem 7: 03/20/24 06:54 03/21/24 05:06 Labs: Abnormal Lab Results - Last 24 Hours (Table) 03/20/24 03/20/24 03/20/24 Range/Units 06:54 18:30 18:30 Retic Count 1.89 H (0.10-1.80) % BUN (9.0-27.0) mg/dL BUN/Creatinine Ratio (12.00-20.00) Ratio Glucose (70-110) mg/dL Calcium (8.7-10.3) mg/dL Iron 18 L (65-175) UG/DL % Saturation 6.10 L (15.00-50.00) Total Bilirubin (0.3-1.2) mg/dL AST (14-35) U/L ALT (10-49) U/L Alkaline Phosphatase (41-126) U/L Lactate Dehydrogenase 248 H (120-246) U/L Total Protein 4.7 L (6.2-8.2) g/dL Albumin (3.8-4.9) g/dL Albumin/Globulin Ratio (1.60-3.17) Ratio Vitamin B12 1636.0 H (200.0-944.0) pg/mL 03/21/24 Range/Units 05:06 Retic Count (0.10-1.80) % BUN 6.1 L (9.0-27.0) mg/dL BUN/Creatinine Ratio 8.71 L (12.00-20.00) Ratio Glucose 114 H (70-110) mg/dL Calcium 7.7 L (8.7-10.3) mg/dL Iron (65-175) UG/DL % Saturation (15.00-50.00) Total Bilirubin 1.4 H (0.3-1.2) mg/dL AST 119 H (14-35) U/L ALT 99 H (10-49) U/L Alkaline Phosphatase 892 H (41-126) U/L Lactate Dehydrogenase (120-246) U/L Total Protein 4.6 L (6.2-8.2) g/dL Albumin 2.8 L (3.8-4.9) g/dL Albumin/Globulin Ratio 1.56 L (1.60-3.17) Ratio Vitamin B12 (200.0-944.0) pg/mL Microbiology - Last 24 Hours (Table) 03/20/24 08:45 Gram Stain - Preliminary Pleural Fluid Body Fluid Culture - Preliminary Assessment and Plan Assessment: Bilateral pleural effusions, noted on CTA of the abdomen/pelvis, new from prior imaging. No follow chest x-ray has been obtained yet. A chest ultrasound was performed on the right side, demonstrating a 17.7 cm fluid pocket. NT proBNP elevated at 8470. Status post right sided thoracentesis on 03/20/2024 with 500 cc of straw-colored fluid removed. Transudate with the protein of 1.6, LDH 103. Cytology pending Abdominal pain, CT scan of abdomen/pelvis with contrast which demonstrated moderate to large bilateral pleural effusions and bibasilar compressive atelectasis. Multiple hypodensities within the liver and it was recommended to rule out metastatic disease. Diffuse small bowel thickening and dilated fluid- filled appendix. Most likely indicating acute inflammatory process. No obvious bowel obstructions or transition point. Small amount of free intraperitoneal fluid. General surgery following, no surgical interventions planned as of yet Multiple hypodensities within the liver, recommended to exclude metastatic disease Anemia, over last 24 hours patient has had a 3 g drop in his hemoglobin down to 7.4 g/dL. Rule out occult bleeding. History of valvular heart disease, most recent available echocardiogram from 03/19/2023 estimating preserved left ventricular ejection fraction of 50 to 55% as well as mild mitral stenosis, moderate MR, and mild to moderate aortic stenosis. Patient reportedly underwent valve replacement at outside facility over the summer. History of coronary disease with previous PCI/stenting Hypertension History of hyperlipidemia History of prostate cancer Remote history of tobacco use Plan: The patient was seen and evaluated Labs and medications reviewed Remains anemic Stable and on room air MRI of the liver reviewed Suspect metastatic disease Pleural fluid transudate Cytology pending Plan is for colonoscopy possibly 03/24/2024 Will continue to follow I have personally seen and examined the patient, performed the documentation and the assessment and plan as written. Number of minutes spent on the visit: 10 Dictation was produced using [employer] dictation software. Please excuse any grammatical, word or spelling errors.
--- NOTE | 2024-03-21 13:52 | P.PN ---
Subjective Progress Note Date: 03/21/24 SURGICAL PROGRESS NOTE CHIEF COMPLAINT: Weakness HISTORY OF PRESENT ILLNESS: Patient lying in bed comfortably. He is complaining about the food. He wants to eat. He denies any nausea or vomiting. Denies any abdominal pain. Does report having black stools before coming in. He reports that he had a osullivan formed stool today. MRI of the liver reports a suboptimal study but presence of multiple new small lesions throughout the liver is consistent and strongly suspicious for diffuse metastatic disease. Patient's liver enzymes are elevated. Hemoglobin 8.4 vital stable. Results from pleural effusion thoracentesis pending Patient seen and examined with Dr. Marie PHYSICAL EXAM: VITAL SIGNS: Reviewed. GENERAL: pale ABDOMEN: Soft. Nondistended. Nontender. No rebound or guarding. NEUROLOGIC: Alert and oriented. Cranial nerves II through XII grossly intact. ASSESSMENT: 1. Abdominal distention and mild abdominal discomfort. CT scan reported no evidence of bowel obstruction. Did report diffuse small bowel wall thickening and fluid-filled appendix. Patient has no right lower quadrant abdominal pain. 2. Liver lesions noted on MRI and CT 3. History of prostate cancer 4. Moderate protein calorie malnutrition 5. Anemia 6. Pleural effusion status post thoracentesis PLAN: -Patient scheduled for EGD and colonoscopy on Sunday with Dr. Marie -Recommend that patient stays inpatient for endoscopies -Start regular diet today Physician Bulk Plant Manager note has been reviewed by physician. Signing provider agrees with the documented findings, assessment, and plan of care. Objective - Vital Signs Vital signs: Vital Signs Temp 98.6 F 03/21/24 07:00 Pulse 89 03/21/24 07:00 Resp 16 03/21/24 08:00 BP 170/67 03/21/24 07:00 Pulse Ox 95 03/21/24 07:00 FiO2 Intake & Output 03/20/24 03/21/24 03/21/24 18:59 06:59 18:59 Intake Total 240 Balance 240 Intake: Oral 240 Other: Voiding Method Toilet Toilet Urinal Urinal # Voids 2 4 - Labs CBC & Chem 7: 03/20/24 06:54 03/21/24 05:06 Labs: Abnormal Lab Results - Last 24 Hours (Table) 03/20/24 03/20/24 03/20/24 Range/Units 06:54 18:30 18:30 Retic Count 1.89 H (0.10-1.80) % BUN (9.0-27.0) mg/dL BUN/Creatinine Ratio (12.00-20.00) Ratio Glucose (70-110) mg/dL Calcium (8.7-10.3) mg/dL Iron 18 L (65-175) UG/DL % Saturation 6.10 L (15.00-50.00) Total Bilirubin (0.3-1.2) mg/dL AST (14-35) U/L ALT (10-49) U/L Alkaline Phosphatase (41-126) U/L Lactate Dehydrogenase 248 H (120-246) U/L Total Protein 4.7 L (6.2-8.2) g/dL Albumin (3.8-4.9) g/dL Albumin/Globulin Ratio (1.60-3.17) Ratio Vitamin B12 1636.0 H (200.0-944.0) pg/mL 03/21/24 Range/Units 05:06 Retic Count (0.10-1.80) % BUN 6.1 L (9.0-27.0) mg/dL BUN/Creatinine Ratio 8.71 L (12.00-20.00) Ratio Glucose 114 H (70-110) mg/dL Calcium 7.7 L (8.7-10.3) mg/dL Iron (65-175) UG/DL % Saturation (15.00-50.00) Total Bilirubin 1.4 H (0.3-1.2) mg/dL AST 119 H (14-35) U/L ALT 99 H (10-49) U/L Alkaline Phosphatase 892 H (41-126) U/L Lactate Dehydrogenase (120-246) U/L Total Protein 4.6 L (6.2-8.2) g/dL Albumin 2.8 L (3.8-4.9) g/dL Albumin/Globulin Ratio 1.56 L (1.60-3.17) Ratio Vitamin B12 (200.0-944.0) pg/mL Microbiology - Last 24 Hours (Table) 03/20/24 08:45 Gram Stain - Preliminary Pleural Fluid Body Fluid Culture - Preliminary
--- NOTE | 2024-03-21 14:00 | P.PN ---
Subjective Progress Note Date: 03/21/24 No acute events. Pt reports he has noted darker stools yesterday and today, unsure if black. Hgb 8.4. Iron studies consistent with JASON, parenteral iron started Plan for colonoscopy Sunday Objective - Vital Signs Vital signs: Vital Signs Temp 98.6 F 03/21/24 07:00 Pulse 89 03/21/24 07:00 Resp 16 03/21/24 08:00 BP 170/67 03/21/24 07:00 Pulse Ox 95 03/21/24 07:00 FiO2 Intake & Output 03/20/24 03/21/24 03/21/24 18:59 06:59 18:59 Intake Total 240 Balance 240 Intake: Oral 240 Other: Voiding Method Toilet Toilet Urinal Urinal # Voids 2 4 - Constitutional General appearance: Present: no acute distress - EENT Eyes: Present: anicteric sclerae ENT: Present: hearing grossly normal - Respiratory Details: breathing is even and unlabored - Cardiovascular Details: skin warm and dry - Integumentary Integumentary: Absent: cyanotic - Musculoskeletal Musculoskeletal: Present: generalized weakness - Psychiatric Psychiatric: Present: A&O x's 3 - Labs CBC & Chem 7: 03/20/24 06:54 03/21/24 05:06 Labs: Abnormal Lab Results - Last 24 Hours (Table) 03/20/24 03/20/24 03/20/24 Range/Units 06:54 18:30 18:30 Retic Count 1.89 H (0.10-1.80) % BUN (9.0-27.0) mg/dL BUN/Creatinine Ratio (12.00-20.00) Ratio Glucose (70-110) mg/dL Calcium (8.7-10.3) mg/dL Iron 18 L (65-175) UG/DL % Saturation 6.10 L (15.00-50.00) Total Bilirubin (0.3-1.2) mg/dL AST (14-35) U/L ALT (10-49) U/L Alkaline Phosphatase (41-126) U/L Lactate Dehydrogenase 248 H (120-246) U/L Total Protein 4.7 L (6.2-8.2) g/dL Albumin (3.8-4.9) g/dL Albumin/Globulin Ratio (1.60-3.17) Ratio Vitamin B12 1636.0 H (200.0-944.0) pg/mL 03/21/24 Range/Units 05:06 Retic Count (0.10-1.80) % BUN 6.1 L (9.0-27.0) mg/dL BUN/Creatinine Ratio 8.71 L (12.00-20.00) Ratio Glucose 114 H (70-110) mg/dL Calcium 7.7 L (8.7-10.3) mg/dL Iron (65-175) UG/DL % Saturation (15.00-50.00) Total Bilirubin 1.4 H (0.3-1.2) mg/dL AST 119 H (14-35) U/L ALT 99 H (10-49) U/L Alkaline Phosphatase 892 H (41-126) U/L Lactate Dehydrogenase (120-246) U/L Total Protein 4.6 L (6.2-8.2) g/dL Albumin 2.8 L (3.8-4.9) g/dL Albumin/Globulin Ratio 1.56 L (1.60-3.17) Ratio Vitamin B12 (200.0-944.0) pg/mL Microbiology - Last 24 Hours (Table) 03/20/24 08:45 Gram Stain - Preliminary Pleural Fluid Body Fluid Culture - Preliminary - Imaging and Cardiology MRI - abdomen: report reviewed Assessment and Plan (1) Abdominal pain Current Visit: Yes Status: Acute Priority: High Code(s): R10.9 - UNSPECIFIED ABDOMINAL PAIN SNOMED Code(s): 31193289 (2) Bilateral pleural effusion Current Visit: Yes Status: Acute Priority: High Code(s): J90 - PLEURAL EFFUSION, NOT ELSEWHERE CLASSIFIED SNOMED Code(s): 094002579 (3) Liver lesion Current Visit: Yes Status: Acute Priority: High Code(s): K76.9 - LIVER DISEASE, UNSPECIFIED SNOMED Code(s): 934628443 Plan: Liver lesion, abdominal pain, abnormal thickening in the bowel -Discussed concerning findings on imaging for malignancy with patient and at the bedside. -S/p thoracentesis, pleural fluid cytology pending. It was discussed with the patient and his that if the pleural fluid does not show any signs of malignancy the next target for biopsy would be one of the liver lesions. However, colonoscopy now planned for Sunday, hopefully biopsies will be able to be obtained during procedure. Patient and verbalized understanding and agree with that plan -MRI liver showing suboptimal study, with presence of multiple new small lesions throughout the liver -Surgery following. Remote history of prostate cancer? -When discussed history today, pt and denied history of prostate cancer. But states he may remember having a procedure done to his prostate, >20-30 years. Unsure if he had systemic treatment, surgery or radiation -Last PSA in EMR was from 10/2022, normal at 0.900. Will obtain repeat PSA Anemia. -Likely 2/2 GI abnormalities, poor oral intake. Reports he has noted darker stools yesterday and today, unsure if black or darker brown. Hgb stable, 8.4 -Anemia workup consistent with JASON, parenteral iron started x 4 doses -Transfuse for a Hgb <7 or if symptomatic
--- NOTE | 2024-03-21 14:46 | P.PN ---
Subjective Progress Note Date: 03/21/24 Per HPI, "Patient is a 88-year-old male with history of chest pain/angina, hyperlipidemia, sleep apnea, history of prostate cancer presented to the emergency department with abdominal pain. Patient states that for the past month he has seen in the emergency department about 3 times for small bowel obstruction. He was recently discharged about a week ago from where he was admitted for SBO. Patient was seen at bedside today. Reported that yesterday his nurse noticed the patient was looking pale and suggested him to be evaluated in the ED. patient does report having a history of SBO over the past month which required multiple hospitalizations. Patient does admit to having several episodes of watery diarrhea over the past few days. He denies fever, chills, chest pain, shortness of breath, belly pain, nausea or vomiting, dysuria, hematochezia or melena. ED documentation reviewed. In the ED patient was treated with normal saline at 75 cc an hour, aspirin 81 mg daily, Plavix 75 mg daily, Imdur 60 mg daily, losartan 50 mg daily, Protonix 40 mg p.o. Lipitor 40 mg at bedtime, metoprolol titrate 25 mg twice daily Vitals on admission temperature 98, pulse rate 88, respiratory rate 18, blood pressure 177/73, O2 sat 96% on room air EKG independently interpreted as sinus rhythm with frequent supraventricular premature complexes with ventricular rate of 88 bpm, QTc interval 459 ms, left bundle branch block Abdominal x-ray shows gaseous dilation of large bowel, nonspecific bowel gas pattern without radiographic evidence for acute process CT abdomen pelvis with contrast shows moderate to large bilateral pleural effusions and bibasilar infiltrates/atelectasis. Multiple hypodensities within the liver and metastatic disease cannot be excluded. MRI of the liver with contrast is recommended for further evaluation. Diffuse small bowel with wall thickening and dilated fluid-filled appendix. Most likely indicating acute inflammatory process. There is no bowel obstruction. Small amount of free intraperitoneal fluid. Labs on admission show WBC 5.26, hemoglobin 7.4, hematocrit 23.8, platelets 222, sodium 139, potassium 3.9, chloride 105, carbon dioxide 31, BUN 14, creatinine 0.69, glucose 123, alkaline phosphatase 651" Progress Notes for 03/20/2024: Patient was seen at bedside today. Reports feeling general weakness. Patient underwent a thoracentesis this morning by Dr. Dominguez. Currently pending pleural fluid results to come back. Patient reports that his abdominal pain has resolved. He denies fever, chills, chest pain, shortness of breath, nausea, vomiting, belly pain, dysuria. Progress note for 03/21/2024: Patient was seen at bedside today. Patient reports that his abdominal pain has been resolved. He still reports general weakness. Pleural fluid results consistent with transudate. Liver MRI yesterday showed presence of multiple new small lesions throughout the liver consistent/suspicious for diffuse metastatic disease. Surgery team would like patient to stay here over the weekend. Patient will get a colonoscopy on Sunday with Dr. Marie. Review of Systems Constitutional: Denies chills, Denies fever Eyes: denies blurred vision, double vision or pain Ears, nose, mouth and throat: Denies headache, Denies sore throat Cardiovascular: Denies chest pain, Denies shortness of breath Respiratory: Denies cough Gastrointestinal: Denies abdominal pain, Denies diarrhea, Denies nausea, Denies vomiting Musculoskeletal: Denies myalgias Integumentary: Denies pruritus, Denies rash Neurological: Denies numbness, Denies weakness Psychiatric: Denies anxiety, Denies depression Endocrine: Reports fatigue, Denies weight change GENERAL: This is a 88-year-old in no apparent distress at the time of examination. Pleasant and cooperative. HEENT: Head is atraumatic, normocephalic. Pupils are equal, round, and reactive to light. Sclerae anicteric. Conjunctivae are clear. Mucus membranes of the mouth are moist. Neck is supple. RESPIRATORY: Clear to auscultation. No wheezes, rales, or rhonchi. No use of accessory muscles. Patient maintaining oxygen saturation greater than 92%. No chest wall tenderness is noted on palpation or with deep breathing. CARDIOVASCULAR: Regular rate and rhythm. S1 and S2 noted. No systolic or diastolic murmur auscultated. No JVD noted. No S3 or S4 noted. GASTROINTESTINAL: No distention noted. Abdomen soft and round. Normal active bowel sounds auscultated x 4 quadrants. No pain or tenderness noted upon palpation. INTEGUMENTARY: No cyanosis. No jaundice. No rashes noted. No cellulitis noted. EXTREMITIES: 2+ peripheral pulses. No evidence of peripheral edema. No calf tenderness noted. NEUROLOGIC: Cranial nerves II-XII intact. PSYCHIATRIC: Awake, alert. Appropriate affect. Intact judgement and insight. Assessment/Plan: Patient is a 88-year-old male with history of chest pain/angina, hyperlipidemia, sleep apnea, history of prostate cancer presented to the emergency department with abdominal pain. The patient will be admitted to internal medicine service. Active: #. Abdominal distention and abdominal pain, resolved #. Multiple hypodensities within the liver, suspecting metastatic lesions #. History of recurrent small bowel obstruction Liver MRI on 03/20/2024 showed presence of multiple new small lesions throughout the liver consistent/suspicious for diffuse metastatic disease. Oncology recommended liver biopsy if pleural fluid does not show any signs of malignancy Discontinue normal saline General Surgery plan to do colonoscopy on Sunday. Recommend patient to stay inpatient over the weekend. Monitor morning CBC BNP 8470 AST 119 ALT 99 Alkaline phosphatase 892 #. Pleural effusions, status post thoracentesis on 03/20/2024 CT abdomen pelvis shows moderate to large bilateral pleural effusions and bibasilar infiltrates/atelectasis Echocardiogram showed left ventricular ejection fraction of 50 to 55% Pleural fluid results consistent with transudate Cytology pending #. Normocytic anemia Hemoglobin 8.4 MCV 84.1 Patient denies hematochezia/melena Monitor morning CBC Transfuse if hemoglobin less than 7.0 Chronic: #. Hyperlipidemia #. Hypertension #. GERD Continue Lipitor 40 mg at bedtime Continue losartan 50 mg daily Continue metoprolol tartrate 25 mg twice daily Continue Protonix 40 mg F: No restrictions E: Replete as needed N: Clear liquid diet A: EMS DVT prophylaxis: Pneumatic compression sleeve The patient is admitted with an anticipated more than 2 midnight stay for evaluation of abdominal distention/abdominal pain CODE STATUS: Full code Discussed with: Patient Anticipated discharge place: Home Objective - Vital Signs Vital signs: Vital Signs Temp 98.6 F 03/21/24 07:00 Pulse 89 03/21/24 07:00 Resp 16 03/21/24 08:00 BP 170/67 03/21/24 07:00 Pulse Ox 95 03/21/24 07:00 FiO2 Intake & Output 03/20/24 03/21/24 03/21/24 18:59 06:59 18:59 Intake Total 240 Balance 240 Intake: Oral 240 Other: Voiding Method Toilet Toilet Urinal Urinal # Voids 2 4 - Labs CBC & Chem 7: 03/20/24 06:54 03/21/24 05:06 Labs: Abnormal Lab Results - Last 24 Hours (Table) 03/20/24 03/20/24 03/20/24 Range/Units 06:54 18:30 18:30 Retic Count 1.89 H (0.10-1.80) % BUN (9.0-27.0) mg/dL BUN/Creatinine Ratio (12.00-20.00) Ratio Glucose (70-110) mg/dL Calcium (8.7-10.3) mg/dL Iron 18 L (65-175) UG/DL % Saturation 6.10 L (15.00-50.00) Total Bilirubin (0.3-1.2) mg/dL AST (14-35) U/L ALT (10-49) U/L Alkaline Phosphatase (41-126) U/L Lactate Dehydrogenase 248 H (120-246) U/L Total Protein 4.7 L (6.2-8.2) g/dL Albumin (3.8-4.9) g/dL Albumin/Globulin Ratio (1.60-3.17) Ratio Vitamin B12 1636.0 H (200.0-944.0) pg/mL 03/21/24 Range/Units 05:06 Retic Count (0.10-1.80) % BUN 6.1 L (9.0-27.0) mg/dL BUN/Creatinine Ratio 8.71 L (12.00-20.00) Ratio Glucose 114 H (70-110) mg/dL Calcium 7.7 L (8.7-10.3) mg/dL Iron (65-175) UG/DL % Saturation (15.00-50.00) Total Bilirubin 1.4 H (0.3-1.2) mg/dL AST 119 H (14-35) U/L ALT 99 H (10-49) U/L Alkaline Phosphatase 892 H (41-126) U/L Lactate Dehydrogenase (120-246) U/L Total Protein 4.6 L (6.2-8.2) g/dL Albumin 2.8 L (3.8-4.9) g/dL Albumin/Globulin Ratio 1.56 L (1.60-3.17) Ratio Vitamin B12 (200.0-944.0) pg/mL Microbiology - Last 24 Hours (Table) 03/20/24 08:45 Gram Stain - Preliminary Pleural Fluid Body Fluid Culture - Preliminary
[2024-03-21] MEDS: SODIUM FERRIC GLUCONAT-SUCROSE 125 MG in SODIUM CHLORIDE 0.9% 100 ML IVPB SCH (17:39)
[2024-03-22 09:37] LABS: ALT 113 U/L (10-49); AST 132 U/L (14-35); Albumin 2.7 g/dL (3.8-4.9); Alkaline Phosphatase 942 U/L (41-126); BUN/Creat Ratio 7.86 Ratio (12.00-20.00); Blood Urea Nitrogen 5.5 mg/dL (9.0-27.0); Calcium 7.7 mg/dL (8.7-10.3); Carbon Dioxide 24.3 mmol/L (21.6-31.8); Chloride 106 mmol/L (96-109); Globulin 1.8 g/dL (1.6-3.3); Glucose 117 mg/dL (70-110); Potassium 3.5 mmol/L (3.5-5.5); Sodium 139 mmol/L (135-145); Total Bilirubin 1.6 mg/dL (0.3-1.2); Total Protein 4.5 g/dL (6.2-8.2)
[2024-03-22 09:48] LABS: HCT 25.4 % (39.6-50.0); HGB 7.5 g/dL (13.0-17.0); MCH 24.8 pg (27.0-32.0); MCHC 29.5 g/dL (32.0-37.0); MCV 84.1 FL (80.0-97.0); Mean Platelet Volume 10.5 FL (9.5-12.2); NRBC Per 100 WBC 0 X 10*3/uL (0.00-0.01); Platelet Count 205 X 10*3/uL (140-440); RBC 3.02 X 10*6/uL (4.40-5.60); RDW 18.5 % (11.5-14.5); WBC 4.83 X 10*3/uL (4.50-10.00)
--- NOTE | 2024-03-22 11:02 | P.PN ---
Subjective Progress Note Date: 03/22/24 Patient is an 88-year-old male with past medical history significant for coronary artery disease with previous PCI/stent, aortic valve stenosis with previous TAVR, history of prostate CA, former tobacco smoker. Of note, patient states he has had multiple hospitalizations for abdominal complaints during the last 3 months, and was just recently hospitalized at [facility] for bowel obstruction. Preceding this hospitalization he was complaining of nausea, vomiting, abdominal pain, and black tarry BMs. While inpatient, did not receive any surgical interventions. His symptoms resolved, and states he was feeling well on discharge. Him and his live at an assisted living community, [facility]. He has been tolerating soft foods and liquids. Denies further episodes of melena, hematochezia, nausea, vomiting, or hematemesis. Endorses some right upper quadrant abdominal discomfort with palpation. Him and his noticed that he was more pale than normal. States that a nurse recommended that he come to Emergency Department to be evaluated on March 18. In the emergency department included a CAT scan of abdomen/pelvis with contrast which demonstrated new moderate to large bilateral pleural effusions and bibasilar compressive atelectasis. Multiple hypodensities within the liver and it was recommended to rule out metastatic disease. Diffuse small bowel thickening and dilated fluid-filled appendix. Most likely indicating acute inflammatory process. No obvious bowel obstructions or transition point. Small amount of free intraperitoneal fluid. General surgery was consulted for the CT findings, and I do not believe they are recommending any surgical intervention. There is a liver MRI scheduled. Pulmonary consulted for the patient's bilateral pleural effusions, that were noted on abdominal CT. No follow-up chest x-ray has yet been obtained. Chest ultrasound of the right chest demonstrating a 17.7 cm right pleural effusion which was marked for possible thoracentesis. I am seeing this patient on the general medical floor. He is on room air. Denies any shortness of breath, cough, fevers, chills, chest pain. Denies history of heart failure. States that he did recently have a valve replaced at [facility] in September,. Admits bilateral lower extremity swelling. Denies any history of known active malignancy. No previous history of pleural effusions or thoracentesis. He takes Plavix and aspirin outpatient basis. CBC from yesterday: WBC count 5.26, hemoglobin down to 7.4 g/dL, hematocrit 23.8, platelets 222. This is approximately 3 g drop in his hemoglobin. CMP is unremarkable, electrolytes WDL, creatinine 0.6, AST 59, ALT 48, ALP 651. NT proBNP was elevated 8470. Normal saline is infusing at 75 mL/h. Most recent recorded vital signs: Temperature 98.1 F, heart rate 95 bpm, blood pressure 150/63 mmHg, nontachypne ic, SpO2 was recorded at 93% on room air. The patient is seen today March 21, 2024 in follow-up on the regular medical floor. He is sitting up in bed. Awake and alert in no acute distress. Maint aining good O2 saturation in the mid 90s on room air. He is been afebrile. Hemodynamically stable. Straw-colored fluid removed. Fluid analysis was transudate with a protein of 1.6 and LDH 103. Cytology pending. Chest x-ray showed no evidence of pneumothorax. Significant improvement. Sodium 138. Potassium 3.6. Bicarb 24. BUN 6. Creatinine 0.7. Glucose 114. AST 119. ALT 99. Alk phos 892. MRI of the liver reveals multiple new small lesions throughout the liver consistent/strongly suspicious for diffuse metastatic disease. The patient is seen today March 22, 2024 in follow-up on the regular medical floor. He is awake and alert in no acute distress. Currently sitting up in bed. Maintaining O2 saturations in the 90s on room air. He is receiving iron supplement. Remains on diuretics. Protonix for GI prophylaxis. Pleural fluid culture cytology negative. Cultures pending. White count 4.8. Hemoglobin 7.5. Platelets 205. Sodium 139. Potassium 3.5. Bicarb 24. BUN 6. Creatinine 0.7. Glucose 117. AST 132. ALT 113. Alk phos 942. Objective - Vital Signs Vital signs: Vital Signs Temp 98.3 F 03/22/24 07:20 Pulse 89 03/22/24 07:20 Resp 16 03/22/24 08:00 BP 162/68 03/22/24 07:20 Pulse Ox 95 03/22/24 07:20 FiO2 Intake & Output 03/21/24 03/22/24 03/22/24 18:59 06:59 18:59 Intake Total 339 Balance 339 Intake: Oral 339 Other: Voiding Method Toilet Toilet Toilet Urinal Urinal Urinal # Voids 3 3 # Bowel Movements 1 - Exam GENERAL EXAM: Alert, pale, weak 88-year-old male, resting in bed, on room air, in no apparent distress. HEAD: Normocephalic and atraumatic EYES: Normal reaction of pupils, equal size. NOSE: Clear with pink turbinates. THROAT: No erythema or exudates. NECK: No masses, no JVD. CHEST: No chest wall deformity. LUNGS: Equal air entry with diminished bibasilar lung sounds. No crackles, wheeze, rhonchi or dullness. CVS: S1 and S2 normal with no audible murmur, regular rhythm. No extra heart sounds ABDOMEN: No hepatosplenomegaly, active bowel sounds, no guarding or rigidity. SPINE: No scoliosis or deformity SKIN: No rashes CENTRAL NERVOUS SYSTEM: No focal deficits, tone is normal in all 4 extremities. EXTREMITIES: There is 2+ bilateral lower extremity pitting edema. No clubbing, or cyanosis. Peripheral pulses are intact. - Labs CBC & Chem 7: 03/22/24 04:55 03/22/24 04:55 Labs: Abnormal Lab Results - Last 24 Hours (Table) 03/22/24 03/22/24 Range/Units 04:55 04:55 RBC 3.02 L (4.40-5.60) X 10*6/uL Hgb 7.5 L (13.0-17.0) g/dL Hct 25.4 L (39.6-50.0) % MCH 24.8 L (27.0-32.0) pg MCHC 29.5 L (32.0-37.0) g/dL RDW 18.5 H (11.5-14.5) % BUN 5.5 L (9.0-27.0) mg/dL BUN/Creatinine Ratio 7.86 L (12.00-20.00) Ratio Glucose 117 H (70-110) mg/dL Calcium 7.7 L (8.7-10.3) mg/dL Total Bilirubin 1.6 H (0.3-1.2) mg/dL AST 132 H (14-35) U/L ALT 113 H (10-49) U/L Alkaline Phosphatase 942 H (41-126) U/L Total Protein 4.5 L (6.2-8.2) g/dL Albumin 2.7 L (3.8-4.9) g/dL Albumin/Globulin Ratio 1.50 L (1.60-3.17) Ratio Microbiology - Last 24 Hours (Table) 03/20/24 08:45 Gram Stain - Preliminary Pleural Fluid Body Fluid Culture - Preliminary Assessment and Plan Assessment: Bilateral pleural effusions, noted on CTA of the abdomen/pelvis, new from prior imaging. No follow chest x-ray has been obtained yet. A chest ultrasound was performed on the right side, demonstrating a 17.7 cm fluid pocket. NT proBNP elevated at 8470. Status post right sided thoracentesis on 03/20/2024 with 500 cc of straw-colored fluid removed. Transudate with the protein of 1.6, LDH 103. Cytology negative for malignancy. Culture pending Abdominal pain, CT scan of abdomen/pelvis with contrast which demonstrated moderate to large bilateral pleural effusions and bibasilar compressive atelectasis. Multiple hypodensities within the liver and it was recommended to rule out metastatic disease. Diffuse small bowel thickening and dilated fluid- filled appendix. Most likely indicating acute inflammatory process. No obvious bowel obstructions or transition point. Small amount of free intraperitoneal fluid. General surgery following, no surgical interventions planned as of yet Multiple hypodensities within the liver, recommended to exclude metastatic disease Anemia, over last 24 hours patient has had a 3 g drop in his hemoglobin down to 7.4 g/dL. Rule out occult bleeding. History of valvular heart disease, most recent available echocardiogram from 03/19/2023 estimating preserved left ventricular ejection fraction of 50 to 55% as well as mild mitral stenosis, moderate MR, and mild to moderate aortic stenos is. Patient reportedly underwent valve replacement at outside facility over the summer. History of coronary disease with previous PCI/stenting Hypertension History of hyperlipidemia History of prostate cancer Remote history of tobacco use Plan: The patient was seen and evaluated Labs and medications reviewed Pleural fluid negative for malignancy Remains anemic Plan is for colonoscopy 03/24/2024 Will continue to follow I have personally seen and examined the patient, performed the documentation and the assessment and plan as written. Number of minutes spent on the visit: 10 Dictation was produced using [employer] dictation software. Please excuse any grammatical, word or spelling errors.
--- NOTE | 2024-03-22 12:48 | P.PN ---
Subjective Progress Note Date: 03/22/24 Per HPI, "Patient is a 88-year-old male with history of chest pain/angina, hyperlipidemia, sleep apnea, history of prostate cancer presented to the emergency department with abdominal pain. Patient states that for the past month he has seen in the emergency department about 3 times for small bowel obstruction. He was recently discharged about a week ago from [facility] where he was admitted for SBO. Patient was seen at bedside today. Reported that yesterday his nurse noticed the patient was looking pale and suggested him to be evaluated in the ED. patient does report having a history of SBO over the past month which required multiple hospitalizations. Patient does admit to having several episodes of watery diarrhea over the past few days. He denies fever, chills, chest pain, shortness of breath, belly pain, nausea or vomiting, dysuria, hematochezia or melena. ED documentation reviewed. In the ED patient was treated with normal saline at 75 cc an hour, aspirin 81 mg daily, Plavix 75 mg daily, Imdur 60 mg daily, losartan 50 mg daily, Protonix 40 mg p.o. Lipitor 40 mg at bedtime, metoprolol titrate 25 mg twice daily Vitals on admission temperature 98, pulse rate 88, respiratory rate 18, blood pressure 177/73, O2 sat 96% on room air EKG independently interpreted as sinus rhythm with frequent supraventricular premature complexes with ventricular rate of 88 bpm, QTc interval 459 ms, left bundle branch block Abdominal x-ray shows gaseous dilation of large bowel, nonspecific bowel gas pattern without radiographic evidence for acute process CT abdomen pelvis with contrast shows moderate to large bilateral pleural effusions and bibasilar infiltrates/atelectasis. Multiple hypodensities within the liver and metastatic disease cannot be excluded. MRI of the liver with contrast is recommended for further evaluation. Diffuse small bowel with wall thickening and dilated fluid-filled appendix. Most likely indicating acute inflammatory process. There is no bowel obstruction. Small amount of free intraperitoneal fluid. Labs on admission show WBC 5.26, hemoglobin 7.4, hematocrit 23.8, platelets 222, sodium 139, potassium 3.9, chloride 105, carbon dioxide 31, BUN 14, creatinine 0.69, glucose 123, alkaline phosphatase 651" Progress Notes for 03/20/2024: Patient was seen at bedside today. Reports feeling general weakness. Patient underwent a thoracentesis this morning by Dr. Dominguez. Currently pending pleural fluid results to come back. Patient reports that his abdominal pain has resolved. He denies fever, chills, chest pain, shortness of breath, nausea, vomiting, belly pain, dysuria. Progress note for 03/21/2024: Patient was seen at bedside today. Patient reports that his abdominal pain has been resolved. He still reports general weakness. Pleural fluid results consistent with transudate. Liver MRI yesterday showed presence of multiple new small lesions throughout the liver consistent/suspicious for diffuse metastatic disease. Surgery team would like patient to stay here over the weekend. Patient will get a colonoscopy on Sunday with Dr. Marie. Progress note for 03/22/2024: Patient was seen at bedside today. He still reports general weakness. Reports that that belly pain has worsened slightly. Pleural fluid negative for maligna ncy. Surgery team would like patient to stay here over the weekend. Plan is for colonoscopy on 03/24/2024. Review of Systems Constitutional: Denies chills, Denies fever Eyes: denies blurred vision, double vision or pain Ears, nose, mouth and throat: Denies headache, Denies sore throat Cardiovascular: Denies chest pain, Denies shortness of breath Respiratory: Denies cough Gastrointestinal: Denies abdominal pain, Denies diarrhea, Denies nausea, Denies vomiting Musculoskeletal: Denies myalgias Integumentary: Denies pruritus, Denies rash Neurological: Denies numbness, Denies weakness Psychiatric: Denies anxiety, Denies depression Endocrine: Reports fatigue, Denies weight change GENERAL: This is a 88-year-old in no apparent distress at the time of examination. Pleasant and cooperative. HEENT: Head is atraumatic, normocephalic. Pupils are equal, round, and reactive to light. Sclerae anicteric. Conjunctivae are clear. Mucus membranes of the mouth are moist. Neck is supple. RESPIRATORY: Clear to auscultation. No wheezes, rales, or rhonchi. No use of ac cessory muscles. Patient maintaining oxygen saturation greater than 92%. No chest wall tenderness is noted on palpation or with deep breathing. CARDIOVASCULAR: Regular rate and rhythm. S1 and S2 noted. No systolic or diastolic murmur auscultated. No JVD noted. No S3 or S4 noted. GASTROINTESTINAL: Diffuse abdominal tenderness. Soft. Normal active bowel sounds. No signs of peritonitis. INTEGUMENTARY: No cyanosis. No jaundice. No rashes noted. No cellulitis noted. EXTREMITIES: 2+ peripheral pulses. No evidence of peripheral edema. No calf tenderness noted. NEUROLOGIC: Cranial nerves II-XII intact. PSYCHIATRIC: Awake, alert. Appropriate affect. Intact judgement and insight. Assessment/Plan: Patient is a 88-year-old male with history of chest pain/angina, hyperlipidemia, sleep apnea, history of prostate cancer presented to the emergency department with abdominal pain. The patient will be admitted to internal medicine service. Active: #. Abdominal distention and abdominal pain, resolved #. Multiple hypodensities within the liver, suspecting metastatic lesions #. History of recurrent small bowel obstruction Liver MRI on 03/20/2024 showed presence of multiple new small lesions throughout the liver consistent/suspicious for diffuse metastatic disease. Oncology recommended liver biopsy if pleural fluid does not show any signs of malignancy Pleural fluid negative for malignancy Discontinue normal saline Plan is for colonoscopy 03/24/2024. Recommend patient to stay inpatient over the weekend. Monitor morning CBC and CMP Alkaline phosphatase 942 #. Pleural effusions, status post thoracentesis on 03/20/2024 CT abdomen pelvis shows moderate to large bilateral pleural effusions and bibasilar infiltrates/atelectasis Echocardiogram showed left ventricular ejection fraction of 50 to 55% Pleural fluid results consistent with transudate Cytology pending #. Normocytic anemia Hemoglobin 7.5 MCV 84.1 Patient denies hematochezia/melena Monitor morning CBC Transfuse if hemoglobin less than 7.0 Chronic: #. Hyperlipidemia #. Hypertension #. GERD Continue Lipitor 40 mg at bedtime Continue losartan 50 mg daily Continue metoprolol tartrate 25 mg twice daily Continue Protonix 40 mg F: No restrictions E: Replete as needed N: Full liquid diet A: EMS DVT prophylaxis: Pneumatic compression sleeve The patient is admitted with an anticipated more than 2 midnight stay for evaluation of abdominal distention/abdominal pain CODE STATUS: Full code Discussed with: Patient Anticipated discharge place: Home Objective - Vital Signs Vital signs: Vital Signs Temp 98.3 F 03/22/24 07:20 Pulse 89 03/22/24 07:20 Resp 16 03/22/24 08:00 BP 162/68 03/22/24 07:20 Pulse Ox 95 03/22/24 07:20 FiO2 Intake & Output 03/21/24 03/22/24 03/22/24 18:59 06:59 18:59 Intake Total 339 472 Balance 339 472 Intake: Oral 339 472 Other: Voiding Method Toilet Toilet Toilet Urinal Urinal Urinal # Voids 3 3 # Bowel Movements 1 - Labs CBC & Chem 7: 03/22/24 04:55 03/22/24 04:55 Labs: Abnormal Lab Results - Last 24 Hours (Table) 03/22/24 03/22/24 Range/Units 04:55 04:55 RBC 3.02 L (4.40-5.60) X 10*6/uL Hgb 7.5 L (13.0-17.0) g/dL Hct 25.4 L (39.6-50.0) % MCH 24.8 L (27.0-32.0) pg MCHC 29.5 L (32.0-37.0) g/dL RDW 18.5 H (11.5-14.5) % BUN 5.5 L (9.0-27.0) mg/dL BUN/Creatinine Ratio 7.86 L (12.00-20.00) Ratio Glucose 117 H (70-110) mg/dL Calcium 7.7 L (8.7-10.3) mg/dL Total Bilirubin 1.6 H (0.3-1.2) mg/dL AST 132 H (14-35) U/L ALT 113 H (10-49) U/L Alkaline Phosphatase 942 H (41-126) U/L Total Protein 4.5 L (6.2-8.2) g/dL Albumin 2.7 L (3.8-4.9) g/dL Albumin/Globulin Ratio 1.50 L (1.60-3.17) Ratio Microbiology - Last 24 Hours (Table) 03/20/24 08:45 Anaerobic Culture - Preliminary Pleural Fluid 03/20/24 08:45 Gram Stain - Preliminary Pleural Fluid Body Fluid Culture - Preliminary
--- NOTE | 2024-03-22 13:50 | P.PN ---
Subjective Progress Note Date: 03/22/24 CHIEF COMPLAINT: Acute bolus anemia HISTORY OF PRESENT ILLNESS: The patient is a 88-year-old male being seen for acute blast anemia. Since his admission, hemoglobin has declined from over 10- 7, 3 g/dL loss. His is at bedside. Patient reports per penis. He was tolerating clear liquids. He does not like the full liquid diet or eat ice cream. He denies any abdominal pain. He reports passing flatus. Patient has been seen by multiple consultants including oncology and pulmonary team. ROS: No reports of nausea and vomiting. No fevers or chills. No new chest pain. No productive sputum PHYSICAL EXAM: VITAL SIGNS: Reviewed CONSTITUTIONAL: Well developed and in no acute distress. EYES: Conjuctivae without sclera icterus. Extraocular movements grossly intact. HEAD, EARS, NOSE, THROAT: Moist buccal mucosa. Head is atraumatic, normocephalic. Hears conversational speech. No nasal drainage. RESPIRATORY: Non-labored respirations and equal bilateral excursions. CARDIOVASCULAR: Palpable 2+ radial pulses. ABDOMEN: No peritonitis. Nontender. MUSCULOSKELETAL: No gross deformity of the lower extremities noted. No clubbing. No cyanosis. SKIN: Good skin turgor. Well perfused. NEUROLOGIC: Cranial nerves II through XII grossly intact. No focal or lateralizing signs. PSYCH: Appropriate affect. Alert and oriented to person, place and time. CLINICAL LABS: Reviewed. Hemoglobin declined to 10.5 on admission to 7.5, acute anemia. WBC normal. LFTs moderately elevated. Vitamin B12 elevated. Cell cytology: Results demonstrates no malignant cells. STUDIES: CT of the of the abdomen pelvis reviewed on this admission demonstrates thickening along the cecum. Multiple densities abnormal liver highly suspicious for malignancy and clinical picture. This is my independent interpretation. Bilateral pleural effusions identified. ASSESSMENT: 1. Acute blood loss anemia 2. Abnormal CT scan for cecal thickening/mass 3. Abnormal CT scan for liver metastases PLAN: 1. Patient does have continued decline of his hemoglobin including 1 g drop in 24 hours. No obvious sign of bleeding. Do agree with upper and lower endoscopy. 2. As patient reports no significant diet during his admission, will have a trial of regular diet prior to his colon cleanse tomorrow. Objective - Vital Signs Vital signs: Vital Signs Temp 98.3 F 03/22/24 07:20 Pulse 89 03/22/24 07:20 Resp 16 03/22/24 08:00 BP 162/68 03/22/24 07:20 Pulse Ox 95 03/22/24 07:20 FiO2 Intake & Output 03/21/24 03/22/24 03/22/24 18:59 06:59 18:59 Intake Total 339 472 Balance 339 472 Intake: Oral 339 472 Other: Voiding Method Toilet Toilet Toilet Urinal Urinal Urinal # Voids 3 3 # Bowel Movements 1 - Labs CBC & Chem 7: 03/22/24 04:55 03/22/24 04:55 Labs: Abnormal Lab Results - Last 24 Hours (Table) 03/22/24 03/22/24 Range/Units 04:55 04:55 RBC 3.02 L (4.40-5.60) X 10*6/uL Hgb 7.5 L (13.0-17.0) g/dL Hct 25.4 L (39.6-50.0) % MCH 24.8 L (27.0-32.0) pg MCHC 29.5 L (32.0-37.0) g/dL RDW 18.5 H (11.5-14.5) % BUN 5.5 L (9.0-27.0) mg/dL BUN/Creatinine Ratio 7.86 L (12.00-20.00) Ratio Glucose 117 H (70-110) mg/dL Calcium 7.7 L (8.7-10.3) mg/dL Total Bilirubin 1.6 H (0.3-1.2) mg/dL AST 132 H (14-35) U/L ALT 113 H (10-49) U/L Alkaline Phosphatase 942 H (41-126) U/L Total Protein 4.5 L (6.2-8.2) g/dL Albumin 2.7 L (3.8-4.9) g/dL Albumin/Globulin Ratio 1.50 L (1.60-3.17) Ratio Microbiology - Last 24 Hours (Table) 03/20/24 08:45 Anaerobic Culture - Preliminary Pleural Fluid 03/20/24 08:45 Gram Stain - Preliminary Pleural Fluid Body Fluid Culture - Preliminary
[2024-03-23] MEDS: polyethylene glycoL 3350 17 GM POWD.PACK PO PRN (05:28)
[2024-03-23] MEDS: PEG 3350 (236 GM/BTL) + LYTES 4,000 ML BOTTLE PO ONE (08:00)
[2024-03-23] MEDS: ONDANSETRON ODT 4 MG TAB PO PRN (10:30)
[2024-03-23] MEDS ORDERED: ONDANSETRON 4 MG/2 ML VIAL IVP PRN (11:15)
--- NOTE | 2024-03-23 11:23 | P.PN ---
Subjective Progress Note Date: 03/23/24 Patient is an 88-year-old male with past medical history significant for coronary artery disease with previous PCI/stent, aortic valve stenosis with previous TAVR, history of prostate CA, former tobacco smoker. Of note, patient states he has had multiple hospitalizations for abdominal complaints during the last 3 months, and was just recently hospitalized at [facility] for bowel obstruction. Preceding this hospitalization he was complaining of nausea, vomiting, abdominal pain, and black tarry BMs. While inpatient, did not receive any surgical interventions. His symptoms resolved, and states he was feeling well on discharge. Him and his live at an assisted living community, [facility]. He has been tolerating soft foods and liquids. Denies further episodes of melena, hematochezia, nausea, vomiting, or hematemesis. Endorses some right upper quadrant abdominal discomfort with palpation. Him and his noticed that he was more pale than normal. States that a nurse recommended that he come to Emergency Department to be evaluated on March 18. In the emergency department included a CAT scan of abdomen/pelvis with contrast which demonstrated new moderate to large bilateral pleural effusions and bibasilar compressive atelectasis. Multiple hypodensities within the liver and it was recommended to rule out metastatic disease. Diffuse small bowel thickening and dilated fluid-filled appendix. Most likely indicating acute inflammatory process. No obvious bowel obstructions or transition point. Small amount of free intraperitoneal fluid. General surgery was consulted for the CT findings, and I do not believe they are recommending any surgical intervention. There is a liver MRI scheduled. Pulmonary consulted for the patient's bilateral pleural effusions, that were noted on abdominal CT. No follow-up chest x-ray has yet been obtained. Chest ultrasound of the right chest demonstrating a 17.7 cm right pleural effusion which was marked for possible thoracentesis. I am seeing this patient on the general medical floor. He is on room air. Denies any shortness of breath, cough, fevers, chills, chest pain. Denies history of heart failure. States that he did recently have a valve replaced at [facility] in September,. Admits bilateral lower extremity swelling. Denies any history of known active malignancy. No previous history of pleural effusions or thoracentesis. He takes Plavix and aspirin outpatient basis. CBC from yesterday: WBC count 5.26, hemoglobin down to 7.4 g/dL, hematocrit 23.8, platelets 222. This is approximately 3 g drop in his hemoglobin. CMP is unremarkable, electrolytes WDL, creatinine 0.6, AST 59, ALT 48, ALP 651. NT proBNP was elevated 8470. Normal saline is infusing at 75 mL/h. Most recent recorded vital signs: Temperature 98.1 F, heart rate 95 bpm, blood pressure 150/63 mmHg, nontachypne ic, SpO2 was recorded at 93% on room air. The patient is seen today March 21, 2024 in follow-up on the regular medical floor. He is sitting up in bed. Awake and alert in no acute distress. Maint aining good O2 saturation in the mid 90s on room air. He is been afebrile. Hemodynamically stable. Straw-colored fluid removed. Fluid analysis was transudate with a protein of 1.6 and LDH 103. Cytology pending. Chest x-ray showed no evidence of pneumothorax. Significant improvement. Sodium 138. Potassium 3.6. Bicarb 24. BUN 6. Creatinine 0.7. Glucose 114. AST 119. ALT 99. Alk phos 892. MRI of the liver reveals multiple new small lesions throughout the liver consistent/strongly suspicious for diffuse metastatic disease. The patient is seen today March 22, 2024 in follow-up on the regular medical floor. He is awake and alert in no acute distress. Currently sitting up in bed. Maintaining O2 saturations in the 90s on room air. He is receiving iron supplement. Remains on diuretics. Protonix for GI prophylaxis. Pleural fluid culture cytology negative. Cultures pending. White count 4.8. Hemoglobin 7.5. Platelets 205. Sodium 139. Potassium 3.5. Bicarb 24. BUN 6. Creatinine 0.7. Glucose 117. AST 132. ALT 113. Alk phos 942. The patient is seen today March 23, 2024 in follow-up on the regular medical floor. He is currently resting in bed. Awake and alert in no acute distress. He is having more issues with abdominal discomfort and belching. No recent bowel movement. Plan is for EGD/colonoscopy tomorrow. He is continued on iron supplements. Continued on MiraLAX. Remains afebrile. Hemodynamically stable. Maintaining good O2 saturations in the mid 90s on room air. Objective - Vital Signs Vital signs: Vital Signs Temp 97.9 F 03/23/24 07:00 Pulse 92 03/23/24 07:00 Resp 18 03/23/24 08:00 BP 179/70 03/23/24 07:00 Pulse Ox 96 03/23/24 07:00 FiO2 Intake & Output 03/22/24 03/23/24 03/23/24 18:59 06:59 18:59 Intake Total 472 Balance 472 Intake: Oral 472 Other: Voiding Method Toilet Toilet Toilet Urinal Urinal Urinal # Voids 5 2 # Bowel Movements 0 - Exam GENERAL EXAM: Alert, 88-year-old male, on room air, in no apparent distress. HEAD: Normocephalic and atraumatic EYES: Normal reaction of pupils, equal size. NOSE: Clear with pink turbinates. THROAT: No erythema or exudates. NECK: No masses, no JVD. CHEST: No chest wall deformity. LUNGS: Equal air entry with diminished bibasilar lung sounds. No crackles, wheeze, rhonchi or dullness. CVS: S1 and S2 normal with no audible murmur, regular rhythm. No extra heart sounds ABDOMEN: No hepatosplenomegaly, active bowel sounds, no guarding or rigidity. SPINE: No scoliosis or deformity SKIN: No rashes CENTRAL NERVOUS SYSTEM: No focal deficits, tone is normal in all 4 extremities. EXTREMITIES: There is 2+ bilateral lower extremity pitting edema. No clubbing, or cyanosis. Peripheral pulses are intact. - Labs CBC & Chem 7: 03/22/24 04:55 03/22/24 04:55 Labs: Microbiology - Last 24 Hours (Table) 03/20/24 08:45 Gram Stain - Preliminary Pleural Fluid Body Fluid Culture - Preliminary 03/20/24 08:45 Anaerobic Culture - Preliminary Pleural Fluid Assessment and Plan Assessment: Bilateral pleural effusions, noted on CTA of the abdomen/pelvis, new from prior imaging. No follow chest x-ray has been obtained yet. A chest ultrasound was performed on the right side, demonstrating a 17.7 cm fluid pocket. NT proBNP elevated at 8470. Status post right sided thoracentesis on 03/20/2024 with 500 cc of straw-colored fluid removed. Transudate with the protein of 1.6, LDH 103. Cytology negative for malignancy. Culture pending Abdominal pain, CT scan of abdomen/pelvis with contrast which demonstrated moderate to large bilateral pleural effusions and bibasilar compressive atelectasis. Multiple hypodensities within the liver and it was recommended to rule out metastatic disease. Diffuse small bowel thickening and dilated fluid- filled appendix. Most likely indicating acute inflammatory process. No obvious bowel obstructions or transition point. Small amount of free intraperitoneal fluid. General surgery following, no surgical interventions planned as of yet Multiple hypodensities within the liver, recommended to exclude metastatic disease Anemia. Rule out occult bleeding. Plan is for EGD/colonoscopy on 03/24/2024 History of valvular heart disease, most recent available echocardiogram from 03/19/2023 estimating preserved left ventricular ejection fraction of 50 to 55% as well as mild mitral stenosis, moderate MR, and mild to moderate aortic stenosis. Patient reportedly underwent valve replacement at outside facility over the summer. History of coronary disease with previous PCI/stenting Hypertension History of hyperlipidemia History of prostate cancer Remote history of tobacco use Plan: The patient was seen and evaluated Medications reviewed Remains anemic Receiving iron supplement Plan is for EGD/colonoscopy in a.m. Remains on MiraLAX Will continue to follow I have personally seen and examined the patient, performed the documentation and the assessment and plan as written. Number of minutes spent on the visit: 10 Dictation was produced using [employer] dictation software. Please excuse any grammatical, word or spelling errors.
[2024-03-23 11:31] LABS: Basophils # (A) 0.01 X 10*3/uL (0.00-0.10); Basophils % (A) 0.2 %; Eosinophils # (A) 0.19 X 10*3/uL (0.04-0.35); HCT 26.8 % (39.6-50.0); HGB 8.3 g/dL (13.0-17.0); Lymphocytes # (A) 0.97 X 10*3/uL (0.90-5.00); Lymphocytes % (A) 20.4 %; MCH 25.3 pg (27.0-32.0); MCV 81.7 FL (80.0-97.0); Mean Platelet Volume 11.1 FL (9.5-12.2); Monocytes # (A) 0.47 X 10*3/uL (0.20-1.00); Monocytes % (A) 9.9 %; NRBC Per 100 WBC 0 X 10*3/uL (0.00-0.01); Neutrophils % (A) 65.3 %; Platelet Count 222 X 10*3/uL (140-440); RBC 3.28 X 10*6/uL (4.40-5.60); RDW 18.8 % (11.5-14.5); WBC 4.75 X 10*3/uL (4.50-10.00)
[2024-03-23 12:27] LABS: Glucose,Whole Blood 120 mg/dL (70-110)
[2024-03-23 12:36] LABS: ALT 135 U/L (10-49); AST 151 U/L (14-35); Albumin 2.8 g/dL (3.8-4.9); Albumin/Globulin Ratio 1.33 Ratio (1.60-3.17); Alkaline Phosphatase 1021 U/L (41-126); BUN/Creat Ratio 9.43 Ratio (12.00-20.00); Blood Urea Nitrogen 6.6 mg/dL (9.0-27.0); Carbon Dioxide 23.7 mmol/L (21.6-31.8); Chloride 103 mmol/L (96-109); Globulin 2.1 g/dL (1.6-3.3); Glucose 129 mg/dL (70-110); Potassium 3.3 mmol/L (3.5-5.5); Sodium 136 mmol/L (135-145); Total Bilirubin 2.1 mg/dL (0.3-1.2); Total Protein 4.9 g/dL (6.2-8.2)
[2024-03-23] MEDS: NYSTATIN 100,000 UNIT/ML SUSP 500,000 UNIT/5 ML CUP PO SCH (12:48)
[2024-03-23] MEDS ORDERED: ZINC OXIDE PASTE (Z-GUARD) 1 APPLIC TOPICAL PRN (14:53)
--- NOTE | 2024-03-23 15:31 | P.PN ---
Subjective Progress Note Date: 03/23/24 CHIEF COMPLAINT: Acute bolus anemia HISTORY OF PRESENT ILLNESS: The patient is a 88-year-old male being seen for acute blood loss anemia. is at bedside. Nurse reports that overnight, patient developed severe abdominal cramping including tractable nausea and vomiting. As such, he is n.p.o. today. Patient is scheduled to undergo bowel prep for endoscopy. ROS: No reports of nausea and vomiting. No fevers or chills. No new chest pain. No productive sputum PHYSICAL EXAM: VITAL SIGNS: Reviewed CONSTITUTIONAL: Well developed and in no acute distress. EYES: Conjuctivae without sclera icterus. Extraocular movements grossly intact. HEAD, EARS, NOSE, THROAT: Moist buccal mucosa. Head is atraumatic, normocephalic. Hears conversational speech. No nasal drainage. RESPIRATORY: Non-labored respirations and equal bilateral excursions. CARDIOVASCULAR: Palpable 2+ radial pulses. ABDOMEN: Mild distention. No diffuse peritonitis. MUSCULOSKELETAL: No gross deformity of the lower extremities noted. No clubbing. No cyanosis. SKIN: Good skin turgor. Well perfused. NEUROLOGIC: Cranial nerves II through XII grossly intact. No focal or lateralizing signs. PSYCH: Appropriate affect. Alert and oriented to person, place and time. CLINICAL LABS: Reviewed. LFTs increasing and worsening. ASSESSMENT: 1. Acute blood loss anemia 2. Abnormal CT scan for cecal thickening/mass 3. Abnormal CT scan for liver metastases 4. Intractable nausea and vomiting PLAN: 1. His clinical presentation is worsening for concerns for bowel obstruction. Abdominal x-ray is obtained. 2. High likelihood for patient to tolerate any further liquids or orals as a result, colonoscopy may be ill-advised. 3. Alternatives for identifying primary may also include liver biopsy for multiple liver nodules. 4. Overall, high suspicion for metastatic disease where hospice may be advisable due to progressive decline Objective - Vital Signs Vital signs: Vital Signs Temp 98.0 F 03/23/24 14:29 Pulse 76 03/23/24 14:29 Resp 14 03/23/24 14:29 BP 146/62 03/23/24 14:29 Pulse Ox 95 03/23/24 14:29 FiO2 Intake & Output 03/22/24 03/23/24 03/23/24 18:59 06:59 18:59 Intake Total 472 Balance 472 Intake: Oral 472 Other: Voiding Method Toilet Toilet Toilet Urinal Urinal Urinal # Voids 5 2 # Bowel Movements 0 - Labs CBC & Chem 7: 03/23/24 03:24 03/23/24 03:24 Labs: Abnormal Lab Results - Last 24 Hours (Table) 03/23/24 03/23/24 03/23/24 Range/Units 03:24 03:24 12:25 RBC 3.28 L (4.40-5.60) X 10*6/uL Hgb 8.3 L (13.0-17.0) g/dL Hct 26.8 L (39.6-50.0) % MCH 25.3 L (27.0-32.0) pg MCHC 31.0 L (32.0-37.0) g/dL RDW 18.8 H (11.5-14.5) % Potassium 3.3 L (3.5-5.5) mmol/L BUN 6.6 L (9.0-27.0) mg/dL BUN/Creatinine Ratio 9.43 L (12.00-20.00) Ratio Glucose 129 H (70-110) mg/dL POC Glucose (mg/dL) 120 H (70-110) mg/dL Calcium 8.0 L (8.7-10.3) mg/dL Total Bilirubin 2.1 H (0.3-1.2) mg/dL AST 151 H (14-35) U/L ALT 135 H (10-49) U/L Alkaline Phosphatase 1021 H (41-126) U/L Total Protein 4.9 L (6.2-8.2) g/dL Albumin 2.8 L (3.8-4.9) g/dL Albumin/Globulin Ratio 1.33 L (1.60-3.17) Ratio Microbiology - Last 24 Hours (Table) 03/20/24 08:45 Gram Stain - Preliminary Pleural Fluid Body Fluid Culture - Preliminary 03/20/24 08:45 Anaerobic Culture - Preliminary Pleural Fluid
[2024-03-23] MEDS: DICYCLOMINE 10 MG CAP PO SCH (18:29)
[2024-03-23] MEDS: DEXTROSE 5%-0.9% NACL 1,000 ML IV SCH (18:30)
[2024-03-23] MEDS: KETOROLAC 15 MG/ML 1 ML VIAL IVP PRN (18:50)
[2024-03-23] MEDS: NA PHOS,M-B/NA PHOS,DI-BA 133 ML ENEMA RECTAL ONE (21:34)
--- NOTE | 2024-03-24 04:38 | P.PN ---
Subjective Progress Note Date: 03/23/24 Per HPI, "Patient is a 88-year-old male with history of chest pain/angina, hyperlipidemia, sleep apnea, history of prostate cancer presented to the emergency department with abdominal pain. Patient states that for the past month he has seen in the emergency department about 3 times for small bowel obs truction. He was recently discharged about a week ago from [facility] where he was admitted for SBO. Patient was seen at bedside today. Reported that yesterday his nurse noticed the patient was looking pale and suggested him to be evaluated in the ED. patient does report having a history of SBO over the past month which required multiple hospitalizations. Patient does admit to having several episodes of watery diarrhea over the past few days. He denies fever, chills, chest pain, shortness of breath, belly pain, nausea or vomiting, dysuria, hematochezia or melena. ED documentation reviewed. In the ED patient was treated with normal saline at 75 cc an hour, aspirin 81 mg daily, Plavix 75 mg daily, Imdur 60 mg daily, losartan 50 mg daily, Protonix 40 mg p.o. Lipitor 40 mg at bedtime, metoprolol titrate 25 mg twice daily Vitals on admission temperature 98, pulse rate 88, respiratory rate 18, blood pressure 177/73, O2 sat 96% on room air EKG independently interpreted as sinus rhythm with frequent supraventricular premature complexes with ventricular rate of 88 bpm, QTc interval 459 ms, left bundle branch block Abdominal x-ray shows gaseous dilation of large bowel, nonspecific bowel gas pattern without radiographic evidence for acute process CT abdomen pelvis with contrast shows moderate to large bilateral pleural effusions and bibasilar infiltrates/atelectasis. Multiple hypodensities within the liver and metastatic disease cannot be excluded. MRI of the liver with contrast is recommended for further evaluation. Diffuse small bowel with wall thickening and dilated fluid-filled appendix. Most likely indicating acute inflammatory process. There is no bowel obstruction. Small amount of free intraperitoneal fluid. Labs on admission show WBC 5.26, hemoglobin 7.4, hematocrit 23.8, platelets 222, sodium 139, potassium 3.9, chloride 105, carbon dioxide 31, BUN 14, creatinine 0.69, glucose 123, alkaline phosphatase 651" Progress Notes for 03/20/2024: Patient was seen at bedside today. Reports feeling general weakness. Patient underwent a thoracentesis this morning by Dr. Dominguez. Currently pending pleural fluid results to come back. Patient reports that his abdominal pain has resolved. He denies fever, chills, chest pain, shortness of breath, nausea, vomiting, belly pain, dysuria. Progress note for 03/21/2024: Patient was seen at bedside today. Patient reports that his abdominal pain has been resolved. He still reports general weakness. Pleural fluid results consistent with transudate. Liver MRI yesterday showed presence of multiple new small lesions throughout the liver consistent/suspicious for diffuse metastatic disease. Surgery team would like patient to stay here over the weekend. Patient will get a colonoscopy on Sunday with Dr. Marie. Progress note for 03/22/2024: Patient was seen at bedside today. He still reports general weakness. Reports that that belly pain has worsened slightly. Pleural fluid negative for malig jelena. Surgery team would like patient to stay here over the weekend. Plan is for colonoscopy on 03/24/2024. 03/23/2024 Patient is seen in follow-up today with multiple consultations following includ ing general surgery, pulmonary, and oncology. Patient is scheduled to undergo colonoscopy on Sunday and will be n.p.o. at midnight. Per nursing staff prior to initiating GoLytely prep, patient was having extreme abdominal cramping with nausea and vomiting and was bile. On exam bowel sounds extremely hypoactive and patient is having abdominal pain. Abdominal x-ray ordered and patient is refusing at this time. Mouth appears dry and patient clinically looks dehydrated and unwell. Highly suspicious for malignancy. Patient remains full code and will need to address CODE STATUS and overall treatment plan moving forward. Per nursing staff patient does not want further aggressive testing don e. at the bedside with questions and concerns that were answered to the best of our ability. Review of systems: Constitutional: No reports of fatigue, fever, or chills Cardiovascular: No reports of chest pain or palpitations Respiratory: No reports of shortness of breath or cough GI: reports of nausea, reports vomiting, no diarrhea : No reports of dysuria or retention Neurovascular: reports of generalized weakness or numbness All medications have been reviewed Physical exam: GENERAL: This is a 88-year-old in no apparent distress at the time of examination. Pleasant and cooperative. Well-developed, elderly appearing, ill- appearing, pale HEENT: Head is atraumatic, normocephalic. Pupils are equal, round, and reactive to light. Sclerae anicteric. Conjunctivae are clear. Mucus membranes of the mouth are moist. Neck is supple. RESPIRATORY: Clear to auscultation. No wheezes, rales, or rhonchi. Some bronchial congestion noted. No use of accessory muscles. Patient maintaining oxygen saturation greater than 92%. No chest wall tenderness is noted on palpation or with deep breathing. CARDIOVASCULAR: Regular rate and rhythm. S1 and S2 noted. No systolic or diastolic murmur auscultated. No JVD noted. No S3 or S4 noted. GASTROINTESTINAL: Diffuse abdominal tenderness. Soft. Mildly distended. Hypoactive active bowel sounds. No signs of peritonitis. INTEGUMENTARY: No cyanosis. No jaundice. No rashes noted. No cellulitis noted. Pale EXTREMITIES: 2+ peripheral pulses. Mild bilateral lower extremity edema 1+ pitting noted.. No calf tenderness noted. NEUROLOGIC: Cranial nerves II-XII intact. Diffusely weak PSYCHIATRIC: Awake, alert. Appropriate affect. Intact judgement and insight. Assessment/Plan: Patient is a 88-year-old male with history of chest pain/angina, hyperlipidemia, sleep apnea, history of prostate cancer presented to the emergency department with abdominal pain. The patient was admitted to internal medicine service. Active: #. Abdominal distention and abdominal pain, ongoing concerns for bowel obstruction #. Multiple hypodensities within the liver, suspecting metastatic lesions #. History of recurrent small bowel obstruction Liver MRI on 03/20/2024 showed presence of multiple new small lesions throughout the liver consistent/suspicious for diffuse metastatic disease. Oncology recommended liver biopsy if pleural fluid does not show any signs of malignancy Pleural fluid negative for malignancy Discontinue normal saline Plan is for colonoscopy 03/24/2024. Recommend patient to stay inpatient over the weekend. Monitor morning CBC and CMP Alkaline phosphatase 942 #. Pleural effusions, status post thoracentesis on 03/20/2024 CT abdomen pelvis shows moderate to large bilateral pleural effusions and bibasilar infiltrates/atelectasis Echocardiogram showed left ventricular ejection fraction of 50 to 55% Pleural fluid results consistent with transudate Cytology pending #. Normocytic anemia Hemoglobin 7.5 MCV 84.1 Patient denies hematochezia/melena Monitor morning CBC Transfuse if hemoglobin less than 7.0 Chronic: #. Hyperlipidemia #. Hypertension #. GERD Continue Lipitor 40 mg at bedtime Continue losartan 50 mg daily Continue metoprolol tartrate 25 mg twice daily Continue Protonix 40 mg F: No restrictions E: Replete as needed N: Full liquid diet A: EMS DVT prophylaxis: Pneumatic compression sleeve GI prophylaxis Full code The patient is admitted with an anticipated more than 2 midnight stay for evaluation of abdominal distention/abdominal pain CODE STATUS: Full code Discussed with: Patient Anticipated discharge place: Home at [facility] where him and his reside Plan: General Surgery following scheduled to undergo colonoscopy although prior to initiating bowel prep, patient having nausea and vomiting that appears bilious. Patient unable to tolerate prep and abdominal x-ray ordered although patient is refusing. Hypoactive bowel sounds noted on exam with concerns of bowel obstruction. CODE STATUS needs to be addressed and consider possible comfort care measures if not wanting any further intervention Patient having significant abdominal cramping will add Bentyl as needed Limit narcotic use given patient's age as well as concern for bowel obstruction. Overall prognosis is extremely poor and guarded at this time The impression and plan of care has been dictated by Mary Jo Clements, Nurse Practitioner as directed. Dr. Kavita MD I have performed a history and examination and MDM of this patient, discussed the same with the dictator, and agree with the dictator's assessment and plan as written ,documented as a scribe. Based on total visit time, I have performed more than 50% of the visit. Objective - Vital Signs Vital signs: Vital Signs Temp 98.5 F 03/23/24 01:47 Pulse 85 03/23/24 01:47 Resp 16 03/23/24 01:47 BP 134/57 03/23/24 01:47 Pulse Ox 95 03/23/24 01:47 FiO2 Intake & Output 03/22/24 03/22/24 03/23/24 06:59 18:59 06:59 Intake Total 472 Balance 472 Intake: Oral 472 Other: Voiding Method Toilet Toilet Toilet Urinal Urinal Urinal # Voids 3 5 2 # Bowel Movements 0 - Labs CBC & Chem 7: 03/23/24 03:24 03/23/24 03:24 Labs: Abnormal Lab Results - Last 24 Hours (Table) 03/22/24 03/22/24 Range/Units 04:55 04:55 RBC 3.02 L (4.40-5.60) X 10*6/uL Hgb 7.5 L (13.0-17.0) g/dL Hct 25.4 L (39.6-50.0) % MCH 24.8 L (27.0-32.0) pg MCHC 29.5 L (32.0-37.0) g/dL RDW 18.5 H (11.5-14.5) % BUN 5.5 L (9.0-27.0) mg/dL BUN/Creatinine Ratio 7.86 L (12.00-20.00) Ratio Glucose 117 H (70-110) mg/dL Calcium 7.7 L (8.7-10.3) mg/dL Total Bilirubin 1.6 H (0.3-1.2) mg/dL AST 132 H (14-35) U/L ALT 113 H (10-49) U/L Alkaline Phosphatase 942 H (41-126) U/L Total Protein 4.5 L (6.2-8.2) g/dL Albumin 2.7 L (3.8-4.9) g/dL Albumin/Globulin Ratio 1.50 L (1.60-3.17) Ratio Microbiology - Last 24 Hours (Table) 03/20/24 08:45 Anaerobic Culture - Preliminary Pleural Fluid 03/20/24 08:45 Gram Stain - Preliminary Pleural Fluid Body Fluid Culture - Preliminary
[2024-03-24 04:56] LABS: Methylmalonic Acid 0.14 umol/L (<0.40)
[2024-03-24 05:54] LABS: Anisocytosis Slight; HCT 25.9 % (39.0-53.0); HGB 8.1 gm/dL (13.0-17.5); Hypochromasia Marked; MCH 26.2 pg (25.0-35.0); MCHC 31.4 g/dL (31.0-37.0); MCV 83.4 fL (80.0-100.0); Mean Platelet Volume 8.3; Platelet Count 195 k/uL (150-450); Poikilocytosis Slight; RBC 3.11 m/uL (4.30-5.90); RDW 18.9 % (11.5-15.5); WBC 5.2 k/uL (3.8-10.6)
[2024-03-24 06:50] LABS: ALT 139 U/L (4-49); AST 128 U/L (17-59); African American GFR (CKD) >90 (>60 ml/min/1.73 sqM); Albumin 2.4 g/dL (3.5-5.0); Alkaline Phosphatase 1029 U/L (38-126); Anion Gap 5 mmol/L; Blood Urea Nitrogen 12 mg/dL (9-20); Calcium 8.1 mg/dL (8.4-10.2); Carbon Dioxide 27 mmol/L (22-30); Chloride 102 mmol/L (98-107); Globulin 2.5 g/dL; Glucose 119 mg/dL (74-99); Non-African American GFR(CKD) 82 (>60 ml/min/1.73 sqM); Potassium 3.4 mmol/L (3.5-5.1); Sodium 134 mmol/L (137-145); Total Bilirubin 3.3 mg/dL (0.2-1.3); Total Protein 4.9 g/dL (6.3-8.2)
[2024-03-24] MEDS: POTASSIUM CHLORIDE ER 20 MEQ TAB.ER PO STA (09:08)
--- NOTE | 2024-03-24 13:18 | P.PN ---
Subjective Progress Note Date: 03/24/24 SURGICAL PROGRESS NOTE CHIEF COMPLAINT: Weakness HISTORY OF PRESENT ILLNESS: Patient is sitting up in bed comfortably. Denies any nausea or vomiting. Denies abdominal pain. He wants to eat. Patient sc heduled for EGD today. Afebrile. WBC 5.2 Hgb 8.1 platelets 195 sodium is 134 potassium 3.4 creatinine 0.74 elevated LFTs. Patient refused the bowel prep for the colonoscopy. PHYSICAL EXAM: VITAL SIGNS: Reviewed. GENERAL: pale ABDOMEN: Soft. Nondistended. Nontender. No rebound or guarding. NEUROLOGIC: Alert and oriented. Cranial nerves II through XII grossly intact. ASSESSMENT: 1. Abdominal distention and mild abdominal discomfort. CT scan reported no evidence of bowel obstruction. Did report diffuse small bowel wall thickening and fluid-filled appendix. Patient has no right lower quadrant abdominal pain. 2. Liver lesions noted on MRI and CT 3. History of prostate cancer 4. Moderate protein calorie malnutrition 5. Anemia 6. Pleural effusion status post thoracentesis 7. Hypokalemia PLAN: -Patient scheduled for EGD today with Dr. Marie -Keep patient n.p.o. for EGD -Potassium replaced Physician Social Media Developer note has been reviewed by physician. Signing provider agrees with the documented findings, assessment, and plan of care. Objective - Vital Signs Vital signs: Vital Signs Temp 98.1 F 03/24/24 07:00 Pulse 95 03/24/24 07:00 Resp 15 03/24/24 07:00 BP 145/59 03/24/24 07:00 Pulse Ox 98 03/24/24 07:00 FiO2 Intake & Output 03/23/24 03/24/24 03/24/24 18:59 06:59 18:59 Other: Voiding Method Toilet Urinal # Voids 1 1 1 - Labs CBC & Chem 7: 03/24/24 05:26 03/24/24 05:26 Labs: Abnormal Lab Results - Last 24 Hours (Table) 03/24/24 03/24/24 Range/Units 05:26 05:26 RBC 3.11 L (4.30-5.90) m/uL Hgb 8.1 L (13.0-17.5) gm/dL Hct 25.9 L (39.0-53.0) % RDW 18.9 H (11.5-15.5) % Sodium 134 L (137-145) mmol/L Potassium 3.4 L (3.5-5.1) mmol/L Glucose 119 H (74-99) mg/dL Calcium 8.1 L (8.4-10.2) mg/dL Total Bilirubin 3.3 H (0.2-1.3) mg/dL AST 128 H (17-59) U/L ALT 139 H (4-49) U/L Alkaline Phosphatase 1029 H (38-126) U/L Total Protein 4.9 L (6.3-8.2) g/dL Albumin 2.4 L (3.5-5.0) g/dL Microbiology - Last 24 Hours (Table) 03/20/24 08:45 Anaerobic Culture - Final Pleural Fluid 03/20/24 08:45 Gram Stain - Final Pleural Fluid Body Fluid Culture - Final
--- NOTE | 2024-03-24 13:35 | P.PN ---
Subjective Progress Note Date: 03/24/24 Patient is an 88-year-old male with past medical history significant for coronary artery disease with previous PCI/stent, aortic valve stenosis with previous TAVR, history of prostate CA, former tobacco smoker. Of note, patient states he has had multiple hospitalizations for abdominal complaints during the last 3 months, and was just recently hospitalized at [facility] for bowel obstruction. Preceding this hospitalization he was complaining of nausea, vomiting, abdominal pain, and black tarry BMs. While inpatient, did not receive any surgical interventions. His symptoms resolved, and states he was feeling well on discharge. Him and his live at an assisted living community, [facility]. He has been tolerating soft foods and liquids. Denies further episodes of melena, hematochezia, nausea, vomiting, or hematemesis. Endorses some right upper quadrant abdominal discomfort with palpation. Him and his noticed that he was more pale than normal. States that a nurse recommended that he come to Emergency Department to be evaluated on March 18. In the emergency department included a CAT scan of abdomen/pelvis with contrast which demonstrated new moderate to large bilateral pleural effusions and bibasilar compressive atelectasis. Multiple hypodensities within the liver and it was recommended to rule out metastatic disease. Diffuse small bowel thickening and dilated fluid-filled appendix. Most likely indicating acute inflammatory process. No obvious bowel obstructions or transition point. Small amount of free intraperitoneal fluid. General surgery was consulted for the CT findings, and I do not believe they are recommending any surgical intervention. There is a liver MRI scheduled. Pulmonary consulted for the patient's bilateral pleural effusions, that were noted on abdominal CT. No follow-up chest x-ray has yet been obtained. Chest ultrasound of the right chest demonstrating a 17.7 cm right pleural effusion which was marked for possible thoracentesis. I am seeing this patient on the general medical floor. He is on room air. Denies any shortness of breath, cough, fevers, chills, chest pain. Denies history of heart failure. States that he did recently have a valve replaced at [facility] in September,. Admits bilateral lower extremity swelling. Denies any history of known active malignancy. No previous history of pleural effusions or thoracentesis. He takes Plavix and aspirin outpatient basis. CBC from yesterday: WBC count 5.26, hemoglobin down to 7.4 g/dL, hematocrit 23.8, platelets 222. This is approximately 3 g drop in his hemoglobin. CMP is unremarkable, electrolytes WDL, creatinine 0.6, AST 59, ALT 48, ALP 651. NT proBNP was elevated 8470. Normal saline is infusing at 75 mL/h. Most recent recorded vital signs: Temperature 98.1 F, heart rate 95 bpm, blood pressure 150/63 mmHg, nontachypne ic, SpO2 was recorded at 93% on room air. The patient is seen today March 21, 2024 in follow-up on the regular medical floor. He is sitting up in bed. Awake and alert in no acute distress. Maint aining good O2 saturation in the mid 90s on room air. He is been afebrile. Hemodynamically stable. Straw-colored fluid removed. Fluid analysis was transudate with a protein of 1.6 and LDH 103. Cytology pending. Chest x-ray showed no evidence of pneumothorax. Significant improvement. Sodium 138. Potassium 3.6. Bicarb 24. BUN 6. Creatinine 0.7. Glucose 114. AST 119. ALT 99. Alk phos 892. MRI of the liver reveals multiple new small lesions throughout the liver consistent/strongly suspicious for diffuse metastatic disease. The patient is seen today March 22, 2024 in follow-up on the regular medical floor. He is awake and alert in no acute distress. Currently sitting up in bed. Maintaining O2 saturations in the 90s on room air. He is receiving iron supplement. Remains on diuretics. Protonix for GI prophylaxis. Pleural fluid culture cytology negative. Cultures pending. White count 4.8. Hemoglobin 7.5. Platelets 205. Sodium 139. Potassium 3.5. Bicarb 24. BUN 6. Creatinine 0.7. Glucose 117. AST 132. ALT 113. Alk phos 942. The patient is seen today March 23, 2024 in follow-up on the regular medical floor. He is currently resting in bed. Awake and alert in no acute distress. He is having more issues with abdominal discomfort and belching. No recent bowel movement. Plan is for EGD/colonoscopy tomorrow. He is continued on iron supplements. Continued on MiraLAX. Remains afebrile. Hemodynamically stable. Maintaining good O2 saturations in the mid 90s on room air. The patient is seen today March 24, 2024 in follow-up on the regular medical floor. He is awake and alert in no acute distress. He is maintaining good O2 saturations in the upper 90s on room air. He denies any worsening shortness of breath, cough or congestion. Afebrile. Hemodynamically stable. Currently sitting up in bed. Plan is for EGD today. Still having ongoing issues with abdominal discomfort and belching. He is currently NPO. Pleural fluid cultures revealed no growth. Negative for malignancy. White count 5.2. Hemoglobin 8.1. Platelets 195. Sodium 134. Potassium 3.4. Bicarb 27. BUN 12. Creatinine 0.7. Glucose 112. AST 128. ALT 139. Alk phos 1029. He remains on Bentyl and MiraLAX. Objective - Vital Signs Vital signs: Vital Signs Temp 98.1 F 03/24/24 07:00 Pulse 95 03/24/24 07:00 Resp 15 03/24/24 07:00 BP 145/59 03/24/24 07:00 Pulse Ox 98 03/24/24 07:00 FiO2 Intake & Output 03/23/24 03/24/24 03/24/24 18:59 06:59 18:59 Other: Voiding Method Toilet Urinal # Voids 1 1 1 - Exam GENERAL EXAM: Alert, frail, thin 88-year-old male, seen up in bed, on room air, in no apparent distress. HEAD: Normocephalic and atraumatic EYES: Normal reaction of pupils, equal size. NOSE: Clear with pink turbinates. THROAT: No erythema or exudates. NECK: No masses, no JVD. CHEST: No chest wall deformity. LUNGS: Equal air entry with diminished bibasilar lung sounds. No crackles, wheeze, rhonchi or dullness. CVS: S1 and S2 normal with no audible murmur, regular rhythm. No extra heart billy nds ABDOMEN: No hepatosplenomegaly, active bowel sounds, no guarding or rigidity. SPINE: No scoliosis or deformity SKIN: No rashes CENTRAL NERVOUS SYSTEM: No focal deficits, tone is normal in all 4 extremities. EXTREMITIES: There is 2+ bilateral lower extremity pitting edema. No clubbing, or cyanosis. Peripheral pulses are intact. - Labs CBC & Chem 7: 03/24/24 05:26 03/24/24 05:26 Labs: Abnormal Lab Results - Last 24 Hours (Table) 03/24/24 03/24/24 Range/Units 05:26 05:26 RBC 3.11 L (4.30-5.90) m/uL Hgb 8.1 L (13.0-17.5) gm/dL Hct 25.9 L (39.0-53.0) % RDW 18.9 H (11.5-15.5) % Sodium 134 L (137-145) mmol/L Potassium 3.4 L (3.5-5.1) mmol/L Glucose 119 H (74-99) mg/dL Calcium 8.1 L (8.4-10.2) mg/dL Total Bilirubin 3.3 H (0.2-1.3) mg/dL AST 128 H (17-59) U/L ALT 139 H (4-49) U/L Alkaline Phosphatase 1029 H (38-126) U/L Total Protein 4.9 L (6.3-8.2) g/dL Albumin 2.4 L (3.5-5.0) g/dL Microbiology - Last 24 Hours (Table) 03/20/24 08:45 Anaerobic Culture - Final Pleural Fluid 03/20/24 08:45 Gram Stain - Final Pleural Fluid Body Fluid Culture - Final Assessment and Plan Assessment: Bilateral pleural effusions, noted on CTA of the abdomen/pelvis, new from prior imaging. No follow chest x-ray has been obtained yet. A chest ultrasound was p erformed on the right side, demonstrating a 17.7 cm fluid pocket. NT proBNP elevated at 8470. Status post right sided thoracentesis on 03/20/2024 with 500 cc of straw-colored fluid removed. Transudate with the protein of 1.6, LDH 103. Cytology negative for malignancy. Culture revealed no growth Abdominal pain, CT scan of abdomen/pelvis with contrast which demonstrated moderate to large bilateral pleural effusions and bibasilar compressive atelectasis. Multiple hypodensities within the liver and it was recommended to rule out metastatic disease. Diffuse small bowel thickening and dilated fluid- filled appendix. Most likely indicating acute inflammatory process. No obvious bowel obstructions or transition point. Small amount of free intraperitoneal fluid. Plan is for EGD today Multiple hypodensities within the liver, recommended to exclude metastatic disease Anemia. Rule out occult bleeding. Plan is for EGD today 03/24/2024 History of valvular heart disease, most recent available echocardiogram from 03/19/2023 estimating preserved left ventricular ejection fraction of 50 to 55% as well as mild mitral stenosis, moderate MR, and mild to moderate aortic stenosis. Patient reportedly underwent valve replacement at outside facility over the summer. History of coronary disease with previous PCI/stenting Hypertension History of hyperlipidemia History of prostate cancer Remote history of tobacco use Plan: The patient was seen and evaluated Medications and labs reviewed Pleural fluid cultures revealed no growth Remains on MiraLAX and Bentyl Plan is for EGD today Patient and his are anxious for him to be home This patient was seen independently by the pulmonary nurse practitioner addressing pulmonary issues I have personally seen and examined the patient, performed the documentation and the assessment and plan as written. Number of minutes spent on the visit: 25 Dictation was produced using [employer] dictation software. Please excuse any grammatical, word or spelling errors.
[2024-03-24] MEDS ORDERED: Potassium Replacement Protocol 1 EACH MISC MISCELLANE PRN (15:54)
--- NOTE | 2024-03-24 15:57 | P.PN ---
Subjective Progress Note Date: 03/24/24 Principal diagnosis: liver lesions, suspicious upper GI thickening/LAD In follow-up today patient and are feeling frustrated and overwhelmed with all of the medical procedures, medical information, and more medical procedures pending. Patient no longer has an NG tube in place. He is currently tolerating some liquid oral intake. No recent nausea or vomiting. Last documented bowel movement was on the . He has been started on parenteral iron. Objective - Vital Signs Vital signs: Vital Signs Temp 98.6 F 03/24/24 14:19 Pulse 90 03/24/24 14:19 Resp 17 03/24/24 14:19 BP 167/67 03/24/24 14:19 Pulse Ox 95 03/24/24 14:19 FiO2 Intake & Output 03/23/24 03/24/24 03/24/24 18:59 06:59 18:59 Other: Voiding Method Toilet Toilet Urinal Urinal # Voids 1 1 1 - Constitutional Constitutional Comment(s): Emotional distress due to being overwhelmed General appearance: Present: cooperative, thin - EENT Eyes: Present: anicteric sclerae, EOMI ENT: Present: hearing grossly normal - Respiratory Details: Respirations unlabored at rest - Integumentary Integumentary: Present: pale - Neurologic Neurologic: Present: CNII-XII intact - Musculoskeletal Musculoskeletal: Present: generalized weakness - Psychiatric Psychiatric: Present: A&O x's 3, appropriate affect, intact judgment & insight - Labs CBC & Chem 7: 03/24/24 05:26 03/24/24 05:26 Labs: Abnormal Lab Results - Last 24 Hours (Table) 03/24/24 03/24/24 Range/Units 05:26 05:26 RBC 3.11 L (4.30-5.90) m/uL Hgb 8.1 L (13.0-17.5) gm/dL Hct 25.9 L (39.0-53.0) % RDW 18.9 H (11.5-15.5) % Sodium 134 L (137-145) mmol/L Potassium 3.4 L (3.5-5.1) mmol/L Glucose 119 H (74-99) mg/dL Calcium 8.1 L (8.4-10.2) mg/dL Total Bilirubin 3.3 H (0.2-1.3) mg/dL AST 128 H (17-59) U/L ALT 139 H (4-49) U/L Alkaline Phosphatase 1029 H (38-126) U/L Total Protein 4.9 L (6.3-8.2) g/dL Albumin 2.4 L (3.5-5.0) g/dL Microbiology - Last 24 Hours (Table) 03/20/24 08:45 Anaerobic Culture - Final Pleural Fluid 03/20/24 08:45 Gram Stain - Final Pleural Fluid Body Fluid Culture - Final Assessment and Plan (1) Liver lesion Current Visit: Yes Status: Acute Priority: High Code(s): K76.9 - LIVER DISEASE, UNSPECIFIED SNOMED Code(s): 562201528 (2) Abdominal pain Current Visit: Yes Status: Acute Priority: High Code(s): R10.9 - UNSPECIFIED ABDOMINAL PAIN SNOMED Code(s): 35025507 (3) Bilateral pleural effusion Current Visit: Yes Status: Acute Priority: High Code(s): J90 - PLEURAL EFFUSION, NOT ELSEWHERE CLASSIFIED SNOMED Code(s): 302245325 Plan: Liver lesion, abdominal pain, abnormal thickening in the bowel -Discussed concerning findings on imaging for malignancy with patient and at the bedside last week. -Pleural fluid was non-diagnostic. Recommendation for liver biopsy, EGD and colonoscopy also recommended because of findings on imaging. Case was discussed with the Surgeon last week, there were plans for conservative management, then, plans changed and patient was encouraged to have both upper and lower endoscopy. Patient was due to have today. He did refuse bowel prep. He has remained n.p.o. Agree with proceeding with at least EGD. Liver biopsy was also recomm ended but, will see how pt feels about moving forward with that, not certain if that procedure is scheduled Patient and are wanting to go home for the week to "rest up and feel better" and then return for the procedures. On further questioning, they are feeling very overwhelmed with all of the testing, results of testings, recommendations for additional testing. Patient did have a AGAINST MEDICAL ADVICE form that he was questioning. Dr. Varela explained what leaving AGAINST MEDICAL ADVICE means, that patient is opting to leave the hospital, which she has the free will to do, but, the physicians do not all agree that it is in his best interest. There are concerns for patient's health and wellbeing. Additional testing and treatments are recommended. Patient has been in and out of the hospital over the last 5 months with similar complaints, nothing that has been done has resolved the issue. After approximately 30-minute discussion with the patient and his , answering all of their questions and assuring patient and his that if he did leave AGAINST MEDICAL ADVICE that did not mean that he will not be seen by doctors or have medical care in the future. Patient is agreeable at this time to move forward with the EGD-he is not prepped for the colonoscopy anyways-will see how patient does after that. We let them know that we will plan follow-up with Medical Oncologist as soon as possible for results. Anemia. -Likely 2/2 GI abnormalities, poor oral intake --Anemia workup consistent with JASON, parenteral iron started x 4 doses -Transfuse for a Hgb <7 or if symptomatic Hx prostate carcinoma -PSA 0.3 -Suspect findings on imaging are r/t upper GI findings-pending completion of work up Doctor attests: I performed a history and physical examination of this patient, developed impression and plan of care. Discussed with dictator. I agree with dictators note, documented as a scribe. Time with Patient: Greater than 30
--- NOTE | 2024-03-24 16:00 | P.PN ---
Subjective Progress Note Date: 03/24/24 Per HPI, "Patient is a 88-year-old male with history of chest pain/angina, hyperlipidemia, sleep apnea, history of prostate cancer presented to the emergency department with abdominal pain. Patient states that for the past month he has seen in the emergency department about 3 times for small bowel obstruction. He was recently discharged about a week ago from where he was admitted for SBO. Patient was seen at bedside today. Reported that yesterday his nurse noticed the patient was looking pale and suggested him to be evaluated in the ED. patient does report having a history of SBO over the past month which required multiple hospitalizations. Patient does admit to having several episodes of watery diarrhea over the past few days. He denies fever, chills, chest pain, shortness of breath, belly pain, nausea or vomiting, dysuria, hematochezia or melena. ED documentation reviewed. In the ED patient was treated with normal saline at 75 cc an hour, aspirin 81 mg daily, Plavix 75 mg daily, Imdur 60 mg daily, losartan 50 mg daily, Protonix 40 mg p.o. Lipitor 40 mg at bedtime, metoprolol titrate 25 mg twice daily Vitals on admission temperature 98, pulse rate 88, respiratory rate 18, blood pressure 177/73, O2 sat 96% on room air EKG independently interpreted as sinus rhythm with frequent supraventricular premature complexes with ventricular rate of 88 bpm, QTc interval 459 ms, left bundle branch block Abdominal x-ray shows gaseous dilation of large bowel, nonspecific bowel gas pattern without radiographic evidence for acute process CT abdomen pelvis with contrast shows moderate to large bilateral pleural effusions and bibasilar infiltrates/atelectasis. Multiple hypodensities within the liver and metastatic disease cannot be excluded. MRI of the liver with contrast is recommended for further evaluation. Diffuse small bowel with wall thickening and dilated fluid-filled appendix. Most likely indicating acute inflammatory process. There is no bowel obstruction. Small amount of free intraperitoneal fluid. Labs on admission show WBC 5.26, hemoglobin 7.4, hematocrit 23.8, platelets 222, sodium 139, potassium 3.9, chloride 105, carbon dioxide 31, BUN 14, creatinine 0.69, glucose 123, alkaline phosphatase 651" Progress Notes for 03/20/2024: Patient was seen at bedside today. Reports feeling general weakness. Patient underwent a thoracentesis this morning by Dr. Dominguez. Currently pending pleural fluid results to come back. Patient reports that his abdominal pain has resolved. He denies fever, chills, chest pain, shortness of breath, nausea, vomiting, belly pain, dysuria. Progress note for 03/21/2024: Patient was seen at bedside today. Patient reports that his abdominal pain has been resolved. He still reports general weakness. Pleural fluid results consistent with transudate. Liver MRI yesterday showed presence of multiple new small lesions throughout the liver consistent/suspicious for diffuse metastatic disease. Surgery team would like patient to stay here over the weekend. Patient will get a colonoscopy on Sunday with Dr. Marie. Progress note for 03/22/2024: Patient was seen at bedside today. He still reports general weakness. Reports that that belly pain has worsened slightly. Pleural fluid negative for maligna ncy. Surgery team would like patient to stay here over the weekend. Plan is for colonoscopy on 03/24/2024. 03/23/2024 Patient is seen in follow-up today with multiple consultations following including general surgery, pulmonary, and oncology. Patient is scheduled to undergo colonoscopy on Sunday and will be n.p.o. at midnight. Per nursing staff prior to initiating GoLytely prep, patient was having extreme abdominal cramping with nausea and vomiting and was bile. On exam bowel sounds extremely hypoactive and patient is having abdominal pain. Abdominal x-ray ordered and patient is refusing at this time. Mouth appears dry and patient clinically looks dehydrated and unwell. Highly suspicious for malignancy. Patient remains full code and will need to address CODE STATUS and overall treatment plan moving forward. Per nursing staff patient does not want further aggressive testing done. at the bedside with questions and concerns that were answered to the best of our ability. 03/24/2024 Patient was seen at bedside today. Patient still reports general weakness similar compared to yesterday. The belly pain is still there although slightly improved from yesterday. Patient will undergo EGD/possible colonoscopy today. Patient's liver enzymes have been uptrending with AST at 128, ALT 139, alkaline phosphatase 1029, total bili 3.3. Review of Systems Constitutional: Denies chills, Denies fever Eyes: denies blurred vision, double vision or pain Ears, nose, mouth and throat: Denies headache, Denies sore throat Cardiovascular: Denies chest pain, Denies shortness of breath Respiratory: Denies cough Gastrointestinal: Reports abdominal pain, Denies diarrhea, Denies nausea, Denies vomiting Musculoskeletal: Denies myalgias Integumentary: Denies pruritus, Denies rash Neurological: Denies numbness, Denies weakness Psychiatric: Denies anxiety, Denies depression Endocrine: Denies fatigue, Denies weight change GENERAL: This is a 88-year-old in no apparent distress at the time of examination. Pleasant and cooperative. HEENT: Head is atraumatic, normocephalic. Pupils are equal, round, and reactive to light. Sclerae anicteric. Conjunctivae are clear. Mucus membranes of the mouth are moist. Neck is supple. RESPIRATORY: Clear to auscultation. No wheezes, rales, or rhonchi. No use of accessory muscles. Patient maintaining oxygen saturation greater than 92%. No chest wall tenderness is noted on palpation or with deep breathing. CARDIOVASCULAR: Regular rate and rhythm. S1 and S2 noted. No systolic or diastolic murmur auscultated. No JVD noted. No S3 or S4 noted. GASTROINTESTINAL: No distention noted. Abdomen soft and round. Normal active bowel sounds auscultated x 4 quadrants. No pain or tenderness noted upon palpation. INTEGUMENTARY: No cyanosis. No jaundice. No rashes noted. No cellulitis noted. EXTREMITIES: 2+ peripheral pulses. No evidence of peripheral edema. No calf tenderness noted. NEUROLOGIC: Cranial nerves II-XII intact. PSYCHIATRIC: Awake, alert, and oriented X 3. Appropriate affect. Intact judgement and insight. Assessment/Plan: Patient is a 88-year-old male with history of chest pain/angina, hyperlipidemia, sleep apnea, history of prostate cancer presented to the emergency department with abdominal pain. The patient was admitted to internal medicine service. Active: #. Abdominal distention and abdominal pain, ongoing concerns for bowel obstruction #. Multiple hypodensities within the liver, suspecting metastatic lesions #. History of recurrent small bowel obstruction Liver MRI on 03/20/2024 showed presence of multiple new small lesions throughout the liver consistent/suspicious for diffuse metastatic disease. Oncology recommended liver biopsy if pleural fluid does not show any signs of malignancy Pleural fluid negative for malignancy Discontinue normal saline Plan is for colonoscopy 03/24/2024. Recommend patient to stay inpatient over the weekend. Monitor morning CBC and CMP Alkaline phosphatase 942 CT chest with no contrast CT brain without contrast for agitation/confusion NM bone scan Order ammonia level to rule out hepatic encephalopathy #. Transaminitis with elevated bilirubin Liver enzymes have been uptrending over the past few days with total bili of 3.3 Discontinue hepatotoxic drugs Discontinue Tylenol Discontinued Lipitor #. Hypokalemia Potassium 3.4 Potassium chloride 40 mill equivalent p.o. x 1 given this morning Monitor morning CMP Potassium protocols #. Pleural effusions, status post thoracentesis on 03/20/2024 CT abdomen pelvis shows moderate to large bilateral pleural effusions and bibasilar infiltrates/atelectasis Echocardiogram showed left ventricular ejection fraction of 50 to 55% Pleural fluid results consistent with transudate Cytology pending #. Normocytic anemia Hemoglobin 7.5 MCV 84.1 Patient denies hematochezia/melena Monitor morning CBC Transfuse if hemoglobin less than 7.0 Chronic: #. Hyperlipidemia #. Hypertension #. GERD Continue Lipitor 40 mg at bedtime Continue losartan 50 mg daily Continue metoprolol tartrate 25 mg twice daily Continue Protonix 40 mg F: No restrictions E: Replete as needed N: Full liquid diet A: EMS DVT prophylaxis: Pneumatic compression sleeve GI prophylaxis Full code The patient is admitted with an anticipated more than 2 midnight stay for evaluation of abdominal distention/abdominal pain CODE STATUS: Full code Discussed with: Patient Anticipated discharge place: Home at [facility] where him and his reside Objective - Vital Signs Vital signs: Vital Signs Temp 98.6 F 03/24/24 14:19 Pulse 90 03/24/24 14:19 Resp 17 03/24/24 14:19 BP 167/67 03/24/24 14:19 Pulse Ox 95 03/24/24 14:19 FiO2 Intake & Output 03/23/24 03/24/24 03/24/24 18:59 06:59 18:59 Other: Voiding Method Toilet Toilet Urinal Urinal # Voids 1 1 1 - Labs CBC & Chem 7: 03/24/24 05:26 03/24/24 05:26 Labs: Abnormal Lab Results - Last 24 Hours (Table) 03/24/24 03/24/24 Range/Units 05:26 05:26 RBC 3.11 L (4.30-5.90) m/uL Hgb 8.1 L (13.0-17.5) gm/dL Hct 25.9 L (39.0-53.0) % RDW 18.9 H (11.5-15.5) % Sodium 134 L (137-145) mmol/L Potassium 3.4 L (3.5-5.1) mmol/L Glucose 119 H (74-99) mg/dL Calcium 8.1 L (8.4-10.2) mg/dL Total Bilirubin 3.3 H (0.2-1.3) mg/dL AST 128 H (17-59) U/L ALT 139 H (4-49) U/L Alkaline Phosphatase 1029 H (38-126) U/L Total Protein 4.9 L (6.3-8.2) g/dL Albumin 2.4 L (3.5-5.0) g/dL Microbiology - Last 24 Hours (Table) 03/20/24 08:45 Anaerobic Culture - Final Pleural Fluid 03/20/24 08:45 Gram Stain - Final Pleural Fluid Body Fluid Culture - Final
[2024-03-24] MEDS ORDERED: PROPOFOL 10 MG/ML 20 ML VIAL IV ONE (16:37)
[2024-03-24] MEDS: IV FLUID CONTINUATION 1,000 ML IV ONE (16:37)
[2024-03-24] MEDS ORDERED: LIDOCAINE 1% INJ 10MG/ML (20 ML MDV) ONE (16:37)
--- NOTE | 2024-03-24 16:45 | P.OP ---
Date of Procedure: 03/24/24 Preoperative Diagnosis: Metastatic liver cancer Postoperative Diagnosis: Antral gastritis Procedure(s) Performed: EGD Anesthesia: MAC Surgeon: Lauri Marie Pathology: other (Antrum) Condition: stable Disposition: PACU Description of Procedure: The patient is placed on the endoscopy table in the lateral position. He received IV sedation. The Gastroflux oropharynx passed in the esophagus and stomach. Scope was then placed through the pylorus. The first and second portion of the duodenum appeared normal. Scope was brought back to the antrum was appeared mildly Flaim. A biopsy was performed. The scope was retroflexed Kanika stomach. Normal. The GE junction was at 40 cm. The distal esophagus appeared normal. The proximal esophagus appeared normal and scope withdrawn for patient. Patient should have a colonoscopy performed
[2024-03-25 03:44] VITALS: RESP 16
[2024-03-25 08:21] VITALS: BP 155/64; PULSE 103; TEMP 98.2
[2024-03-25 10:46] LABS: Basophils # (A) 0.01 X 10*3/uL (0.00-0.10); Basophils % (A) 0.2 %; Eosinophils # (A) 0.19 X 10*3/uL (0.04-0.35); Eosinophils % (A) 3.2 %; HCT 28.1 % (39.6-50.0); HGB 8.7 g/dL (13.0-17.0); Lymphocytes # (A) 1.44 X 10*3/uL (0.90-5.00); MCH 25.5 pg (27.0-32.0); MCV 82.4 FL (80.0-97.0); Mean Platelet Volume 10.3 FL (9.5-12.2); Monocytes # (A) 0.64 X 10*3/uL (0.20-1.00); Monocytes % (A) 10.6 %; NRBC Per 100 WBC 0 X 10*3/uL (0.00-0.01); Neutrophils # (A) 3.71 X 10*3/uL (1.80-7.70); Neutrophils % (A) 61.7 %; Platelet Count 221 X 10*3/uL (140-440); RBC 3.41 X 10*6/uL (4.40-5.60); WBC 6.01 X 10*3/uL (4.50-10.00)
[2024-03-25 10:51] LABS: Magnesium 1.7 mg/dL (1.5-2.4)
[2024-03-25 10:52] LABS: ALT 121 U/L (10-49); AST 95 U/L (14-35); Alkaline Phosphatase 963 U/L (41-126); BUN/Creat Ratio 16.43 Ratio (12.00-20.00); Blood Urea Nitrogen 11.5 mg/dL (9.0-27.0); Carbon Dioxide 23.5 mmol/L (21.6-31.8); Chloride 107 mmol/L (96-109); Glucose 126 mg/dL (70-110); Potassium 4.1 mmol/L (3.5-5.5); Sodium 139 mmol/L (135-145); Total Bilirubin 3.2 mg/dL (0.3-1.2)
--- NOTE | 2024-03-25 13:55 | P.PN ---
Subjective Progress Note Date: 03/25/24 SURGICAL PROGRESS NOTE CHIEF COMPLAINT: Weakness HISTORY OF PRESENT ILLNESS: Patient status post EGD revealing gastritis. Patient has refused colonoscopy. Patient is adamant about being discharged today. He denies any abdominal pain. Denies any nausea or vomiting. Did tolerate diet. WBC 6.01 Hgb 8.7 LFTs elevated. PHYSICAL EXAM: VITAL SIGNS: Reviewed. GENERAL: pale ABDOMEN: Soft. Nondistended. Nontender. No rebound or guarding. NEUROLOGIC: Alert and oriented. Cranial nerves II through XII grossly intact. ASSESSMENT: 1. Abdominal distention and mild abdominal discomfort. CT scan reported no evidence of bowel obstruction. Did report diffuse small bowel wall thickening and fluid-filled appendix. Patient has no right lower quadrant abdominal pain. 2. Liver lesions noted on MRI and CT 3. History of prostate cancer 4. Moderate protein calorie malnutrition 5. Anemia 6. Pleural effusion status post thoracentesis 7. Gastritis on EGD PLAN: -Colonoscopy recommended. Patient has refused colonoscopy. Physician House Parent note has been reviewed by physician. Signing provider agrees with the documented findings, assessment, and plan of care. Objective - Vital Signs Vital signs: Vital Signs Temp 98.2 F 03/25/24 07:00 Pulse 103 H 03/25/24 07:00 Resp 16 03/25/24 07:00 BP 155/64 03/25/24 07:00 Pulse Ox 93 L 03/25/24 07:00 FiO2 Intake & Output 03/24/24 03/25/24 03/25/24 18:59 06:59 18:59 Intake Total 50 118 Balance 50 118 Intake: IV 50 Oral 118 Other: Voiding Method Toilet Toilet Urinal Urinal # Voids 1 1 1 # Bowel Movements 1 - Labs CBC & Chem 7: 03/25/24 09:01 03/25/24 09:01 Labs: Abnormal Lab Results - Last 24 Hours (Table) 03/25/24 03/25/24 Range/Units 09:01 09:01 RBC 3.41 L (4.40-5.60) X 10*6/uL Hgb 8.7 L (13.0-17.0) g/dL Hct 28.1 L (39.6-50.0) % MCH 25.5 L (27.0-32.0) pg MCHC 31.0 L (32.0-37.0) g/dL RDW 20.0 H (11.5-14.5) % Glucose 126 H (70-110) mg/dL Calcium 8.0 L (8.7-10.3) mg/dL Total Bilirubin 3.2 H (0.3-1.2) mg/dL AST 95 H (14-35) U/L ALT 121 H (10-49) U/L Alkaline Phosphatase 963 H (41-126) U/L Total Protein 5.0 L (6.2-8.2) g/dL Albumin 3.0 L (3.8-4.9) g/dL Albumin/Globulin Ratio 1.50 L (1.60-3.17) Ratio Microbiology - Last 24 Hours (Table) 03/20/24 08:45 Anaerobic Culture - Final Pleural Fluid
--- NOTE | 2024-03-25 14:35 | P.PN ---
Subjective Progress Note Date: 03/25/24 Patient is an 88-year-old male with past medical history significant for coronary artery disease with previous PCI/stent, aortic valve stenosis with previous TAVR, history of prostate CA, former tobacco smoker. Of note, patient states he has had multiple hospitalizations for abdominal complaints during the last 3 months, and was just recently hospitalized at [facility] for bowel obstruction. Preceding this hospitalization he was complaining of nausea, vomiting, abdominal pain, and black tarry BMs. While inpatient, did not receive any surgical interventions. His symptoms resolved, and states he was feeling well on discharge. Him and his live at an assisted living community, [facility]. He has been tolerating soft foods and liquids. Denies further episodes of melena, hematochezia, nausea, vomiting, or hematemesis. Endorses some right upper quadrant abdominal discomfort with palpation. Him and his noticed that he was more pale than normal. States that a nurse recommended that he come to Emergency Department to be evaluated on March 18. In the emergency department included a CAT scan of abdomen/pelvis with contrast which demonstrated new moderate to large bilateral pleural effusions and bibasilar compressive atelectasis. Multiple hypodensities within the liver and it was recommended to rule out metastatic disease. Diffuse small bowel thickening and dilated fluid-filled appendix. Most likely indicating acute inflammatory process. No obvious bowel obstructions or transition point. Small amount of free intraperitoneal fluid. General surgery was consulted for the CT findings, and I do not believe they are recommending any surgical intervention. There is a liver MRI scheduled. Pulmonary consulted for the patient's bilateral pleural effusions, that were noted on abdominal CT. No follow-up chest x-ray has yet been obtained. Chest ultrasound of the right chest demonstrating a 17.7 cm right pleural effusion which was marked for possible thoracentesis. I am seeing this patient on the general medical floor. He is on room air. Denies any shortness of breath, cough, fevers, chills, chest pain. Denies history of heart failure. States that he did recently have a valve replaced at [facility] in September,. Admits bilateral lower extremity swelling. Denies any history of known active malignancy. No previous history of pleural effusions or thoracentesis. He takes Plavix and aspirin outpatient basis. CBC from yesterday: WBC count 5.26, hemoglobin down to 7.4 g/dL, hematocrit 23.8, platelets 222. This is approximately 3 g drop in his hemoglobin. CMP is unremarkable, electrolytes WDL, creatinine 0.6, AST 59, ALT 48, ALP 651. NT proBNP was elevated 8470. Normal saline is infusing at 75 mL/h. Most recent recorded vital signs: Temperature 98.1 F, heart rate 95 bpm, blood pressure 150/63 mmHg, nontachypne ic, SpO2 was recorded at 93% on room air. The patient is seen today March 21, 2024 in follow-up on the regular medical floor. He is sitting up in bed. Awake and alert in no acute distress. Maint aining good O2 saturation in the mid 90s on room air. He is been afebrile. Hemodynamically stable. Straw-colored fluid removed. Fluid analysis was transudate with a protein of 1.6 and LDH 103. Cytology pending. Chest x-ray showed no evidence of pneumothorax. Significant improvement. Sodium 138. Potassium 3.6. Bicarb 24. BUN 6. Creatinine 0.7. Glucose 114. AST 119. ALT 99. Alk phos 892. MRI of the liver reveals multiple new small lesions throughout the liver consistent/strongly suspicious for diffuse metastatic disease. The patient is seen today March 22, 2024 in follow-up on the regular medical floor. He is awake and alert in no acute distress. Currently sitting up in bed. Maintaining O2 saturations in the 90s on room air. He is receiving iron supplement. Remains on diuretics. Protonix for GI prophylaxis. Pleural fluid culture cytology negative. Cultures pending. White count 4.8. Hemoglobin 7.5. Platelets 205. Sodium 139. Potassium 3.5. Bicarb 24. BUN 6. Creatinine 0.7. Glucose 117. AST 132. ALT 113. Alk phos 942. The patient is seen today March 23, 2024 in follow-up on the regular medical floor. He is currently resting in bed. Awake and alert in no acute distress. He is having more issues with abdominal discomfort and belching. No recent bowel movement. Plan is for EGD/colonoscopy tomorrow. He is continued on iron supplements. Continued on MiraLAX. Remains afebrile. Hemodynamically stable. Maintaining good O2 saturations in the mid 90s on room air. The patient is seen today March 24, 2024 in follow-up on the regular medical floor. He is awake and alert in no acute distress. He is maintaining good O2 saturations in the upper 90s on room air. He denies any worsening shortness of breath, cough or congestion. Afebrile. Hemodynamically stable. Currently sitting up in bed. Plan is for EGD today. Still having ongoing issues with abdominal discomfort and belching. He is currently NPO. Pleural fluid cultures revealed no growth. Negative for malignancy. White count 5.2. Hemoglobin 8.1. Platelets 195. Sodium 134. Potassium 3.4. Bicarb 27. BUN 12. Creatinine 0.7. Glucose 112. AST 128. ALT 139. Alk phos 1029. He remains on Bentyl and MiraLAX. The patient is seen today March 25, 2024 in follow-up on the regular medical floor. He is currently up ambulating in his room with a walker. Dressed to go home. He is awake and alert in no acute distress. Maintaining O2 saturations in the 90s on room air. His is at the bedside. He did undergo EGD yesterday and was found to have antral gastritis. A biopsy was performed in the antrum. Pathology pending. Pleural fluid cultures revealed no growth. Cytology was negative for malignancy. White count 6.0. Hemoglobin 8.7. Platelets 221. Sodium 139. Potassium 4.1. Bicarb 24. BUN 12. Creatinine 0.7. Glucose 126. Objective - Vital Signs Vital signs: Vital Signs Temp 98.2 F 03/25/24 07:00 Pulse 103 H 03/25/24 07:00 Resp 16 03/25/24 07:00 BP 155/64 03/25/24 07:00 Pulse Ox 93 L 03/25/24 07:00 FiO2 Intake & Output 03/24/24 03/25/24 03/25/24 18:59 06:59 18:59 Intake Total 50 118 Balance 50 118 Intake: IV 50 Oral 118 Other: Voiding Method Toilet Toilet Urinal Urinal # Voids 1 1 1 # Bowel Movements 1 - Exam GENERAL EXAM: Alert, frail, thin 88-year-old male, up ambulating with a walker, on room air, in no apparent distress. HEAD: Normocephalic and atraumatic EYES: Normal reaction of pupils, equal size. NOSE: Clear with pink turbinates. THROAT: No erythema or exudates. NECK: No masses, no JVD. CHEST: No chest wall deformity. LUNGS: Equal air entry with diminished bibasilar lung sounds. No crackles, wheeze, rhonchi or dullness. CVS: S1 and S2 normal with no audible murmur, regular rhythm. No extra heart sounds ABDOMEN: No hepatosplenomegaly, active bowel sounds, no guarding or rigidity. SPINE: No scoliosis or deformity SKIN: No rashes CENTRAL NERVOUS SYSTEM: No focal deficits, tone is normal in all 4 extremities. EXTREMITIES: There is 2+ bilateral lower extremity pitting edema. No clubbing, or cyanosis. Peripheral pulses are intact. - Labs CBC & Chem 7: 03/25/24 09:01 03/25/24 09:01 Labs: Abnormal Lab Results - Last 24 Hours (Table) 03/25/24 03/25/24 Range/Units 09: 09:01 RBC 3.41 L (4.40-5.60) X 10*6/uL Hgb 8.7 L (13.0-17.0) g/dL Hct 28.1 L (39.6-50.0) % MCH 25.5 L (27.0-32.0) pg MCHC 31.0 L (32.0-37.0) g/dL RDW 20.0 H (11.5-14.5) % Glucose 126 H (70-110) mg/dL Calcium 8.0 L (8.7-10.3) mg/dL Total Bilirubin 3.2 H (0.3-1.2) mg/dL AST 95 H (14-35) U/L ALT 121 H (10-49) U/L Alkaline Phosphatase 963 H (41-126) U/L Total Protein 5.0 L (6.2-8.2) g/dL Albumin 3.0 L (3.8-4.9) g/dL Albumin/Globulin Ratio 1.50 L (1.60-3.17) Ratio Microbiology - Last 24 Hours (Table) 03/20/24 08:45 Anaerobic Culture - Final Pleural Fluid Assessment and Plan Assessment: Bilateral pleural effusions, noted on CTA of the abdomen/pelvis, new from prior imaging. No follow chest x-ray has been obtained yet. A chest ultrasound was performed on the right side, demonstrating a 17.7 cm fluid pocket. NT proBNP elevated at 8470. Status post right sided thoracentesis on 03/20/2024 with 500 cc of straw-colored fluid removed. Transudate with the protein of 1.6, LDH 103. Cytology negative for malignancy. Culture revealed no growth Abdominal pain, CT scan of abdomen/pelvis with contrast which demonstrated moderate to large bilateral pleural effusions and bibasilar compressive atelectasis. Multiple hypodensities within the liver and it was recommended to rule out metastatic disease. Diffuse small bowel thickening and dilated fluid- filled appendix. Most likely indicating acute inflammatory process. No obvious bowel obstructions or transition point. Small amount of free intraperitoneal fluid. EGD performed yesterday 03/24/2024 which showed antral gastritis. Biopsy taken Multiple hypodensities within the liver, recommended to exclude metastatic disease Anemia. Rule out occult bleeding. Plan is for EGD today 03/24/2024 History of valvular heart disease, most recent available echocardiogram from 03/19/2023 estimating preserved left ventricular ejection fraction of 50 to 55% as well as mild mitral stenosis, moderate MR, and mild to moderate aortic stenosis. Patient reportedly underwent valve replacement at outside facility over the summer. History of coronary disease with previous PCI/stenting Hypertension History of hyperlipidemia History of prostate cancer Remote history of tobacco use Plan: The patient was seen and evaluated Medications and labs reviewed EGD results reviewed Currently stable and on room air Patient and his are adamant about going home today radiation oncology manager working on discharge planning Follow-up in our office 1 week post discharge This patient was seen independently by the pulmonary nurse practitioner addressing pulmonary issues I have personally seen and examined the patient, performed the documentation and the assessment and plan as written. Number of minutes spent on the visit: 23 Dictation was produced using AVIAation software. Please excuse any grammatical, word or spelling errors.
== END 2024-03-25 13:11 | disposition home or self-care (01) | DRG 292 ==
LOC: EC 10:53 → 6NMEDSUR 12:40 → OBSVTOIN 03-20 08:43
PROVIDERS: ADMIT Hospitalist; ATTEND Hospitalist
PROC: 0W993ZX Drainage of Right Pleural Cavity, Percutaneous Approach, Diagnostic (ICD-10-PCS; 2024-03-20)
PROC: 0DB78ZX Excision of Stomach, Pylorus, Via Natural or Artificial Opening Endoscopic, Diagnostic (ICD-10-PCS; principal; 2024-03-24 15:30)
DX: I11.0 Hypertensive heart disease with heart failure (principal); D62 Acute posthemorrhagic anemia; E44.0 Moderate protein-calorie malnutrition; J90 Pleural effusion, not elsewhere classified; E86.0 Dehydration; Z95.2 Presence of prosthetic heart valve; D50.9 Iron deficiency anemia, unspecified; K76.9 Liver disease, unspecified; J98.11 Atelectasis; I50.9 Heart failure, unspecified; K29.70 Gastritis, unspecified, without bleeding; Z68.28 Body mass index [BMI] 28.0-28.9, adult; E78.5 Hyperlipidemia, unspecified; E87.6 Hypokalemia; I25.10 Atherosclerotic heart disease of native coronary artery without angina pectoris; I35.0 Nonrheumatic aortic (valve) stenosis; I08.0 Rheumatic disorders of both mitral and aortic valves; R74.01 Elevation of levels of liver transaminase levels; G47.30 Sleep apnea, unspecified; I49.1 Atrial premature depolarization; R45.1 Restlessness and agitation; I44.7 Left bundle-branch block, unspecified; K21.9 Gastro-esophageal reflux disease without esophagitis; Z53.20 Procedure and treatment not carried out because of patient's decision for unspecified reasons; Z79.02 Long term (current) use of antithrombotics/antiplatelets; Z79.82 Long term (current) use of aspirin; Z79.899 Other long term (current) drug therapy; Z85.46 Personal history of malignant neoplasm of prostate; Z87.891 Personal history of nicotine dependence; Z95.5 Presence of coronary angioplasty implant and graft; Z28.21 Immunization not carried out because of patient refusal; Z88.1 Allergy status to other antibiotic agents; Z88.5 Allergy status to narcotic agent; Z96.651 Presence of right artificial knee joint
CPT/HCPCS: 36415; 43239; 71045; 74019; 74177; 74183; 76604; 80048; 80053; 82105; 82140; 82607; 82728; 82746; 82747; 82945; 83540; 83550; 83615; 83690; 83735; 83880; 83921; 84153; 84155; 84157; 85025; 85027; 85045; 86850; 86900; 86901; 87070; 87075; 87205; 88108; 88305; 89050; 93005; 93306; 96360; 96361; 99285